=== PATIENT | male | born 1935 | race Caucasian/White ===

== ENCOUNTER 2016-07-04 01:35 | Observation (INO) | payer OTHER ==
--- NOTE | 2016-07-04 01:44 | PDOC ---
History of Present Illness - General History Source: Patient Exam Limitations: No Limitations - History of Present Illness Initial Comments: 07/04/16 02:05 The patient is a 80-year-old male with a significant past medical history of CAD , MS, hypertension, hypercholesterolemia and two stents (compliant with medications), and presents to the emergency department with shortness of breath and chest pain for the past 3 hours. The patient states he was at rest when the shortness of breath started. He reports having had many previous episodes of shortness of breath. He reports right-sided chest pain. He describes the chest pain as stabbing in nature, without radiation. The patient denies headache, dizziness, back pain, neck pain, or palpitations. The patient denies fever, chills, nausea, vomit, diarrhea. Allergies: No known drug allergies Past surgical history: Cardiac surgery (stents) Social History: Former smoker (stopped several years ago) PCP: Dr. Jhonny Burris <Amy Mcclendon - Last Filed: 07/04/16 02:06> - General History Source: Patient <Nikolai Humphrey - Last Filed: 07/04/16 02:53> - General Stated Complaint: SOB Time Seen by Provider: 07/04/16 01:44 Past History <Amy Mcclendon - Last Filed: 07/04/16 02:06> - Past Medical History Cardiac Disorders: Yes (CAD) HTN: Yes Hypercholesterolemia: Yes - Surgical History Cardiac Surgery: Yes (stents) - Psycho/Social/Smoking Cessation Hx Anxiety: No Suicidal Ideation: No Smoking Status: No Smoking History: Never smoked Have you smoked in the past 12 months: No Number of Cigarettes Smoked Daily: 0 Hx Alcohol Use: No Drug/Substance Use Hx: No Substance Use Type: None Hx Substance Use Treatment: No <Nikolai Humphrey - Last Filed: 07/04/16 02:53> - Past Medical History Allergies/Adverse Reactions: Allergies Allergy/AdvReac Type Severity Reaction Status Date / Time No Known Allergies Allergy Verified 07/04/16 02:00 Home Medications: Ambulatory Orders Amlodipine Besylate 5 mg PO BID 02/26/16 Atorvastatin Ca [Lipitor] 40 mg PO HS 02/26/16 Irbesartan 300 mg PO DAILY 02/26/16 Metoprolol Tartrate 50 mg PO DAILY 02/26/16 Review of Systems - Review of Systems Able to Perform ROS?: Yes Comments:: 07/04/16 02:06 CONSTITUTIONAL: Absent: fever, chills, diaphoresis, generalized weakness, malaise, loss of appetite HEENT: Absent: rhinorrhea, nasal congestion, throat pain, throat swelling, difficulty swallowing, mouth swelling, ear pain, eye pain, visual Changes CARDIOVASCULAR: Present: (+) chest pain Absent: syncope, palpitations, irregular heart rate, lightheadedness, peripheral edema RESPIRATORY: Present: (+) shortness of breath Absent: cough, dyspnea with exertion, orthopnea, wheezing, stridor, hemoptysis GASTROINTESTINAL: Absent: abdominal pain, abdominal distension, nausea, vomiting, diarrhea, constipation, melena, hematochezia GENITOURINARY: Absent: dysuria, frequency, urgency, hesitancy, hematuria, flank pain, genital pain MUSCULOSKELETAL: Absent: myalgia, arthralgia, joint swelling SKIN: Absent: rash, itching, pallor HEMATOLOGIC/IMMUNOLOGIC: Absent: easy bleeding, easy bruising, lymphadenopathy, frequent infections ENDOCRINE: Absent: unexplained weight gain, unexplained weight loss, heat intolerance, cold intolerance NEUROLOGIC: Absent: headache, focal weakness or paresthesias, dizziness, unsteady gait, seizure, mental status changes, bladder or bowel incontinence PSYCHIATRIC: Absent: anxiety, depression, suicidal or homicidal ideation, hallucinations. <Amy Mcclendon - Last Filed: 07/04/16 02:06> *Physical Exam - Vital Signs Last Vital Signs Temp Pulse Resp BP Pulse Ox 97.9 F 59 L 18 158/73 99 07/04/16 01:47 07/04/16 01:47 07/04/16 01:47 07/04/16 01:47 07/04/16 01:47 - Physical Exam Comments: 07/04/16 02:06 GENERAL: Well developed, well nourished. Awake and alert. Patient appears to be in moderate distress. HEENT: Normocephalic, atraumatic. PERRLA, EOMI. No conjunctival pallor. Sclera are non- icteric. Moist mucous membranes. Oropharynx is clear. NECK: Supple. Full ROM. No JVD. Carotid pulses 2+ and symmetric, without bruits. No thyromegaly. No lymphadenopathy. CARDIOVASCULAR: Regular rate and rhythm. No murmurs, rubs, or gallops. Distal pulses are 2+ and symmetric. PULMONARY: No evidence of respiratory distress. Lungs clear to auscultation bilaterally. No wheezing, rales or rhonchi. ABDOMINAL: Soft. Non-tender. Non-distended. No rebound or guarding. No organomegaly. Normoactive bowel sounds. MUSCULOSKELETAL Normal range of motion at all joints. No bony deformities or tenderness. No CVA tenderness. EXTREMITIES: No cyanosis. No clubbing. No edema. No calf tenderness. SKIN: (+) Pale in appearance. Warm and dry. Normal capillary refill. No rashes. No jaundice. NEUROLOGICAL: Alert, awake, appropriate. Cranial nerves 2-12 intact. No deficits to light touch and temperature in face, upper extremities and lower extremities. No motor deficits in the in face, upper extremities and lower extremities. Normoreflexic in the upper and lower extremities. Normal speech. Toes are down-going bilaterally. Gait is normal without ataxia. PSYCHIATRIC: Cooperative. Good eye contact. Appropriate mood and affect. <Amy Mcclendon - Last Filed: 07/04/16 02:06> Heart Score/ECG Review - History History: Highly suspicious - Electrocardiogram EKG: Non specific repolarization disturbance - Age Age: >/= 65 - Risk Factors Risk Factors Heart Score: Yes Hx Hypercholesterolemia, Yes Smoking History Based on the list above the patient has:: >/=3 risk factors or Hx atherosclerotic disease - Troponin Troponin: </= normal limit - Score Heart Score - Total: 7 <Nikolai Humphrey - Last Filed: 07/04/16 02:53> ED Treatment Course - LABORATORY CBC & Chemistry Diagram: 07/04/16 02:01 07/04/16 02:01 <Amy Mcclendon - Last Filed: 07/04/16 02:06> - LABORATORY CBC & Chemistry Diagram: 07/04/16 02:01 07/04/16 02:01 <Nikolai Humphrey - Last Filed: 07/04/16 02:53> Medical Decision Making - Medical Decision Making 07/04/16 02:37 Dr. Humphrey: The scribe's documentation has been prepared under my direction and personally reviewed by me in its entirery. I confirm that the note above accurately reflects all work, treatment, procedures, and medical decision making performed by me. <Nikolai Humphrey - Last Filed: 07/04/16 02:53> *DC/Admit/Observation/Transfer - Attestations Scribe Attestion: 07/04/16 02:07 Documentation prepared by Amy Mcclendon, acting as medical center representative for Nikolai Humphrey DO. <Amy Mcclendon - Last Filed: 07/04/16 02:06> - Discharge Dispostion Admit: Yes <Nikolai Humphrey - Last Filed: 07/04/16 02:53> Diagnosis at time of Disposition: Chest pain Qualifiers: Chest pain type: precordial chest pain Qualified Code(s): R07.2 - Precordial pain - Discharge Dispostion Condition at time of disposition: Stable - Referrals Referrals: Jhonny Burris MD [Primary Care Provider] -
[2016-07-04] MEDS ORDERED: ASPIRIN 81 MG CHEWABLE TABLETS PO ONE (01:50)
[2016-07-04] MEDS ORDERED: NITROGLYCERIN 2% OINTMENT - 1GM PACKET TD ONE (01:51)
[2016-07-04] MEDS ORDERED: ASPIRIN 325 MG ENTERIC COATED TABLET (FP) ONE (02:05)
[2016-07-04 02:08] LABS: BASOPHIL 0.8 % (0-2.0); EOSINOPHIL 3.2 % (0-4.5); MCH 28.9 pg (25.7-33.7); MCHC 33.2 g/dl (32.0-35.9); MEAN CELL VOLUME 87.2 fl (80-96); MEAN PLT VOLUME 9.8 fl (7.5-11.1); NEUTROPHILS 51.3 % (42.8-82.8); PLATELET COUNT 126 K/MM3 (134-434); RDW 14.5 % (11.9-15.9); WHITE BLOOD COUNT 8.4 K/mm3 (4.0-10.0)
[2016-07-04 02:11] VITALS: TEMP 97.9; BMI 24.3
[2016-07-04 02:21] LABS: INR 1.17 (0.82-1.09); PROTHROMBIN TIME (PATIENT) 12.9 SEC (9.98-11.88)
[2016-07-04] MEDS ORDERED: morphine CARPU-JECT 2 MG/1 ML DISP.SYRIN IVPUSH ONE (02:26)
[2016-07-04] MEDS ORDERED: ONDANSETRON 4 MG/2 ML VIAL IVPUSH STA (02:26)
[2016-07-04] MEDS ORDERED: ONDANSETRON 4 MG/2 ML VIAL ONE (02:27)
[2016-07-04] MEDS ORDERED: morphine CARPU-JECT 2 MG/1 ML DISP.SYRIN ONE (02:27)
[2016-07-04 02:30] LABS: ALBUMIN 3.7 g/dl (3.4-5.0); ANION GAP 10 (8-16); BILIRUBIN,TOTAL 0.6 mg/dL (0.2-1.0); CALCIUM 8.1 mg/dL (8.5-10.1); CO2 27 mmol/L (21-32); CREATININE 0.8 mg/dL (0.7-1.3); GLUCOSE,RANDOM 91 mg/dL (74-106); SGOT/AST 16 U/L (15-37); SGPT/ALT 24 U/L (12-78); TOT PROT 7.1 g/dl (6.4-8.2)
[2016-07-04 02:32] LABS: ALK PHOS 69 U/L (45-117); TROPONIN I < 0.02 ng/ml (0.00-0.05)
--- NOTE | 2016-07-04 02:58 | HP ---
[id number] HISTORY OF PRESENT ILLNESS: Patient is a 80 year old male with significant past medical history of CAD s/p two stents, AL, HTN, BPH, HLD who presents to the ED with SOB and chest pain for 3 hours tonight. Patient notes that the SOB was what made him present to the ED. He notes that his SOB is worse with exertion and O2 in ED made it better. He reports atypical chest pain was secondary to his SOB it was pinching in nature localized to the right side nonradiating. The patient denies headache, dizziness, back pain, neck pain, or palpitations. The patient denies fever, chills, nausea, vomit, diarrhea. Design Leader - Dr. Frausto ER course was notable for: (1) Troponin negative (2) ECG 1st degree AV block sinus emily Recent Travel: None PAST MEDICAL HISTORY: CAD s/p two stents, AL, HTN, BPH, HLD PAST SURGICAL HISTORY: None Social History: Smoking: former smoker quit 40 years ago Alcohol: no Drugs: no Family History: not contributory Allergies No Known Allergies Allergy (Verified 07/04/16 02:00) HOME MEDICATIONS: Medication Instructions Recorded Amlodipine Besylate 5 mg PO BID 02/26/16 Atorvastatin Ca [Lipitor] 40 mg PO HS 02/26/16 Irbesartan 300 mg PO DAILY 02/26/16 Metoprolol Tartrate 50 mg PO DAILY 02/26/16 REVIEW OF SYSTEMS CONSTITUTIONAL: Absent: fever, chills, diaphoresis, generalized weakness, malaise, loss of appetite, weight change HEENT: Absent: rhinorrhea, nasal congestion, throat pain, throat swelling, difficulty swallowing, mouth swelling, ear pain, eye pain, visual changes CARDIOVASCULAR: Present: chest pain Absent: syncope, palpitations, irregular heart rate, lightheadedness, peripheral edema RESPIRATORY: Present: SOB Absent: cough, dyspnea with exertion, orthopnea, wheezing, stridor, hemoptysis GASTROINTESTINAL: Absent: abdominal pain, abdominal distension, nausea, vomiting, diarrhea, constipation, melena, hematochezia GENITOURINARY: Absent: dysuria, frequency, urgency, hesitancy, hematuria, flank pain, genital pain MUSCULOSKELETAL: Absent: myalgia, arthralgia, joint swelling, back pain, neck pain SKIN: Absent: rash, itching, pallor HEMATOLOGIC/IMMUNOLOGIC: Absent: easy bleeding, easy bruising, lymphadenopathy, frequent infections ENDOCRINE: Absent: unexplained weight gain, unexplained weight loss, heat intolerance, cold intolerance NEUROLOGIC: Absent: headache, focal weakness or paresthesias, dizziness, unsteady gait, seizure, mental status changes, bladder or bowel incontinence PSYCHIATRIC: Absent: anxiety, depression, suicidal or homicidal ideation, hallucinations. PHYSICAL EXAMINATION Vital Signs - 24 hr 07/04/16 07/04/16 01:47 02:54 Temperature 97.9 F Pulse Rate 59 L Pulse Rate [ 54 L Apical] Respiratory 18 9 L Rate Blood Pressure 158/73 Blood Pressure 143/80 [Right Arm] O2 Sat by Pulse 99 98 Oximetry (%) GENERAL: Awake, alert, and fully oriented, in no acute distress. HEAD: Normal with no signs of trauma. EYES: Pupils equal, round and reactive to light, extraocular movements intact, sclera anicteric, conjunctiva clear. No lid lag. EARS, NOSE, THROAT: Ears normal, nares patent, oropharynx clear without exudates. Moist mucous membranes. NECK: Normal range of motion, supple without lymphadenopathy, JVD, or masses. LUNGS: Breath sounds equal, clear to auscultation bilaterally. No wheezes, and no crackles. No accessory muscle use. HEART: Regular rate and rhythm, normal S1 and S2 without murmur, rub or gallop. ABDOMEN: Soft, nontender, not distended, normoactive bowel sounds, no guarding, no rebound, no masses. No hepatomegaly or splenomegaly. MUSCULOSKELETAL: Normal range of motion at all joints. No bony deformities or tenderness. No CVA tenderness. UPPER EXTREMITIES: 2+ pulses, warm, well-perfused. No cyanosis. No clubbing. Cap refill <2 seconds. No peripheral edema. LOWER EXTREMITIES: 2+ pulses, warm, well-perfused. No calf tenderness. No peripheral edema. NEUROLOGICAL: Cranial nerves II-XII intact. Normal speech. Normal gait. PSYCHIATRIC: Cooperative. Good eye contact. Appropriate mood and affect. SKIN: Warm, dry, normal turgor, no rashes or lesions noted. Laboratory Results - last 24 hr 07/04/16 07/04/16 07/04/16 02:01 02:01 02:01 WBC 8.4 RBC 5.01 Hgb 14.5 Hct 43.6 MCV 87.2 MCHC 33.2 RDW 14.5 Plt Count 126 L D MPV 9.8 Neutrophils % 51.3 Lymphocytes % 37.0 Monocytes % 7.7 Eosinophils % 3.2 Basophils % 0.8 INR 1.17 H Sodium 139 Potassium 3.3 L Chloride 102 Carbon Dioxide 27 Anion Gap 10 BUN 17 Creatinine 0.8 Creat Clearance w eGFR > 60 Random Glucose 91 Calcium 8.1 L Magnesium 2.0 Total Bilirubin 0.6 D AST 16 ALT 24 Alkaline Phosphatase 69 Creatine Kinase 84 Troponin I < 0.02 B-Natriuretic Peptide 255.45 Total Protein 7.1 Albumin 3.7 IMAGING: CXR - no acute pathology ASSESSMENT/PLAN: Patient is a 80 year old male with significant medical history CAD s/p stents x2 (20 years ago), BPH, HTN, prior AL, HLD who presents with chest pain and SOB. 1.) Atypical chest pain - O2 2L NC - Continue Aspirin - Beta luis alfredo stopped due to prior episodes of bradycardia - Statin - Nitro/morphine PRN for chest pain - Heart score 5 - Design Leader consult - Echo in the AM - Trend troponin/ECG 2.) SOB - Wells score 0 3.) Hypertension - Amlodipine - Continue ARB 4.) HLD - Continue with Lipitor 5.) Hypokalemia - Replete 6.) CAD - Continue dieter inhibitor 7.) Thrombocytopenia - Mild trend 8.) DVT ppx - Low risk ambulate Place on Obs-Tele. Documentation prepared by Alexa Oates, acting as certified ophthalmic medical technician for Chris Shin D.O. <Chris Shin - Last Filed: 07/04/16 06:54> Visit type - Emergency Visit Emergency Visit: Yes ED Registration Date: 07/04/16 Care time: The patient presented to the Emergency Department on the above date and was hospitalized for further evaluation of their emergent condition. - New Patient This patient is new to me today: Yes Date on this admission: 07/04/16 - Critical Care Critical Care patient: No
--- NOTE | 2016-07-04 09:55 | EKG ---
Test Reason : Blood Pressure : / mmHG Vent. Rate : 056 BPM Atrial Rate : 056 BPM P-R Int : 216 ms QRS Dur : 086 ms QT Int : 472 ms P-R-T Axes : 002 -22 000 degrees QTc Int : 455 ms SINUS BRADYCARDIA WITH 1ST DEGREE A-V BLOCK OTHERWISE NORMAL ECG WHEN COMPARED WITH ECG OF 26-FEB-2016 02:43, NO SIGNIFICANT CHANGE WAS FOUND Confirmed by LAURYN BLANCHARD, CECI ([id number]) on 07/04/2016 9:55:21 AM Referred By: Overread By: CECI COMBS MD
[2016-07-04] MEDS ORDERED: METOPROLOL TARTRATE 50 MG TABLET (FP) PO SCH (10:00)
[2016-07-04] MEDS ORDERED: HEPARIN NA (PORCINE) 5,000 UNITS/ML 1ML VIAL SQ SCH (10:00)
[2016-07-04] MEDS ORDERED: LOSARTAN POTASSIUM 50 MG TABLET (FP) PO SCH (10:00)
[2016-07-04] MEDS ORDERED: amLODIPine BESYLATE 5 MG TABLET (FP) PO SCH ×2 (10:00)
[2016-07-04] MEDS ORDERED: HEPARIN NA (PORCINE) 5,000 UNITS/ML 1ML VIAL ONE (10:12)
[2016-07-04] MEDS ORDERED: amLODIPine BESYLATE 5 MG TABLET (FP) ONE (10:12)
[2016-07-04] MEDS ORDERED: LOSARTAN POTASSIUM 25 MG TABLET ONE (10:12)
[2016-07-04 10:37] LABS: INR 1.18 (0.82-1.09)
[2016-07-04 10:39] LABS: ACTIVATED PTT 29.1 SECONDS (26.9-34.4)
[2016-07-04 10:58] LABS: TROPONIN I < 0.02 ng/ml (0.00-0.05)
--- NOTE | 2016-07-04 12:54 | PN ---
Progress Note (short form) - Note Progress Note: Chief Complaint: Events noted notes reviewed, progressive weakness, increasing dyspnea History of Present Illness: Seen and examined in the ER as a telemetry hold. Full consult dictated Medications: Current Medications Amlodipine Besylate (Norvasc -) 5 mg PO DAILY [facility] Last Admin: 07/04/16 10:14 Dose: 5 mg Atorvastatin Calcium (Lipitor -) 40 mg PO [facility] Heparin Sodium (Porcine) (Heparin -) 5,000 unit SQ Q8H-IV [facility] Last Admin: 07/04/16 10:13 Dose: 5,000 unit Losartan Potassium (Cozaar -) 100 mg PO DAILY [facility] Last Admin: 07/04/16 10:13 Dose: 100 mg Review of Systems - Review of Systems Constitutional: No symptoms reported Respiratory: denies: Cough or Sputum Production Cardiovascular: As noted above Gastrointestinal: denies Nausea, Vomiting, Diarrhea, Constipation or Abdominal Pain Genitourinary: No symptoms reported Musculoskeletal: Degenerative Joint Disease Endocrine: No symptoms reported Vital Signs: Last Vital Signs Temp Pulse Resp BP Pulse Ox 97.9 F 58 L 18 163/80 98 07/04/16 01:47 07/04/16 10:03 07/04/16 10:03 07/04/16 10:03 07/04/16 10:03 Constitutional: No Distress Neck: Supple Negative JVD No Bruit Respiratory: Clear to A&P Bilaterally Cardiovascular: S1 S2 Regular Garde 1/6 SLIM Gastrointestinal: Soft Benign Normal Bowel Sounds Ext: Negative Edema Labs: CBC, BMP 07/04/16 02:01 07/04/16 02:01 Troponin, BNP 07/04/16 07/04/16 02:01 10:10 Troponin I < 0.02 < 0.02 B-Natriuretic Peptide 255.45 INR, PTT INR 1.18 (0.82-1.09) H 07/04/16 10:10 Assessment/Plan ASSESSMENT: 1. Dyspnea clinical presentation is consistent with CAD post PCI/stent, angina pectoris equivalent 2. Chronic diastolic LV dysfunction with class I NYHA classification LV failure , compensated 3. HTN 4. Hypercholesterolemia 5. Thrombocytopenia 6. Hypokalemia PLAN: 1. Resume Toprol XL with caution, considering the above noted bradycardia 2. Add Ranexa +/- Imdur 3. Continue ARBS, Cozaar 4. Continue Norvasc 5. Continue Lipitor 6. Add ASA +/- Plavix with caution considering the above noted Thrombocytopenia 7. K supplementation 8. Echocardiography to evaluate LV function and size 9. Ideally MPI study is recommended for further evaluation, but currently patient is declining the test Phoebe Price M.D.
[2016-07-04] MEDS ORDERED: METOPROLOL SUCCINATE 50 MG TAB.SR.24H (FP) PO SCH (13:00)
[2016-07-04] MEDS ORDERED: RANOLAZINE E.R. 500 MG TABLET (FP) PO SCH (13:00)
[2016-07-04] MEDS ORDERED: ASPIRIN COATED 81 MG TABLET.EC PO SCH (13:00)
--- NOTE | 2016-07-04 14:23 | PN ---
Teaching Attending Note Name of Resident: Nolvia Rodriguez ATTENDING PHYSICIAN STATEMENT I saw and evaluated the patient. I reviewed the resident's note and discussed the case with the resident. I agree with the resident's findings and plan as documented. SUBJECTIVE: seen and evaluated at the bedside OBJECTIVE: currently resting comfortably, laughing and joking ASSESSMENT AND PLAN: 80 year old male with significant past medical history of CAD s/p two stents, IA , HTN, BPH, HLD admitted for SOB/chest pain -trop negative x2 -no ischemia on EKG -agree with cardio consult that given pt's history of stent 20+ years ago would benefit from viability study with nuclear stress test -pt respectfully declining stress test at this time -will contact private medication technician and get his opinion on whether pt should stay for stress or should be discharged for outpatient stress at his office
[2016-07-04] MEDS ORDERED: METOPROLOL SUCCINATE 50 MG TAB.SR.24H (FP) ONE (14:27)
[2016-07-04] MEDS ORDERED: ASPIRIN 81 MG CHEWABLE TABLETS ONE (14:27)
[2016-07-04 14:31] VITALS: BP 142/81; PULSE 60
--- NOTE | 2016-07-04 14:47 | CONS ---
DATE OF CONSULTATION: 07/04/2016 REQUESTING PHYSICIAN: Hospitalist. CHIEF COMPLAINT: Dyspnea, cardiovascular evaluation. HISTORY OF PRESENT ILLNESS: An 80-year-old male of descent with known history of coronary artery disease status post percutaneous coronary intervention stenting, angina pectoris, probable diastolic left ventricular dysfunction, hypertensive cardiovascular disease, hypercholesterolemia, who denied diabetes mellitus, tobacco abuse, or family history of premature coronary artery disease, who presented to [facility] with progressive dyspnea which has been noted over the last several days. Dyspnea is predominantly noted at rest and not exacerbated by physical exertion. Patient denied any orthopnea or paroxysmal nocturnal dyspnea. Patient denied any peripheral edema. Patient, in addition, has been reporting vague retrosternal chest discomfort described as heaviness which is transitory, noted at rest and not exacerbated by physical exertion. Patient denied any palpitations, dizziness, lightheadedness, or syncope. PAST MEDICAL HISTORY: Coronary artery disease status post percutaneous coronary intervention/stenting, angina pectoris, hypertensive cardiovascular disease, hypercholesterolemia. PAST SURGICAL HISTORY: None. SOCIAL HISTORY: Nonsmoker. Social drinker. FAMILY HISTORY: No history of premature coronary artery disease. ALLERGIES: None reported. MEDICAL THERAPY AT HOME: Included amlodipine 5 mg twice a day, Avapro 300 mg once a day, Lipitor 40 mg once a day, Toprol-XL 50 mg once a day. REVIEW OF SYSTEMS: Head and Neck: Denies headache, photophobia, blurring of vision. Respiratory: No cough or sputum production. Cardiovascular: As noted above. Gastrointestinal: Denies nausea, vomiting, diarrhea, abdominal discomfort. Genitourinary: No symptoms reported. Musculoskeletal: No symptoms reported. PHYSICAL EXAMINATION: Vital Signs: Blood pressure is 163/80 mmHg, pulse rate is 58 beats per minute. Head and Neck: Pupils equal and reactive to light and accommodation. Extraocular muscles are intact. Anicteric sclerae. Negative JVD. No bruit appreciated. Chest: Clear to auscultation and percussion. Cardiovascular: S1 and S2 regular. No murmur, clicks, or gallops. Abdomen: Soft, benign. Normoactive bowel sounds. Extremities: Negative edema. Intact distal pulses. No calf tenderness. Electrocardiogram revealed sinus bradycardia with nonspecific T-wave abnormality. CBC revealed white cell count of 8.4, hemoglobin 14.5, platelet count 126. Basic metabolic profile revealed sodium 139, potassium 3.3, BUN 17, creatinine 0.8, glucose 91. CPK/troponin less than 0.02. BNP 255. INR 1.18. ASSESSMENT: 1. Dyspnea. Clinical presentation consistent with coronary artery disease post percutaneous coronary intervention and stenting, angina pectoris equivalent. 2. Probable chronic diastolic left ventricular dysfunction with class I [employer] classification, left ventricular failure, compensated. 3. Hypertensive cardiovascular disease. 4. Hypercholesterolemia. 5. Thrombocytopenia. 6. Hypokalemia. PLAN: 1. Resumption of Toprol-XL therapy with caution considering the above-noted bradycardia. 2. Addition of Ranexa therapy plus/minus nitrates. 3. Continuation of angiotensin receptor block therapy. 4. Continuation of Norvasc therapy. 5. Continuation of Lipitor therapy. 6. Addition of aspirin plus/minus Plavix with caution considering the above-noted thrombocytopenia. 7. Potassium supplementation. 8. Echocardiography for evaluation of left ventricular size and function. 9. Ideally, myocardial perfusion imaging study is recommended for further evaluation, but patient currently is declining the test. Discussed in detail with the patient and his . Thanks for the kind referral. POLLY PABLO M.D. [id number]
[2016-07-04] MEDS ORDERED: POTASSIUM CHLORIDE 40 MEQ/30 ML UNIT DOSE CUP PO STA (15:43)
[2016-07-04] MEDS ORDERED: POTASSIUM CHLORIDE TABS 20 MEQ TABLET.ER (FP) PO ONE ×2 (15:55→16:04)
--- NOTE | 2016-07-04 16:01 | DS ---
Physical Exam: SUBJECTIVE: Patient seen and examined at bed side. patient sitting confrotably reports breathing improved with oxygen. patient reports he is a very anxious person and had the right sided chest pain that felt like a pinch for two seconds and resolved. he reports Sob associated with the pain. currently patietn is symptoms free. denies sob, cp, chest pressure, palpitations, fevers, chills, n/v/d. no other complaints OBJECTIVE: Vital Signs Period Temp Pulse Resp BP Sys/[place] Pulse Ox Last 24 Hr 52-60 12-18 135-163/80-88 97-98 PHYSICAL EXAM GENERAL: The patient is awake, alert, and fully oriented, in no acute distress. HEAD: Normal with no signs of trauma. EYES: PERRL, extraocular movements intact, sclera anicteric, conjunctiva clear. ENT: Ears normal, nares patent, oropharynx clear without exudates, moist mucous membranes. NECK: Trachea midline, full range of motion, supple. LUNGS: Breath sounds equal, clear to auscultation bilaterally, no wheezes, no crackles, no accessory muscle use. HEART: Regular rate and rhythm, S1, S2 without murmur, rub or gallop. no reproducible pain. ABDOMEN: Soft, nontender, nondistended, normoactive bowel sounds, no guarding, no rebound, no hepatosplenomegaly, no masses. EXTREMITIES: 2+ pulses, warm, well-perfused, no edema. NEUROLOGICAL: Cranial nerves II through XII grossly intact. Normal speech, gait not observed. PSYCH: Normal mood, normal affect. SKIN: Warm, dry, normal turgor, no rashes or lesions noted. LABS Laboratory Results - last 24 hr 07/04/16 07/04/16 07/04/16 10:10 10:10 10:10 INR 1.18 H PTT (Actin FS) 29.1 Magnesium 2.1 Creatine Kinase 71 Troponin I < 0.02 Echocardiography to evaluate LV function and size HOSPITAL COURSE: Date of Admission:07/04/16 Date of Discharge: 07/04/16 Patient is a 80 year old male with significant past medical history of CAD s/p two stents, [place], HTN, BPH, HLD who presents to the ED with SOB and chest pain for 3 hours tonight. Patient notes that the SOB was what made him present to the ED. He notes that his SOB is worse with exertion and O2 in ED made it better. He reports atypical chest pain was secondary to his SOB it was pinching in nature localized to the right side nonradiating. The patient denies headache, dizziness, back pain, neck pain, or palpitations. The patient denies fever, chills, nausea, vomit, diarrhea. personal Leather Tooler - Dr. Knox. Found to have Dyspnea clinical presentation is consistent with CAD post PCI/stent, angina pectoris equivalent, Chronic diastolic LV dysfunction with class I NYHA classification LV failure, compensated, HTN, Hypercholesterolemia, Thrombocytopenia, Hypokalemia (1) Troponin negative x2, (2) ECG 1st degree AV block sinus emily. Resumed Toprol XL with caution, considering the above noted bradycardia,Ranexa , ARBS, Cozaar , ASA,K supplementation,Norvasc , Lipitor cardio consult that given pt's history of stent 20+ years ago would benefit from viability study with nuclear stress test. Ideally MPI study is recommended for further evaluation, but currently patient is declining the test.discussed his case with his pet adoption counselor Dr. Knox, he agreed with patient to do stress test in [facility] near future as out patient if patient refused stress test now. I wrote a script for patient for a stress test and contacted the scheduling office to perform a stress test at [facility]. the [facility] office will contact loidaetn tomorrow with an oppointment. I also instructed patient to call the office to make an obtainment as well. i instructed the patient to fax [facility] results to Dr. Knox's office to follow up with him. I also wrote on the script to forward report to Dr. knox's office. patient D/c home clinically stable no current chest pain, pressure, n/v/d/c, fevers, chills, he felt like his base line stat of health. Minutes to complete discharge: 45 Discharge Summary Reason For Visit: CHEST PAIN Condition: Stable - Instructions Diet, Activity, Other Instructions: You are being discharged home. Please call and follow up with your primary care provider in 48 hrs to assess your health. Please call and follow up with your Leather Tooler DR. Knox in 48 hrs. Please take over the counter Aspirin 81mg by daily. Resume Toprol XL with caution, considering the low heart rate, Stop taking it if your Heart rate is lower than 50 beats per minute. Take your new medication Ranexa as prescribed. I gave you a prescription for a stress test please call and make an appointment. Please take your stress results to Dr. Knox at his office. Please reports to the ER or the nearest ER if you have any persistent and worsening symptoms, chest pain, palpitation, fevers, chills, night sweats, Nausea, Vomiting, severe headache dizziness or loss of consciousness. Referrals: Jhonny Burris MD [Primary Care Provider] - 1 Week Jd Knox MD [Non Staff, Medical] - 07/06/16 Disposition: HOME - Home Medications Comprehensive Discharge Medication List: Ambulatory Orders Atorvastatin Ca [Lipitor] 40 mg PO HS 02/26/16 Irbesartan 300 mg PO DAILY 02/26/16 Metoprolol Tartrate 50 mg PO DAILY 02/26/16 Aspirin Coated [Ecotrin -] 81 mg PO DAILY #0 tablet.ec 07/04/16 Persantine Nuclear 1 each NR ASDIR #1 07/04/16 Ranolazine [Ranexa -] 500 mg PO BID #60 tab 07/04/16 This patient is new to me today: Yes Date on this admission: 07/04/16 Emergency Visit: Yes ED Registration Date: 07/04/16 Care time: The patient presented to the Emergency Department on the above date and was hospitalized for further evaluation of their emergent condition. Critical Care patient: No - Discharge Referral Referred to [facility] Med P.C.: No
[2016-07-04] MEDS ORDERED: POTASSIUM CHLORIDE TABS 10 MEQ TABLET.ER (FP) ONE (16:06)
[2016-07-04] MEDS ORDERED: ATORVASTATIN CA 40 MG TABLET (FP) PO SCH (22:00)
== END 2016-07-04 16:00 | disposition home or self-care (01) ==
LOC: JER 01:35 → JERBED 03:27
PROVIDERS: ADMIT Internal Medicine; ATTEND Internal Medicine
DX: R07.89 Other chest pain (principal); I25.119 Atherosclerotic heart disease of native coronary artery with unspecified angina pectoris; Z98.61 Coronary angioplasty status; I10 Essential (primary) hypertension; D69.6 Thrombocytopenia, unspecified; E87.6 Hypokalemia; E78.5 Hyperlipidemia, unspecified; N40.0 Benign prostatic hyperplasia without lower urinary tract symptoms; I25.2 Old myocardial infarction; R06.02 Shortness of breath
CPT/HCPCS: 36415; 71010-TC; 80053; 82550; 83735; 83880; 84484; 85025; 85610; 85730; 93005; 93010; 93306-TC; 99285-25; G0378; J1644

== ENCOUNTER 2016-07-12 23:45 | Emergency (ER) | payer OTHER ==
[2016-07-13 00:20] VITALS: BP 166/73; PULSE 52; BMI 28.0
--- NOTE | 2016-07-13 00:22 | PDOC ---
History of Present Illness - General History Source: Patient Exam Limitations: No Limitations <Rehana Mukherjee - Last Filed: 07/13/16 01:08> - General History Source: Patient <Nikolai Humphrey - Last Filed: 07/13/16 01:29> - General Chief Complaint: Chest Pain Stated Complaint: CHEST PAIN Time Seen by Provider: 07/13/16 00:18 - History of Present Illness Initial Comments: 07/13/16 00:44 The patient is a 80 year old male with significant past medical history of CAD, s/p stents x2, [place], hypertension, hyperlipidemia, and BPH who presents to the ED with midsternal chest that began earlier today. Patient was seen in the ER about 1 week ago for similar complaint, where he was treated and discharge. Patient states about noon yesterday he had a nuclear stress test to r/o any cardiac events. During the stress test, he was fine and was able to complete the test with no difficulties. However, after going home, he developed developed midsternal chest pain radiating to left side of jaw with associated SOB and dizziness. At time of evaluation, he denies chest pain, SOB, and dizziness. Patient also denies diaphoresis, shoulder pain, arm pain, nausea, and vomiting. The patient denies fever, chills, cough, abdominal pain, and diarrhea. Allergies: NKDA Social History: former smoker quit 40 years ago Past Surgical History: s/p cardiac stents x2 PCP: Dr. Jhonny Burris ([facility]) Past History <Rehana Mukherjee - Last Filed: 07/13/16 01:08> - Past Medical History Cardiac Disorders: Yes (CAD) HTN: Yes Hypercholesterolemia: Yes - Surgical History Cardiac Surgery: Yes (stents) - Psycho/Social/Smoking Cessation Hx Anxiety: No Suicidal Ideation: No Smoking Status: No Smoking History: Never smoked Have you smoked in the past 12 months: No Number of Cigarettes Smoked Daily: 0 Information on smoking cessation initiated: No Hx Alcohol Use: No Drug/Substance Use Hx: No Substance Use Type: None Hx Substance Use Treatment: No <Nikolai Humphrey - Last Filed: 07/13/16 01:29> - Past Medical History Allergies/Adverse Reactions: Allergies Allergy/AdvReac Type Severity Reaction Status Date / Time No Known Allergies Allergy Verified 07/04/16 02:00 Home Medications: Ambulatory Orders Atorvastatin Ca [Lipitor] 40 mg PO HS 02/26/16 Irbesartan 300 mg PO DAILY 02/26/16 Metoprolol Tartrate 50 mg PO DAILY 02/26/16 Aspirin Coated [Ecotrin -] 81 mg PO DAILY #0 tablet.ec 07/04/16 Persantine Nuclear 1 each NR ASDIR #1 07/04/16 Ranolazine [Ranexa -] 500 mg PO BID #60 tab 07/04/16 Review of Systems - Review of Systems Able to Perform ROS?: Yes <Rehana Mukherjee - Last Filed: 07/13/16 01:08> <Nikolai Humphrey - Last Filed: 07/13/16 01:29> - Review of Systems Comments:: 07/13/16 00:44 CONSTITUTIONAL: Absent: fever, chills, diaphoresis, generalized weakness, malaise, loss of appetite HEENT: Absent: rhinorrhea, nasal congestion, throat pain, throat swelling, difficulty swallowing, mouth swelling, ear pain, eye pain, visual Changes CARDIOVASCULAR: +midsternal chest pain radiating to left side of jaw Absent: syncope, palpitations, irregular heart rate, lightheadedness, peripheral edema RESPIRATORY: +SOB Absent: cough, dyspnea with exertion, orthopnea, wheezing, stridor, hemoptysis GASTROINTESTINAL: Absent: abdominal pain, abdominal distension, nausea, vomiting, diarrhea, constipation, melena, hematochezia GENITOURINARY: Absent: dysuria, frequency, urgency, hesitancy, hematuria, flank pain, genital pain MUSCULOSKELETAL: Absent: myalgia, arthralgia, joint swelling SKIN: Absent: rash, itching, pallor NEUROLOGIC: +dizziness Absent: headache, focal weakness or paresthesias, unsteady gait, seizure, mental status changes, bladder or bowel incontinence PSYCHIATRIC: Absent: anxiety, depression, suicidal or homicidal ideation, hallucinations. (Rehana Mukherjee) *Physical Exam <Rehana Mukherjee - Last Filed: 07/13/16 01:08> <Nikolai Humphrey - Last Filed: 07/13/16 01:29> - Vital Signs Last Vital Signs Temp Pulse Resp BP Pulse Ox 52 L 21 166/73 98 07/12/16 23:57 07/12/16 23:57 07/12/16 23:57 07/12/16 23:57 - Physical Exam Comments: 07/13/16 00:44 GENERAL: Well developed, well nourished. Awake and alert. No acute distress. HEENT: Normocephalic, atraumatic. PERRLA, EOMI. No conjunctival pallor. Sclera are non- icteric. Moist mucous membranes. Oropharynx is clear. NECK: Supple. Full ROM. No JVD. Carotid pulses 2+ and symmetric, without bruits. No thyromegaly. No lymphadenopathy. CARDIOVASCULAR: Regular rate and rhythm. No murmurs, rubs, or gallops. Distal pulses are 2+ and symmetric. PULMONARY: No evidence of respiratory distress. Lungs clear to auscultation bilaterally. No wheezing, rales or rhonchi. ABDOMINAL: Soft. Non-tender. Non-distended. No rebound or guarding. No organomegaly. Normoactive bowel sounds. MUSCULOSKELETAL Normal range of motion at all joints. No bony deformities or tenderness. No CVA tenderness. EXTREMITIES: No cyanosis. No clubbing. No edema. No calf tenderness. SKIN: Warm and dry. Normal capillary refill. No rashes. No jaundice. NEUROLOGICAL: Alert, awake, appropriate. Cranial nerves 2-12 intact. Moving all extremities. No focal neurological deficits. PSYCHIATRIC: Cooperative. Good eye contact. Appropriate mood and affect. (Rehana Mukherjee) Heart Score/ECG Review <Rehana Mukherjee - Last Filed: 07/13/16 01:08> <Nikolai Humphrey - Last Filed: 07/13/16 01:29> - ECG Impressions Comment:: 07/13/16 01:08 Sinus bradycardia with 1st degree AV block @52bpm Septal infarct, age undetermined Abnormal ECG (Rehana Mukherjee) ED Treatment Course - LABORATORY CBC & Chemistry Diagram: 07/13/16 00:30 07/13/16 00:30 <Rehana Mukherjee - Last Filed: 07/13/16 01:08> - LABORATORY CBC & Chemistry Diagram: 07/13/16 00:30 07/13/16 00:30 <Nikolai Humphrey - Last Filed: 07/13/16 01:29> - ADDITIONAL ORDERS Additional order review: Laboratory Results 07/13/16 00:30 Sodium 140 Potassium 3.4 L Chloride 101 Carbon Dioxide 30 Anion Gap 9 BUN 12 D Creatinine 0.8 Creat Clearance w eGFR > 60 Random Glucose 85 Calcium 8.1 L Magnesium 2.0 Total Bilirubin 0.6 AST 20 D ALT 24 Alkaline Phosphatase 70 Creatine Kinase 100 Troponin I < 0.02 Total Protein 6.6 Albumin 3.6 07/13/16 00:30 RBC 4.78 MCV 87.6 MCHC 32.5 RDW 14.4 MPV 10.3 Neutrophils % 44.1 Lymphocytes % 44.6 H D Monocytes % 8.2 Eosinophils % 2.5 Basophils % 0.6 - RADIOLOGY Radiology Studies Ordered: Category Date Time Status CHEST X-RAY PORTABLE* [RAD] Stat Radiology 07/13/16 00:25 Ordered - Medications Given in the ED: ED Medications Discontinued Medications Generic Name Dose Route Start Last Admin Trade Name Freq PRN Reason Stop Dose Admin Aspirin 162 mg 07/13/16 00:23 07/13/16 00:33 Asa - PO 07/13/16 00:24 162 mg ONCE ONE Administration Medical Decision Making <Rehana Mukherjee - Last Filed: 07/13/16 01:08> <Nikolai Humphrey - Last Filed: 07/13/16 01:29> - Medical Decision Making 07/13/16 01:28 Dr. Humphrey: The scribe's documentation has been prepared under my direction and personally reviewed by me in its entirery. I confirm that the note above accurately reflects all work, treatment, procedures, and medical decision making performed by me. (Nikolai Humphrey) *DC/Admit/Observation/Transfer <Rehana Mukherjee - Last Filed: 07/13/16 01:08> - Discharge Dispostion Admit: No <Nikolai Humphrey - Last Filed: 07/13/16 01:29> Diagnosis at time of Disposition: Chest pain Qualifiers: Chest pain type: other chest pain Qualified Code(s): R07.89 - Other chest pain ; R07.8 - Other chest pain - Discharge Dispostion Disposition: HOME Condition at time of disposition: Stable - Referrals Referrals: Jhonny Burris MD [Primary Care Provider] - - Patient Instructions Printed Discharge Instructions: DI for Chest Pain - Attestations Scribe Attestion: 07/13/16 00:44 Documentation prepared by Rehana Mukherjee, acting as ophthalmic medical technician for Nikolai Humphrey MD (Rehana Mukherjee)
[2016-07-13] MEDS ORDERED: ASPIRIN 81 MG CHEWABLE TABLETS PO ONE (00:23)
[2016-07-13] MEDS ORDERED: ASPIRIN 81 MG CHEWABLE TABLETS ONE (00:32)
[2016-07-13 00:51] LABS: BASOPHIL 0.6 % (0-2.0); EOSINOPHIL 2.5 % (0-4.5); MCH 28.5 pg (25.7-33.7); MCHC 32.5 g/dl (32.0-35.9); MEAN CELL VOLUME 87.6 fl (80-96); MEAN PLT VOLUME 10.3 fl (7.5-11.1); NEUTROPHILS 44.1 % (42.8-82.8); PLATELET COUNT 116 K/MM3 (134-434); RDW 14.4 % (11.9-15.9); WHITE BLOOD COUNT 7.6 K/mm3 (4.0-10.0)
[2016-07-13 00:58] LABS: INR 1.24 (0.82-1.09); PROTHROMBIN TIME (PATIENT) 13.7 SEC (9.98-11.88)
[2016-07-13 01:10] LABS: ALBUMIN 3.6 g/dl (3.4-5.0); ANION GAP 9 (8-16); BILIRUBIN,TOTAL 0.6 mg/dL (0.2-1.0); CALCIUM 8.1 mg/dL (8.5-10.1); CO2 30 mmol/L (21-32); CREATININE 0.8 mg/dL (0.7-1.3); GLUCOSE,RANDOM 85 mg/dL (74-106); SGOT/AST 20 U/L (15-37); SGPT/ALT 24 U/L (12-78); TOT PROT 6.6 g/dl (6.4-8.2)
[2016-07-13 01:12] LABS: ALK PHOS 70 U/L (45-117); TROPONIN I < 0.02 ng/ml (0.00-0.05)
--- NOTE | 2016-07-13 11:09 | EKG ---
Test Reason : Blood Pressure : / mmHG Vent. Rate : 052 BPM Atrial Rate : 052 BPM P-R Int : 224 ms QRS Dur : 086 ms QT Int : 496 ms P-R-T Axes : 067 -01 015 degrees QTc Int : 461 ms SINUS BRADYCARDIA WITH 1ST DEGREE A-V BLOCK ABNORMAL ECG Confirmed by BRIANDA CAAL MD ([id number]) on 07/13/2016 11:09:21 AM Referred By: Confirmed By:BRIANDA CAAL MD
== END 2016-07-13 02:13 | disposition home or self-care (01) ==
LOC: JER 23:45
DX: R07.89 Other chest pain (principal); I25.10 Atherosclerotic heart disease of native coronary artery without angina pectoris; I10 Essential (primary) hypertension; Z95.5 Presence of coronary angioplasty implant and graft; I25.2 Old myocardial infarction; E78.00 Pure hypercholesterolemia, unspecified; N40.0 Benign prostatic hyperplasia without lower urinary tract symptoms
CPT/HCPCS: 36415; 80053; 82550; 83735; 84484; 85025; 85610; 93005; 93010; 99285-25

== ENCOUNTER 2017-08-04 20:57 | Emergency (ER) | payer OTHER ==
[2017-08-04 21:29] VITALS: BMI 29.0
[2017-08-04] MEDS ORDERED: ACETAMINOPHEN 500 MG TABLET (FP) PO ONE (21:51)
[2017-08-04] MEDS ORDERED: LIDOCAINE HCL 2% JELLY (5 ML/TUBE) ONE (21:56)
[2017-08-04] MEDS ORDERED: ACETAMINOPHEN 325 MG TABLET (FP) ONE (21:56)
--- NOTE | 2017-08-04 22:17 | PDOC ---
History of Present Illness - General Chief Complaint: Respiratory Stated Complaint: COUGH Time Seen by Provider: 08/04/17 21:47 - History of Present Illness Initial Comments: 08/04/17 22:14 81 y.o. male with a PMH of NH (s/p stent x2), HTN, HLD, BPH and Bladder CA (s/p resection 05/2017 with 6 weeks of chemotherapy) who presents with a 2 week h/o productive cough with subjective fever and no dyspnea. Patient states his cough has been progressively worsening and is not related to exertion or eating and he has tried OTC medications with no relief. Patient is tolerating PO intake, however notes limited appetite. Patient was feeling weak, intermittently short of breath with a temperature of 101.4 today prompting his visit to the ED. Patient denies any chest pain, nausea/vomiting, constipation/diarrhea. NKDA PMD: Dr. Burris Past History - Past Medical History Allergies/Adverse Reactions: Allergies Allergy/AdvReac Type Severity Reaction Status Date / Time No Known Allergies Allergy Verified 08/04/17 21:29 Home Medications: Ambulatory Orders Amlodipine Besylate 5 mg PO BID 08/04/17 Atorvastatin Ca [Lipitor] 80 mg PO HS 08/04/17 Irbesartan 300 mg PO DAILY 08/04/17 Metoprolol Tartrate 50 mg PO DAILY 08/04/17 Tamsulosin HCl [Flomax] 0.4 mg PO HS 08/04/17 Cardiac Disorders: Yes (CAD) COPD: No HTN: Yes Hypercholesterolemia: Yes - Surgical History Cardiac Surgery: Yes (stents) - Immunization History Immunization Up to Date: Yes - Suicide/Smoking/Psychosocial Hx Smoking Status: No Smoking History: Former smoker Have you smoked in the past 12 months: No Number of Cigarettes Smoked Daily: 0 Information on smoking cessation initiated: No Hx Alcohol Use: No Drug/Substance Use Hx: No Substance Use Type: None Hx Substance Use Treatment: No Review of Systems - Review of Systems Constitutional: Yes: Fever. No: Chills Respiratory: No: Shortness of Breath, Stridor, Wheezing, Hemoptysis Cardiac (ROS): No: Chest Pain, Lightheadedness ABD/GI: No: Constipated, Diarrhea, Nausea, Vomiting *Physical Exam - Vital Signs Last Vital Signs Temp Pulse Resp BP Pulse Ox 101.3 F H 69 153/82 99 08/04/17 21:27 08/04/17 21:27 08/04/17 21:27 08/04/17 21:27 - Physical Exam General Appearance: Yes: Nourished, Appropriately Dressed HEENT: positive: EOMI, ELLIOT Neck: positive: Trachea midline, Supple Respiratory/Chest: positive: Lungs Clear, Normal Breath Sounds Cardiovascular: positive: S1, S2. negative: Edema, JVD Gastrointestinal/Abdominal: positive: Flat, Soft. negative: Distended, Guarding , Tenderness, Hernia, Mass Extremity: positive: Normal Capillary Refill, Normal Inspection Integumentary: positive: Normal Color, Dry, Warm Neurologic: positive: Fully Oriented, Alert ED Treatment Course - LABORATORY CBC & Chemistry Diagram: 08/04/17 23:05 08/04/17 23:46 - RADIOLOGY Radiology Studies Ordered: Category Date Time Status CHEST PA & LAT [RAD] Stat Radiology 08/04/17 22:13 Ordered - Medications Given in the ED: ED Medications Discontinued Medications Generic Name Dose Route Start Last Admin Trade Name Freq PRN Reason Stop Dose Admin Acetaminophen 975 mg 08/04/17 21:51 08/04/17 22:05 Tylenol - PO 08/04/17 21:52 975 mg ONCE ONE Administration Medical Decision Making - Medical Decision Making 08/04/17 22:28 81 y.o. male presents with productive cough. Febrile @ 101, breathing comfortably on RA. Clinical suspicion for pneumonia vs. bronchitis. Less likely ACS however patient has h/o NH, will obtain Troponin, EKG as well as CXR , BNP. Low clinical suspicion for PE as patient is not c/o chest pain, non- tachycardic, non-tachypneic. Reasess 08/04/17 22:30 Chest XR negative for infiltrate/consolidation. Troponin (-) x1. Patient continues to cough, however afebrile with SpO2 98% on RA. Symptoms likely 2/2 to bronchitis. Will discharge patient home with return precautions, supportive care and instruction to f/u with PCP within 48 hours. At time of discharge patient ambulatory, improved and affirmed understanding of his follow-up care. *DC/Admit/Observation/Transfer Diagnosis at time of Disposition: Cough - Discharge Dispostion Disposition: HOME Condition at time of disposition: Good Admit: No - Referrals Referrals: Jhonny Burris MD [Primary Care Provider] - - Patient Instructions Printed Discharge Instructions: DI for Cough -- Adult Additional Instructions: You were evaluated today for persistent cough. Your labs and your chest x-ray showed no concerning findings. Drink fluids and practice good hand washing. Follow-up with your primary doctor in 2 days. Use a humidifier to help with the cough. Return to emergency department if you have any new, worsening or concerning symptoms. - Post Discharge Activity
--- NOTE | 2017-08-04 22:43 | PDOC ---
Attending Attestation - HPI HPI: 08/04/17 22:45 The patient is a 81 year old male with a significant past medical history of bladder CA s/p resection 05/2017 and 6 weeks of intravesicular chemo, CAD s/p stents x 2, HTN, HLD, and BPH who presents to the ED with complaints of cough for over 2 weeks. The patient reports he developed a cough on 07/18/17. He states his cough is progressively worsening the past several days and is now productive of phlegm. He also reports an increase of shortness of breath in the past several days. Patient states he developed a fever of 101.4 F earlier today with associated generalized weakness which prompted hm to come to the ED . Denies chest pain. Denies nausea, vomiting, or diarrhea. Denies any other symptoms. - Physicial Exam PE: 08/04/17 22:45 GENERAL: Awake, alert, and fully oriented, in no acute distress HEAD: No signs of trauma EYES: PERRLA, EOMI, sclera anicteric, conjunctiva clear ENT: Auricles normal inspection, hearing grossly normal, nares patent, oropharynx clear without exudates. Moist mucosa NECK: Normal ROM, supple, no lymphadenopathy, JVD, or masses LUNGS: + mild crackles at the left base. No wheezes, HEART: Regular rate and rhythm, normal S1 and S2, no murmurs, rubs or gallops ABDOMEN: Soft, nontender, normoactive bowel sounds. No guarding, no rebound. No masses EXTREMITIES: Normal range of motion, no edema. No clubbing or cyanosis. No cords, erythema, or tenderness BACK: No midline spinal tenderness in cervical/thoracic/lumbar region NEUROLOGICAL: Normal speech, cranial nerves intact, negative pronator drift, 5/ 5 strength in all 4 extremities, normal sensation to light touch in all 4 extremities, normal cerebellar exam, normal gait, normal reflexes and tone SKIN: Warm, Dry, normal turgor, no rashes or lesions noted. <Breezy Oleary - Last Filed: 08/04/17 22:45> - Resident Resident Name: Stacy Cummins - ED Attending Attestation I have performed the following: I have examined & evaluated the patient, The case was reviewed & discussed with the resident, I agree w/resident's findings & plan, Exceptions are as noted - Medical Decision Making 08/04/17 22:56 81-year-old male with a history of bladder cancer status post resection, CAD status post stents presents to the emergency department with 2 weeks of cough and 3 days of shortness of breath, and developed a fever today. Vitals are unremarkable for fever to 101.3. On exam the patient has mildly decreased breath sounds on the left with mild crackles. Differential includes but is not limited to pneumonia versus bronchitis. Given the history of coronary artery disease we'll obtain a troponin although unlikely to be cardiac in nature given fever and cough. PE is also a thought as the patient has a history of malignancy although in the presence of a fever/cough it's more likely to be due to pneumonia or bronchitis. 08/05/17 00:59 Labs unremarkable. Chest x-ray is clear. Patient's vitals remained stable, O2 sat 98% on room air. Likely bronchitis versus viral syndrome. All results discussed with patient and his . They request discharge. They will see their primary care doctor on Sunday. I discussed the physical exam findings, ancillary test results and final diagnoses with the patient. I answered all of the patient's questions. The patient was satisfied with the care received and felt comfortable with the discharge plan and treatment plan. The patient will call their primary care physician within 24 hours to arrange follow-up and will return to the Emergency Department with any new, persistent or worsening symptoms. <Freeman Diego - Last Filed: 08/05/17 01:03>
[2017-08-04 23:15] LABS: BASO % 0.7 % (0-2.0); EOS % 0.3 % (0-4.5); HEMATOCRIT 41.4 % (35.4-49); LYMPH % 19.4 % (8-40); MCH 29.2 pg (25.7-33.7); MCHC 33.7 g/dl (32.0-35.9); MEAN CELL VOLUME 86.7 fl (80-96); MEAN PLT VOLUME 10.3 fl (7.5-11.1); MONO % 12.6 % (3.8-10.2); PLATELET COUNT 107 K/MM3 (134-434); RBC 4.78 M/mm3 (4.00-5.60); RDW 14.7 % (11.9-15.9); WHITE BLOOD COUNT 6.7 K/mm3 (4.0-10.0)
[2017-08-05 00:37] LABS: ALBUMIN 3.4 g/dl (3.4-5.0); ANION GAP 10 (8-16); BILIRUBIN,TOTAL 0.7 mg/dL (0.2-1.0); BLOOD UREA NITROGEN 23 mg/dL (7-18); CALCIUM 7.6 mg/dL (8.5-10.1); CHLORIDE 100 mmol/L (98-107); CO2 28 mmol/L (21-32); CREATININE 1.1 mg/dL (0.7-1.3); GLUCOSE,RANDOM 107 mg/dL (74-106); POTASSIUM 3.5 mmol/L (3.5-5.1); SGOT/AST 22 U/L (15-37); SGPT/ALT 30 U/L (12-78); SODIUM 138 mmol/L (136-145); TOT PROT 7.6 g/dl (6.4-8.2)
[2017-08-05 00:40] LABS: ALK PHOS 85 U/L (45-117)
[2017-08-05 01:13] VITALS: BP 135/70; PULSE 80; TEMP 99.2
--- NOTE | 2017-08-05 12:25 | EKG ---
Test Reason : Blood Pressure : / mmHG Vent. Rate : 062 BPM Atrial Rate : 062 BPM P-R Int : 186 ms QRS Dur : 084 ms QT Int : 472 ms P-R-T Axes : -20 -13 006 degrees QTc Int : 479 ms NORMAL SINUS RHYTHM NORMAL ECG WHEN COMPARED WITH ECG OF 12-JUL-2016 23:57, NM INTERVAL HAS DECREASED CLINICAL CORRELATION IS RECOMMENDED Confirmed by SAMY BLANCHARD, POLLY ([id number]) on 08/05/2017 12:25:24 PM Referred By: Confirmed By:POLLY PABLO MD
== END 2017-08-05 01:13 | disposition home or self-care (01) ==
LOC: JER 20:57
DX: J40 Bronchitis, not specified as acute or chronic (principal); I25.10 Atherosclerotic heart disease of native coronary artery without angina pectoris; I10 Essential (primary) hypertension; Z95.5 Presence of coronary angioplasty implant and graft; I25.2 Old myocardial infarction; E78.00 Pure hypercholesterolemia, unspecified; Z85.51 Personal history of malignant neoplasm of bladder; N40.0 Benign prostatic hyperplasia without lower urinary tract symptoms
CPT/HCPCS: 36415; 71046-TC-FY; 80053; 84484; 85025; 87070; 87430; 87804; 93005; 93010; 99282-25

== ENCOUNTER 2018-02-26 08:34 | Observation (INO) | payer OTHER ==
--- NOTE | 2018-02-26 08:58 | PDOC ---
Attending Attestation - Resident Resident Name: Alyx Ahmadi - ED Attending Attestation I have performed the following: I have examined & evaluated the patient, The case was reviewed & discussed with the resident, I agree w/resident's findings & plan, Exceptions are as noted - HPI HPI: 82 yo M history CAD presents with few episodes of chest pain for the last 3-4 days. He states that he had another episode shortly before arrival in ED, noted that he became diaphoretic to the point that he had to change his shirt. No N/V , SOB, leg swelling. - Physicial Exam PE: GENERAL: Awake, alert, and fully oriented, in no acute distress HEAD: No signs of trauma EYES: PERRLA, EOMI, sclera anicteric, conjunctiva clear ENT: Auricles normal inspection, hearing grossly normal, nares patent, oropharynx clear without exudates. Moist mucosa NECK: Normal ROM, supple, no lymphadenopathy, JVD, or masses LUNGS: Breath sounds equal, clear to auscultation bilaterally. No wheezes, and no crackles HEART: Regular rate and rhythm, normal S1 and S2, no murmurs, rubs or gallops ABDOMEN: Soft, nontender, normoactive bowel sounds. No guarding, no rebound. No masses EXTREMITIES: Normal range of motion, no edema. No clubbing or cyanosis. No cords, erythema, or tenderness NEUROLOGICAL: Cranial nerves II through XII grossly intact. Normal speech, normal gait. Motor and sensation intact. SKIN: Warm, Dry, normal turgor, no rashes or lesions noted. - Medical Decision Making Pt with multiple cardiac risk factors and a concerning presentation. Labs obtained, first trop negative. Will admit for further evaluation. Heart Score/ECG Review - History History: Highly suspicious - Electrocardiogram EKG: Non specific repolarization disturbance - Age Age: >/= 65 - Risk Factors Risk Factors Heart Score: Yes Hx Hypercholesterolemia, Yes Hx Hypertension, Yes Positive family hx of cardiac disease Based on the list above the patient has:: >/=3 risk factors or Hx atherosclerotic disease - Troponin Troponin: </= normal limit - Score Heart Score - Total: 7
[2018-02-26 09:12] LABS: BASO % 0.6 % (0-2.0); EOS % 3.7 % (0-4.5); HEMATOCRIT 41.3 % (35.4-49); HEMOGLOBIN 14.1 GM/dL (11.7-16.9); LYMPH % 39.1 % (8-40); MCH 30.1 pg (25.7-33.7); MCHC 34.1 g/dl (32.0-35.9); MEAN CELL VOLUME 88.5 fl (80-96); MEAN PLT VOLUME 10.1 fl (7.5-11.1); MONO % 7.6 % (3.8-10.2); PLATELET COUNT 113 K/MM3 (134-434); RBC 4.67 M/mm3 (4.00-5.60); WHITE BLOOD COUNT 7.7 K/mm3 (4.0-10.0)
[2018-02-26] MEDS ORDERED: METOPROLOL TARTRATE 50 MG TABLET (FP) PO ONE (09:24)
[2018-02-26] MEDS ORDERED: ATORVASTATIN CA 80 MG TABLET (FP) PO ONE (09:24)
[2018-02-26] MEDS ORDERED: amLODIPine BESYLATE 10 MG TABLET (FP) PO ONE (09:24)
[2018-02-26] MEDS ORDERED: LOSARTAN POTASSIUM 50 MG TABLET (FP) PO ONE (09:24)
[2018-02-26 09:25] LABS: INR 1.06 (0.83-1.09)
[2018-02-26] MEDS ORDERED: ASPIRIN 81 MG CHEWABLE TABLETS PO ONE (09:26)
[2018-02-26 09:28] LABS: ACTIVATED PTT 26.2 SECONDS (25.2-36.5)
[2018-02-26] MEDS ORDERED: ASPIRIN 81 MG CHEWABLE TABLETS ONE (09:33)
[2018-02-26] MEDS ORDERED: METOPROLOL TARTRATE 50 MG TABLET (FP) ONE (09:34)
[2018-02-26] MEDS ORDERED: ATORVASTATIN CA 80 MG TABLET (FP) ONE (09:35)
[2018-02-26] MEDS ORDERED: LOSARTAN POTASSIUM 25 MG TABLET ONE (09:35)
--- NOTE | 2018-02-26 09:38 | PDOC ---
History of Present Illness - General Chief Complaint: Chest Pain Stated Complaint: CHEST PAIN Time Seen by Provider: 02/26/18 08:44 - History of Present Illness Initial Comments: Felipe Starks is an 82yo man with a PMH of ACS (previous NE 20 years ago, stent placement), CA (unknown?), and HTN who presents today with acute onset of left-sided chest pain and sweating this morning. He reports that he felt well when he woke up and was drinking some coffee. He started to have severe, sharp/tight, left-sided chest pain and reports copious sweating; the sweating was enough that he needed to change his shirt. He says that he lives near the hospital and came immediately to the ED when the pain started as he was afraied that he was having a heart attack. However, he states that the current pain does not feel similar to his previous NE as far as he rememebers. He denies any pain radiation, arm or jaw pain, SOB, nausea/vomiting, recent fevers, cough, unusual activity, travel, recent surgery, or immobilization. Per his , who presented to the ED several hours after initial presentation, he ran out of the house immediately after the chest pain started. 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 Past History - Past Medical History Allergies/Adverse Reactions: Allergies Allergy/AdvReac Type Severity Reaction Status Date / Time No Known Allergies Allergy Verified 02/26/18 08:36 Home Medications: Ambulatory Orders Amlodipine Besylate 10 mg PO DAILY 08/04/17 Atorvastatin Ca [Lipitor] 80 mg PO HS 08/04/17 Irbesartan 300 mg PO DAILY 08/04/17 Metoprolol Tartrate 50 mg PO DAILY 08/04/17 Tamsulosin HCl [Flomax] 0.4 mg PO HS 08/04/17 Cancer: Yes (bladder) Cardiac Disorders: Yes (CAD) COPD: No HTN: Yes Hypercholesterolemia: Yes Other medical history: bph - Surgical History Cardiac Surgery: Yes (stents) - Immunization History Immunization Up to Date: Yes - Suicide/Smoking/Psychosocial Hx Smoking Status: No Smoking History: Former smoker Have you smoked in the past 12 months: No Number of Cigarettes Smoked Daily: 0 Information on smoking cessation initiated: No Hx Alcohol Use: No Drug/Substance Use Hx: No Substance Use Type: None Hx Substance Use Treatment: No Review of Systems - Review of Systems Comments:: General: No fevers, no chills, no weight or appetite change, no malaise HEENT: No changes in vision, no changes in hearing, no congestion, no sore throat CV: See HPI Pulm: No SOB, no cough, no wheezing GI: No nausea or vomiting, no change in bowel habits, no melena : No frequency, no urgency, no dysuria Musc: No back pain, no joint swelling, no recent injury Skin: No rash, no lesions, no erythema Endo: No excessive thirst, no heat/cold intolerance Heme: No unusual bruising or bleeding, no swollen glands Neuro: No syncope, no numbness/tingling, no focal weakness Vasc: No claudication Psych: No recent change in mood, no SI or HI *Physical Exam - Vital Signs Last Vital Signs Temp Pulse Resp BP Pulse Ox 98.0 F 69 16 177/93 99 02/26/18 08:36 02/26/18 08:50 02/26/18 08:50 02/26/18 08:50 02/26/18 08:50 - Physical Exam Comments: Vitals: BP 173/96 on recheck. HR 58 General: Comfortable. No diaphoresis noted HEENT: PERRL, EOMI, MMM, voice normal, normal neck ROM Cards: Borderline bradycardic, regular rhythm, no rub/murmur appreciated Pulm: Comfortable on room air, clear to auscultation bilaterally Abd: Soft, nontender, nondistended : No CVA tenderness Ext: Atraumatic. No LE edema. ROM intact. Strength 5/5 and equal bilaterally Vasc: Extremities WWP. Palpable radial and pedal pulses bilaterally Neuro: A&Ox3, CN grossly intact, normal speech, motor/sensory grossly intact and symmetric Psych: Mood appropriate to situation Heart Score/ECG Review - History History: Highly suspicious - Electrocardiogram EKG: Non specific repolarization disturbance - Age Age: >/= 65 - Risk Factors Risk Factors Heart Score: Yes Hx Hypercholesterolemia, Yes Hx Hypertension, Yes Positive family hx of cardiac disease Based on the list above the patient has:: >/=3 risk factors or Hx atherosclerotic disease - Troponin Troponin: </= normal limit - Score Heart Score - Total: 7 - ECG Intrepretation Rhythm: PVC(s) - [place]: Normal - P and OH Prolonged OH Interval: 1st Degree Block(>20mils) ED Treatment Course - LABORATORY CBC & Chemistry Diagram: 02/26/18 08:42 02/26/18 08:42 - ADDITIONAL ORDERS Additional order review: Laboratory Results 02/26/18 08:42 PT with INR 12.00 INR 1.06 02/26/18 08:42 RBC 4.67 MCV 88.5 MCHC 34.1 RDW 15.0 MPV 10.1 Neutrophils % 49.0 D Lymphocytes % 39.1 D Monocytes % 7.6 Eosinophils % 3.7 D Basophils % 0.6 Medical Decision Making - Medical Decision Making 02/26/18 11:58 Felipe Tobar is an 82yo man with a PMH of ACS s/p NE s/p stent placement, HTN , h/o CA who presents with acute onset of severe left-sided chest pain and diaphoresis this morning. - Initial EKG NSR with one PVC noted - Heart score 7 - CBC, CMP, CXR, troponin pending - Home meds and 324mg ASA given on arrival. Update: - Initial labs unremarkable; troponin negative - BP decreased to 150's systolic after meds given - Page to hospitalist for admission for ACS rule out. Will need to see cardiology given HEART score 02/26/18 12:21 - Discussed with Dr Mosley. Will admit to tele obs - Cardiology consult placed - Repeat EKG per Dr Mosley; will have repeat trop later - Discussed with Mr Starks and his . They agree with this plan. Discussed with Dr Coronado. *DC/Admit/Observation/Transfer Diagnosis at time of Disposition: Chest pain Qualifiers: Chest pain type: unspecified Qualified Code(s): R07.9 - Chest pain, unspecified - Discharge Dispostion Condition at time of disposition: Fair Decision to Admit order: Yes - Referrals Referrals: Jhonny Burris MD [Primary Care Provider] - - Patient Instructions - Post Discharge Activity
[2018-02-26 09:40] LABS: CHLORIDE 104 mmol/L (98-107); POTASSIUM 3.5 mmol/L (3.5-5.1); SODIUM 142 mmol/L (136-145)
[2018-02-26 09:55] LABS: ALBUMIN 3.3 g/dl (3.4-5.0); ALK PHOS 68 U/L (45-117); ANION GAP 10 MMOL/L (8-16); BILIRUBIN,TOTAL 0.7 mg/dL (0.2-1.0); BLOOD UREA NITROGEN 25 mg/dL (7-18); CALCIUM 8.5 mg/dL (8.5-10.1); CO2 28 mmol/L (21-32); CREATININE 0.8 mg/dL (0.7-1.3); GLUCOSE,RANDOM 98 mg/dL (74-106); SGOT/AST 16 U/L (15-37); SGPT/ALT 22 U/L (12-78)
[2018-02-26] MEDS ORDERED: METOPROLOL TARTRATE 50 MG TABLET (FP) PO SCH (13:30)
--- NOTE | 2018-02-26 13:34 | EKG ---
Test Reason : Blood Pressure : / mmHG Vent. Rate : 072 BPM Atrial Rate : 072 BPM P-R Int : 240 ms QRS Dur : 086 ms QT Int : 426 ms P-R-T Axes : 056 -23 033 degrees QTc Int : 466 ms SINUS RHYTHM WITH 1ST DEGREE A-V BLOCK WITH OCCASIONAL PREMATURE VENTRICULAR COMPLEXES OTHERWISE NORMAL ECG WHEN COMPARED WITH ECG OF 04-AUG-2017 22:40, PREMATURE VENTRICULAR COMPLEXES ARE NOW PRESENT ME INTERVAL HAS INCREASED NONSPECIFIC T WAVE ABNORMALITY NO LONGER EVIDENT IN INFERIOR LEADS Confirmed by Judah Crouch ([id number]) on 02/26/2018 1:34:24 PM Referred By: Confirmed By:Judah Crouch
--- NOTE | 2018-02-26 13:35 | PN ---
Teaching Attending Note Name of Resident: Izabela Myrick ATTENDING PHYSICIAN STATEMENT I saw and evaluated the patient. I reviewed the resident's note and discussed the case with the resident. I agree with the resident's findings and plan as documented with exceptions below. SUBJECTIVE: 82 yom with PMHx of CAD s/p PCI (>20 years ago), HTN, HLD, diastolic dysfunction , BLadder Ca s/p cystoscopic ?resection/intra-vesical treatment in 07/2017, last admitted to [facility] with chest pain in 07/2016, stress test in 07/2016 with fixed inferior defect but no ischemia, comes with chest pain. Was having coffee this AM, when started having left sided chest pain, describes as 'muscle ache', associated with diaphoresis and mild dyspnea, non radiating intermittent last more than an hour, drove himself to the ED, where symptoms finally resolved after receiving oxygen in the ED. Reports similar symptoms, non exertional, transient, every 3-4 days for the last 1 month, but was worse today, so came to the ED. Last seen by Dr. Frausto in 07/2017 for pre-operative clearance for bladder surgery , no follow up since. Denies any recent cardiac w/u since last stress test in 2016. NO further recurrence of symptoms in the ED. denies any nausea, vomiting, epigastric pain, fevers, chills, cough. Walks 2-3 hours almost daily without any c/o exertional chest pain or dyspnea. ETOH intake few times a week, last yesterday but denies heavy use. 12 point ROS done, neg except above. OBJECTIVE: Vital Signs Period Temp Pulse Resp BP Sys/[place] Pulse Ox Last 24 Hr 98.0 F 57-71 16-18 152-203/63-93 99-100 Intake & Output 02/23/18 02/24/18 02/25/18 02/26/18 23:59 23:59 23:59 23:59 Weight 180 lb GENERAL: Awake, alert, and fully oriented, in no acute distress. HEAD: Normal with no signs of trauma. EYES: Pupils equal, round and reactive to light, extraocular movements intact, sclera anicteric, conjunctiva clear. No lid lag. EARS, NOSE, THROAT: Ears normal, nares patent, oropharynx clear without exudates. Moist mucous membranes. NECK: soft, supple, no JVD LUNGS: Breath sounds equal, clear to auscultation bilaterally. No wheezes, and no crackles. No accessory muscle use. HEART: S1S2 regular rate rhythm ABDOMEN: Soft, nontender, not distended, normoactive bowel sounds, no guarding, no rebound, no masses. MUSCULOSKELETAL: Normal range of motion at all joints. No bony deformities or tenderness. No CVA tenderness. UPPER EXTREMITIES: 2+ pulses, warm, well-perfused. No cyanosis. No clubbing. No peripheral edema. LOWER EXTREMITIES: 2+ pulses, warm, well-perfused. No calf tenderness. No peripheral edema. NEUROLOGICAL: Cranial nerves II-XII intact. Normal speech. Gait deferred PSYCHIATRIC: Cooperative. Good eye contact. Appropriate mood and affect. SKIN: Warm, dry, normal turgor, no rashes or lesions noted, normal capillary refill. Home Medications Medication Instructions Recorded Amlodipine Besylate 10 mg PO DAILY 08/04/17 Atorvastatin Ca [Lipitor] 80 mg PO HS 08/04/17 Irbesartan 300 mg PO DAILY 08/04/17 Metoprolol Tartrate 50 mg PO DAILY 08/04/17 Tamsulosin HCl [Flomax] 0.4 mg PO HS 08/04/17 Active Medications Amlodipine Besylate (Norvasc -) 10 mg PO DAILY [facility] Atorvastatin Calcium (Lipitor -) 80 mg PO HS [facility] Non-Formulary Medication (Irbesartan [Irbesartan]) 300 mg PO DAILY [facility] Tamsulosin HCl (Flomax -) 0.4 mg PO HS [facility] Laboratory Results - last 24 hr 02/26/18 02/26/18 02/26/18 08:42 08:42 08:42 WBC 7.7 RBC 4.67 Hgb 14.1 Hct 41.3 MCV 88.5 MCH 30.1 MCHC 34.1 RDW 15.0 Plt Count 113 L MPV 10.1 Absolute Neuts (auto) 3.8 Neutrophils % 49.0 D Lymphocytes % 39.1 D Monocytes % 7.6 Eosinophils % 3.7 D Basophils % 0.6 Nucleated RBC % 0 PT with INR 12.00 INR 1.06 PTT (Actin FS) 26.2 Sodium 142 Potassium 3.5 Chloride 104 Carbon Dioxide 28 Anion Gap 10 BUN 25 H Creatinine 0.8 Creat Clearance w eGFR > 60 Random Glucose 98 Calcium 8.5 Total Bilirubin 0.7 AST 16 D ALT 22 D Alkaline Phosphatase 68 Creatine Kinase 74 Troponin I < 0.02 D Total Protein 7.0 Albumin 3.3 L EKG 1 sinus emily 50s, PVC, first degree AV block EKG 2 unchanged except for no new PVCs CXR - no acute Chest pathology ASSESSMENT AND PLAN: 82 yom with PMHx of CAD s/p PCI, Bladder ca s/p ?resection/intravesical treatment, HTN, HLD, LV diastolic dysfunction, admitted with chest pain, and hypertensive urgency. -Chest pain with typical features, r/o ACS, vs from hypertensive urgency vs musculoskeletal -Hypertensive urgency -HLD -LV diastolic dysfunction -CAD s/p PCI > 20 years ago -Bladder ca s/p ?resection/intravesical therapy 07/2017 Plan: Telemetry, cycle troponins. 2D echo and stress test once ACS ruled out. Cardiology consult with Dr. Mehta. Retrieve more information from Dr. Frausto. BP improved. COntinue home amlodipine/irbesartan. Hold metoprolol pending stress test. Continue statin. ASA 81 mg daily. Check lipid panel. dVTPPx lovenox Dispo admit to obs, d/c pending cardiac work up as above. Plan discussed with patient and at bedside in detail, all questions answered. They relay understanding and in agreement with the plan. Total admit time 55 min.
[2018-02-26] MEDS ORDERED: METOPROLOL TARTRATE 25 MG TABLET (FP) ONE (14:03)
--- NOTE | 2018-02-26 14:25 | HP ---
CHIEF COMPLAINT:chest pain PCP: HISTORY OF PRESENT ILLNESS: Patient is an 82 year old male with past medical history CAD s/p stents x2 (1995 ), HTN, HLD, BPH and bladder cancer s/p ?resection (07/2017) presented with sudden, severe, nonradiating, "muscular" left sided chest pain this morning while sitting down and having coffee, that lasted less than 5 mins. accompanied by copious sweating and mild dyspnea. This intermittent chest pain lasted about an hour, patient got worried and decided to go to the ED, where upon arrival, his symptoms resolved. Patient reported he has been having intermittent left sided chest pain that started 1 month ago and would last about 3-4 days per episode. Denies any alleviating or aggravating factors. Patient denies palpitations, nausea, vomiting, abdominal pain, fever, chills, cough. ER course was notable for: (1)EKG- sinus bradycardia with 1st degree AV block (2)Trop <0.02 (3) Recent Travel:denies any recent travel PAST MEDICAL HISTORY: CAD Hypertension Hyperlipidemia BPH Bladder cancer PAST SURGICAL HISTORY: PCI (1995) ?Resection of bladder tumor (07/2017) Social History: Smoking:previous smoker, quit 40 years ago Alcohol:Drinks EtOH a few times a week, last drink of beer and scotch yesterday , denies heavy use Drugs: denies illicit drug use Family History: Allergies No Known Allergies Allergy (Verified 02/26/18 08:36) HOME MEDICATIONS: Home Medications Medication Instructions Recorded Amlodipine Besylate 10 mg PO DAILY 08/04/17 Atorvastatin Ca [Lipitor] 80 mg PO HS 08/04/17 Irbesartan 300 mg PO DAILY 08/04/17 Metoprolol Tartrate 50 mg PO DAILY 08/04/17 Tamsulosin HCl [Flomax] 0.4 mg PO HS 08/04/17 REVIEW OF SYSTEMS CONSTITUTIONAL: diaphoresis Absent: fever, chills, generalized weakness, malaise, loss of appetite, weight change HEENT: Absent: rhinorrhea, nasal congestion, throat pain, throat swelling, difficulty swallowing, mouth swelling, ear pain, eye pain, visual changes CARDIOVASCULAR: chest pain Absent: syncope, palpitations, irregular heart rate, lightheadedness, peripheral edema RESPIRATORY: Absent: cough, shortness of breath, dyspnea with exertion, orthopnea, wheezing, stridor, hemoptysis GASTROINTESTINAL: Absent: abdominal pain, abdominal distension, nausea, vomiting, diarrhea, constipation, melena, hematochezia GENITOURINARY: Absent: dysuria, frequency, urgency, hesitancy, hematuria, flank pain, genital pain MUSCULOSKELETAL: Absent: myalgia, arthralgia, joint swelling, back pain, neck pain SKIN: Absent: rash, itching, pallor HEMATOLOGIC/IMMUNOLOGIC: Absent: easy bleeding, easy bruising, lymphadenopathy, frequent infections ENDOCRINE: Absent: unexplained weight gain, unexplained weight loss, heat intolerance, cold intolerance NEUROLOGIC: Absent: headache, focal weakness or paresthesias, dizziness, unsteady gait, seizure, mental status changes, bladder or bowel incontinence PSYCHIATRIC: Absent: anxiety, depression, suicidal or homicidal ideation, hallucinations. PHYSICAL EXAMINATION Vital Signs - 24 hr 02/26/18 02/26/18 02/26/18 08:36 08:50 09:43 Temperature 98.0 F Pulse Rate 71 Pulse Rate [ 69 57 L Apical] Respiratory 18 16 16 Rate Blood Pressure 203/82 Blood Pressure 177/93 165/71 [Left Arm] O2 Sat by Pulse 100 99 99 Oximetry (%) 02/26/18 02/26/18 10:36 12:51 Temperature Pulse Rate Pulse Rate [ 57 L 64 Apical] Respiratory 16 16 Rate Blood Pressure Blood Pressure 162/66 152/63 [Left Arm] O2 Sat by Pulse 99 99 Oximetry (%) GENERAL: Awake, alert, and fully oriented, in no acute distress. HEAD: Normal with no signs of trauma. EYES: PERRLA, EOMI, sclera anicteric, conjunctiva clear. EARS, NOSE, THROAT: Ears normal, nares patent, oropharynx clear without exudates. Moist mucous membranes. NECK: Normal range of motion, supple without lymphadenopathy, JVD, or masses. LUNGS: Breath sounds equal, clear to auscultation bilaterally. HEART: Regular rate and rhythm, normal S1 and S2 without murmur, rub or gallop. ABDOMEN: Soft, nontender, not distended, normoactive bowel sounds. MUSCULOSKELETAL: Normal range of motion at all joints. No bony deformities or tenderness. No CVA tenderness. UPPER EXTREMITIES: 2+ pulses, warm, well-perfused. No cyanosis. No clubbing. No peripheral edema. LOWER EXTREMITIES: 2+ pulses, warm, well-perfused. No calf tenderness. No peripheral edema. PSYCHIATRIC: Cooperative. Good eye contact. Appropriate mood and affect. SKIN: Warm, dry, normal turgor, no rashes or lesions. Laboratory Results - last 24 hr 02/26/18 02/26/18 02/26/18 08:42 08:42 08:42 WBC 7.7 RBC 4.67 Hgb 14.1 Hct 41.3 MCV 88.5 MCH 30.1 MCHC 34.1 RDW 15.0 Plt Count 113 L MPV 10.1 Absolute Neuts (auto) 3.8 Neutrophils % 49.0 D Lymphocytes % 39.1 D Monocytes % 7.6 Eosinophils % 3.7 D Basophils % 0.6 Nucleated RBC % 0 PT with INR 12.00 INR 1.06 PTT (Actin FS) 26.2 Sodium 142 Potassium 3.5 Chloride 104 Carbon Dioxide 28 Anion Gap 10 BUN 25 H Creatinine 0.8 Creat Clearance w eGFR > 60 Random Glucose 98 Calcium 8.5 Total Bilirubin 0.7 AST 16 D ALT 22 D Alkaline Phosphatase 68 Creatine Kinase 74 Troponin I < 0.02 D Total Protein 7.0 Albumin 3.3 L ASSESSMENT/PLAN: Patient is an 82 year old male with past medical history CAD s/p stents x2 (1995 ), HTN, HLD, BPH and bladder cancer s/p ?resection (07/2017) presented with sudden, severe, nonradiating, "muscular" left sided chest pain this morning while sitting down and having coffee, that lasted less than 5 mins. accompanied by copious sweating and mild dyspnea. #Chest pain: -Upon arrival at the ED, patient's blood pressure was 203/82 -rule out ACS, may be musculoskeletal vs hypertensive urgency -EKG showed sinus bradycardia, 1st degree AV block -Initial trop <0.02, will trend troponin -Aspirin 81mg daily. -Echocardiogram ordered. -Nuclear stress test ordered. Hold metoprolol pending stress test. -Cardiology consult - Dr. Mehta #Hypertension: uncontrolled -continue Amlodipine 10 mg daily and Irbesartan 300 mg daily -hold metoprolol for now -monitor BP #Hyperlipidemia: chronic -continue Atorvastatin 80 mg #BPH: chronic -continue Tamsulosin 0.4 mg #FEN -not on any standing fluids -lytes wnl, routine bmp monitoring -sodium-restricted diet #Prophylaxis -Enoxaparin 40 mg sq daily #Disposition -admit to tele-obs -full code Visit type - Emergency Visit Emergency Visit: Yes ED Registration Date: 02/26/18 Care time: The patient presented to the Emergency Department on the above date and was hospitalized for further evaluation of their emergent condition. - New Patient This patient is new to me today: Yes Date on this admission: 02/26/18 - Critical Care Critical Care patient: No Hospitalist Screening - Colonoscopy Questionnaire Colonoscopy Questionnaire: Colonoscopy Questionnaire - Patient: 50 - 75 years old and never had a screening colonoscopy: Unknown History of colon or rectal polyps, or CA: Unknown History of IBD, Crohn's disease or UC: Unknown History of abdominal radiation therapy as a child: Unknown - Relative: 1 with colon or rectal CA, or polyps at age 60 or younger: Unknown Colon or rectal CA diagnosed at age 45 or younger: Unknown Multiple relatives with colon or rectal CA: Unknown - Outcome: Screening Result: Negative Screen
--- NOTE | 2018-02-26 14:59 | ECHO ---
Name: LEONARDODENYSCHRIS JOCELYN Exam:Adult Echocardiogram Study Date: 02/26/2018 01:59 PM Age: 82 yrs Reason For Study: CHEST PAIN Height: 67 in Weight: 180 lb BSA: 1.9 m2 MMode/2D Measurements & Calculations IVSd: 1.3 cm EDV(Teich): 142.9 ml LVIDd: 5.4 cm ESV(Teich): 75.5 ml LVIDs: 4.1 cm LVPWd: 1.5 cm LVLd ap4: 9.8 cm SV(MOD-sp4): 103.0 ml EDV(MOD-sp4): 169.0 ml LVLs ap4: 8.2 cm ESV(MOD-sp4): 66.0 ml TAPSE: 2.7 cm RV S Cl[place]: 15.7 cm/sec Doppler Measurements & Calculations MV E max clifton: 52.3 cm/sec AI P1/2t: 774.4 msec MV A max clifton: 79.0 cm/sec MV E/A: 0.66 AI max clifton: 256.3 cm/sec Med Peak E' [place]: 5.2 cm/sec AI max P.3 mmHg Med E/e': 10.1 AI dec slope: 96.9 cm/sec2 Lat Peak E' [place]: 7.8 cm/sec Lat E/e': 6.7 Procedure A complete two-dimensional transthoracic echocardiogram was performed (2D, M-mode, Doppler and color flow Doppler). Study Quality: Fair. Left Ventricle There is mild concentric left ventricular hypertrophy. Ejection Fraction = 60%. The left ventricular ejection fraction is normal. Grade I diastolic dysfunction, (abnormal relaxation pattern). The left ventricula r wall motion is normal. Right Ventricle The right ventricle is normal in size and function. There is normal right ventricular wall thickness. Atria Normal left and right atrial size and function. Mitral Valve The mitral valve is normal in structure and function. There is trace mitral regurgitation. Tricuspid Valve The tricuspid valve is normal in structure and function. There is trace tricuspid regurgitation. Aortic Valve The aortic valve is normal in structure and function. Mild aortic regurgitation. Pulmonic Valve The pulmonic valve is not well visualized. Great Vessels The aortic root is normal size. Pericardium/Pleura There is no pericardial effusion. Interpretation Summary Grade I diastolic dysfunction, (abnormal relaxation pattern). The right ventricle is normal in size and function. There is mild concentric left ventricular hypertrophy. The left ventricular ejection fraction is normal. Aric Ramirez MD 02/26/2018 02:45 PM
--- NOTE | 2018-02-26 20:16 | CON.CARD ---
Consult Consult Specialty:: cardiology - History of Present Illness Chief Complaint: A&Ox3; no chest pain or dyspnea presently. His is at bedside. History of Present Illness: 82 yo white man with PMHx CAD (coronary stent in ?1995), presents with several episodes of chest pain for the last 3-4 days. The pain always occurs at rest, is moderately severe in intensity, aches on the left side of the chest, lasts from seconds to a few minutes. He states that he had another episode shortly before arrival in ED, noted that he became diaphoretic to the point that he had to change his shirt. No N/V, SOB, leg swelling. Former cigarette smoker (quit many years ago); rarely has an alcoholic drink. Family hx DM Pt says he walks 1-2 hours at a moderate to brisk pace several days a week without chest pain or shortness of breath. However, he says he cannot walk on a treadmill; he gets tired on it very easily, and has never been able to complete a treadmill stress test on several tries. - History Source History Provided By: Patient, Family Member, Medical Record Limitations to Obtaining History: Poor Historian - Past Medical History Cardio/Vascular: Yes: CAD, HTN - Past Surgical History Past Surgical History: Yes: Stent (coronary: more than 20 yrs ago) - Alcohol/Substance Use Hx Alcohol Use: No - Smoking History Smoking history: Former smoker Have you smoked in the past 12 months: No Aproximately how many cigarettes per day: 0 Home Medications - Allergies Allergies/Adverse Reactions: Allergies Allergy/AdvReac Type Severity Reaction Status Date / Time No Known Allergies Allergy Verified 02/26/18 08:36 - Home Medications Home Medications: Ambulatory Orders Amlodipine Besylate 5 mg PO DAILY 08/04/17 Atorvastatin Ca [Lipitor] 80 mg PO HS 08/04/17 Irbesartan 300 mg PO DAILY 08/04/17 Metoprolol Tartrate 50 mg PO BID 08/04/17 Tamsulosin HCl [Flomax] 0.4 mg PO HS 08/04/17 Aspirin [ASA -] 81 mg PO DAILY #30 tab.chew 02/27/18 Family Disease History - Family Disease History Family History: Denies Review of Systems - Review of Systems Constitutional: reports: No Symptoms Eyes: reports: No Symptoms HENT: reports: No Symptoms Neck: reports: No Symptoms Cardiovascular: reports: Chest Pain Respiratory: reports: SOB Gastrointestinal: reports: No Symptoms Genitourinary: reports: No Symptoms Breasts: reports: No Symptoms Reported Musculoskeletal: reports: No Symptoms Integumentary: reports: No Symptoms Neurological: reports: No Symptoms Endocrine: reports: No Symptoms Hematology/Lymphatic: reports: No Symptoms Psychiatric: reports: No Symptoms - Risk Factors Known Risk Factors: Yes: Age, Gender, Hypercholesterolemia, Hypertension, Other (CAD; s/p PCI) Vital Signs: Vital Signs Temperature 98.1 F 02/26/18 15:09 Pulse Rate 58 L 02/26/18 15:09 Respiratory Rate 18 02/26/18 15:09 Blood Pressure 123/61 02/26/18 15:09 O2 Sat by Pulse Oximetry (%) 98 02/26/18 15:09 Constitutional: Yes: Anxious Eyes: Yes: WNL HENT: Yes: WNL Neck: Yes: WNL Respiratory: Yes: WNL Gastrointestinal: Yes: WNL Renal/: Yes: WNL Cardiovascular: Yes: Regular Rate and Rhythm JVD: No Carotid Bruit: No PMI: Non-Displaced Heart Sounds: Yes: S1, S2, S4 Murmur: Yes: Systolic Murmur, Grade 1 Musculoskeletal: Yes: WNL Extremities: Yes: Deformity Edema: No Peripheral Pulses WNL: Yes Integumentary: Yes: WNL Neurological: Yes: WNL ...Motor Strength: WNL Psychiatric: Yes: WNL - Other Data Labs, Other Data: CBC, BMP 02/26/18 08:42 02/26/18 08:42 INR, PTT INR 1.06 (0.83-1.09) 02/26/18 08:42 Troponin, BNP 02/26/18 02/26/18 08:42 14:57 Troponin I < 0.02 D < 0.02 Troponin, BNP 02/26/18 02/26/18 08:42 14:57 Troponin I < 0.02 D < 0.02 Imaging - Results EKG: Image Reviewed Problem List - Problems (1) HTN (hypertension) Code(s): I10 - ESSENTIAL (PRIMARY) HYPERTENSION (2) Hyperlipidemia Code(s): E78.5 - HYPERLIPIDEMIA, UNSPECIFIED (3) Chest pain Assessment/Plan: TNI 0.02 x 2. EKG: normal sinus rhythm; 1st degree AV block. ECHO: normal LVEF; abnormal diastolic compliance. Rec: ASA 81 mg/day. F/u lipid profile. For stress Lexiscan MIBI in am. Code(s): R07.9 - CHEST PAIN, UNSPECIFIED Qualifiers: Chest pain type: unspecified Qualified Code(s): R07.9 - Chest pain, unspecified (4) Diastolic CHF Code(s): I50.30 - UNSPECIFIED DIASTOLIC (CONGESTIVE) HEART FAILURE
[2018-02-26] MEDS: TAMSULOSIN HCL 0.4 MG CAP.ER.24H (FP) PO SCH (21:03)
[2018-02-26] MEDS: ATORVASTATIN CA 80 MG TABLET (FP) PO SCH (21:03)
[2018-02-27 02:02] VITALS: BMI 28.6
[2018-02-27 07:22] LABS: HEMOGLOBIN 13.6 GM/dL (11.7-16.9); MCH 29.4 pg (25.7-33.7); MCHC 33.1 g/dl (32.0-35.9); MEAN CELL VOLUME 88.8 fl (80-96); MEAN PLT VOLUME 10.2 fl (7.5-11.1); PLATELET COUNT 103 K/MM3 (134-434); RBC 4.61 M/mm3 (4.00-5.60); RDW 15.1 % (11.9-15.9); WHITE BLOOD COUNT 7.1 K/mm3 (4.0-10.0)
--- NOTE | 2018-02-27 07:49 | PN ---
Teaching Attending Note Name of Resident: Izabela Myrick ATTENDING PHYSICIAN STATEMENT I saw and evaluated the patient. I reviewed the resident's note and discussed the case with the resident. I agree with the resident's findings and plan as documented with exceptions below. SUBJECTIVE: Patient seen and examined. Uneventful night, no further chest pain, dsypnea or diaphoresis, wondering when is scheduled for stress test. OBJECTIVE: Vital Signs Period Temp Pulse Resp BP Sys/Barksdale Pulse Ox Last 24 Hr 97.5 F-98.1 F 55-90 16-20 123-203/61-93 98-100 Intake & Output 02/24/18 02/25/18 02/26/18 02/27/18 23:59 23:59 23:59 23:59 Intake Total 400 Balance 400 Weight 183 lb General: lying in bed in no acute distress Chest: CTAB, no rales or wheezing Abdomen:soft, nT, ND Extremities: no edema Home Medications Medication Instructions Recorded Amlodipine Besylate 5 mg PO DAILY 08/04/17 Atorvastatin Ca [Lipitor] 80 mg PO HS 08/04/17 Irbesartan 300 mg PO DAILY 08/04/17 Metoprolol Tartrate 50 mg PO BID 08/04/17 Tamsulosin HCl [Flomax] 0.4 mg PO HS 08/04/17 Active Medications Amlodipine Besylate (Norvasc -) 5 mg PO DAILY [facility] Aspirin (Asa -) 81 mg PO DAILY [facility] Atorvastatin Calcium (Lipitor -) 80 mg PO HS [facility] Last Admin: 02/26/18 21:03 Dose: 80 mg Enoxaparin Sodium (Lovenox -) 40 mg SQ DAILY [facility] Losartan Potassium (Cozaar -) 100 mg PO DAILY [facility] Tamsulosin HCl (Flomax -) 0.4 mg PO HS [facility] Last Admin: 02/26/18 21:03 Dose: 0.4 mg Laboratory Results - last 24 hr 02/26/18 02/26/18 02/26/18 08:42 08:42 08:42 WBC 7.7 RBC 4.67 Hgb 14.1 Hct 41.3 MCV 88.5 MCH 30.1 MCHC 34.1 RDW 15.0 Plt Count 113 L MPV 10.1 Absolute Neuts (auto) 3.8 Neutrophils % 49.0 D Lymphocytes % 39.1 D Monocytes % 7.6 Eosinophils % 3.7 D Basophils % 0.6 Nucleated RBC % 0 PT with INR 12.00 INR 1.06 PTT (Actin FS) 26.2 Sodium 142 Potassium 3.5 Chloride 104 Carbon Dioxide 28 Anion Gap 10 BUN 25 H Creatinine 0.8 Creat Clearance w eGFR > 60 Random Glucose 98 Calcium 8.5 Total Bilirubin 0.7 AST 16 D ALT 22 D Alkaline Phosphatase 68 Creatine Kinase 74 Troponin I < 0.02 D Total Protein 7.0 Albumin 3.3 L 02/26/18 02/26/18 14:57 20:30 WBC RBC Hgb Hct MCV MCH MCHC RDW Plt Count MPV Absolute Neuts (auto) Neutrophils % Lymphocytes % Monocytes % Eosinophils % Basophils % Nucleated RBC % PT with INR INR PTT (Actin FS) Sodium Potassium Chloride Carbon Dioxide Anion Gap BUN Creatinine Creat Clearance w eGFR Random Glucose Calcium Total Bilirubin AST ALT Alkaline Phosphatase Creatine Kinase Troponin I < 0.02 < 0.02 Total Protein Albumin ASSESSMENT AND PLAN: 82 yom with PMHx of CAD s/p PCI, Bladder ca s/p ?resection/intravesical treatment, HTN, HLD, LV diastolic dysfunction, admitted with chest pain, and hypertensive urgency. -Chest pain with typical features, r/o ACS, vs from hypertensive urgency vs musculoskeletal -Hypertensive urgency -HLD -LV diastolic dysfunction -CAD s/p PCI > 20 years ago -Bladder ca s/p ?resection/intravesical therapy 07/2017 Plan: ACS ruled out. 2D echo noted. Cardiology input appreciated. Discussed with Dr. Pruett. Plan for stress test today, hold metoprolol for now. BP improved. ARB/Amlodipine. Resume metoprolol post stress test. ASA/statin. Follow up lipid panel. dVTPPx lovenox Dispo pending stress test Plan discussed with patient in detail, all questions answered.
[2018-02-27 07:54] LABS: ANION GAP 10 MMOL/L (8-16); BLOOD UREA NITROGEN 17 mg/dL (7-18); CALCIUM 8.1 mg/dL (8.5-10.1); CHLORIDE 105 mmol/L (98-107); CO2 28 mmol/L (21-32); CREATININE 0.7 mg/dL (0.7-1.3); GLUCOSE,RANDOM 85 mg/dL (74-106); POTASSIUM 3.2 mmol/L (3.5-5.1); SODIUM 143 mmol/L (136-145)
[2018-02-27] MEDS: ASPIRIN 81 MG CHEWABLE TABLETS PO SCH ×2 (08:30→09:39)
[2018-02-27] MEDS: LOSARTAN POTASSIUM 50 MG TABLET (FP) PO SCH ×2 (08:30→09:39)
[2018-02-27] MEDS: amLODIPine BESYLATE 5 MG TABLET (FP) PO SCH ×2 (08:30→09:40)
[2018-02-27] MEDS ORDERED: POTASSIUM CHLORIDE TABS 20 MEQ TABLET.ER (FP) PO ONE ×2 (09:17→09:30)
[2018-02-27] MEDS ORDERED: amLODIPine BESYLATE 10 MG TABLET (FP) PO SCH (10:00)
[2018-02-27] MEDS ORDERED: REGADENOSON 0.4 MG/5 ML PRE-FILLED SYRINGE IVPUSH ONE ×2 (10:30→11:18)
--- NOTE | 2018-02-27 10:46 | EKG ---
Test Reason : Blood Pressure : / mmHG Vent. Rate : 058 BPM Atrial Rate : 058 BPM P-R Int : 254 ms QRS Dur : 086 ms QT Int : 456 ms P-R-T Axes : 038 -11 030 degrees QTc Int : 447 ms SINUS BRADYCARDIA WITH 1ST DEGREE A-V BLOCK OTHERWISE NORMAL ECG WHEN COMPARED WITH ECG OF 26-FEB-2018 08:30, PREMATURE VENTRICULAR COMPLEXES ARE NO LONGER PRESENT Confirmed by WHITNEY BLANCHARD, LALI ([id number]) on 02/27/2018 10:46:24 AM Referred By: Confirmed By:LALI OLSON MD
[2018-02-27 10:58] LABS: CHOLESTEROL 123 mg/dL (50-200)
[2018-02-27 11:07] LABS: HDL CHOLESTEROL 35 mg/dL (40-60); TRIGLYCERIDES 82 mg/dL (35-160)
--- NOTE | 2018-02-27 12:19 | PN ---
Progress Note, Physician History of Present Illness: 82 yo white man with PMHx CAD (coronary stent in ?1995), presents with several episodes of chest pain for the last 3-4 days. The pain always occurs at rest, is moderately severe in intensity, aches on the left side of the chest, lasts from seconds to a few minutes. He states that he had another episode shortly before arrival in ED, noted that he became diaphoretic to the point that he had to change his shirt. No N/V, SOB, leg swelling. Former cigarette smoker (quit many years ago); rarely has an alcoholic drink. Family hx DM Pt says he walks 1-2 hours at a moderate to brisk pace several days a week without chest pain or shortness of breath. However, he says he cannot walk on a treadmill; he gets tired on it very easily, and has never been able to complete a treadmill stress test on several tries. - Current Medication List Current Medications: Active Medications Amlodipine Besylate (Norvasc -) 5 mg PO DAILY [facility] Last Admin: 02/27/18 09:40 Dose: Not Given Aspirin (Asa -) 81 mg PO DAILY [facility] Last Admin: 02/27/18 09:39 Dose: Not Given Atorvastatin Calcium (Lipitor -) 80 mg PO [facility] Last Admin: 02/26/18 21:03 Dose: 80 mg Enoxaparin Sodium (Lovenox -) 40 mg SQ DAILY [facility] Losartan Potassium (Cozaar -) 100 mg PO DAILY [facility] Last Admin: 02/27/18 09:39 Dose: Not Given Tamsulosin HCl (Flomax -) 0.4 mg PO [facility] Last Admin: 02/26/18 21:03 Dose: 0.4 mg - Objective Vital Signs: Vital Signs Temperature 98.2 F 02/27/18 09:42 Pulse Rate 60 02/27/18 09:42 Respiratory Rate 20 02/27/18 09:42 Blood Pressure 150/74 02/27/18 09:42 O2 Sat by Pulse Oximetry (%) 98 02/27/18 09:42 Eyes: Yes: WNL, Conjunctiva Clear, EOM Intact HENT: Yes: WNL, Atraumatic, Normocephalic Neck: Yes: WNL, Supple, Trachea Midline Cardiovascular: Yes: WNL, Regular Rate and Rhythm Respiratory: Yes: WNL, Regular, CTA Bilaterally Gastrointestinal: Yes: WNL, Normal Bowel Sounds Genitourinary: Yes: WNL Musculoskeletal: Yes: WNL Extremities: Yes: WNL Edema: No Integumentary: Yes: WNL Neurological: Yes: WNL, Alert, Oriented ...Motor Strength: WNL Psychiatric: Yes: WNL Labs: CBC, BMP 02/27/18 06:30 02/27/18 06:30 INR, PTT INR 1.06 (0.83-1.09) 02/26/18 08:42 Assessment/Plan - Problems (1) HTN (hypertension) Code(s): I10 - ESSENTIAL (PRIMARY) HYPERTENSION (2) Hyperlipidemia Code(s): E78.5 - HYPERLIPIDEMIA, UNSPECIFIED (3) Chest pain Assessment/Plan: TNI 0.02 x 2. EKG: normal sinus rhythm; 1st degree AV block. ECHO: normal LVEF; abnormal diastolic compliance. Rec: ASA 81 mg/day. F/u lipid profile. mibi st mild IW ischemia - will need c. cath Code(s): R07.9 - CHEST PAIN, UNSPECIFIED Qualifiers: Chest pain type: unspecified Qualified Code(s): R07.9 - Chest pain, unspecified (4) Diastolic CHF Code(s): I50.30 - UNSPECIFIED DIASTOLIC (CONGESTIVE) HEART FAILURE
[2018-02-27] MEDS: ENOXAPARIN NA (PORCINE) 40 MG/0.4 ML DISP.SYRIN SQ SCH (12:55)
--- NOTE | 2018-02-27 15:01 | EKG ---
Test Reason : Blood Pressure : / mmHG Vent. Rate : 066 BPM Atrial Rate : 066 BPM P-R Int : 216 ms QRS Dur : 084 ms QT Int : 454 ms P-R-T Axes : 051 -15 027 degrees QTc Int : 475 ms SINUS RHYTHM WITH 1ST DEGREE A-V BLOCK OTHERWISE NORMAL ECG WHEN COMPARED WITH ECG OF 26-FEB-2018 12:41, NO SIGNIFICANT CHANGE WAS FOUND Confirmed by WHITNEY BLANCHARD, LALI ([id number]) on 02/27/2018 3:01:12 PM Referred By: LENORA ROBISON Confirmed By:LALI OLSON MD
--- NOTE | 2018-02-27 16:57 | PN ---
Physical Exam: SUBJECTIVE: Patient seen and examined at bedside this morning. He has no active complaints. Patient reports his chest pain has never occurred since he was admitted. OBJECTIVE: Vital Signs Period Temp Pulse Resp BP Sys/Barksdale Pulse Ox Last 24 Hr 97.5 F-98.2 F 55-90 18-20 134-157/65-76 98-98 GENERAL: The patient is awake, alert, and fully oriented, in no acute distress. HEAD: Normal with no signs of trauma. EYES: PERRLA, EOMI, sclera anicteric, conjunctiva clear. ENT: Ears normal, nares patent, oropharynx clear without exudates, moist mucous membranes. NECK: Trachea midline, full range of motion, supple. LUNGS: Breath sounds equal, clear to auscultation bilaterally. HEART: Regular rate and rhythm, S1, S2 without murmur, rub or gallop. ABDOMEN: Soft, nontender, nondistended, normoactive bowel sounds.; EXTREMITIES: 2+ pulses, warm, well-perfused, no edema. NEUROLOGICAL: Cranial nerves II through XII grossly intact. Normal speech, gait not observed. PSYCH: Normal mood, normal affect. SKIN: Warm, dry, normal turgor, no rashes or lesions noted Laboratory Results - last 24 hr 02/26/18 02/27/18 02/27/18 20:30 06:30 06:30 WBC 7.1 RBC 4.61 Hgb 13.6 Hct 41.0 MCV 88.8 MCH 29.4 MCHC 33.1 RDW 15.1 Plt Count 103 L MPV 10.2 Sodium 143 Potassium 3.2 L Chloride 105 Carbon Dioxide 28 Anion Gap 10 BUN 17 Creatinine 0.7 Creat Clearance w eGFR > 60 Random Glucose 85 Calcium 8.1 L Phosphorus 3.0 Magnesium 2.0 Troponin I < 0.02 Triglycerides 82 Cholesterol 123 Total LDL Cholesterol 81 HDL Cholesterol 35 L TSH 2.46 Active Medications Generic Name Dose Route Start Last Admin Trade Name Freq PRN Reason Stop Dose Admin Amlodipine Besylate 5 mg 02/27/18 10:00 02/27/18 09:40 Norvasc - PO Not Given DAILY [facility] Aspirin 81 mg 02/27/18 10:00 02/27/18 09:39 Asa - PO Not Given DAILY [facility] Atorvastatin Calcium 80 mg 02/26/18 22:00 02/26/18 21:03 Lipitor - PO 80 mg HS [facility] Administration Enoxaparin Sodium 40 mg 02/27/18 10:00 02/27/18 12:55 Lovenox - SQ 40 mg DAILY [facility] Administration Losartan Potassium 100 mg 02/27/18 10:00 02/27/18 09:39 Cozaar - PO Not Given DAILY [facility] Tamsulosin HCl 0.4 mg 02/26/18 22:00 02/26/18 21:03 Flomax - PO 0.4 mg HS [facility] Administration ASSESSMENT/PLAN: Patient is an 82 year old male with past medical history CAD s/p stents x2 (1995 ), HTN, HLD, BPH and bladder cancer s/p ?resection (07/2017) presented with sudden, severe, nonradiating, "muscular" left sided chest pain this morning while sitting down and having coffee, that lasted less than 5 mins. accompanied by copious sweating and mild dyspnea. #Chest pain: -r/o ACS, may be musculoskeletal vs hypertensive urgency -EKG showed sinus bradycardia, 1st degree AV block -Trop x3 - negative -Aspirin 81mg daily. -Echocardiogram - Gr. I diastolic dysfunction (abnormal relaxation pattern); mild concentric LVH; LVEF 60% -Nuclear stress test - moderately sized mild intensity inferior wall reversible perfusion defect consistent with ischemia. Normal LV size and systolic function ; normal EF 85% -May resume metoprolol tartrate 50mg BID -Dr. Pruett consult appreciated. #Hypertension: -continue Amlodipine 10 mg daily and Irbesartan 300 mg daily -continue metoprolol 50mg BID -monitor BP #Hyperlipidemia: chronic -continue Atorvastatin 80 mg #BPH: chronic -continue Tamsulosin 0.4 mg #FEN -not on any standing fluids -lytes wnl, routine bmp monitoring -sodium-restricted diet #Prophylaxis -Enoxaparin 40 mg sq daily #Disposition -admit to tele-obs -full code Visit type - Emergency Visit Emergency Visit: Yes ED Registration Date: 02/26/18 Care time: The patient presented to the Emergency Department on the above date and was hospitalized for further evaluation of their emergent condition. - New Patient This patient is new to me today: Yes Date on this admission: 02/27/18 - Critical Care Critical Care patient: No
[2018-02-27] MEDS: ATORVASTATIN CA 80 MG TABLET (FP) PO SCH (21:37)
[2018-02-27] MEDS: TAMSULOSIN HCL 0.4 MG CAP.ER.24H (FP) PO SCH (21:37)
[2018-02-27] MEDS ORDERED: METOPROLOL TARTRATE 50 MG TABLET (FP) PO SCH (22:00)
--- NOTE | 2018-02-28 07:43 | PN ---
Teaching Attending Note Name of Resident: Izabela Myrick ATTENDING PHYSICIAN STATEMENT I saw and evaluated the patient. I reviewed the resident's note and discussed the case with the resident. I agree with the resident's findings and plan as documented with exceptions below. SUBJECTIVE: Patient seen and examined. No further chest pain or new concerns. OBJECTIVE: Vital Signs Period Temp Pulse Resp BP Sys/Barksdale Pulse Ox Last 24 Hr 97.8 F-98.2 F 54-70 18-20 118-157/55-78 98-99 Intake & Output 02/25/18 02/26/18 02/27/18 02/28/18 23:59 23:59 23:59 23:59 Intake Total 400 770 Balance 400 770 Weight 183 lb General: lying in bed in no acute distress Active Medications Amlodipine Besylate (Norvasc -) 5 mg PO DAILY [facility] Last Admin: 02/27/18 09:40 Dose: Not Given Aspirin (Asa -) 81 mg PO DAILY [facility] Last Admin: 02/27/18 09:39 Dose: Not Given Atorvastatin Calcium (Lipitor -) 80 mg PO [facility] Last Admin: 02/27/18 21:37 Dose: 80 mg Enoxaparin Sodium (Lovenox -) 40 mg SQ DAILY [facility] Last Admin: 02/27/18 12:55 Dose: 40 mg Losartan Potassium (Cozaar -) 100 mg PO DAILY [facility] Last Admin: 02/27/18 09:39 Dose: Not Given Metoprolol Tartrate (Lopressor -) 50 mg PO BID [facility] Tamsulosin HCl (Flomax -) 0.4 mg PO [facility] Last Admin: 02/27/18 21:37 Dose: 0.4 mg Laboratory Results - last 24 hr 02/27/18 02/28/18 02/28/18 06:30 07:54 07:54 WBC 7.0 RBC 4.63 Hgb 13.7 Hct 40.9 MCV 88.3 MCH 29.6 MCHC 33.5 RDW 15.0 Plt Count 105 L MPV 9.9 Absolute Neuts (auto) 4.4 Neutrophils % 63.2 D Lymphocytes % 26.5 D Monocytes % 7.6 Eosinophils % 2.2 Basophils % 0.5 Nucleated RBC % 0 Sodium 143 141 Potassium 3.2 L 3.5 Chloride 105 105 Carbon Dioxide 28 28 Anion Gap 10 8 BUN 17 19 H Creatinine 0.7 0.9 Creat Clearance w eGFR > 60 > 60 Random Glucose 85 94 Calcium 8.1 L 8.3 L Phosphorus 3.0 Magnesium 2.0 Triglycerides 82 Cholesterol 123 Total LDL Cholesterol 81 HDL Cholesterol 35 L TSH 2.46 Telemetry Sinus emily 40s-60s (asymptomatic) ASSESSMENT AND PLAN: 82 yom with PMHx of CAD s/p PCI, Bladder ca s/p ?resection/intravesical treatment, HTN, HLD, LV diastolic dysfunction, admitted with chest pain, and hypertensive urgency. -Chest pain with typical features, r/o ACS, vs from hypertensive urgency vs musculoskeletal -Hypertensive urgency -HLD -LV diastolic dysfunction -CAD s/p PCI > 20 years ago -Bladder ca s/p ?resection/intravesical therapy 07/2017 Plan: ACS ruled out. 2D echo noted. Cardiology input appreciated. Discussed with Dr. Pruett. Stress test positive, follow up with Cardiology for transfer for cardiac cath. BP improved. Continue home ARB/Amlodipine/Metoprolol. ASA/statin. Lipid panel noved dVTPPx lovenox Dispo pending transfer for cardiac cath. Plan discussed with patient and at bedside in detail, all questions answered.
[2018-02-28 08:20] LABS: BASO % 0.5 % (0-2.0); EOS % 2.2 % (0-4.5); HEMATOCRIT 40.9 % (35.4-49); HEMOGLOBIN 13.7 GM/dL (11.7-16.9); LYMPH % 26.5 % (8-40); MCH 29.6 pg (25.7-33.7); MCHC 33.5 g/dl (32.0-35.9); MEAN CELL VOLUME 88.3 fl (80-96); MEAN PLT VOLUME 9.9 fl (7.5-11.1); MONO % 7.6 % (3.8-10.2); NEUT % 63.2 % (42.8-82.8); PLATELET COUNT 105 K/MM3 (134-434); RBC 4.63 M/mm3 (4.00-5.60)
[2018-02-28 08:40] LABS: CHLORIDE 105 mmol/L (98-107); POTASSIUM 3.5 mmol/L (3.5-5.1); SODIUM 141 mmol/L (136-145)
[2018-02-28 08:52] LABS: ANION GAP 8 MMOL/L (8-16); BLOOD UREA NITROGEN 19 mg/dL (7-18); CALCIUM 8.3 mg/dL (8.5-10.1); CO2 28 mmol/L (21-32); CREATININE 0.9 mg/dL (0.7-1.3); GLUCOSE,RANDOM 94 mg/dL (74-106)
[2018-02-28] MEDS: LOSARTAN POTASSIUM 50 MG TABLET (FP) PO SCH (11:14)
[2018-02-28] MEDS: ASPIRIN 81 MG CHEWABLE TABLETS PO SCH (11:15)
[2018-02-28] MEDS: amLODIPine BESYLATE 5 MG TABLET (FP) PO SCH (11:16)
[2018-02-28] MEDS: ENOXAPARIN NA (PORCINE) 40 MG/0.4 ML DISP.SYRIN SQ SCH (11:20)
[2018-02-28] MEDS: METOPROLOL TARTRATE 50 MG TABLET (FP) PO SCH ×2 (11:20→21:10)
--- NOTE | 2018-02-28 11:27 | PN ---
Progress Note, Physician Chief Complaint: Pt alert; no chest pain. History of Present Illness: 82 yo white man with PMHx CAD (coronary stent in ?1995), presents with several episodes of chest pain for the last 3-4 days. The pain always occurs at rest, is moderately severe in intensity, aches on the left side of the chest, lasts from seconds to a few minutes. He states that he had another episode shortly before arrival in ED, noted that he became diaphoretic to the point that he had to change his shirt. No N/V, SOB, leg swelling. Former cigarette smoker (quit many years ago); rarely has an alcoholic drink. Family hx DM Pt says he walks 1-2 hours at a moderate to brisk pace several days a week without chest pain or shortness of breath. However, he says he cannot walk on a treadmill; he gets tired on it very easily, and has never been able to complete a treadmill stress test on several tries. - Current Medication List Current Medications: Active Medications Amlodipine Besylate (Norvasc -) 5 mg PO DAILY [facility] Last Admin: 02/28/18 11:16 Dose: 5 mg Aspirin (Asa -) 81 mg PO DAILY [facility] Last Admin: 02/28/18 11:15 Dose: 81 mg Atorvastatin Calcium (Lipitor -) 80 mg PO HS [facility] Last Admin: 02/27/18 21:37 Dose: 80 mg Enoxaparin Sodium (Lovenox -) 40 mg SQ DAILY [facility] Last Admin: 02/28/18 11:20 Dose: 40 mg Losartan Potassium (Cozaar -) 100 mg PO DAILY [facility] Last Admin: 02/28/18 11:14 Dose: 100 mg Metoprolol Tartrate (Lopressor -) 50 mg PO BID [facility] Last Admin: 02/28/18 11:20 Dose: 50 mg Tamsulosin HCl (Flomax -) 0.4 mg PO HS [facility] Last Admin: 02/27/18 21:37 Dose: 0.4 mg - Objective Vital Signs: Vital Signs Temperature 98.1 F 02/28/18 05:58 Pulse Rate 54 L 02/28/18 05:58 Respiratory Rate 18 02/28/18 08:42 Blood Pressure 118/55 02/28/18 05:58 O2 Sat by Pulse Oximetry (%) 98 02/28/18 08:42 Labs: CBC, BMP 02/28/18 07:54 02/28/18 07:54 INR, PTT INR 1.06 (0.83-1.09) 02/26/18 08:42 Problem List - Problems (1) HTN (hypertension) Code(s): I10 - ESSENTIAL (PRIMARY) HYPERTENSION (2) Hyperlipidemia Assessment/Plan: on atorvastatin; lipid levels well-controlled. Code(s): E78.5 - HYPERLIPIDEMIA, UNSPECIFIED (3) Chest pain Assessment/Plan: Stress Lexiscan MIBI yesterday was positive for myocardial ischemia. Recommend coronary angiogram; pt (with present) agress. For transfer to [facility]. Code(s): R07.9 - CHEST PAIN, UNSPECIFIED Qualifiers: Chest pain type: unspecified Qualified Code(s): R07.9 - Chest pain, unspecified (4) Diastolic CHF Code(s): I50.30 - UNSPECIFIED DIASTOLIC (CONGESTIVE) HEART FAILURE
[2018-02-28] MEDS ORDERED: CLOPIDOGREL BISULFATE 300 MG TABLET PO ONE (12:26)
--- NOTE | 2018-02-28 15:59 | PN ---
Physical Exam: SUBJECTIVE: Patient seen and examined today. No acute events overnight. Patient has no active complaints. OBJECTIVE: Vital Signs Period Temp Pulse Resp BP Sys/Barksdale Pulse Ox Last 24 Hr 97.8 F-98.4 F 54-68 18-20 118-149/55-78 98-99 GENERAL: The patient is awake, alert, and fully oriented, in no acute distress. HEAD: Normal with no signs of trauma. EYES: PERRLA, EOMI, sclera anicteric, conjunctiva clear. NECK: Trachea midline, full range of motion, supple. LUNGS: Breath sounds equal, clear to auscultation bilaterally. HEART: Regular rate and rhythm, S1, S2 without murmur, rub or gallop. ABDOMEN: Soft, nontender, nondistended, normoactive bowel sounds. EXTREMITIES: 2+ pulses, warm, well-perfused, no edema. NEUROLOGICAL: Cranial nerves II through XII grossly intact. Normal speech, normal gait PSYCH: Normal mood, normal affect. SKIN: Warm, dry, normal turgor, no rashes or lesions noted Laboratory Results - last 24 hr 02/28/18 02/28/18 07:54 07:54 WBC 7.0 RBC 4.63 Hgb 13.7 Hct 40.9 MCV 88.3 MCH 29.6 MCHC 33.5 RDW 15.0 Plt Count 105 L MPV 9.9 Absolute Neuts (auto) 4.4 Neutrophils % 63.2 D Lymphocytes % 26.5 D Monocytes % 7.6 Eosinophils % 2.2 Basophils % 0.5 Nucleated RBC % 0 Sodium 141 Potassium 3.5 Chloride 105 Carbon Dioxide 28 Anion Gap 8 BUN 19 H Creatinine 0.9 Creat Clearance w eGFR > 60 Random Glucose 94 Calcium 8.3 L CBC, BMP 02/28/18 07:54 02/28/18 07:54 Active Medications Generic Name Dose Route Start Last Admin Trade Name Freq PRN Reason Stop Dose Admin Amlodipine Besylate 5 mg 02/27/18 10:00 02/28/18 11:16 Norvasc - PO 5 mg DAILY INDIGO Administration Aspirin 81 mg 02/27/18 10:00 02/28/18 11:15 Asa - PO 81 mg DAILY INDIGO Administration Atorvastatin Calcium 80 mg 02/26/18 22:00 02/27/18 21:37 Lipitor - PO 80 mg HS INDIGO Administration Enoxaparin Sodium 40 mg 02/27/18 10:00 02/28/18 11:20 Lovenox - SQ 40 mg DAILY INDIGO Administration Losartan Potassium 100 mg 02/27/18 10:00 02/28/18 11:14 Cozaar - PO 100 mg DAILY INDIGO Administration Metoprolol Tartrate 50 mg 02/28/18 10:00 02/28/18 11:20 Lopressor - PO 50 mg BID INDIGO Administration Tamsulosin HCl 0.4 mg 02/26/18 22:00 02/27/18 21:37 Flomax - PO 0.4 mg HS INDIGO Administration Imaging: Echocardiogram - Gr. I diastolic dysfunction (abnormal relaxation pattern); mild concentric LVH; LVEF 60% Nuclear stress test - moderately sized mild intensity inferior wall reversible perfusion defect consistent with ischemia. Normal LV size and systolic function ; normal EF 85% ASSESSMENT/PLAN: Patient is an 82 year old male with past medical history CAD s/p stents x2 (1995 ), HTN, HLD, BPH and bladder cancer s/p ?resection (07/2017) presented with sudden, severe, nonradiating, "muscular" left sided chest pain this morning while sitting down and having coffee, that lasted less than 5 mins. accompanied by copious sweating and mild dyspnea. #Chest pain: -r/o ACS, may be musculoskeletal vs hypertensive urgency -EKG showed sinus bradycardia, 1st degree AV block -Trop x3 - negative -Aspirin 81mg daily. -May resume metoprolol tartrate 50mg BID -Dr. Pruett recommendations appreciated. -Patient agreed to be transferred to [facility] for coronary angiogram tomorrow. #Hypertension: -continue Amlodipine 10 mg daily and Irbesartan 300 mg daily -continue metoprolol 50mg BID -monitor BP #Hyperlipidemia: chronic -continue Atorvastatin 80 mg #BPH: chronic -continue Tamsulosin 0.4 mg #FEN -not on any standing fluids -lytes wnl, routine bmp monitoring -sodium-restricted diet #Prophylaxis -Enoxaparin 40 mg sq daily #Disposition -full code Visit type - Emergency Visit Emergency Visit: Yes ED Registration Date: 02/26/18 Care time: The patient presented to the Emergency Department on the above date and was hospitalized for further evaluation of their emergent condition. - New Patient This patient is new to me today: Yes Date on this admission: 02/28/18 - Critical Care Critical Care patient: No
[2018-02-28] MEDS: TAMSULOSIN HCL 0.4 MG CAP.ER.24H (FP) PO SCH (21:09)
[2018-02-28] MEDS: ATORVASTATIN CA 80 MG TABLET (FP) PO SCH (21:09)
[2018-03-01 06:19] VITALS: TEMP 97.4
[2018-03-01 06:45] LABS: HEMATOCRIT 39.6 % (35.4-49); HEMOGLOBIN 13.3 GM/dL (11.7-16.9); MCH 29.6 pg (25.7-33.7); MCHC 33.7 g/dl (32.0-35.9); MEAN CELL VOLUME 87.8 fl (80-96); MEAN PLT VOLUME 9.6 fl (7.5-11.1); PLATELET COUNT 102 K/MM3 (134-434); RBC 4.51 M/mm3 (4.00-5.60); RDW 15.1 % (11.9-15.9); WHITE BLOOD COUNT 6.6 K/mm3 (4.0-10.0)
[2018-03-01 07:30] LABS: CALCIUM 7.9 mg/dL (8.5-10.1); CHLORIDE 105 mmol/L (98-107); POTASSIUM 3.5 mmol/L (3.5-5.1); SODIUM 141 mmol/L (136-145)
[2018-03-01 07:34] LABS: ANION GAP 8 MMOL/L (8-16); BLOOD UREA NITROGEN 22 mg/dL (7-18); CO2 28 mmol/L (21-32); CREATININE 0.9 mg/dL (0.7-1.3); GLUCOSE,RANDOM 84 mg/dL (74-106)
--- NOTE | 2018-03-01 08:09 | PN ---
Progress Note, Physician History of Present Illness: 82 yo white man with PMHx CAD (coronary stent in ?1995), presents with several episodes of chest pain for the last 3-4 days. The pain always occurs at rest, is moderately severe in intensity, aches on the left side of the chest, lasts from seconds to a few minutes. He states that he had another episode shortly before arrival in ED, noted that he became diaphoretic to the point that he had to change his shirt. No N/V, SOB, leg swelling. Former cigarette smoker (quit many years ago); rarely has an alcoholic drink. Family hx DM Pt says he walks 1-2 hours at a moderate to brisk pace several days a week without chest pain or shortness of breath. However, he says he cannot walk on a treadmill; he gets tired on it very easily, and has never been able to complete a treadmill stress test on several tries. - Current Medication List Current Medications: Active Medications Amlodipine Besylate (Norvasc -) 5 mg PO DAILY [facility] Last Admin: 02/28/18 11:16 Dose: 5 mg Aspirin (Asa -) 81 mg PO DAILY [facility] Last Admin: 02/28/18 11:15 Dose: 81 mg Atorvastatin Calcium (Lipitor -) 80 mg PO HS [facility] Last Admin: 02/28/18 21:09 Dose: 80 mg Enoxaparin Sodium (Lovenox -) 40 mg SQ DAILY [facility] Last Admin: 02/28/18 11:20 Dose: 40 mg Losartan Potassium (Cozaar -) 100 mg PO DAILY [facility] Last Admin: 02/28/18 11:14 Dose: 100 mg Metoprolol Tartrate (Lopressor -) 50 mg PO BID [facility] Last Admin: 02/28/18 21:10 Dose: 50 mg Tamsulosin HCl (Flomax -) 0.4 mg PO HS [facility] Last Admin: 02/28/18 21:09 Dose: 0.4 mg - Objective Vital Signs: Vital Signs Temperature 97.4 F L 03/01/18 06:00 Pulse Rate 54 L 03/01/18 06:00 Respiratory Rate 18 03/01/18 06:00 Blood Pressure 138/62 03/01/18 06:00 O2 Sat by Pulse Oximetry (%) 97 03/01/18 00:00 Eyes: Yes: WNL, Conjunctiva Clear, EOM Intact HENT: Yes: WNL, Atraumatic, Normocephalic Neck: Yes: WNL, Supple, Trachea Midline Cardiovascular: Yes: WNL, Regular Rate and Rhythm Respiratory: Yes: WNL, Regular, CTA Bilaterally Gastrointestinal: Yes: WNL, Normal Bowel Sounds Genitourinary: Yes: WNL Musculoskeletal: Yes: WNL Extremities: Yes: WNL Edema: No Integumentary: Yes: WNL Neurological: Yes: WNL, Alert, Oriented ...Motor Strength: WNL Psychiatric: Yes: WNL Labs: CBC, BMP 03/01/18 05:35 03/01/18 05:35 INR, PTT INR 1.06 (0.83-1.09) 02/26/18 08:42 Assessment/Plan - Problems (1) HTN (hypertension) Code(s): I10 - ESSENTIAL (PRIMARY) HYPERTENSION (2) Hyperlipidemia Assessment/Plan: on atorvastatin; lipid levels well-controlled. Code(s): E78.5 - HYPERLIPIDEMIA, UNSPECIFIED (3) Chest pain Assessment/Plan: Stress Lexiscan MIBI yesterday was positive for myocardial ischemia. Recommend coronary angiogram; pt (with present) agress. For transfer to [facility]. Code(s): R07.9 - CHEST PAIN, UNSPECIFIED Qualifiers: Chest pain type: unspecified Qualified Code(s): R07.9 - Chest pain, unspecified (4) Diastolic CHF Code(s): I50.30 - UNSPECIFIED DIASTOLIC (CONGESTIVE) HEART FAILURE
[2018-03-01 09:44] VITALS: BP 144/56; PULSE 58
[2018-03-01] MEDS: amLODIPine BESYLATE 5 MG TABLET (FP) PO SCH (10:16)
[2018-03-01] MEDS: METOPROLOL TARTRATE 50 MG TABLET (FP) PO SCH (10:16)
[2018-03-01] MEDS: ENOXAPARIN NA (PORCINE) 40 MG/0.4 ML DISP.SYRIN SQ SCH (10:16)
[2018-03-01] MEDS: ASPIRIN 81 MG CHEWABLE TABLETS PO SCH (10:16)
[2018-03-01] MEDS: LOSARTAN POTASSIUM 50 MG TABLET (FP) PO SCH (10:16)
--- NOTE | 2018-03-01 13:53 | PN ---
Teaching Attending Note Name of Resident: Izabela Myrick ATTENDING PHYSICIAN STATEMENT I saw and evaluated the patient. I reviewed the resident's note and discussed the case with the resident. I agree with the resident's findings and plan as documented with exceptions below. SUBJECTIVE: Patient seen and examined. no chest pain or new concerns overnight OBJECTIVE: Vital Signs Period Temp Pulse Resp BP Sys/Barksdale Pulse Ox Last 24 Hr 97.1 F-98.4 F 51-58 18-20 129-149/56-71 97-98 Intake & Output 02/26/18 02/27/18 02/28/18 03/01/18 23:59 23:59 23:59 23:59 Intake Total 400 770 820 Balance 400 770 820 Weight 183 lb General:lying in bed in no acute distress, at bedside ASSESSMENT AND PLAN: 82 yom with PMHx of CAD s/p PCI, Bladder ca s/p ?resection/intravesical treatment, HTN, HLD, LV diastolic dysfunction, admitted with chest pain, and hypertensive urgency. -Chest pain with typical features, r/o ACS, vs from hypertensive urgency vs musculoskeletal -Hypertensive urgency -HLD -LV diastolic dysfunction -CAD s/p PCI > 20 years ago -Bladder ca s/p ?resection/intravesical therapy 07/2017 Plan: ACS ruled out. 2D echo noted. Cardiology input appreciated. Discussed with Dr. Pruett. Stress test positive, follow up with Cardiology for transfer for cardiac cath. BP improved. Continue home ARB/Amlodipine/Metoprolol. ASA/statin. Lipid panel noved dVTPPx lovenox Dispo pending transfer for cardiac cath today. Plan discussed with patient and at bedside in detail, all questions answered.
--- NOTE | 2018-03-01 21:41 | DS ---
Physical Exam: SUBJECTIVE: Patient seen and examined at bedside this morning. Patient has no active complaints. Chest pain has never recurred since admission. OBJECTIVE: Vital Signs Period Temp Pulse Resp BP Sys/Barksdale Pulse Ox Last 24 Hr 97.3 F-97.4 F 51-58 18-20 138-144/56-65 97-98 PHYSICAL EXAM GENERAL: The patient is awake, alert, and fully oriented, in no acute distress. HEAD: Normal with no signs of trauma. EYES: PERRLA, EOMI, sclera anicteric, conjunctiva clear. ENT: Ears normal, nares patent, oropharynx clear without exudates, moist mucous membranes. NECK: Trachea midline, full range of motion, supple. LUNGS: Breath sounds equal, clear to auscultation bilaterally. HEART: Regular rate and rhythm, S1, S2 without murmur, rub or gallop. ABDOMEN: Soft, nontender, nondistended, normoactive bowel sounds. EXTREMITIES: 2+ pulses, warm, well-perfused, no edema. NEUROLOGICAL: Cranial nerves II through XII grossly intact. Normal speech, gait not observed. PSYCH: Normal mood, normal affect. SKIN: Warm, dry, normal turgor, no rashes or lesions noted. LABS Laboratory Results - last 24 hr 03/01/18 03/01/18 05:35 05:35 WBC 6.6 RBC 4.51 Hgb 13.3 Hct 39.6 MCV 87.8 MCH 29.6 MCHC 33.7 RDW 15.1 Plt Count 102 L MPV 9.6 Sodium 141 Potassium 3.5 Chloride 105 Carbon Dioxide 28 Anion Gap 8 BUN 22 H Creatinine 0.9 Creat Clearance w eGFR > 60 Random Glucose 84 Calcium 7.9 L IMAGING CXR: Apical lordotic projection. No acute chest pathology. Echocardiogram: Garade I diastolic dysfunction, (abnormal relaxation pattern). The right ventricle is normal in size and function. There is mild concentric left ventricular hypertrophy. The left ventricular ejection fraction is normal. Myocardial perfusion scan: Exercise results - baseline EKG showed normal sinus rhythm nonspecific reporlarization abnormalities. At peak stress no diagnostic ST-T wave changes no arrhythmias no ischemic symptoms. Nuclear results - moderately sized mild intensity inferior wall reversible perfusion defect consistent with ischemia. Normal left ventricular size and systolic function normal ejection fraction 58%. HOSPITAL COURSE: Date of Admission:02/26/18 Date of Discharge: 03/01/18 Patient is an 82 year old male with past medical history CAD s/p stents x2 (1995 ), HTN, HLD, BPH and bladder cancer s/p resection (07/2017) presented with sudden, severe, nonradiating, "muscular" left sided chest pain this morning while sitting down and having coffee, that lasted less than 5 mins. accompanied by copious sweating and mild dyspnea. This intermittent chest pain lasted about an hour, patient got worried and decided to go to the ED, where upon arrival, his symptoms resolved. Patient reported he has been having intermittent left sided chest pain that started 1 month ago and would last about 3-4 days per episode. Denies any alleviating or aggravating factors. Patient denies palpitations, nausea, vomiting, abdominal pain, fever, chills, cough. Patient was admitted to rule out ACS. Troponin x3 were negative and EKG showed sinus bradycardia. Cardiology was consulted. Nuclear stress test was done and revealed myocardial ischemia at the inferior wall. Cardiology recommended that patient undergo coronary angiogram. Patient agreed to be transferred to [facility] for the procedure. Minutes to complete discharge: 45 Discharge Summary Reason For Visit: CHEST PAIN Condition: Stable - Instructions Diet, Activity, Other Instructions: You were admitted because of chest pain. You were given Aspirin 81 mg daily. Home medications prior to admission. 1. Amlodipine 5mg daily 2. Atorvastatin 80mg daily 3. Irbesartan 300mg daily 4. Metoprolol Tartrate 50 mg twice daily 5. Tamsulosin 0.4mg If at any time your symptoms recur or gets worse, please come back at the ED. Referrals: Jhonny Burris MD [Primary Care Provider] - Dalton Pruett MD [Staff Physician] - Disposition: TRANSFER ACUTE CARE/OTHER HOSP - Home Medications Comprehensive Discharge Medication List: Ambulatory Orders Amlodipine Besylate 5 mg PO DAILY 08/04/17 Atorvastatin Ca [Lipitor] 80 mg PO HS 08/04/17 Irbesartan 300 mg PO DAILY 08/04/17 Metoprolol Tartrate 50 mg PO BID 08/04/17 Tamsulosin HCl [Flomax] 0.4 mg PO HS 08/04/17 Aspirin [ASA -] 81 mg PO DAILY #30 tab.chew 02/27/18 This patient is new to me today: Yes Date on this admission: 03/01/18 Emergency Visit: Yes ED Registration Date: 02/26/18 Care time: The patient presented to the Emergency Department on the above date and was hospitalized for further evaluation of their emergent condition. Critical Care patient: No - Discharge Referral Referred to [facility] No
== END 2018-03-01 11:21 | disposition short-term general hospital (02) ==
LOC: JER 08:34 → JERBED 12:24 → J4W 17:40
PROVIDERS: ADMIT Hospitalist; ATTEND Hospitalist
PROC: 3E033GC Introduction of Other Therapeutic Substance into Peripheral Vein, Percutaneous Approach (ICD-10-PCS; principal; 2018-02-26)
DX: R07.9 Chest pain, unspecified (principal); I16.0 Hypertensive urgency; I11.0 Hypertensive heart disease with heart failure; I50.30 Unspecified diastolic (congestive) heart failure; I44.0 Atrioventricular block, first degree; I25.10 Atherosclerotic heart disease of native coronary artery without angina pectoris; I25.2 Old myocardial infarction; E78.5 Hyperlipidemia, unspecified; N40.0 Benign prostatic hyperplasia without lower urinary tract symptoms; R00.1 Bradycardia, unspecified; Z85.51 Personal history of malignant neoplasm of bladder; Z87.891 Personal history of nicotine dependence; Z95.5 Presence of coronary angioplasty implant and graft
CPT/HCPCS: 36415; 71045-TC-FY; 78452-TC; 80048; 80053; 80061; 82550; 83721; 83735; 84100; 84443; 84484; 85025; 85027; 85610; 85730; 93005; 93010; 93017; 93306-TC; 96374; 99284-25; A9502; G0378; J2785

== ENCOUNTER 2018-03-03 23:49 | Observation (INO) | payer OTHER ==
[2018-03-04 00:45] VITALS: BMI 26.6
[2018-03-04] MEDS ORDERED: NITROGLYCERIN SUBLINGUAL 1/150 0.4 MG TAB SL PRN (01:22)
[2018-03-04 01:50] LABS: EOS % 2.7 % (0-4.5); HEMATOCRIT 37.6 % (35.4-49); HEMOGLOBIN 13.1 GM/dL (11.7-16.9); LYMPH % 24.4 % (8-40); MCH 30.6 pg (25.7-33.7); MCHC 34.7 g/dl (32.0-35.9); MEAN PLT VOLUME 9.7 fl (7.5-11.1); MONO % 8.2 % (3.8-10.2); NEUT % 63.7 % (42.8-82.8); PLATELET COUNT 101 K/MM3 (134-434); RBC 4.28 M/mm3 (4.00-5.60); RDW 14.8 % (11.9-15.9); WHITE BLOOD COUNT 7.2 K/mm3 (4.0-10.0)
[2018-03-04 02:13] LABS: ALBUMIN 3.2 g/dl (3.4-5.0); ANION GAP 7 MMOL/L (8-16); BILIRUBIN,TOTAL 0.7 mg/dL (0.2-1.0); BLOOD UREA NITROGEN 20 mg/dL (7-18); CALCIUM 7.8 mg/dL (8.5-10.1); CHLORIDE 106 mmol/L (98-107); CO2 27 mmol/L (21-32); CREATININE 0.9 mg/dL (0.7-1.3); GLUCOSE,RANDOM 91 mg/dL (74-106); POTASSIUM 3.5 mmol/L (3.5-5.1); SGOT/AST 28 U/L (15-37); SGPT/ALT 25 U/L (12-78); SODIUM 140 mmol/L (136-145); TOT PROT 6.9 g/dl (6.4-8.2)
[2018-03-04 02:16] LABS: ALK PHOS 73 U/L (45-117)
--- NOTE | 2018-03-04 03:05 | PDOC ---
History of Present Illness <Tracey Riggs - Last Filed: 03/04/18 04:50> - General History Source: Patient, Family Exam Limitations: No Limitations - History of Present Illness Initial Comments: 03/04/18 02:58 Patient is a 82-year-old male with history of HTN, H LD, CAD, bladder cancer, here with complaints in the left upper back and shoulder. States this pain started about 1:30 PM while just sitting. Pain is 7/10, pressure-like, intermittent nonpleuritic, nonreproducible. He called his rug receiving clerk's and was told to come to the emergency room for evaluation. Patient was seen last week for chest pain and admitted to the hospital then was transferred to [facility] where he underwent stenting procedure. Patient states that 2 vessels were stented, and still has 1 vessel left to be stented. He was placed on Plavix at the time and reports that he is compliant with all his meds tonight. He denies nausea, vomiting, diaphoresis. PMD: Dr. Burris Cardio. Dr. Rowe PMHX: as above PSocHx: ALL: NKDA GENERAL/CONSTITUTIONAL: [No fever or chills. No weakness. No weight change.] HEAD, EYES, EARS, NOSE AND THROAT: [No change in vision. No ear pain or discharge. No sore throat.] CARDIOVASCULAR: [No chest pain or shortness of breath.] RESPIRATORY: [No cough, wheezing, or hemoptysis.] GASTROINTESTINAL: [No nausea, vomiting, diarrhea or constipation. No rectal bleeding.] GENITOURINARY: [No dysuria, frequency, or change in urination.] MUSCULOSKELETAL: [No joint or muscle swelling or pain. No neck or back pain.] SKIN AND BREASTS: [No rash or easy bruising.] NEUROLOGIC: [No headache, vertigo, loss of consciousness, or loss of sensation.] PSYCHIATRIC: [No depression or anxiety.] ENDOCRINE: [No increased thirst. No abnormal weight change.] HEMATOLOGIC/LYMPHATIC: [No anemia, easy bleeding, or history of blood clots.] ALLERGIC/IMMUNOLOGIC: [No hives or skin allergy. No latex allergy.] GENERAL: [The patient is awake, alert, and fully oriented, in mild distress.] HEAD: [Normal with no signs of trauma.] EYES: [Pupils equal, round and reactive to light, extraocular movements intact, sclera anicteric, conjunctiva clear.] ENT: [Ears normal, nares patent, oropharynx clear without exudates. Moist mucous membranes.] NECK: [Normal range of motion, supple without lymphadenopathy, JVD, or masses.] LUNGS: [Breath sounds equal, clear to auscultation bilaterally. No wheezes, and no crackles.] HEART: [Regular rate and rhythm, normal S1 and S2 without murmur, rub.] ABDOMEN: [Soft, nontender, normoactive bowel sounds. No guarding, no rebound. No masses.] EXTREMITIES: [Normal range of motion, no edema. No clubbing or cyanosis. No cords, erythema, or tenderness.] NEUROLOGICAL: [Cranial nerves II through XII grossly intact. Normal speech, normal gait.] PSYCH: [Normal mood, normal affect.] SKIN: [Warm, Dry, normal turgor, no rashes or lesions noted.] <Horacio Coppola - Last Filed: 03/04/18 05:23> - General Chief Complaint: Pain Stated Complaint: CHEST PAIN Time Seen by Provider: 03/04/18 00:45 Past History <Tracey Riggs - Last Filed: 03/04/18 04:50> - Past Medical History Cancer: Yes (bladder) Cardiac Disorders: Yes (CAD) COPD: No HTN: Yes Hypercholesterolemia: Yes - Surgical History Cardiac Surgery: Yes (stents) - Immunization History Immunization Up to Date: Yes - Suicide/Smoking/Psychosocial Hx Smoking Status: No Smoking History: Former smoker Have you smoked in the past 12 months: No Number of Cigarettes Smoked Daily: 0 If you are a former smoker, when did you quit?: 40 yrs ago Information on smoking cessation initiated: No Hx Alcohol Use: No Drug/Substance Use Hx: No Substance Use Type: None Hx Substance Use Treatment: No <Horacio Coppola - Last Filed: 03/04/18 05:23> - Past Medical History Allergies/Adverse Reactions: Allergies Allergy/AdvReac Type Severity Reaction Status Date / Time No Known Allergies Allergy Verified 03/04/18 00:41 Home Medications: Ambulatory Orders Amlodipine Besylate 5 mg PO DAILY 08/04/17 Atorvastatin Ca [Lipitor] 80 mg PO HS 08/04/17 Metoprolol Tartrate 50 mg PO BID 08/04/17 Tamsulosin HCl [Flomax] 0.4 mg PO HS 08/04/17 Aspirin [ASA -] 81 mg PO DAILY #30 tab.chew 02/27/18 Clopidogrel Bisulfate [Plavix] 75 mg PO DAILY 03/04/18 Docusate Sodium [Colace] 100 mg PO TID 03/04/18 Pantoprazole Sodium [Protonix] 40 mg PO DAILY 03/04/18 Sennosides [Senna] 8.6 mg PO BID 03/04/18 *Physical Exam - Vital Signs Last Vital Signs Temp Pulse Resp BP Pulse Ox 97.9 F 68 18 137/60 100 03/04/18 00:42 03/04/18 03:04 03/04/18 03:04 03/04/18 03:04 03/04/18 03:04 <Tracey Riggs - Last Filed: 03/04/18 04:50> - Vital Signs Last Vital Signs Temp Pulse Resp BP Pulse Ox 97.9 F 56 L 20 157/67 96 03/04/18 00:42 03/04/18 00:42 03/04/18 00:42 03/04/18 00:42 03/04/18 00:42 <Horacio Coppola - Last Filed: 03/04/18 05:23> ED Treatment Course - LABORATORY CBC & Chemistry Diagram: 03/04/18 01:43 03/04/18 01:43 - ADDITIONAL ORDERS Additional order review: Laboratory Results 03/04/18 01:43 Sodium 140 Potassium 3.5 Chloride 106 Carbon Dioxide 27 Anion Gap 7 L BUN 20 H Creatinine 0.9 Creat Clearance w eGFR > 60 Random Glucose 91 Calcium 7.8 L Total Bilirubin 0.7 AST 28 D ALT 25 Alkaline Phosphatase 73 Creatine Kinase 75 Troponin I 0.17 H D Total Protein 6.9 Albumin 3.2 L 03/04/18 01:43 RBC 4.28 MCV 88.0 MCHC 34.7 RDW 14.8 MPV 9.7 Neutrophils % 63.7 Lymphocytes % 24.4 Monocytes % 8.2 Eosinophils % 2.7 Basophils % 1.0 <Tracey Riggs - Last Filed: 03/04/18 04:50> - LABORATORY CBC & Chemistry Diagram: 03/04/18 01:43 03/04/18 01:43 - ADDITIONAL ORDERS Additional order review: Laboratory Results 03/04/18 01:43 Sodium 140 Potassium 3.5 Chloride 106 Carbon Dioxide 27 Anion Gap 7 L BUN 20 H Creatinine 0.9 Creat Clearance w eGFR > 60 Random Glucose 91 Calcium 7.8 L Total Bilirubin 0.7 AST 28 D ALT 25 Alkaline Phosphatase 73 Creatine Kinase 75 Troponin I 0.17 H D Total Protein 6.9 Albumin 3.2 L 03/04/18 01:43 RBC 4.28 MCV 88.0 MCHC 34.7 RDW 14.8 MPV 9.7 Neutrophils % 63.7 Lymphocytes % 24.4 Monocytes % 8.2 Eosinophils % 2.7 Basophils % 1.0 - RADIOLOGY Radiology Studies Ordered: Category Date Time Status CHEST X-RAY PORTABLE* [RAD] Stat Radiology 03/04/18 01:24 Taken <Horacio Coppola - Last Filed: 03/04/18 05:23> Medical Decision Making - Medical Decision Making 03/04/18 04:17 I spoke to rug receiving clerk Flynn, who is aware of the patient and tells me that elevated trop can be seen after stent placement. I will admit the patient to tele obs. <Tracey Riggs - Last Filed: 03/04/18 04:50> - Medical Decision Making 03/04/18 02:58 Patient is a 82-year-old male with history of HTN, H LD, CAD, bladder cancer, here with complaints in the left upper back and shoulder. States this pain started about 1:30 PM while just sitting. High risk for ACS. Labs include troponin Will admit patient 03/04/18 03:05 EKG sinus bradycardia 58 with first-degree AV block, LAD 03/04/18 03:49 Patient written for morphine but did not want to take it. Offered Morphine but refused labs noted has elevated trop to 0.17 will admit. ASA 325 mg given. Patient refused ASA will accept tylenol Paged Dr. Pruett and case discussed. States trops can be elevated post Stent placement. 03/04/18 05:19 Hospitalist contacted will admit to obs-tele <Horacio Coppola - Last Filed: 03/04/18 05:23> *DC/Admit/Observation/Transfer - Discharge Dispostion Decision to Admit order: Yes <Tracey Riggs - Last Filed: 03/04/18 04:50> <Horacio Coppola - Last Filed: 03/04/18 05:23> Diagnosis at time of Disposition: Elevated troponin, Stented coronary artery Chest pain Qualifiers: Chest pain type: unspecified Qualified Code(s): R07.9 - Chest pain, unspecified - Discharge Dispostion Condition at time of disposition: Guarded - Referrals Referrals: Jhonny Burris MD [Primary Care Provider] - - Patient Instructions - Post Discharge Activity
[2018-03-04] MEDS ORDERED: ASPIRIN 325 MG ENTERIC COATED TABLET (FP) PO ONE (03:51)
[2018-03-04] MEDS ORDERED: ASPIRIN 325 MG ENTERIC COATED TABLET (FP) ONE (04:15)
[2018-03-04] MEDS ORDERED: NITROGLYCERIN SUBLINGUAL 1/150 0.4 MG TAB ONE (04:16)
--- NOTE | 2018-03-04 04:51 | PN ---
<Tracey Riggs - Last Filed: 03/04/18 05:26> Teaching Attending Note ATTENDING PHYSICIAN STATEMENT I saw and evaluated the patient. I reviewed the resident's note and discussed the case with the resident. I agree with the resident's findings and plan as documented. SUBJECTIVE: OBJECTIVE: ASSESSMENT AND PLAN: <Barbara Pizarro - Last Filed: 03/04/18 05:46> Teaching Attending Note Name of Resident: Antonella Morrison ATTENDING PHYSICIAN STATEMENT I saw and evaluated the patient. I reviewed the resident's note and discussed the case with the resident. I agree with the resident's findings and plan as documented. SUBJECTIVE: Patient is an 82 year old man with history of HTN, H LD, CAD, bladder cancer, here with complaints of pain in the left mid-back next to the spine. States this pain started about 1:30 PM while just sitting. Pain is 7/10, pressure-like , intermittent nonpleuritic, nonreproducible and did not radiate. Pain is intermittent and he has never had similar pain before. He called his um rn and was told to come to the ER. Patient was seen last week for chest pain and admitted to the hospital then was transferred to [facility] where he had 2 cardiac stents placed and still has 1 vessel left to be stented. He was placed on Plavix at the time and reports that he is compliant with all his medications. He denies nausea, vomiting, diaphoresis or SOB. Last week when he coam to the ER, he had precordial chestpain. ABout 22 years ago, he had a ?coronary angioplasty, but is unclear if he had a heart attack then. patient is an ex-smoker and is with 3 children. 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 OBJECTIVE: Alert Vital Signs Period Temp Pulse Resp BP Sys/Barksdale Pulse Ox Last 24 Hr 97.9 F 56-68 18-20 137-157/60-67 96-100 HEENT: No Jaundice, eye redness or discharge, PERRLA, EOMI. Normocephalic, atraumatic. External ears are normal and hearing is grossly intact. No nasal discharge. Neck: Supple, nontender. No palpable adenopathy or thyromegaly. No JVD Chest: Good effort. Clear to auscultation and percussion. No point tenderness in the area where he has pain. Heart: Regular. No S3, rub or murmur Abdomen: Not distended, soft, nontender and no HSM. No rebound or guarding. Normoactive bowel sounds. Ext: Peripheral pulses intact. No leg edema. Skin: Warm and dry. No petechiae, rash or ecchymosis. Neuro: Alert. Oriented x3. CN 2-12 grossly intact. Sensation grossly intact in all four extremities and DTR are symmetric. Current Medications Generic Name Dose Route Start Last Admin Trade Name Freq PRN Reason Stop Dose Admin Nitroglycerin 0.4 mg 03/04/18 01:22 Nitrostat - SL Q5M PRN FOR CHEST PAIN Home Medications Medication Instructions Recorded Amlodipine Besylate 5 mg PO DAILY 08/04/17 Atorvastatin Ca [Lipitor] 80 mg PO HS 08/04/17 Metoprolol Tartrate 50 mg PO BID 08/04/17 Tamsulosin HCl [Flomax] 0.4 mg PO HS 08/04/17 Aspirin [ASA -] 81 mg PO DAILY #30 tab.chew 02/27/18 Clopidogrel Bisulfate [Plavix] 75 mg PO DAILY 03/04/18 Docusate Sodium [Colace] 100 mg PO TID 03/04/18 Pantoprazole Sodium [Protonix] 40 mg PO DAILY 03/04/18 Sennosides [Senna] 8.6 mg PO BID 03/04/18 Abnormal Lab Results 03/04/18 03/04/18 01:43 01:43 Plt Count 101 L Anion Gap 7 L BUN 20 H Calcium 7.8 L Troponin I 0.17 H D Albumin 3.2 L ASSESSMENT AND PLAN: 1. Chest pain - Though he has major risk factors, his pain is atypical and there are new changes on is CXR and EKG shows bradycardia with no ST-T wave changes. ER staff spoke to the um rn and the troponin elevation he says may be due to recent stenting. Patient will be observed on telemetry to rule out ACS. Low platelet count is unexplained - ?recent heparin use. Will monitor. 2. DVT prophylaxis - Lovenox 40 mg SQ q 24 hours. 3. Advance directives - Full code
[2018-03-04] MEDS ORDERED: ACETAMINOPHEN 500 MG TABLET (FP) PO ONE (05:24)
--- NOTE | 2018-03-04 05:53 | HP ---
CHIEF COMPLAINT: back pain PCP: HISTORY OF PRESENT ILLNESS: 82 y/o male with PMH of HTN. HLD, CAD (s/p stenting this past sunday), bladder ca, presents to the ED with vertebral back pain. Patient states the pain started yesterday at around 1 pm, and was on and off throughout the day. The pain at its worst was a 5/10 and did not radiate anywhere. Patient took tylenol one time for the pain and had called his manager mac who told him to come to the hospital to be on the safe side since he just underwent cardiac cath and was released on . Patient was told he needs to go back to the hospital in 2-3 weeks for another cardiac cath as there is still a blockage present. He is currently asymptomatic; denies any chest pain/SOB/N/V/fevers or chills. ER course was notable for: (1)trop #1 0.17 (2) patient was given nitroglycerin 0.4 once (3) Recent Travel: none PAST MEDICAL HISTORY: see HPI PAST SURGICAL HISTORY: cardiac stenting; bladder surgery for ca Social History: Smoking: former smoker quit 40 years ago Alcohol: denies Drugs: denies Family History: Allergies No Known Allergies Allergy (Verified 03/04/18 00:41) HOME MEDICATIONS: Home Medications Medication Instructions Recorded Amlodipine Besylate 10 mg PO DAILY 08/04/17 Atorvastatin Ca [Lipitor] 80 mg PO HS 08/04/17 Metoprolol Tartrate 50 mg PO BID 08/04/17 Tamsulosin HCl [Flomax] 0.4 mg PO HS 08/04/17 Aspirin [ASA -] 81 mg PO DAILY #30 tab.chew 02/27/18 Clopidogrel Bisulfate [Plavix] 75 mg PO DAILY 03/04/18 Docusate Sodium [Colace] 100 mg PO TID 03/04/18 Pantoprazole Sodium [Protonix] 40 mg PO DAILY 03/04/18 Sennosides [Senna] 17.2 mg PO BID 03/04/18 REVIEW OF SYSTEMS CONSTITUTIONAL: Absent: fever, chills, diaphoresis, generalized weakness, malaise, loss of appetite, weight change HEENT: Absent: rhinorrhea, nasal congestion, throat pain, throat swelling, difficulty swallowing, mouth swelling, ear pain, eye pain, visual changes CARDIOVASCULAR: Absent: chest pain, syncope, palpitations, irregular heart rate, lightheadedness , peripheral edema RESPIRATORY: Absent: cough, shortness of breath, dyspnea with exertion, orthopnea, wheezing, stridor, hemoptysis GASTROINTESTINAL: Absent: abdominal pain, abdominal distension, nausea, vomiting, diarrhea, constipation, melena, hematochezia GENITOURINARY: Absent: dysuria, frequency, urgency, hesitancy, hematuria, flank pain, genital pain MUSCULOSKELETAL: Present: back pain (specifically L upper shoulder to mid spine) , Absent: myalgia, arthralgia, joint swelling, neck pain SKIN: Absent: rash, itching, pallor HEMATOLOGIC/IMMUNOLOGIC: Absent: easy bleeding, easy bruising, lymphadenopathy, frequent infections ENDOCRINE: Absent: unexplained weight gain, unexplained weight loss, heat intolerance, cold intolerance NEUROLOGIC: Absent: headache, focal weakness or paresthesias, dizziness, unsteady gait, seizure, mental status changes, bladder or bowel incontinence PSYCHIATRIC: Absent: anxiety, depression, suicidal or homicidal ideation, hallucinations. PHYSICAL EXAMINATION Vital Signs - 24 hr 03/04/18 03/04/18 03/04/18 00:42 03:04 05:12 Temperature 97.9 F Pulse Rate 56 L Pulse Rate [ 68 61 Apical] Respiratory 20 18 Rate Blood Pressure 157/67 Blood Pressure 137/60 167/74 [Right Arm] O2 Sat by Pulse 96 100 96 Oximetry (%) GENERAL: Awake, alert, and fully oriented, in no acute distress. NECK: no JVD appreciated. LUNGS: Lungs CTA B/L; no rales, rhonchi, wheezing. HEART: Regular rate and rhythm, normal S1 and S2 without murmur, rub or gallop. ABDOMEN: Soft, nontender, not distended, normoactive bowel sounds, no guarding, no rebound, no masses. No hepatomegaly or splenomegaly. MUSCULOSKELETAL: Normal range of motion at all joints. No bony deformities or tenderness. No CVA tenderness. EXTREMITIES: warm, well perfused; no clubbing, cyanosis or LE edema NEUROLOGICAL: Cranial nerves II-XII intact. Normal speech. Normal gait. PSYCHIATRIC: Cooperative. Good eye contact. Appropriate mood and affect. SKIN: Warm, dry, normal turgor, no rashes or lesions noted, normal capillary refill. Laboratory Results - last 24 hr 03/04/18 03/04/18 01:43 01:43 WBC 7.2 RBC 4.28 Hgb 13.1 Hct 37.6 MCV 88.0 MCH 30.6 MCHC 34.7 RDW 14.8 Plt Count 101 L MPV 9.7 Absolute Neuts (auto) 4.6 Neutrophils % 63.7 Lymphocytes % 24.4 Monocytes % 8.2 Eosinophils % 2.7 Basophils % 1.0 Nucleated RBC % 0 Sodium 140 Potassium 3.5 Chloride 106 Carbon Dioxide 27 Anion Gap 7 L BUN 20 H Creatinine 0.9 Creat Clearance w eGFR > 60 Random Glucose 91 Calcium 7.8 L Total Bilirubin 0.7 AST 28 D ALT 25 Alkaline Phosphatase 73 Creatine Kinase 75 Troponin I 0.17 H D Total Protein 6.9 Albumin 3.2 L ASSESSMENT/PLAN: 82 y/o male with PMH of HTN. HLD, CAD (s/p stenting), bladder ca presents to the ED two days after stenting with non-radiating left upper shoulder pain. #1:Atypical Chest pain patients EKG shows sinus bradycardia with no new ST or T wave changes -1st troponin elevated to 0.17; Dr. Garrett was called who said this is common post-stenting and will come see patient -repeat troponin this am -c/w plavix, ASA -tele obvs monitoring #2: HTN -c/w toprol 50 BID #3: HLD -c/w atorvastatin 80 DVT Prophylaxis: SCD's (if length of stay is under 24 hours) diet: sodium-controlled dispo: tele obvs (all home meds have been restarted) Problem List - Problem (1) Chest pain Code(s): R07.9 - CHEST PAIN, UNSPECIFIED Qualifiers: Chest pain type: unspecified Qualified Code(s): R07.9 - Chest pain, unspecified (2) Elevated troponin Code(s): R74.8 - ABNORMAL LEVELS OF OTHER SERUM ENZYMES (3) HTN (hypertension) Code(s): I10 - ESSENTIAL (PRIMARY) HYPERTENSION (4) Hyperlipidemia Code(s): E78.5 - HYPERLIPIDEMIA, UNSPECIFIED (5) Muscle spasm Code(s): M62.838 - OTHER MUSCLE SPASM Visit type - Emergency Visit Emergency Visit: Yes Care time: The patient presented to the Emergency Department on the above date and was hospitalized for further evaluation of their emergent condition. - New Patient This patient is new to me today: Yes Date on this admission: 03/04/18 - Critical Care Critical Care patient: No Hospitalist Screening - Colonoscopy Questionnaire Colonoscopy Questionnaire: Colonoscopy Questionnaire - Patient: 50 - 75 years old and never had a screening colonoscopy: Unknown History of colon or rectal polyps, or CA: Unknown History of IBD, Crohn's disease or UC: Unknown History of abdominal radiation therapy as a child: Unknown - Relative: 1 with colon or rectal CA, or polyps at age 60 or younger: Unknown Colon or rectal CA diagnosed at age 45 or younger: Unknown Multiple relatives with colon or rectal CA: Unknown - Outcome: Screening Result: Negative Screen
[2018-03-04] MEDS ORDERED: ACETAMINOPHEN 325 MG TABLET (FP) ONE (06:00)
[2018-03-04] MEDS ORDERED: DOCUSATE SODIUM 100 MG CAPSULE (FP) PO ONE (06:01)
[2018-03-04] MEDS: DOCUSATE SODIUM 100 MG CAPSULE (FP) PO SCH ×3 (06:07→21:45)
[2018-03-04 09:41] LABS: HEMATOCRIT 38.2 % (35.4-49); MCH 30.1 pg (25.7-33.7); MCHC 34.1 g/dl (32.0-35.9); MEAN CELL VOLUME 88.4 fl (80-96); PLATELET COUNT 99 K/MM3 (134-434); RBC 4.32 M/mm3 (4.00-5.60); WHITE BLOOD COUNT 6.2 K/mm3 (4.0-10.0)
[2018-03-04] MEDS: ASPIRIN 81 MG CHEWABLE TABLETS PO SCH (09:53)
[2018-03-04] MEDS: amLODIPine BESYLATE 10 MG TABLET (FP) PO SCH (09:54)
[2018-03-04] MEDS: METOPROLOL TARTRATE 50 MG TABLET (FP) PO SCH ×2 (09:54→21:46)
[2018-03-04] MEDS: CLOPIDOGREL BISULFATE 75 MG TABLET (FP) PO SCH (09:54)
[2018-03-04] MEDS: PANTOPRAZOLE 40 MG TABLET (FP) PO SCH (09:54)
[2018-03-04] MEDS: SENNOSIDES 8.6MG TABLET (FP) PO SCH ×2 (09:55→21:47)
--- NOTE | 2018-03-04 10:03 | PN ---
Teaching Attending Note Name of Resident: Izabela Myrick ATTENDING PHYSICIAN STATEMENT I saw and evaluated the patient. I reviewed the resident's note and discussed the case with the resident. I agree with the resident's findings and plan as documented with exceptions below. SUBJECTIVE: patient seen and examined, no pain currently. Reports was in his USOH till yesterday around 11 Am when had sudden pain left mid thoracic paraspinal region , punching like, "likely arthritis" that resolved at 2 pm. Later her recurrence of pain around 11 pm at night and persisted, so came to ED. Finally resolved around 6 AM with '2 pills' given in the ED. No recurrence since. Confirms pain localized in that region, with no radiation to front, arm head/neck/jaw, dyspnea , diaphoresis, nausea or dizziness. No similar prior symptoms. NO recent heavy lifting. OBJECTIVE: Vital Signs Period Temp Pulse Resp BP Sys/Barksdale Pulse Ox Last 24 Hr 97.9 F 56-68 18-20 137-167/60-74 96-100 Intake & Output 03/01/18 03/02/18 03/03/18 03/04/18 23:59 23:59 23:59 23:59 Weight 180 lb General: lying in bed in no acute distress Chest; CTAB, no rales or wheezing CVS: S1s2 regular bradycardic Abdomen:soft, nT, ND, positive bowel sounds Musculoskeletal: no spinal or paraspinal tenderness in the entire spine region. no swelling or erythema noted. power 5/5 generalized, sensation intact to gross touch and symmetric in all extremities Extremities: no edema Home Medications Medication Instructions Recorded Amlodipine Besylate 10 mg PO DAILY 08/04/17 Atorvastatin Ca [Lipitor] 80 mg PO HS 08/04/17 Metoprolol Tartrate 50 mg PO BID 08/04/17 Tamsulosin HCl [Flomax] 0.4 mg PO HS 08/04/17 Aspirin [ASA -] 81 mg PO DAILY #30 tab.chew 02/27/18 Clopidogrel Bisulfate [Plavix] 75 mg PO DAILY 03/04/18 Docusate Sodium [Colace] 100 mg PO TID 03/04/18 Pantoprazole Sodium [Protonix] 40 mg PO DAILY 03/04/18 Sennosides [Senna] 17.2 mg PO BID 03/04/18 Active Medications Amlodipine Besylate (Norvasc -) 10 mg PO DAILY [facility] Aspirin (Asa -) 81 mg PO DAILY [facility] Atorvastatin Calcium (Lipitor -) 80 mg PO HS [facility] Clopidogrel Bisulfate (Plavix -) 75 mg PO DAILY [facility] Docusate Sodium (Colace -) 100 mg PO TID [facility] Last Admin: 03/04/18 06:07 Dose: 100 mg Metoprolol Tartrate (Lopressor -) 50 mg PO BID [facility] Nitroglycerin (Nitrostat -) 0.4 mg SL Q5M PRN PRN Reason: FOR CHEST PAIN Pantoprazole Sodium (Protonix -) 40 mg PO DAILY [facility] Senna (Senna -) 2 tab PO BID [facility] Tamsulosin HCl (Flomax -) 0.4 mg PO HS [facility] Laboratory Results - last 24 hr 03/04/18 03/04/18 03/04/18 01:43 01:43 09:34 WBC 7.2 6.2 RBC 4.28 4.32 Hgb 13.1 13.0 Hct 37.6 38.2 MCV 88.0 88.4 MCH 30.6 30.1 MCHC 34.7 34.1 RDW 14.8 15.0 Plt Count 101 L 99 L MPV 9.7 10.0 Absolute Neuts (auto) 4.6 Neutrophils % 63.7 Lymphocytes % 24.4 Monocytes % 8.2 Eosinophils % 2.7 Basophils % 1.0 Nucleated RBC % 0 Sodium 140 Potassium 3.5 Chloride 106 Carbon Dioxide 27 Anion Gap 7 L BUN 20 H Creatinine 0.9 Creat Clearance w eGFR > 60 Random Glucose 91 Calcium 7.8 L Total Bilirubin 0.7 AST 28 D ALT 25 Alkaline Phosphatase 73 Creatine Kinase 75 Troponin I 0.17 H D Total Protein 6.9 Albumin 3.2 L EKG - sinus bradycardia, ?lead reversal in III, no acute ST-T changes ASSESSMENT AND PLAN: 82 yom with PMHx of CAD s/p PCI, Bladder ca s/p ?resection/intravesical treatment, HTN, HLD, LV diastolic dysfunction, recently admitted with chest pain /HTN urgency, abnormal stress test, transferred to [facility] s/p PCI (?) planned for repeat PCI with stenting in 3 weeks comes with intermittent left mid thoracic paraspinal pain. -Left midthoracic paraspinal pain, -Elevated troponin, from ?recent cath with stenting, r/o ACS -HTN -HLD -CAD s/p Prior PCI -Bladder ca s/p ?resection/intravesical treatment -LV diastolic dysfunction Plan: Symptoms atypical, focal, non radiating, intermittent, suspect musculoskeletal, description not consistent with dissection, low suspicion for anginal equivalent , resolved with stable hemodynamics currently. telemetry, follow up repeat Tn. repeat EKG. Follow up with cardiology. Per patient, planned for repeat stenting in 3 weeks. Continue ASA/Plavix/statin/metoprolol/amlodipine/flomax/PPI DVTPPX with lovenox if stay > 48 hours and non ambulatory or ACS concerns. Dispo pending clinical course and cardiology input. Plan discussed with patient in detail, all questions answered.
[2018-03-04 10:07] LABS: ALBUMIN 3.2 g/dl (3.4-5.0); ANION GAP 8 MMOL/L (8-16); BILIRUBIN,TOTAL 0.9 mg/dL (0.2-1.0); BLOOD UREA NITROGEN 15 mg/dL (7-18); CALCIUM 7.9 mg/dL (8.5-10.1); CHLORIDE 107 mmol/L (98-107); CO2 28 mmol/L (21-32); CREATININE 0.7 mg/dL (0.7-1.3); GLUCOSE,RANDOM 88 mg/dL (74-106); MAGNESIUM 1.9 mg/dL (1.8-2.4); PHOSPHOROUS 2.8 mg/dL (2.5-4.9); POTASSIUM 3.3 mmol/L (3.5-5.1); SGOT/AST 23 U/L (15-37); SGPT/ALT 26 U/L (12-78); SODIUM 143 mmol/L (136-145); TOT PROT 6.6 g/dl (6.4-8.2)
[2018-03-04 10:10] LABS: ALK PHOS 71 U/L (45-117)
--- NOTE | 2018-03-04 13:15 | EKG ---
Test Reason : Blood Pressure : / mmHG Vent. Rate : 053 BPM Atrial Rate : 053 BPM P-R Int : 250 ms QRS Dur : 088 ms QT Int : 488 ms P-R-T Axes : 051 -16 -03 degrees QTc Int : 457 ms SINUS BRADYCARDIA WITH 1ST DEGREE A-V BLOCK OTHERWISE NORMAL ECG WHEN COMPARED WITH ECG OF 04-MAR-2018 00:03, NO SIGNIFICANT CHANGE WAS FOUND Confirmed by BARTOLO JOY MD ([id number]) on 03/04/2018 1:15:08 PM Referred By: Confirmed By:BARTOLO JOY MD
--- NOTE | 2018-03-04 13:21 | EKG ---
Test Reason : Blood Pressure : / mmHG Vent. Rate : 058 BPM Atrial Rate : 058 BPM P-R Int : 210 ms QRS Dur : 092 ms QT Int : 460 ms P-R-T Axes : -16 -03 029 degrees QTc Int : 451 ms SINUS BRADYCARDIA WITH 1ST DEGREE A-V BLOCK OTHERWISE NORMAL ECG WHEN COMPARED WITH ECG OF 27-FEB-2018 11:58, NO SIGNIFICANT CHANGE WAS FOUND Confirmed by BARTOLO JYO MD ([id number]) on 03/04/2018 1:21:00 PM Referred By: Confirmed By:BARTOLO JOY MD
--- NOTE | 2018-03-04 16:52 | CON.CARD ---
Consult Consult Specialty:: cardiology Reason for Consultation:: chest pain; recent PCI - History of Present Illness History of Present Illness: Patient is a 82-year-old male with history of HTN, H LD, CAD, bladder cancer, here with complaints in the left upper back and shoulder. States this pain started about 1:30 PM while just sitting. Pain is 7/10, pressure-like, intermittent nonpleuritic, nonreproducible. He called his field administrator's and was told to come to the emergency room for evaluation. Patient was seen last week for chest pain and admitted to the hospital then was transferred to [facility] where he underwent stenting procedure. Patient states that 2 vessels were stented, and still has 1 vessel left to be stented. He was placed on Plavix at the time and reports that he is compliant with all his meds tonight. He denies nausea, vomiting, diaphoresis. PMD: Dr. Burris Cardio. Dr. Vallejo; interventionalist: Dr. Rowe - History Source History Provided By: Patient, Family Member, Medical Record Limitations to Obtaining History: No Limitations - Past Medical History Cardio/Vascular: Yes: CAD, HTN - Past Surgical History Past Surgical History: Yes: Stent (coronary: more than 20 yrs ago) - Alcohol/Substance Use Hx Alcohol Use: No - Smoking History Smoking history: Former smoker Have you smoked in the past 12 months: No Aproximately how many cigarettes per day: 0 If you are a former smoker, when did you quit?: 40 yrs ago Home Medications - Allergies Allergies/Adverse Reactions: Allergies Allergy/AdvReac Type Severity Reaction Status Date / Time No Known Allergies Allergy Verified 03/04/18 00:41 - Home Medications Home Medications: Ambulatory Orders Amlodipine Besylate 10 mg PO DAILY 08/04/17 Atorvastatin Ca [Lipitor] 80 mg PO HS 08/04/17 Metoprolol Tartrate 50 mg PO BID 08/04/17 Tamsulosin HCl [Flomax] 0.4 mg PO HS 08/04/17 Aspirin [ASA -] 81 mg PO DAILY #30 tab.chew 02/27/18 Clopidogrel Bisulfate [Plavix] 75 mg PO DAILY 03/04/18 Docusate Sodium [Colace] 100 mg PO TID 03/04/18 Pantoprazole Sodium [Protonix] 40 mg PO DAILY 03/04/18 Sennosides [Senna] 17.2 mg PO BID 03/04/18 Family Disease History - Family Disease History Family History: Denies Review of Systems - Review of Systems Constitutional: reports: No Symptoms Eyes: reports: No Symptoms HENT: reports: No Symptoms Neck: reports: No Symptoms Cardiovascular: reports: Chest Pain Respiratory: reports: No Symptoms Gastrointestinal: reports: No Symptoms Genitourinary: reports: No Symptoms Breasts: reports: No Symptoms Reported Musculoskeletal: reports: Muscle Pain Integumentary: reports: No Symptoms Neurological: reports: No Symptoms Endocrine: reports: No Symptoms Hematology/Lymphatic: reports: No Symptoms Psychiatric: reports: Altered Sleep Pattern, Anxiety - Risk Factors Known Risk Factors: Yes: Age, Gender, Hypercholesterolemia, Hypertension, Other (CAD-->PCI; needs 2nd stent) Vital Signs: Vital Signs Temperature 98.1 F 03/04/18 16:33 Pulse Rate 60 03/04/18 16:33 Respiratory Rate 16 03/04/18 16:33 Blood Pressure 117/57 03/04/18 16:33 O2 Sat by Pulse Oximetry (%) 100 03/04/18 16:31 Constitutional: Yes: Anxious Eyes: Yes: WNL HENT: Yes: WNL Neck: Yes: WNL Respiratory: Yes: WNL Gastrointestinal: Yes: WNL Renal/: Yes: WNL Cardiovascular: Yes: WNL JVD: No Carotid Bruit: No PMI: Non-Displaced Heart Sounds: Yes: S1 (split), S2 Murmur: Yes: Systolic Murmur, Grade 1 Musculoskeletal: Yes: Other (no pain on palpation of lower left scapula, where pt has had pain lately) Extremities: Yes: WNL Edema: No Peripheral Pulses WNL: Yes Integumentary: Yes: WNL Neurological: Yes: WNL Psychiatric: Yes: WNL - Other Data Labs, Other Data: CBC, BMP 03/04/18 09:34 03/04/18 09:34 Troponin, BNP 03/04/18 03/04/18 03/04/18 01:43 09:34 15:19 Troponin I 0.17 H D 0.12 H D 0.10 H Troponin, BNP 03/04/18 03/04/18 03/04/18 01:43 09:34 15:19 Troponin I 0.17 H D 0.12 H D 0.10 H Ejection Fraction %: LVEF > or = 40 % Imaging - Results EKG: Image Reviewed (NSR; 1st degree AV block) Problem List - Problems (1) Atypical chest pain Code(s): R07.89 - OTHER CHEST PAIN (2) Elevated troponin Assessment/Plan: Mild elevation on admission, which is decreasing; normal CD. EKG: no acute STT changes; no Q waves. Recent coronary stent (<48 hours ago) the likely explanation of the mild rise in TNI. Will observe. Code(s): R74.8 - ABNORMAL LEVELS OF OTHER SERUM ENZYMES (3) Stented coronary artery Assessment/Plan: planned for 2nd, staged coronary stent in several weeks. Pt to f/u with interventionalist, Dr. Lopez. Continue ASA and clopidogrel. Code(s): Z95.5 - PRESENCE OF CORONARY ANGIOPLASTY IMPLANT AND GRAFT (4) Diastolic CHF Code(s): I50.30 - UNSPECIFIED DIASTOLIC (CONGESTIVE) HEART FAILURE (5) HTN (hypertension) Assessment/Plan: On metoprolol and amlodiopine. Code(s): I10 - ESSENTIAL (PRIMARY) HYPERTENSION (6) Hyperlipidemia Assessment/Plan: LDL cholesterol 81 mg/dL. On atorvastatin 80 mg daily. Code(s): E78.5 - HYPERLIPIDEMIA, UNSPECIFIED
[2018-03-04] MEDS ORDERED: PT OWN MED DRAWER 7, Y5N ONE (18:00)
--- NOTE | 2018-03-04 19:17 | PN ---
Physical Exam: SUBJECTIVE: Patient seen and examined this morning. Pt reported having intermittent sharp left upper back/shoulder pains 5/10, lasting few seconds at a time. Last episode at around 6am this morning, and since then pt denied any chest or back pain, SOB, palpitations. OBJECTIVE: Vital Signs Period Temp Pulse Resp BP Sys/Barksdale Pulse Ox Last 24 Hr 97.2 F-98.3 F 56-68 16-20 112-167/55-76 96-100 GENERAL: The patient is awake, alert, and fully oriented, in no acute distress. HEAD: Normal with no signs of trauma. NECK: Trachea midline, full range of motion, supple. LUNGS: Breath sounds equal, clear to auscultation bilaterally. HEART: Regular rate and rhythm, S1, S2 without murmur, rub or gallop. ABDOMEN: Soft, nontender, nondistended, normoactive bowel sounds. EXTREMITIES: 2+ pulses, warm, well-perfused, no edema. NEUROLOGICAL: Cranial nerves II through XII grossly intact. Normal speech, gait normal. PSYCH: Normal mood, normal affect. SKIN: Warm, dry, normal turgor, no rashes or lesions noted Laboratory Results - last 24 hr 03/04/18 03/04/18 03/04/18 01:43 01:43 09:34 WBC 7.2 6.2 RBC 4.28 4.32 Hgb 13.1 13.0 Hct 37.6 38.2 MCV 88.0 88.4 MCH 30.6 30.1 MCHC 34.7 34.1 RDW 14.8 15.0 Plt Count 101 L 99 L MPV 9.7 10.0 Absolute Neuts (auto) 4.6 Neutrophils % 63.7 Lymphocytes % 24.4 Monocytes % 8.2 Eosinophils % 2.7 Basophils % 1.0 Nucleated RBC % 0 Sodium 140 Potassium 3.5 Chloride 106 Carbon Dioxide 27 Anion Gap 7 L BUN 20 H Creatinine 0.9 Creat Clearance w eGFR > 60 Random Glucose 91 Calcium 7.8 L Phosphorus Magnesium Total Bilirubin 0.7 AST 28 D ALT 25 Alkaline Phosphatase 73 Creatine Kinase 75 Troponin I 0.17 H D Total Protein 6.9 Albumin 3.2 L 03/04/18 03/04/18 09:34 15:19 WBC RBC Hgb Hct MCV MCH MCHC RDW Plt Count MPV Absolute Neuts (auto) Neutrophils % Lymphocytes % Monocytes % Eosinophils % Basophils % Nucleated RBC % Sodium 143 Potassium 3.3 L Chloride 107 Carbon Dioxide 28 Anion Gap 8 BUN 15 Creatinine 0.7 Creat Clearance w eGFR > 60 Random Glucose 88 Calcium 7.9 L Phosphorus 2.8 Magnesium 1.9 Total Bilirubin 0.9 AST 23 ALT 26 Alkaline Phosphatase 71 Creatine Kinase Troponin I 0.12 H D 0.10 H Total Protein 6.6 Albumin 3.2 L Active Medications Generic Name Dose Route Start Last Admin Trade Name Armandq PRN Reason Stop Dose Admin Amlodipine Besylate 10 mg 03/04/18 10:00 03/04/18 09:54 Norvasc - PO 10 mg DAILY INDIGO Administration Aspirin 81 mg 03/04/18 10:00 03/04/18 09:53 Asa - PO 81 mg DAILY INDIGO Administration Atorvastatin Calcium 80 mg 03/04/18 22:00 Lipitor - PO HS [facility] Clopidogrel Bisulfate 75 mg 03/04/18 10:00 03/04/18 09:54 Plavix - PO 75 mg DAILY INDIGO Administration Docusate Sodium 100 mg 03/04/18 06:00 03/04/18 14:45 Colace - PO 100 mg TID INDIGO Administration Metoprolol Tartrate 50 mg 03/04/18 10:00 03/04/18 09:54 Lopressor - PO 50 mg BID INDIGO Administration Nitroglycerin 0.4 mg 03/04/18 01:22 Nitrostat - SL Q5M PRN FOR CHEST PAIN Pantoprazole Sodium 40 mg 03/04/18 10:00 03/04/18 09:54 Protonix - PO 40 mg DAILY INDIGO Administration Senna 2 tab 03/04/18 10:00 03/04/18 09:55 Senna - PO 2 tab BID INDIGO Administration Tamsulosin HCl 0.4 mg 03/04/18 22:00 Flomax - PO HS [facility] ASSESSMENT/PLAN: Patient is an 82 y/o male with PMH of HTN, HLD, CAD (s/p stenting), bladder ca presents to the ED two days after stenting with non-radiating left upper shoulder pain. #Atypical Chest pain -EKG shows sinus bradycardia with no new ST or T wave changes -1st troponin elevated to 0.17; Dr. Garrett was called who said this is common post-stenting -repeat troponin 0.12 and 0.10 -Dr. Pruett consulted - recommendations appreciated. -will be discharged tomorrow if with no concerns -c/w plavix, ASA -tele obs monitoring #HTN -c/w toprol 50 BID #HLD -c/w atorvastatin 80 #Prophylaxis -SCD's (if length of stay is under 24 hours) #FEN -not on any standing fluids -encourage increase oral fluid intake -electrolytes wnl, routine bmp monitoring -sodium restricted diet #dispo -tele obs -all home meds have been restarted -for discharge tomorrow if with no concerns Visit type - Emergency Visit Emergency Visit: Yes ED Registration Date: 03/04/18 Care time: The patient presented to the Emergency Department on the above date and was hospitalized for further evaluation of their emergent condition. - New Patient This patient is new to me today: Yes Date on this admission: 03/04/18 - Critical Care Critical Care patient: No
[2018-03-04] MEDS ORDERED: TAMSULOSIN HCL 0.4 MG CAP.ER.24H (FP) PO SCH (22:00)
[2018-03-04] MEDS ORDERED: ATORVASTATIN CA 80 MG TABLET (FP) PO SCH (22:00)
[2018-03-05] MEDS ORDERED: MELATONIN 5 MG TABLETS PO ONE (03:45)
[2018-03-05] MEDS: DOCUSATE SODIUM 100 MG CAPSULE (FP) PO SCH ×2 (06:54→14:44)
[2018-03-05] MEDS: CLOPIDOGREL BISULFATE 75 MG TABLET (FP) PO SCH (10:18)
[2018-03-05] MEDS: PANTOPRAZOLE 40 MG TABLET (FP) PO SCH (10:18)
[2018-03-05] MEDS: SENNOSIDES 8.6MG TABLET (FP) PO SCH (10:18)
[2018-03-05] MEDS: amLODIPine BESYLATE 10 MG TABLET (FP) PO SCH (10:18)
[2018-03-05] MEDS: ASPIRIN 81 MG CHEWABLE TABLETS PO SCH (10:18)
[2018-03-05] MEDS: METOPROLOL TARTRATE 50 MG TABLET (FP) PO SCH (10:18)
--- NOTE | 2018-03-05 14:24 | PN ---
Progress Note, Physician Chief Complaint: Pt has no compliants. His is at bedside.No further back pain. He is no longer anxious about the pain returning. History of Present Illness: Patient is a 82-year-old male (marianela Fuentes), with history of CAD-->positive stress MIBI--> LAD stent 03/01/2018, HTN, H LD, bladder cancer, here with complaints in the left upper back and shoulder. States this pain started about 1 :30 PM while just sitting. Pain is 7/10, pressure-like, intermittent nonpleuritic, nonreproducible. He called his dental secretary's and was told to come to the emergency room for evaluation. Patient was seen last week for chest pain and admitted to the hospital then was transferred to [facility] where he underwent stenting procedure. Patient states that 2 vessels were stented, and still has 1 vessel left to be stented. He was placed on Plavix and ASA at the time and reports that he is compliant with all his meds tonight. He denies nausea, vomiting, diaphoresis. PMD: Dr. Burris Cardio. Dr. Vallejo; interventionalist: Dr. Lopez. - Current Medication List Current Medications: Active Medications Amlodipine Besylate (Norvasc -) 10 mg PO DAILY [facility] Last Admin: 03/05/18 10:18 Dose: 10 mg Aspirin (Asa -) 81 mg PO DAILY [facility] Last Admin: 03/05/18 10:18 Dose: 81 mg Atorvastatin Calcium (Lipitor -) 80 mg PO HS [facility] Last Admin: 03/04/18 21:46 Dose: Not Given Clopidogrel Bisulfate (Plavix -) 75 mg PO DAILY [facility] Last Admin: 03/05/18 10:18 Dose: 75 mg Docusate Sodium (Colace -) 100 mg PO TID [facility] Last Admin: 03/05/18 06:54 Dose: Not Given Metoprolol Tartrate (Lopressor -) 50 mg PO BID [facility] Last Admin: 03/05/18 10:18 Dose: 50 mg Nitroglycerin (Nitrostat -) 0.4 mg SL Q5M PRN PRN Reason: FOR CHEST PAIN Pantoprazole Sodium (Protonix -) 40 mg PO DAILY [facility] Last Admin: 03/05/18 10:18 Dose: 40 mg Senna (Senna -) 2 tab PO BID [facility] Last Admin: 03/05/18 10:18 Dose: 2 tab Tamsulosin HCl (Flomax -) 0.4 mg PO HS [facility] Last Admin: 03/04/18 21:55 Dose: 0.4 mg - Objective Vital Signs: Vital Signs Temperature 97.6 F 03/05/18 08:50 Pulse Rate 59 L 03/05/18 08:50 Respiratory Rate 18 03/05/18 09:00 Blood Pressure 137/66 03/05/18 08:50 O2 Sat by Pulse Oximetry (%) 96 03/05/18 09:00 Constitutional: Yes: Well Nourished Eyes: Yes: WNL HENT: Yes: WNL Neck: Yes: WNL Cardiovascular: Yes: WNL Respiratory: Yes: WNL Gastrointestinal: Yes: WNL ...Rectal Exam: Yes: Deferred Genitourinary: No: Anuria Breast(s): Yes: WNL Musculoskeletal: Yes: WNL Extremities: Yes: WNL Edema: No Peripheral Pulses WNL: Yes Integumentary: Yes: WNL Neurological: Yes: WNL Psychiatric: Yes: WNL Labs: CBC, BMP 03/04/18 09:34 03/04/18 09:34 Abnormal Lab Results 03/04/18 15:19 Troponin I 0.10 H Problem List - Problems (1) Atypical chest pain Assessment/Plan: No evidence of complications from coronary stent (TNI mildly elevated, and trending down; no acute STT changes or arrhythmias; no furher back pain; VSS). Pt may be followed as outpatient from cardiac view; he will f/;u with interventionalist next week. Code(s): R07.89 - OTHER CHEST PAIN (2) Elevated troponin Assessment/Plan: Mild elevation on admission, which is decreasing; normal CD. EKG: no acute STT changes; no Q waves. Recent coronary stent (<48 hours ago) the likely explanation of the mild rise in TNI. Pt's case discussed with Dr. Lopez, who will see him next week and plan for staged 2nd coronaty stent. Code(s): R74.8 - ABNORMAL LEVELS OF OTHER SERUM ENZYMES (3) Stented coronary artery Assessment/Plan: planned for 2nd, staged coronary stent in several weeks. Pt to f/u with interventionalist, Dr. Lopez next Sunday. Continue ASA and clopidogrel. Code(s): Z95.5 - PRESENCE OF CORONARY ANGIOPLASTY IMPLANT AND GRAFT (4) Diastolic CHF Code(s): I50.30 - UNSPECIFIED DIASTOLIC (CONGESTIVE) HEART FAILURE (5) HTN (hypertension) Assessment/Plan: On metoprolol and amlodiopine. Code(s): I10 - ESSENTIAL (PRIMARY) HYPERTENSION (6) Hyperlipidemia Assessment/Plan: LDL cholesterol 81 mg/dL. On atorvastatin 80 mg daily. Code(s): E78.5 - HYPERLIPIDEMIA, UNSPECIFIED (7) BPH (benign prostatic hyperplasia) Code(s): N40.0 - BENIGN PROSTATIC HYPERPLASIA WITHOUT LOWER URINRY TRACT SYMP (8) Hypokalemia Assessment/Plan: replete; and f/u level. Code(s): E87.6 - HYPOKALEMIA
[2018-03-05 15:22] VITALS: BP 115/56; PULSE 57; TEMP 99
--- NOTE | 2018-03-05 15:44 | PN ---
Teaching Attending Note Name of Resident: Izabela Myrick ATTENDING PHYSICIAN STATEMENT I saw and evaluated the patient. I reviewed the resident's note and discussed the case with the resident. I agree with the resident's findings and plan as documented. SUBJECTIVE:asymptomatic. early this AM had slight "pinch of pain" on R side. not radiating and only lasting a few seconds. not at all like back pain he initially had or symptoms of last week. states he is complaint with medications at home OBJECTIVE: Last Vital Signs Temp Pulse Resp BP Pulse Ox 99 F 57 L 18 115/56 96 03/05/18 14:15 03/05/18 14:15 03/05/18 14:15 03/05/18 14:15 03/05/18 09:00 General NAD CV S1 s2 RRR no murmrur/rub/gallop no chest wall tenderness Lungs CTA B/l no wheezing/rales/rhonchi ASSESSMENT AND PLAN: 82yo M with PMH CAD s/p cath last week with 1 stent placed and scheduled for 2nd stent in 1 week presenting with back pain 1. Back pain- likely muscular. no repeat episodes. now resolved. 2. Tropinemia- Trop peaked at 0.17 and trended down. likely from recent stent placement. no events on monitor overnight. scheduled for 2nd stent next week. seen by cardio. encouraged to continue to take medications and f/u next week 3. d/c home. spoke present at bedside. all questions answered. verbalized understnading and agreement with plan
--- NOTE | 2018-03-05 17:37 | DS ---
Physical Exam: SUBJECTIVE: Patient seen and examined at bedside this morning. No acute events overnight. He denies any chest pain, SOB, palpitations, abdominal pain. OBJECTIVE: Vital Signs Period Temp Pulse Resp BP Sys/Barksdale Pulse Ox Last 24 Hr 97.2 F-99 F 55-66 18-18 115-160/56-74 96-98 PHYSICAL EXAM GENERAL: The patient is awake, alert, and fully oriented, in no acute distress. HEAD: Normal with no signs of trauma. EYES: PERRLA, EOMI, sclera anicteric, conjunctiva clear. ENT: Ears normal, nares patent, oropharynx clear without exudates, moist mucous membranes. NECK: Trachea midline, full range of motion, supple. LUNGS: Breath sounds equal, clear to auscultation bilaterally. HEART: Regular rate and rhythm, S1, S2 without murmur, rub or gallop. ABDOMEN: Soft, nontender, nondistended, normoactive bowel sounds. EXTREMITIES: 2+ pulses, warm, well-perfused, no edema. NEUROLOGICAL: Cranial nerves II through XII grossly intact. Normal speech, normal gait. PSYCH: Normal mood, normal affect. SKIN: Warm, dry, normal turgor, no rashes or lesions noted. LABS CBC, BMP 03/04/18 09:34 03/04/18 09:34 HOSPITAL COURSE: Date of Admission:03/04/18 Date of Discharge: 03/05/18 Patient is an 82 year old male with PMH of HTN, HLD, CAD (s/p stenting 03/01/18) , bladder ca, presents to the ED with left upper shoulder and left chest pain. Patient states the pain started yesterday at around 1 pm, and was on and off throughout the day. The pain at its worst was a 5/10 and did not radiate anywhere and lasted less than 5 seconds. Patient took tylenol one time for the pain and had called his ribbon tier who told him to come to the hospital to be on the safe side since he just underwent cardiac cath and was released on Plavix. Patient was admitted for observation of the chest pain. Cardiology was consulted. EKG was done, initial troponin elevated. Dr. Pruett was called who said this is common post-stenting. Follow-up troponins were trending down. Patient denied any recurrence of chest pain and there were no acute events overnight. He was cleared for discharge by cardiology with instructions to follow-up next week and to continue prescribed medications Minutes to complete discharge: 45 Discharge Summary Reason For Visit: ELEVATED TROPONINLEVEL;STATUS POST CARDIAC CATHERI Condition: Stable - Instructions Diet, Activity, Other Instructions: You came in because you had episodes of left back and chest pain. You recently had a cardiac stent placement done in [facility] and instructed to come back again in 2-3 weeks for another cardiac cath. The chest pain would have been probably musculoskeletal. Please continue your home medications as prescribed: -Amlodipine Besylate 10 mg once a day -Atorvastatin Ca [Lipitor] 80 mg at bedtime -Metoprolol Tartrate 50 mg twice a day -Tamsulosin HCl [Flomax] 0.4 mg once daily -Aspirin [ASA -] 81 mg once daily -Clopidogrel Bisulfate [Plavix] 75 mg once daily -Docusate Sodium [Colace] 100 mg three times a day -Pantoprazole Sodium [Protonix] 40 mg once daily -Sennosides [Senna] 17.2 mg twice a day Please follow up with the ribbon tier (Dr. Pruett) on Sunday (03/11/18). You should also call Dr. Lopez, the doctor who did your cardiac catheterization procedure. Follow up with your primary care physician (Dr. Burris) in 1-2 weeks. Call 911 or come to ED if any new or worsening chest pain occurs, or new concerns noted. Referrals: Jhonny Burris MD [Primary Care Provider] - 1 Week Dalton Pruett MD [Staff Physician] - 1 Week Disposition: HOME - Home Medications Comprehensive Discharge Medication List: Ambulatory Orders Amlodipine Besylate 10 mg PO DAILY 08/04/17 Atorvastatin Ca [Lipitor] 80 mg PO HS 08/04/17 Metoprolol Tartrate 50 mg PO BID 08/04/17 Tamsulosin HCl [Flomax] 0.4 mg PO HS 08/04/17 Aspirin [ASA -] 81 mg PO DAILY #30 tab.chew 02/27/18 Clopidogrel Bisulfate [Plavix] 75 mg PO DAILY 03/04/18 Docusate Sodium [Colace] 100 mg PO TID 03/04/18 Pantoprazole Sodium [Protonix] 40 mg PO DAILY 03/04/18 Sennosides [Senna] 17.2 mg PO BID 03/04/18 This patient is new to me today: Yes Date on this admission: 03/05/18 Emergency Visit: Yes ED Registration Date: 03/04/18 Care time: The patient presented to the Emergency Department on the above date and was hospitalized for further evaluation of their emergent condition. Critical Care patient: No - Discharge Referral Referred to [facility] Med P.C.: No
== END 2018-03-05 15:47 | disposition home or self-care (01) ==
LOC: JER 23:49 → JERBED 03-04 04:51 → J4W 03-04 16:00
PROVIDERS: ADMIT Internal Medicine; ATTEND Internal Medicine
DX: R07.89 Other chest pain (principal); R77.8 Other specified abnormalities of plasma proteins; I11.0 Hypertensive heart disease with heart failure; E78.5 Hyperlipidemia, unspecified; I25.10 Atherosclerotic heart disease of native coronary artery without angina pectoris; I50.30 Unspecified diastolic (congestive) heart failure; M62.838 Other muscle spasm; R00.1 Bradycardia, unspecified; Z85.51 Personal history of malignant neoplasm of bladder; Z87.891 Personal history of nicotine dependence; Z95.5 Presence of coronary angioplasty implant and graft; Z79.01 Long term (current) use of anticoagulants; Z79.82 Long term (current) use of aspirin
CPT/HCPCS: 36415; 71045-TC-FY; 80053; 82550; 83735; 84100; 84484; 85025; 85027; 93005; 93010; 99284-25; G0378

== ENCOUNTER 2018-06-12 05:52 | Observation (INO) | payer OTHER ==
--- NOTE | 2018-06-12 06:22 | PDOC ---
History of Present Illness - General Stated Complaint: SOB Time Seen by Provider: 06/12/18 06:22 History Source: Patient Exam Limitations: No Limitations - History of Present Illness Initial Comments: 06/12/18 06:47 82 year old male with PMH HTN, CAD (stent 01/2018, 1995), [place] (1995), bladder cancer s/p resection presented to ED for SOB since last night at rest. Pt admitted to chest pain lasting between 2-4AM, intermittent, described as squeezing/pressure, nonradiating, no alleviating or aggravating factors. Pt is on plavix. Pt denied cough, lower extremity swelling, fever, nausea, vomiting, abdominal pain, lightheadedness, syncope. Pt denied travel>5 hours, surgery<4 weeks, hx DVT/PE, active malignancy <6 months, calf swelling. Pt stated "I am due for a new stent soon and my electric golf cart repairer told me to come to the Emergency Department if I feel short of breath". PCP: Dr. Burris Past History - Past Medical History Allergies/Adverse Reactions: Allergies Allergy/AdvReac Type Severity Reaction Status Date / Time No Known Allergies Allergy Verified 06/12/18 06:23 Home Medications: Ambulatory Orders Amlodipine Besylate 10 mg PO DAILY 08/04/17 Atorvastatin Ca [Lipitor] 80 mg PO HS 08/04/17 Metoprolol Tartrate 50 mg PO BID 08/04/17 Tamsulosin HCl [Flomax] 0.4 mg PO HS 08/04/17 Aspirin [ASA -] 81 mg PO DAILY #30 tab.chew 02/27/18 Clopidogrel Bisulfate [Plavix] 75 mg PO DAILY 03/04/18 Docusate Sodium [Colace] 100 mg PO TID 03/04/18 Pantoprazole Sodium [Protonix] 40 mg PO DAILY 03/04/18 Sennosides [Senna] 17.2 mg PO BID 03/04/18 Cancer: Yes (bladder) Cardiac Disorders: Yes (CAD with stent placemnt) COPD: No HTN: Yes Hypercholesterolemia: Yes - Surgical History Cardiac Surgery: Yes (stents) - Immunization History Immunization Up to Date: Yes - Suicide/Smoking/Psychosocial Hx Smoking Status: No Smoking History: Never smoked Have you smoked in the past 12 months: No Number of Cigarettes Smoked Daily: 0 If you are a former smoker, when did you quit?: 40 yrs ago Information on smoking cessation initiated: No Hx Alcohol Use: No Drug/Substance Use Hx: No Substance Use Type: None Hx Substance Use Treatment: No Review of Systems - Review of Systems Able to Perform ROS?: Yes Comments:: 06/12/18 06:53 General: denied fever, chills, night sweats, generalized weakness. HEENT: denied sore throat, rhinorrhea, ear pain. Heart: admitted to chest pain. denied palpitations, syncope, lower extremity swelling, diaphoresis. Respiratory: admitted to shortness of breath. denied cough, sputum production, hemoptysis. Abdomen: denied abdominal pain, nausea, vomiting, diarrhea, constipation, blood in stool. : denied dysuria, increased urinary frequency, hematuria, urinary incontinence , flank pain. Back: denied back pain. Musculoskeletal: denied joint pain, muscle pain, joint swelling. Neurological: denied headache, dizziness, numbness, tingling, weakness. Skin: denied rash, laceration, abrasion. *Physical Exam - Vital Signs Last Vital Signs Temp Pulse Resp BP Pulse Ox 98.1 F 71 18 123/89 100 06/12/18 06:09 06/12/18 06:09 06/12/18 06:09 06/12/18 06:09 06/12/18 06:09 - Physical Exam Comments: 06/12/18 06:54 Constitutional: Well-nourished, Well-developed, appearing stated age. HEENT: head is normocephalic, atraumatic. EOMI. PERRLA. Neck: supple. Full ROM. Heart: distant heart sounds. regular rhythm. no murmurs, rubs or gallops. Lungs: clear to auscultation bilaterally. no crackles, rhonchi or wheezing. no stridor. Abdomen: soft, nontender. normal bowel sounds. no rebound, guarding, masses. Extremities: Peripheral pulses intact. No lower extremity edema. Neurological: CN 2-12 grossly intact. Moves all four extremities. Psych: awake, alert, oriented x3. Follows commands. Answers questions appropriately. Moderate Sedation - Procedure Monitoring Vital Signs: Procedure Monitoring Vital Signs Temperature 98.1 F 06/12/18 06:09 Pulse Rate 71 06/12/18 06:09 Respiratory Rate 18 06/12/18 06:09 Blood Pressure 123/89 06/12/18 06:09 O2 Sat by Pulse Oximetry (%) 100 06/12/18 06:09 ED Treatment Course - LABORATORY CBC & Chemistry Diagram: 06/12/18 06:23 06/12/18 06:23 Medical Decision Making - Medical Decision Making 06/12/18 06:55 82 year old male with above PMH presented to ED for chest pain/shortness of breath. Initial Vital Signs Temp Pulse Resp BP Pulse Ox 98.1 F 71 18 123/89 100 06/12/18 06:09 06/12/18 06:09 06/12/18 06:09 06/12/18 06:09 06/12/18 06:09 Afebrile. No tachycardia. No tachypnea. No hypotension. No hypoxia on 3L. Labs ordered: CBC, BMP, BNP, troponin Imaging ordered: CXR EKG performed at 0607: rate 66, regular rhythm, normal axis, 1st degree AV block , multiple PVCs, no ST changes. Medications ordered: ASA 325 mg 06/12/18 06:58 Pt signed out to Dr. Leonard. *DC/Admit/Observation/Transfer - Referrals Referrals: Jhonny Burris MD [Primary Care Provider] - - Patient Instructions - Post Discharge Activity
[2018-06-12 06:41] LABS: BASO % 0.7 % (0-2.0); EOS % 3.2 % (0-4.5); HEMATOCRIT 41.2 % (35.4-49); HEMOGLOBIN 13.5 GM/dL (11.7-16.9); MCH 28.6 pg (25.7-33.7); MCHC 32.9 g/dl (32.0-35.9); MEAN CELL VOLUME 87.1 fl (80-96); MEAN PLT VOLUME 10.2 fl (7.5-11.1); MONO % 8.1 % (3.8-10.2); PLATELET COUNT 111 K/MM3 (134-434); RBC 4.73 M/mm3 (4.00-5.60); RDW 15.3 % (11.9-15.9)
[2018-06-12] MEDS ORDERED: ASPIRIN 81 MG CHEWABLE TABLETS PO ONE ×2 (06:57→07:23)
--- NOTE | 2018-06-12 07:01 | PDOC ---
Attending Attestation - Resident Resident Name: Marissa Cramer - ED Attending Attestation I have performed the following: I have examined & evaluated the patient, The case was reviewed & discussed with the resident, I agree w/resident's findings & plan - HPI HPI: 06/12/18 07:13 82 year old male with PMH HTN, HLD, diastolic heart failure, CAD (LAD stent 2017, 1995), [place] (1995), bladder cancer s/p resection presented to ED for SOB since last night at rest. Pt admitted to chest pain, intermittent, described as squeezing/pressure, nonradiating, no alleviating or aggravating factors. could not sleep last night because he was anxious about his symptoms and has upcoming stent to be placed again next week with his continuity coordinator. compliant with ASA and plavix mate fishing vessel: Dr Pruett/Nell PMD: Dr Burris. - Physicial Exam PE: 06/12/18 07:15 NAD, well appearing, PERRL, EOMI, MMM, nl conjunctiva, anicteric; neck supple. lungs clear, RRR, abdomen soft nontender. PENALOZA x4, no focal neuro deficits. No peripheral edema. normal color for ethnicity, WWP. - Medical Decision Making 06/12/18 07:15 Vital signs reviewed, wnl. Prior notes reviewed, including admissions, discharges and consultations. laboratory results and imaging reviewed, pending basic labs, coags, trop, CXR EKG normal sinus rhythm, no interval abnormalities, narrow QRS, ST and T wave segments and morphology normal. Nonspecific T wave abnormalities, intermittent PVCs ED course: pending labs comfortable on oxygen. chest pain free now. cards cs, plan for admission given cardiac risk factors, prior stents Dispo: Admit for telemetry monitoring, cardiology cs, anginal management and expedited stent placement. Discussed results and management plan with pt at bedside, agree with impression and plan 06/12/18 07:17 06/12/18 07:18 Heart Score/ECG Review - History History: Moderately suspicious - Electrocardiogram EKG: Non specific repolarization disturbance - Age Age: >/= 65 - Risk Factors Risk Factors Heart Score: Yes Hx Hypercholesterolemia, Yes Hx Hypertension, Yes Positive family hx of cardiac disease Based on the list above the patient has:: >/=3 risk factors or Hx atherosclerotic disease - ECG Impressions Normal ECG: No Comment:: 06/12/18 07:17 EKG normal sinus rhythm, no interval abnormalities, narrow QRS, ST and T wave segments and morphology normal. Nonspecific T wave abnormalities, intermittent PVCs
[2018-06-12 07:07] LABS: INR 1.13 (0.83-1.09); PROTHROMBIN TIME (PATIENT) 13.3 SEC (9.7-13.0)
[2018-06-12 07:08] LABS: ANION GAP 8 MMOL/L (8-16); BLOOD UREA NITROGEN 18 mg/dL (7-18); CHLORIDE 104 mmol/L (98-107); CO2 28 mmol/L (21-32); CREATININE 0.8 mg/dL (0.55-1.3); GLUCOSE,RANDOM 87 mg/dL (74-106); MAGNESIUM 1.9 mg/dL (1.8-2.4); N-TERMINAL BNP 550.7 pg/ml (5-450); POTASSIUM 3.5 mmol/L (3.5-5.1); SODIUM 140 mmol/L (136-145)
[2018-06-12] MEDS ORDERED: ASPIRIN 81 MG CHEWABLE TABLETS ONE ×2 (07:09→10:11)
[2018-06-12 07:10] LABS: ACTIVATED PTT 26.9 SECONDS (25.2-36.5)
--- NOTE | 2018-06-12 07:42 | PDOC ---
*Physical Exam - Vital Signs Last Vital Signs Temp Pulse Resp BP Pulse Ox 98.1 F 71 18 123/89 100 06/12/18 06:09 06/12/18 06:09 06/12/18 06:09 06/12/18 06:09 06/12/18 06:09 ED Treatment Course - LABORATORY CBC & Chemistry Diagram: 06/12/18 06:23 06/12/18 06:23 - ADDITIONAL ORDERS Additional order review: Laboratory Results 06/12/18 06/12/18 06:23 06:23 PT with INR 13.30 H INR 1.13 H PTT (Actin FS) 26.9 Sodium 140 Potassium 3.5 Chloride 104 Carbon Dioxide 28 Anion Gap 8 BUN 18 Creatinine 0.8 Creat Clearance w eGFR > 60 Random Glucose 87 Calcium 8.0 L Magnesium 1.9 Troponin I < 0.02 B-Natriuretic Peptide 550.7 H 06/12/18 06:23 RBC 4.73 MCV 87.1 MCHC 32.9 RDW 15.3 MPV 10.2 Neutrophils % 53.0 Lymphocytes % 35.0 D Monocytes % 8.1 Eosinophils % 3.2 Basophils % 0.7 - Medications Given in the ED: ED Medications Discontinued Medications Generic Name Dose Route Start Last Admin Trade Name Freq PRN Reason Stop Dose Admin Aspirin 324 mg 06/12/18 06:57 06/12/18 07:25 Asa - PO 06/12/18 06:58 Not Given ONCE ONE Aspirin 81 mg 06/12/18 07:23 06/12/18 07:25 Asa - PO 06/12/18 07:24 81 mg ONCE ONE Administration Medical Decision Making - Medical Decision Making 06/12/18 07:37 I received this patient on sign out Briefly, he is an 82 yo M p/w chest pain and shortness of breath Pt scheduled for PCI and stenting trop neg Plan upon sign out: Admit to hospitalist service 06/12/18 07:42 Case reviewed with hospitalist *DC/Admit/Observation/Transfer Diagnosis at time of Disposition: Chest pain Qualifiers: Chest pain type: unspecified Qualified Code(s): R07.9 - Chest pain, unspecified - Discharge Dispostion Condition at time of disposition: Stable Decision to Admit order: Yes - Referrals Referrals: Jhonny Burris MD [Primary Care Provider] - - Patient Instructions - Post Discharge Activity
--- NOTE | 2018-06-12 08:26 | HP ---
CHIEF COMPLAINT: shortness of breath PCP: Dr. Burris HISTORY OF PRESENT ILLNESS: This is an 82 year old male who with a significant history of coronary artery disease s/p stent placment of LAD in 01/2018, hypertension, hyperlipidemia and bladder cancer, who walked over to hospital from home early this morning due to shortness of breath and an pressure like chest pain. He states that he ate a large meal the prior evening and has had similar symptoms after a big meal before. He took a stool softener at 11pm and moved his bowels around 4:30 am. He was still feeling short of breath so he then walked to the hospital. Patient also endorses some anxiety over his upcoming second stent placement scheduled for next week. Denies GUADARRAMA, blurry vision, lightheadedness, fever, chills, cough, jaw pain, numbness, tingling, leg swelling, orthopnea. ER course: troponin x1 negative; no acute ECG changes from previous; NSR no acute st-twave changes Recent Travel: no PAST MEDICAL HISTORY: CAD, HTN, HLD, bladder CA, diastolic CHF PAST SURGICAL HISTORY: stent LAD; 01/2018 Social History: Smoking:no Alcohol:no Drugs: no Family History: Allergies No Known Allergies Allergy (Verified 06/12/18 07:44) HOME MEDICATIONS: Home Medications Medication Instructions Recorded Amlodipine Besylate 5 mg PO DAILY 08/04/17 Atorvastatin Ca [Lipitor] 80 mg PO HS 08/04/17 Metoprolol Tartrate 25 mg PO BID 08/04/17 Tamsulosin HCl [Flomax] 0.4 mg PO HS 08/04/17 Aspirin [ASA -] 81 mg PO DAILY #30 tab.chew 02/27/18 Clopidogrel Bisulfate [Plavix] 75 mg PO DAILY 03/04/18 Pantoprazole Sodium [Protonix] 40 mg PO DAILY 03/04/18 Irbesartan 300 mg PO DAILY 06/12/18 REVIEW OF SYSTEMS CONSTITUTIONAL: Absent: fever, chills, diaphoresis, generalized weakness, malaise, loss of appetite, weight change HEENT: Absent: rhinorrhea, nasal congestion, throat pain, throat swelling, difficulty swallowing, mouth swelling, ear pain, eye pain, visual changes CARDIOVASCULAR: Positive: chest pain/pressure Absent: syncope, palpitations, irregular heart rate, lightheadedness, peripheral edema RESPIRATORY: Positive: shortness of breath, dyspnea with exertion Absent: cough, , orthopnea, wheezing, stridor, hemoptysis GASTROINTESTINAL: Absent: abdominal pain, abdominal distension, nausea, vomiting, diarrhea, constipation, melena, hematochezia GENITOURINARY: Absent: dysuria, frequency, urgency, hesitancy, hematuria, flank pain, genital pain MUSCULOSKELETAL: Absent: myalgia, arthralgia, joint swelling, back pain, neck pain SKIN: Absent: rash, itching, pallor HEMATOLOGIC/IMMUNOLOGIC: Absent: easy bleeding, easy bruising, lymphadenopathy, frequent infections ENDOCRINE: Absent: unexplained weight gain, unexplained weight loss, heat intolerance, cold intolerance NEUROLOGIC: Absent: headache, focal weakness or paresthesias, dizziness, unsteady gait, seizure, mental status changes, bladder or bowel incontinence PSYCHIATRIC: Absent: anxiety, depression, suicidal or homicidal ideation, hallucinations. PHYSICAL EXAMINATION Vital Signs - 24 hr 06/12/18 06/12/18 06/12/18 06:09 07:15 08:20 Temperature 98.1 F 98.3 F Pulse Rate 71 54 L Pulse Rate [ 62 54 L Right Radial] Respiratory 18 16 16 Rate Blood Pressure 123/89 Blood Pressure 124/67 135/73 [Right Arm] O2 Sat by Pulse 100 100 100 Oximetry (%) GENERAL: Awake, alert, and fully oriented, in no acute distress. HEAD: Normal with no signs of trauma. LUNGS: Breath sounds equal, clear to auscultation bilaterally. No wheezes, and no crackles. No accessory muscle use. HEART: Regular rate and rhythm, normal S1 and S2 without murmur, rub or gallop. ABDOMEN: Soft, nontender, not distended, normoactive bowel sounds, no guarding, no rebound, no masses. No hepatomegaly or splenomegaly. MUSCULOSKELETAL: Normal range of motion at all joints. No bony deformities or tenderness. No CVA tenderness. UPPER EXTREMITIES: 2+ pulses, warm, well-perfused. No cyanosis. No clubbing. No peripheral edema. LOWER EXTREMITIES: 2+ pulses, warm, well-perfused. No calf tenderness. No peripheral edema. NEUROLOGICAL: aaox3 PSYCHIATRIC: Cooperative. Good eye contact. Appropriate mood and affect. SKIN: Warm, dry, normal turgor, no rashes or lesions noted, normal capillary refill. Laboratory Results - last 24 hr 06/12/18 06/12/18 06/12/18 06:23 06:23 06:23 WBC 7.0 RBC 4.73 Hgb 13.5 Hct 41.2 MCV 87.1 MCH 28.6 MCHC 32.9 RDW 15.3 Plt Count 111 L MPV 10.2 Absolute Neuts (auto) 3.7 Neutrophils % 53.0 Lymphocytes % 35.0 D Monocytes % 8.1 Eosinophils % 3.2 Basophils % 0.7 Nucleated RBC % 0 PT with INR 13.30 H INR 1.13 H PTT (Actin FS) 26.9 Sodium 140 Potassium 3.5 Chloride 104 Carbon Dioxide 28 Anion Gap 8 BUN 18 Creatinine 0.8 Creat Clearance w eGFR > 60 Random Glucose 87 Calcium 8.0 L Magnesium 1.9 Troponin I < 0.02 B-Natriuretic Peptide 550.7 H Current Medications Generic Name Dose Route Start Last Admin Trade Name Freq PRN Reason Stop Dose Admin Amlodipine Besylate 5 mg 06/12/18 10:00 Norvasc - PO DAILY [facility] Aspirin 81 mg 06/12/18 10:00 Asa - PO DAILY [facility] Atorvastatin Calcium 80 mg 06/12/18 22:00 Lipitor - PO HS [facility] Clopidogrel Bisulfate 75 mg 06/12/18 10:00 Plavix - PO DAILY [facility] Heparin Sodium (Porcine) 5,000 unit 06/12/18 14:00 Heparin - SQ TID [facility] Losartan Potassium 100 mg 06/12/18 10:00 Losartan Potassium PO DAILY [facility] Metoprolol Tartrate 25 mg 06/12/18 10:00 Lopressor - PO BID [facility] Pantoprazole Sodium 40 mg 06/12/18 10:00 Protonix - PO DAILY [facility] Tamsulosin HCl 0.4 mg 06/12/18 22:00 Flomax - PO HS [facility] ASSESSMENT/PLAN: This is a 82 year old male with CAD, s/p LAD stent, HTN, HLD, diastolic CHF, presenting with chest pain and shortness of breath. Rule out ACS. Has scheduled stent placement next week at [facility]. #chest pain/sob with history of CAD -rule out acs vs angina vs anxiety over upcoming procedure -ecg -cardiac profile -s/p full dose asa -continue asa 81 mg po qd -continue plavix -cardio consulted; Dr. Pruett #HTN: controlled -continue home amlodipine 5mg po daily -metoprolol 25mg po bid #HLD: -cont statin #GERD: -protonix 40mg po daily DIET: low NA Fluids: n/a; po intake GI ppl: on protonix VTE: heparin sq Disposition:telemetry Visit type - Emergency Visit Emergency Visit: Yes Care time: The patient presented to the Emergency Department on the above date and was hospitalized for further evaluation of their emergent condition. - New Patient This patient is new to me today: Yes Date on this admission: 06/12/18 - Critical Care Critical Care patient: No
--- NOTE | 2018-06-12 09:32 | CON.CARD ---
Consult - History of Present Illness History of Present Illness: This is an 82 year old male who with a significant history of coronary artery disease s/p stent placment of LAD in 01/2018, hypertension, hyperlipidemia and bladder cancer, who walked over to hospital from home early this morning due to shortness of breath and an pressure like chest pain. He states that he ate a large meal the prior evening and has had similar symptoms after a big meal before. He took a stool softener at 11pm and moved his bowels around 4:30 am. He was still feeling short of breath so he then walked to the hospital. Patient also endorses some anxiety over his upcoming second stent placement scheduled for next week. Denies GUADARRAMA, blurry vision, lightheadedness, fever, chills, cough, jaw pain, numbness, tingling, leg swelling, orthopnea. ER course: troponin x1 negative; no acute ECG changes from previous; NSR no acute st-twave changes PMH s/p PCI LAD 03/01/18 Chest pain - ER [facility] and discharged HTN Hyperlipidemia Angina - Past Medical History Cardio/Vascular: Yes: CAD, HTN - Past Surgical History Past Surgical History: Yes: Stent (coronary: more than 20 yrs ago) - Alcohol/Substance Use Hx Alcohol Use: No - Smoking History Smoking history: Never smoked Have you smoked in the past 12 months: No Aproximately how many cigarettes per day: 0 If you are a former smoker, when did you quit?: 40 yrs ago Home Medications - Allergies Allergies/Adverse Reactions: Allergies Allergy/AdvReac Type Severity Reaction Status Date / Time No Known Allergies Allergy Verified 06/12/18 07:44 - Home Medications Home Medications: Ambulatory Orders Amlodipine Besylate 5 mg PO DAILY 08/04/17 Atorvastatin Ca [Lipitor] 80 mg PO HS 08/04/17 Metoprolol Tartrate 25 mg PO BID 08/04/17 Tamsulosin HCl [Flomax] 0.4 mg PO HS 08/04/17 Aspirin [ASA -] 81 mg PO DAILY #30 tab.chew 02/27/18 Clopidogrel Bisulfate [Plavix] 75 mg PO DAILY 03/04/18 Pantoprazole Sodium [Protonix] 40 mg PO DAILY 03/04/18 Irbesartan 300 mg PO DAILY 06/12/18 Vital Signs: Vital Signs Temperature 98.3 F 06/12/18 08:20 Pulse Rate 54 L 06/12/18 08:20 Respiratory Rate 16 06/12/18 08:20 Blood Pressure 135/73 06/12/18 08:20 O2 Sat by Pulse Oximetry (%) 100 06/12/18 08:20 - Other Data Labs, Other Data: CBC, BMP 06/12/18 06:23 06/12/18 06:23 INR, PTT INR 1.13 (0.83-1.09) H 06/12/18 06:23 Troponin, BNP 06/12/18 06:23 Troponin I < 0.02 B-Natriuretic Peptide 550.7 H Troponin, BNP 06/12/18 06:23 Troponin I < 0.02 B-Natriuretic Peptide 550.7 H Imaging - Results Chest X-ray: Image Reviewed (no i/e) EKG: Image Reviewed (sr apcs rep abn) Problem List - Problems (1) Chest pain Code(s): R07.9 - CHEST PAIN, UNSPECIFIED Qualifiers: Chest pain type: unspecified Qualified Code(s): R07.9 - Chest pain, unspecified (2) Atypical chest pain Code(s): R07.89 - OTHER CHEST PAIN (3) BPH (benign prostatic hyperplasia) Code(s): N40.0 - BENIGN PROSTATIC HYPERPLASIA WITHOUT LOWER URINRY TRACT SYMP (4) Cough Code(s): R05 - COUGH (5) Diastolic CHF Code(s): I50.30 - UNSPECIFIED DIASTOLIC (CONGESTIVE) HEART FAILURE (6) Elevated troponin Code(s): R74.8 - ABNORMAL LEVELS OF OTHER SERUM ENZYMES (7) HTN (hypertension) Code(s): I10 - ESSENTIAL (PRIMARY) HYPERTENSION (8) Hyperlipidemia Code(s): E78.5 - HYPERLIPIDEMIA, UNSPECIFIED (9) Hypokalemia Code(s): E87.6 - HYPOKALEMIA (10) Muscle spasm Code(s): M62.838 - OTHER MUSCLE SPASM (11) Stented coronary artery Code(s): Z95.5 - PRESENCE OF CORONARY ANGIOPLASTY IMPLANT AND GRAFT Assessment/Plan s/p PCI LAD 03/01/18 Chest pain - HTN Hyperlipidemia Angina Plan r/o mi dapt PCI RCA
--- NOTE | 2018-06-12 09:50 | EKG ---
Test Reason : Blood Pressure : / mmHG Vent. Rate : 066 BPM Atrial Rate : 066 BPM P-R Int : 220 ms QRS Dur : 084 ms QT Int : 440 ms P-R-T Axes : 070 023 076 degrees QTc Int : 461 ms SINUS RHYTHM WITH 1ST DEGREE A-V BLOCK WITH FREQUENT PREMATURE VENTRICULAR COMPLEXES OTHERWISE NORMAL ECG Confirmed by LALI OLSON MD ([id number]) on 06/12/2018 9:50:04 AM Referred By: Confirmed By:LALI OLSON MD
[2018-06-12] MEDS ORDERED: LOSARTAN POTASSIUM 100 MG TABLET PO SCH (10:00)
[2018-06-12] MEDS ORDERED: METOPROLOL TARTRATE 25 MG TABLET (FP) PO SCH (10:00)
[2018-06-12] MEDS ORDERED: PANTOPRAZOLE 40 MG TABLET (FP) ONE (10:11)
[2018-06-12] MEDS ORDERED: METOPROLOL TARTRATE 25 MG TABLET (FP) ONE (10:11)
[2018-06-12] MEDS ORDERED: amLODIPine BESYLATE 5 MG TABLET (FP) ONE (10:11)
[2018-06-12] MEDS ORDERED: CLOPIDOGREL BISULFATE 75 MG TABLET (FP) ONE (10:12)
[2018-06-12] MEDS: ASPIRIN 81 MG CHEWABLE TABLETS PO SCH (10:13)
[2018-06-12] MEDS: METOPROLOL TARTRATE 25 MG TABLET (FP) PO SCH ×2 (10:13→21:07)
[2018-06-12] MEDS: CLOPIDOGREL BISULFATE 75 MG TABLET (FP) PO SCH (10:14)
[2018-06-12] MEDS: PANTOPRAZOLE 40 MG TABLET (FP) PO SCH (10:14)
[2018-06-12] MEDS: amLODIPine BESYLATE 5 MG TABLET (FP) PO SCH (10:14)
[2018-06-12] MEDS: LOSARTAN POTASSIUM 50 MG TABLET (FP) PO SCH (11:37)
--- NOTE | 2018-06-12 12:50 | PN ---
Teaching Attending Note Name of Resident: Nandini Pond ATTENDING PHYSICIAN STATEMENT I saw and evaluated the patient. I reviewed the resident's note and discussed the case with the resident. I agree with the resident's findings and plan as documented. SUBJECTIVE: 82 year old male with history of CAD s/p PCI x Stent x 2 (1995, 2017), BPH, HTN, HLD, history of Bladder Cancer, Chronic Diastolic CHF, GERD, admitted with atypical central chest pain, onset after eating, lasting minutes with associated shortness of breath, which persisted overnight, prompting presentation to ED. Currently pain free with improvement in dyspnea. No cough/ sputum/hemoptysis. No palpitations, orthopnea, PND. Vital Signs - 24 hr 06/12/18 06/12/18 06/12/18 06:09 07:15 08:20 Temperature 98.1 F 98.3 F Pulse Rate 71 54 L Pulse Rate [ 62 54 L Right Radial] Respiratory 18 16 16 Rate Blood Pressure 123/89 Blood Pressure 124/67 135/73 [Right Arm] O2 Sat by Pulse 100 100 100 Oximetry (%) 06/12/18 11:45 Temperature Pulse Rate Pulse Rate [ 51 L Right Radial] Respiratory 16 Rate Blood Pressure Blood Pressure 133/70 [Right Arm] O2 Sat by Pulse 97 Oximetry (%) OBJECTIVE: Afebrile, Hemodynamically Stable. HEENT - Atraumatic, Normocephalic Heart - S1, S2, RRR Lungs - clear to auscultation. Abdomen - Soft, non-tender. Bowel Sounds normal. Extremities - no edema. No calf tenderness. ECG - NSR, 1st degree HB, PVCs CXR - no acute cardiopulmonary findings. Laboratory Tests 06/12/18 06/12/18 06/12/18 06:23 06:23 06:23 WBC 7.0 RBC 4.73 Hgb 13.5 Hct 41.2 MCV 87.1 MCH 28.6 MCHC 32.9 RDW 15.3 Plt Count 111 L MPV 10.2 Absolute Neuts (auto) 3.7 Neutrophils % 53.0 Lymphocytes % 35.0 D Monocytes % 8.1 Eosinophils % 3.2 Basophils % 0.7 Nucleated RBC % 0 PT with INR 13.30 H INR 1.13 H PTT (Actin FS) 26.9 Sodium 140 Potassium 3.5 Chloride 104 Carbon Dioxide 28 Anion Gap 8 BUN 18 Creatinine 0.8 Creat Clearance w eGFR > 60 Random Glucose 87 Calcium 8.0 L Magnesium 1.9 Troponin I < 0.02 B-Natriuretic Peptide 550.7 H Blood Type Antibody Screen 06/12/18 06:23 WBC RBC Hgb Hct MCV MCH MCHC RDW Plt Count MPV Absolute Neuts (auto) Neutrophils % Lymphocytes % Monocytes % Eosinophils % Basophils % Nucleated RBC % PT with INR INR PTT (Actin FS) Sodium Potassium Chloride Carbon Dioxide Anion Gap BUN Creatinine Creat Clearance w eGFR Random Glucose Calcium Magnesium Troponin I B-Natriuretic Peptide Blood Type AB POSITIVE Antibody Screen Negative Current Medications Generic Name Dose Route Start Last Admin Trade Name Freq PRN Reason Stop Dose Admin Amlodipine Besylate 5 mg 06/12/18 10:00 06/12/18 10:14 Norvasc - PO 5 mg DAILY [facility] Administration Aspirin 81 mg 06/12/18 10:00 06/12/18 10:13 Asa - PO 81 mg DAILY [facility] Administration Atorvastatin Calcium 80 mg 06/12/18 22:00 Lipitor - PO HS [facility] Clopidogrel Bisulfate 75 mg 06/12/18 10:00 06/12/18 10:14 Plavix - PO 75 mg DAILY [facility] Administration Heparin Sodium (Porcine) 5,000 unit 06/12/18 14:00 Heparin - SQ TID [facility] Losartan Potassium 100 mg 06/12/18 11:00 06/12/18 11:37 Cozaar - PO 100 mg DAILY [facility] Administration Metoprolol Tartrate 25 mg 06/12/18 10:00 06/12/18 10:13 Lopressor - PO 25 mg BID [facility] Administration Pantoprazole Sodium 40 mg 06/12/18 10:00 06/12/18 10:14 Protonix - PO 40 mg DAILY [facility] Administration Tamsulosin HCl 0.4 mg 06/12/18 22:00 Flomax - PO HS [facility] ASSESSMENT AND PLAN: 1. Atypical Chest Pain with associate Dyspnea - possible Angina versus Dyspepsia /GERD Given patient's extensive CAD with 2 prior coronary stents and plan for a third , will admit to telemetry with serial troponin measurements and Cardiology evaluation for possible in-patient cath. BNP 500 Last Echo 02/16 - normal EF. Diastolic dysfunction. Cardiology eval for further recommendations. Continue Aspirin/Plavix, BB, ARB, Statin 2. HTN - controlled on Metoprolol, Irbesartan, Norvasc. Continue. 3. HLD - Continue Atorvastatin. 4. GERD - normally on PPI, will continue. 5. BPH - Continue Tamsulosin 6. DVT Px- Heparin SQ
[2018-06-12] MEDS: HEPARIN NA (PORCINE) 5,000 UNITS/ML 1ML VIAL SQ SCH ×2 (14:06→21:15)
--- NOTE | 2018-06-12 14:25 | ECHO ---
Name: JOCELYN SCHAEFER Exam:Adult Echocardiogram Study Date: 06/12/2018 10:19 AM Age: 82 yrs Reason For Study: EF Height: 70 in Weight: 180 lb BSA: 2.0 m2 MMode/2D Measurements & Calculations IVSd: 1.4 cm Ao root diam: 3.1 cm LVIDd: 4.3 cm LA dimension: 3.2 cm LVIDs: 3.3 cm ACS: 1.2 cm LVPWd: 1.0 cm EDV(Teich): 83.9 ml ESV(Teich): 44.2 ml Doppler Measurements & Calculations MV E max clifton: 40.7 cm/sec AI P1/2t: 852.3 msec MV A max clifton: 68.4 cm/sec MV E/A: 0.60 MV dec time: 0.17 sec AI max clifton: 293.9 cm/sec TR max clifton: 255.2 cm/sec AI max P.6 mmHg TR max P.2 mmHg AI dec slope: 101.0 cm/sec2 Med Peak E' Clifton: 3.5 cm/sec PI Vmax: 137.1 cm/sec Med E/e': 11.7 Lat Peak E' Clifton: 4.7 cm/sec Lat E/e': 8.7 Procedure A two-dimensional transthoracic echocardiogram with color flow and Doppler was performed. Left Ventricle There is moderate concentric left ventricular hypertrophy. The left ventricular ejection fraction is normal. E/A reversal consistent with but not diagnostic of poor LV compliance. The left ventricular wall andres on is normal. Right Ventricle The right ventricle is normal in size and function. Atria Normal left and right atrial size and function. Mitral Valve There is mild mitral valve thickening. There is no mitral valve stenosis. There is mild mitral regurg itation. Tricuspid Valve There is mild tricuspid valve thickening. There is no tricuspid stenosis. There is mild tricuspid regurgitation. Right ventricular systolic pressure is elevated at 30-40mmHg. Aortic Valve The aortic valve is normal in structure and function. No hemodynamically significant valvular aortic stenosis. Trace to mild aortic regurgitation. Pulmonic Valve The pulmonic valve is not well visualized. There is no pulmonic valvular stenosis. Mild pulmonic valv ular regurgitation. Great Vessels The aortic root is normal size. Pericardium/Pleura There is no pericardial effusion. Interpretation Summary There is moderate concentric left ventricular hypertrophy. The left ventricular ejection fraction is normal. There is mild mitral regurgitation. There is mild tricuspid regurgitation. Right ventricular systolic pressure is elevated at 30-40mmHg. E/A reversal consistent with but not diagnostic of poor LV compliance The left ventricular wall motion is normal. MD Jeovanny Vallejo 06/12/2018 02:25 PM
[2018-06-12 15:41] VITALS: BMI 26.6
[2018-06-12] MEDS ORDERED: ALBUTEROL SO4 0.083% IH SOL 2.5 MG/3 ML VIAL.NEB. NEB ONE (18:15)
[2018-06-12] MEDS ORDERED: ATORVASTATIN CA 80 MG TABLET (FP) PO SCH (22:00)
[2018-06-12] MEDS ORDERED: TAMSULOSIN HCL 0.4 MG CAP PO SCH (22:00)
[2018-06-13] MEDS: HEPARIN NA (PORCINE) 5,000 UNITS/ML 1ML VIAL SQ SCH (05:31)
[2018-06-13 06:11] LABS: BASO % 0.4 % (0-2.0); EOS % 2.1 % (0-4.5); HEMATOCRIT 39.6 % (35.4-49); HEMOGLOBIN 12.9 GM/dL (11.7-16.9); LYMPH % 29.8 % (8-40); MCH 28.5 pg (25.7-33.7); MCHC 32.5 g/dl (32.0-35.9); MEAN CELL VOLUME 87.8 fl (80-96); MEAN PLT VOLUME 10.1 fl (7.5-11.1); MONO % 7.9 % (3.8-10.2); NEUT % 59.8 % (42.8-82.8); PLATELET COUNT 96 K/MM3 (134-434); RBC 4.51 M/mm3 (4.00-5.60); RDW 14.8 % (11.9-15.9); WHITE BLOOD COUNT 6.6 K/mm3 (4.0-10.0)
[2018-06-13 06:38] LABS: INR 1.18 (0.83-1.09)
[2018-06-13 06:43] LABS: ANION GAP 7 MMOL/L (8-16); BLOOD UREA NITROGEN 20 mg/dL (7-18); CALCIUM 7.7 mg/dL (8.5-10.1); CHLORIDE 105 mmol/L (98-107); CO2 30 mmol/L (21-32); CREATININE 0.9 mg/dL (0.55-1.3); GLUCOSE,RANDOM 89 mg/dL (74-106); PHOSPHOROUS 2.9 mg/dL (2.5-4.9); POTASSIUM 3.5 mmol/L (3.5-5.1); SODIUM 142 mmol/L (136-145)
--- NOTE | 2018-06-13 09:19 | PN ---
Progress Note, Physician Chief Complaint: pT a&oX3; AT BEDSIDE. aXIOUS;, BUT FEELS BETTRR THATN WHEN HE CAME IN. hE IS UNCERTAIN WHETHER HE IS "GETTING ENOUGH OXYGEN, SO HE IS AFRAID TO REMOVE THE NASAL CNNULA (o2) History of Present Illness: 82 year old male with PMH HTN, CAD (stent 01/2018, 1995), [place] (1995), bladder cancer s/p resection presented to ED for SOB since last night at rest. Pt admitted to chest pain lasting between 2-4AM, intermittent, described as squeezing/pressure, nonradiating, no alleviating or aggravating factors. Pt is on plavix. Pt denied cough, lower extremity swelling, fever, nausea, vomiting, abdominal pain, lightheadedness, syncope. Pt denied travel>5 hours, surgery<4 weeks, hx DVT/PE, active malignancy <6 months, calf swelling. 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 PCP: Dr. Burris - Current Medication List Current Medications: Active Medications Amlodipine Besylate (Norvasc -) 5 mg PO DAILY [facility] Last Admin: 06/12/18 10:14 Dose: 5 mg Aspirin (Asa -) 81 mg PO DAILY [facility] Last Admin: 06/12/18 10:13 Dose: 81 mg Atorvastatin Calcium (Lipitor -) 80 mg PO HS [facility] Last Admin: 06/12/18 21:15 Dose: 80 mg Clopidogrel Bisulfate (Plavix -) 75 mg PO DAILY [facility] Last Admin: 06/12/18 10:14 Dose: 75 mg Heparin Sodium (Porcine) (Heparin -) 5,000 unit SQ TID [facility] Last Admin: 06/13/18 05:31 Dose: 5,000 unit Losartan Potassium (Cozaar -) 100 mg PO DAILY [facility] Last Admin: 06/12/18 11:37 Dose: 100 mg Metoprolol Tartrate (Lopressor -) 25 mg PO BID [facility] Last Admin: 06/12/18 21:07 Dose: Not Given Pantoprazole Sodium (Protonix -) 40 mg PO DAILY [facility] Last Admin: 06/12/18 10:14 Dose: 40 mg Tamsulosin HCl (Flomax -) 0.4 mg PO HS [facility] Last Admin: 06/12/18 21:15 Dose: 0.4 mg - Objective Vital Signs: Vital Signs Temperature 97.6 F 06/13/18 06:00 Pulse Rate 65 06/13/18 06:00 Respiratory Rate 20 06/13/18 06:00 Blood Pressure 130/63 06/13/18 06:00 O2 Sat by Pulse Oximetry (%) 98 06/13/18 06:00 Constitutional: Yes: Anxious Eyes: Yes: WNL Labs: CBC, BMP 06/13/18 06:00 06/13/18 06:00 INR, PTT INR 1.18 (0.83-1.09) H 06/13/18 06:00 Problem List - Problems (1) Atypical chest pain Code(s): R07.89 - OTHER CHEST PAIN (2) BPH (benign prostatic hyperplasia) Code(s): N40.0 - BENIGN PROSTATIC HYPERPLASIA WITHOUT LOWER URINRY TRACT SYMP (3) Diastolic CHF Code(s): I50.30 - UNSPECIFIED DIASTOLIC (CONGESTIVE) HEART FAILURE (4) Hyperlipidemia Assessment/Plan: Continue atorvawtatin 80 mg daily; f/u lipid panel. Code(s): E78.5 - HYPERLIPIDEMIA, UNSPECIFIED (5) Stented coronary artery Assessment/Plan: TNI < 0.02 x 2. Pt still c/o occasional chest tightness and shortness of breath. Discussed pt with Dr. Lopez, interventionalist at [facility]. Pt will be transferred there today for staged PCI. Code(s): Z95.5 - PRESENCE OF CORONARY ANGIOPLASTY IMPLANT AND GRAFT (6) Bradycardia Assessment/Plan: Periods of sinus bradycardia to 40s bpm (even while awake). Will change to metoprolol ER, and lower total daily dose to 25 mg. Code(s): R00.1 - BRADYCARDIA, UNSPECIFIED (7) BPH (benign prostatic hyperplasia) Code(s): N40.0 - BENIGN PROSTATIC HYPERPLASIA WITHOUT LOWER URINRY TRACT SYMP
[2018-06-13 10:09] VITALS: BP 127/65; PULSE 59
[2018-06-13] MEDS: METOPROLOL TARTRATE 25 MG TABLET (FP) PO SCH (10:10)
[2018-06-13] MEDS: LOSARTAN POTASSIUM 50 MG TABLET (FP) PO SCH (10:12)
[2018-06-13] MEDS: CLOPIDOGREL BISULFATE 75 MG TABLET (FP) PO SCH (10:13)
[2018-06-13] MEDS: ASPIRIN 81 MG CHEWABLE TABLETS PO SCH (10:13)
[2018-06-13] MEDS: amLODIPine BESYLATE 5 MG TABLET (FP) PO SCH (10:13)
[2018-06-13] MEDS: PANTOPRAZOLE 40 MG TABLET (FP) PO SCH (10:13)
[2018-06-13 10:35] LABS: CHOLESTEROL 109 mg/dL (50-200); HDL CHOLESTEROL 30 mg/dL (40-60); TRIGLYCERIDES 144 mg/dL (0-150)
[2018-06-13 10:58] VITALS: TEMP 98.4
[2018-06-13] MEDS ORDERED: metoPROLOL SUCCINATE 25 MG TAB.SR.24H (FP) PO SCH (11:30)
--- NOTE | 2018-06-13 14:05 | DS ---
Physical Exam: SUBJECTIVE: Patient seen and examined at bedside. No complaints. No acute events overnight. OBJECTIVE: Vital Signs Period Temp Pulse Resp BP Sys/Barksdale Pulse Ox Last 24 Hr 97.3 F-98.4 F 55-71 16-20 113-130/55-65 96-98 PHYSICAL EXAM GENERAL: AAOx3, NAD HEAD: NC/AT EYES: EOMI ENT: MMM NECK: Trachea midline, full range of motion, supple. LUNGS: CTA B/L HEART: RRR No MRG appreciated ABDOMEN: Soft NDNT No HSM EXTREMITIES: No CCE NEUROLOGICAL: CN 2-12 intact PSYCH: Normal mood, normal affect. SKIN: no rashes or lesions appreciated LABS Laboratory Results - last 24 hr 06/13/18 06/13/18 06/13/18 06:00 06:00 06:00 WBC 6.6 RBC 4.51 Hgb 12.9 Hct 39.6 MCV 87.8 MCH 28.5 MCHC 32.5 RDW 14.8 Plt Count 96 L MPV 10.1 Absolute Neuts (auto) 4.0 Neutrophils % 59.8 Lymphocytes % 29.8 Monocytes % 7.9 Eosinophils % 2.1 Basophils % 0.4 Nucleated RBC % 0 PT with INR 14.00 H INR 1.18 H Sodium 142 Potassium 3.5 Chloride 105 Carbon Dioxide 30 Anion Gap 7 L BUN 20 H Creatinine 0.9 Creat Clearance w eGFR > 60 Random Glucose 89 Calcium 7.7 L Phosphorus 2.9 Magnesium 2.0 Triglycerides 144 Cholesterol 109 Total LDL Cholesterol 64 HDL Cholesterol 30 L HOSPITAL COURSE: Date of Admission:06/12/18 Pt is an 82 year old gentleman with a significant past medical history of coronary artery disease s/p stent placment of LAD in 01/2018, hypertension, hyperlipidemia and bladder cancer who presented to [facility] c/o chest pain and shortness of breath. Pt was worked up for ACS. Troponin was negative x 2. EKG was performed which revealed a rate 66, regular rhythm, normal axis, 1st degree AV block, multiple PVCs, no ST changes. BNP was 550.7. During stay, pt had periods of sinus bradycardia to 40s bpm (even while awake). Cardiology changed Lopressor to metoprolol ER, and lowered total daily dose to 25 mg from 25 BID. Pt transferred to [facility] for Cardiac Cath with Dr Lopez for PCI of Right Coronary Artery. Date of Discharge: 06/13/18 Minutes to complete discharge: 35 Discharge Summary Reason For Visit: CHEST PAIN Condition: Stable - Instructions Referrals: Jhonny Burris MD [Primary Care Provider] - Disposition: TRANSFER ACUTE CARE/OTHER HOSP - Home Medications Comprehensive Discharge Medication List: Ambulatory Orders Amlodipine Besylate 5 mg PO DAILY 08/04/17 Atorvastatin Ca [Lipitor] 80 mg PO HS 08/04/17 Metoprolol Tartrate 25 mg PO BID 08/04/17 Tamsulosin HCl [Flomax] 0.4 mg PO HS 08/04/17 Aspirin [ASA -] 81 mg PO DAILY #30 tab.chew 02/27/18 Clopidogrel Bisulfate [Plavix] 75 mg PO DAILY 03/04/18 Pantoprazole Sodium [Protonix] 40 mg PO DAILY 03/04/18 Irbesartan 300 mg PO DAILY 06/12/18 This patient is new to me today: Yes Date on this admission: 06/13/18 Emergency Visit: Yes ED Registration Date: 06/12/18 Care time: The patient presented to the Emergency Department on the above date and was hospitalized for further evaluation of their emergent condition. Critical Care patient: No - Discharge Referral Referred to [facility] Med P.C.: No
--- NOTE | 2018-06-13 14:45 | PN ---
Teaching Attending Note Name of Resident: Erwin Weiss ATTENDING PHYSICIAN STATEMENT I saw and evaluated the patient. I reviewed the resident's note and discussed the case with the resident. I agree with the resident's findings and plan as documented. SUBJECTIVE: Patient says he feels better. He denies CP, SOB. OBJECTIVE: Vital Signs Period Temp Pulse Resp BP Sys/Barksdale Pulse Ox Last 24 Hr 97.3 F-98.4 F 55-71 16-20 113-130/55-65 96-98 HEART: S1S2, RRR LUNGS: Clear ABDOMEN: Soft, non-tender, non-distended, normal BS EXTREMITIES: No edema Laboratory Results - last 24 hr 06/13/18 06/13/18 06/13/18 06:00 06:00 06:00 WBC 6.6 RBC 4.51 Hgb 12.9 Hct 39.6 MCV 87.8 MCH 28.5 MCHC 32.5 RDW 14.8 Plt Count 96 L MPV 10.1 Absolute Neuts (auto) 4.0 Neutrophils % 59.8 Lymphocytes % 29.8 Monocytes % 7.9 Eosinophils % 2.1 Basophils % 0.4 Nucleated RBC % 0 PT with INR 14.00 H INR 1.18 H Sodium 142 Potassium 3.5 Chloride 105 Carbon Dioxide 30 Anion Gap 7 L BUN 20 H Creatinine 0.9 Creat Clearance w eGFR > 60 Random Glucose 89 Calcium 7.7 L Phosphorus 2.9 Magnesium 2.0 Triglycerides 144 Cholesterol 109 Total LDL Cholesterol 64 HDL Cholesterol 30 L ASSESSMENT AND PLAN: This is an 82 year old man with a history of CAD, stents, HTN, hyperlipidemia, chronic diastolic heart failure, GERD, BPH, bladder cancer who presented to the ED with chest pain and shortness of breath. 1. Chest pain and SOB - Symptoms same as previous episodes of angina - Troponin negative x2 - Echo shows moderate concentric LVH, normal LVEF, mild MR, mild TR, RVSP 30- 40 mmHg, E/A reversal - Transfer to [facility] for cardiac cath 2. CAD - Continue aspirin, Plavix, Lopressor, Lipitor 3. HTN - Continue Norvasc, Cozaar - Lopressor 25 mg bid changed to Toprol XL 25 mg daily 4. Hyperlipidemia - Continue Lipitor 5. Chronic diastolic heart failure 6. GERD - Continue Protonix 7. BPH - Continue Flomax 8. History of bladder cancer
== END 2018-06-13 13:19 | disposition short-term general hospital (02) ==
LOC: JER 05:52 → JERBED 07:43 → UNDOADMOB 07:43 → OBSVTOIN 08:02 → INTOOBSV 08:02 → JERBED 15:32 → J4S 15:45
PROVIDERS: ADMIT Internal Medicine; ATTEND Internal Medicine
PROC: 3E013GC Introduction of Other Therapeutic Substance into Subcutaneous Tissue, Percutaneous Approach (ICD-10-PCS; principal; 2018-06-12)
DX: R07.9 Chest pain, unspecified (principal); I25.119 Atherosclerotic heart disease of native coronary artery with unspecified angina pectoris; I11.0 Hypertensive heart disease with heart failure; I50.30 Unspecified diastolic (congestive) heart failure; Z95.5 Presence of coronary angioplasty implant and graft; I25.2 Old myocardial infarction; Z79.01 Long term (current) use of anticoagulants; E78.5 Hyperlipidemia, unspecified; E87.6 Hypokalemia; R00.1 Bradycardia, unspecified; M62.838 Other muscle spasm; N40.0 Benign prostatic hyperplasia without lower urinary tract symptoms
CPT/HCPCS: 36415; 71046-TC-FY; 80048; 80061; 82550; 83721; 83735; 83880; 84100; 84484; 85025; 85610; 85730; 86850; 86900; 86901; 93005; 93010; 93306-TC; 94640; 96372; 99285-25; G0378; J1644

== ENCOUNTER 2018-06-18 01:09 | Observation (INO) | payer OTHER ==
[2018-06-18 02:02] VITALS: BMI 31.1
--- NOTE | 2018-06-18 02:08 | PDOC ---
History of Present Illness - General Chief Complaint: Shortness of Breath Stated Complaint: S.O.B. Time Seen by Provider: 06/18/18 02:07 - History of Present Illness Initial Comments: 06/18/18 02:51 The patient is an 82 year old male with a history of HTN, HLD, CHF, Cardiac Stents, [place] who presents for evaluation of shortness of breath. The patient notes that he recently presented to the ED 1 week ago and had been transferred to [place] for stenting 5 days ago. He notes over the past 1 day, he has been experiencing progressively worsening shortness of breath with exertion and at rest prompting his presentation to the ED for further evaluation. He denies any chest pain currently and otherwise denies fevers, chills, cough, nausea, vomiting, abdominal pain, lower extremity swelling, or changes with urination or bowel movements. He notes that oxygen applied here in the ED has somewhat improved his symptoms. Past History - Past Medical History Allergies/Adverse Reactions: Allergies Allergy/AdvReac Type Severity Reaction Status Date / Time No Known Allergies Allergy Verified 06/18/18 02:02 Home Medications: Ambulatory Orders Amlodipine Besylate 5 mg PO DAILY 08/04/17 Atorvastatin Ca [Lipitor] 80 mg PO HS 08/04/17 Metoprolol Tartrate 25 mg PO BID 08/04/17 Tamsulosin HCl [Flomax] 0.4 mg PO HS 08/04/17 Aspirin [ASA -] 81 mg PO DAILY #30 tab.chew 02/27/18 Clopidogrel Bisulfate [Plavix] 75 mg PO DAILY 03/04/18 Pantoprazole Sodium [Protonix] 40 mg PO DAILY 03/04/18 Irbesartan 300 mg PO DAILY 06/12/18 Cancer: Yes (bladder) Cardiac Disorders: Yes (2 stents) COPD: No CHF: Yes HTN: Yes Hypercholesterolemia: Yes - Surgical History Cardiac Surgery: Yes (stents) - Immunization History Immunization Up to Date: Yes - Suicide/Smoking/Psychosocial Hx Smoking Status: No Smoking History: Never smoked Have you smoked in the past 12 months: No Number of Cigarettes Smoked Daily: 0 If you are a former smoker, when did you quit?: 40 yrs ago Information on smoking cessation initiated: No Hx Alcohol Use: No Drug/Substance Use Hx: No Substance Use Type: None Hx Substance Use Treatment: No Review of Systems - Review of Systems Comments:: 06/18/18 02:54 Constitutional: No fevers, chills, fatigue, malaise HEENT: No Rhinorrhea, nasal congestion, visual changes Cardiovascular: No chest pain, syncope, palpitations, lightheadedness Respiratory: SOB. Dyspnea on Exertion. No Cough, Hemoptysis, Gastrointestinal: No Abdominal pain, Nausea, Vomiting, Constipation, Diarrhea, Melena Genitourinary: No Dysuria, Frequency, Urgency, Hesitancy, Hematuria, Flank pain Musculoskeletal: No Myalgia, arthralgia Skin: No rashes, itching, bruising, pallor Neurologic: No Headache, Dizziness, Numbness, Weakness, or Tingling Psychiatric: No Hallucinations. No SI or HI *Physical Exam - Vital Signs Last Vital Signs Temp Pulse Resp BP Pulse Ox 97.4 F L 59 L 17 143/70 97 06/18/18 01:09 06/18/18 01:09 06/18/18 01:09 06/18/18 01:09 06/18/18 01:09 - Physical Exam Comments: 06/18/18 02:54 General Appearance: Nourished. No Apparent Distress HEENT: No Pharyngeal Erythema, Tonsillar Exudate, Tonsillar Erythema Neck: No Cervical Lymphadenopathy Respiratory/Chest: Lungs Clear, Normal Breath Sounds. No Crackles, Rales, Rhonchi, Wheezing Cardiovascular: Regular Rhythm, Regular Rate. No Murmur, Gallops, Rubs Gastrointestinal/Abdominal: Normal Bowel Sounds, Soft. No Guarding, Rebound, Tenderness Musculoskeletal: No CVA Tenderness Extremity: Normal Capillary Refill Integumentary: Normal Color, Dry, Warm Neurologic: Fully Oriented, Alert, Normal Mood/Affect, Normal Response, Moderate Sedation - Procedure Monitoring Vital Signs: Procedure Monitoring Vital Signs Temperature 97.4 F L 06/18/18 01:09 Pulse Rate 59 L 06/18/18 01:09 Respiratory Rate 17 06/18/18 01:09 Blood Pressure 143/70 06/18/18 01:09 O2 Sat by Pulse Oximetry (%) 97 06/18/18 01:09 ED Treatment Course - LABORATORY CBC & Chemistry Diagram: 06/18/18 06:00 06/18/18 03:09 Medical Decision Making - Medical Decision Making 06/18/18 02:54 The patient is an 82 year old male with a history of HTN, HLD, CHF, Cardiac Stents, [place] who presents for evaluation of shortness of breath. Differential includes but is not limited to: ACS, CHF, Infections, Metabolic Derangement. Given the patient's history and physical exam, we will obtain a cbc, cmp, troponin, bnp, ekg, chest plain film to evaluate further. The patient will likely require admission for further monitor and and management. We will continue to monitor and reassess while here in the ED. 06/18/18 06:23 CBC, cmp, troponin, bnp are unremarkable. Chest plain film is unremarkable as preliminarily read by ED physician. We discussed the case with the admitting who accepted the patient for admission. *DC/Admit/Observation/Transfer Diagnosis at time of Disposition: Shortness of breath - Discharge Dispostion Disposition: HOME Condition at time of disposition: Good - Referrals - Patient Instructions - Post Discharge Activity
[2018-06-18 04:08] LABS: ALBUMIN 3.2 g/dl (3.4-5.0); ALK PHOS 75 U/L (45-117); ANION GAP 9 MMOL/L (8-16); BILIRUBIN,TOTAL 0.7 mg/dL (0.2-1); BLOOD UREA NITROGEN 20 mg/dL (7-18); CALCIUM 7.5 mg/dL (8.5-10.1); CHLORIDE 106 mmol/L (98-107); CO2 24 mmol/L (21-32); CREATININE 0.9 mg/dL (0.55-1.3); GLUCOSE,RANDOM 81 mg/dL (74-106); N-TERMINAL BNP 199.4 pg/ml (5-450); POTASSIUM 3.7 mmol/L (3.5-5.1); SGOT/AST 32 U/L (15-37); SGPT/ALT 33 U/L (13-61); SODIUM 139 mmol/L (136-145); TOT PROT 6.6 g/dl (6.4-8.2)
--- NOTE | 2018-06-18 04:43 | PDOC ---
Attending Attestation - Resident Resident Name: Keon Bravo - ED Attending Attestation I have performed the following: I have examined & evaluated the patient, The case was reviewed & discussed with the resident, I agree w/resident's findings & plan, Exceptions are as noted - HPI HPI: 06/18/18 04:38 82 M with h/o HTN, HLD, CHF, CAD s/p stents, presenting to ED with SOB. Pt recently had stent placed to LAD 1 week ago. Since then, pt has been doing well. However, today pt began to experience SOB and DYSON. Pt states that is gradually progressed. Pt saw his mini shifter this morning but states that the SOB was minimal at that time. This evening, it began to worsen. He states that it feels the same as the symptoms he had when he had his stents placed last week. Denies leg swelling. Denies cough/fever. - Physicial Exam PE: 06/18/18 04:40 GENERAL: Awake, alert, and fully oriented, in no acute distress. HEAD: No signs of trauma EYES: PERRLA, EOMI, sclera anicteric, conjunctiva clear ENT: Auricles normal inspection, hearing grossly normal, nares patent, oropharynx clear without exudates. Moist mucosa NECK: Nontender, no stepoffs, Normal ROM, supple, no lymphadenopathy, JVD, or masses LUNGS: Breath sounds equal, clear to auscultation bilaterally. No wheezes, and no crackles HEART: Regular rate and rhythm, normal S1 and S2, no murmurs, rubs or gallops ABDOMEN: Soft, nontender, normoactive bowel sounds. No guarding, no rebound. No masses EXTREMITIES: Normal range of motion, no edema. No clubbing or cyanosis. No cords, erythema, or tenderness NEUROLOGICAL: Cranial nerves II through XII intact. 5/5 strength and sensation in all extremities, Normal speech, normal gait, normal cerebellar function SKIN: Warm, Dry, normal turgor, no rashes or lesions noted. - Medical Decision Making 06/18/18 04:42 82 M with recent stenting presenting with SOB. Will need cardiac w/u as pt states symptoms are similar to when he was stented. Pt with no s/s volume overload. No evidence of DVT on exam. - Labs, trop, BNP - CXR - Consult mascitelli - Admit tele
[2018-06-18 06:13] LABS: BASO % 0.5 % (0-2.0); HEMATOCRIT 37.3 % (35.4-49); HEMOGLOBIN 12.3 GM/dL (11.7-16.9); LYMPH % 35.1 % (8-40); MCH 28.8 pg (25.7-33.7); MCHC 32.9 g/dl (32.0-35.9); MEAN CELL VOLUME 87.5 fl (80-96); MEAN PLT VOLUME 9.3 fl (7.5-11.1); MONO % 8.4 % (3.8-10.2); PLATELET COUNT 88 K/MM3 (134-434); RBC 4.26 M/mm3 (4.00-5.60); RDW 14.8 % (11.9-15.9); WHITE BLOOD COUNT 5.9 K/mm3 (4.0-10.0)
[2018-06-18 06:25] LABS: INR 1.21 (0.83-1.09); PROTHROMBIN TIME (PATIENT) 14.3 SEC (9.7-13.0)
[2018-06-18 06:27] LABS: ACTIVATED PTT 30.1 SECONDS (25.2-36.5)
--- NOTE | 2018-06-18 07:48 | PDOC ---
*Physical Exam - Vital Signs Last Vital Signs Temp Pulse Resp BP Pulse Ox 97.6 F 60 17 156/72 100 06/18/18 07:31 06/18/18 07:31 06/18/18 07:31 06/18/18 07:31 06/18/18 07:39 - Physical Exam General Appearance: Yes: Nourished Neck: positive: Trachea midline Respiratory/Chest: positive: Lungs Clear, Normal Breath Sounds Cardiovascular: positive: Regular Rhythm, Regular Rate, S1, S2 ED Treatment Course - LABORATORY CBC & Chemistry Diagram: 06/18/18 06:00 06/18/18 03:09 - ADDITIONAL ORDERS Additional order review: Laboratory Results 06/18/18 06/18/18 06/18/18 06:05 03:09 03:09 PT with INR 14.30 H Cancelled INR 1.21 H Cancelled PTT (Actin FS) 30.1 Cancelled Sodium 139 Potassium 3.7 Chloride 106 Carbon Dioxide 24 Anion Gap 9 BUN 20 H Creatinine 0.9 Creat Clearance w eGFR > 60 Random Glucose 81 Calcium 7.5 L Total Bilirubin 0.7 AST 32 ALT 33 Alkaline Phosphatase 75 Creatine Kinase 93 Troponin I 0.05 B-Natriuretic Peptide 199.4 Total Protein 6.6 Albumin 3.2 L 06/18/18 06:00 RBC 4.26 MCV 87.5 MCHC 32.9 RDW 14.8 MPV 9.3 Neutrophils % 53.0 Lymphocytes % 35.1 Monocytes % 8.4 Eosinophils % 3.0 Basophils % 0.5 Medical Decision Making - Medical Decision Making 06/18/18 07:46 82 yo male ho htn hld chf cad s/p stents ( mulitlple most recent 5 days ago) here with c/o sob for 3 days. pt states was similar to his prior mi so he came to ed. denies cp no leg swellig. no h/o pe or dvt. was signed out to me by Dr Leyva , assumed care at 7 am. awaiting callback from hospitalist for admission. consult placed for dr. london. on my exam pt comfortable, no c/o feeling sob at this time. no c/o chest pain. labs reviewed unremarkable. d/w dr. meraz, would like to d/w dr. london for possibility of transfer should he require repeat cath. surya paged awaiting callback. *DC/Admit/Observation/Transfer - Discharge Dispostion Condition at time of disposition: Fair - Referrals Referrals: Jhonny Burris MD [Primary Care Provider] - - Patient Instructions - Post Discharge Activity
--- NOTE | 2018-06-18 08:30 | PDOC ---
*Physical Exam - Vital Signs Last Vital Signs Temp Pulse Resp BP Pulse Ox 97.6 F 60 17 156/72 100 06/18/18 07:31 06/18/18 07:31 06/18/18 07:31 06/18/18 07:31 06/18/18 07:39 ED Treatment Course - LABORATORY CBC & Chemistry Diagram: 06/18/18 06:00 06/18/18 03:09 - ADDITIONAL ORDERS Additional order review: Laboratory Results 06/18/18 06/18/18 06/18/18 06:05 03:09 03:09 PT with INR 14.30 H Cancelled INR 1.21 H Cancelled PTT (Actin FS) 30.1 Cancelled Sodium 139 Potassium 3.7 Chloride 106 Carbon Dioxide 24 Anion Gap 9 BUN 20 H Creatinine 0.9 Creat Clearance w eGFR > 60 Random Glucose 81 Calcium 7.5 L Total Bilirubin 0.7 AST 32 ALT 33 Alkaline Phosphatase 75 Creatine Kinase 93 Troponin I 0.05 B-Natriuretic Peptide 199.4 Total Protein 6.6 Albumin 3.2 L 06/18/18 06:00 RBC 4.26 MCV 87.5 MCHC 32.9 RDW 14.8 MPV 9.3 Neutrophils % 53.0 Lymphocytes % 35.1 Monocytes % 8.4 Eosinophils % 3.0 Basophils % 0.5 Medical Decision Making - Medical Decision Making 82yo with HTN, HLD, CHF, MIs, Stents most recently on presenting with SOB Patient resting comfortably in bed. Denies SOB while on 2L NC Dr. Gallegos received call from Dr. Mosley regarding a consult call to cardiology Paged Dr. Pruett 06/18/18 07:52 Dr. Pruett contacted the inpatient team and will evaluate the patient before 9:30am. Awaiting his recommendations. It is possible the patient may be transferred. Discussed case with inpatient team who accepted patient for admission under Dr. Mosley. 06/18/18 08:30 *DC/Admit/Observation/Transfer Diagnosis at time of Disposition: Shortness of breath - Discharge Dispostion Condition at time of disposition: Guarded Decision to Admit order: Yes - Referrals Referrals: Jhonny Burris MD [Primary Care Provider] - - Patient Instructions - Post Discharge Activity
--- NOTE | 2018-06-18 10:20 | HP ---
CHIEF COMPLAINT: SOB PCP: Dr Dayton Burdick HISTORY OF PRESENT ILLNESS: The patient is a 82 year old male with a PMH of CAD, s/p stent (PDA 06/12/18, LAD 01/2018), HTN, hyperlipidemia, blader Ca, s/p removal 2016 that presented to the hospital complaining of shortness of breath that is present for 2-3 days but got worse last night around 11 PM when he went to lay down in bed. He visited his Battery Inspector yesterday in the morning and was assured that he is in good health but if he notices worsening of his symptoms, he needs to come to the hospital. He was also told that he will need to have two more vessels in his heart stented possibly in August. The patient denies chest pain, palpitations dizziness, headache, nausea, vomiting. He is compliant with taking his home medications. ER course was notable for: (1)troponin neg (2)EKG (3)CXR PAST MEDICAL HISTORY: As above PAST SURGICAL HISTORY: bladder Ca removal, stents Social History: Smoking:no, quit 40 years ago Alcohol:denies Drugs:denies Family History: no history of heart disease, DM, noncontributory Allergies No Known Allergies Allergy (Verified 06/18/18 02:02) HOME MEDICATIONS: Home Medications Medication Instructions Recorded Amlodipine Besylate 5 mg PO DAILY 08/04/17 Atorvastatin Ca [Lipitor] 80 mg PO HS 08/04/17 Metoprolol Tartrate 25 mg PO BID 08/04/17 Tamsulosin HCl [Flomax] 0.4 mg PO HS 08/04/17 Aspirin [ASA -] 81 mg PO DAILY #30 tab.chew 02/27/18 Clopidogrel Bisulfate [Plavix] 75 mg PO DAILY 03/04/18 Pantoprazole Sodium [Protonix] 40 mg PO DAILY 03/04/18 Irbesartan 300 mg PO DAILY 06/12/18 REVIEW OF SYSTEMS CONSTITUTIONAL: Absent: fever, chills, diaphoresis, generalized weakness, malaise HEENT: Absent: rhinorrhea, nasal congestion, throat pain CARDIOVASCULAR: Absent: chest pain, syncope, palpitations, irregular heart rate, lightheadedness , peripheral edema RESPIRATORY: shortness of breath, Absent: cough, dyspnea with exertion, orthopnea, wheezing, stridor, hemoptysis GASTROINTESTINAL: Absent: abdominal pain, nausea, vomiting, diarrhea, constipation GENITOURINARY: Absent: dysuria, frequency, urgency, hesitancy, hematuria MUSCULOSKELETAL: Absent: myalgia, arthralgia, joint swelling, back pain, neck pain ENDOCRINE: Absent: unexplained weight gain, unexplained weight loss NEUROLOGIC: Absent: headache, focal weakness or paresthesias, dizziness, unsteady gait PSYCHIATRIC: Absent: anxiety, depression PHYSICAL EXAMINATION Vital Signs - 24 hr 06/18/18 06/18/18 06/18/18 01:09 07:31 07:39 Temperature 97.4 F L 97.6 F Pulse Rate 59 L Pulse Rate [ 60 Apical] Respiratory 17 17 Rate Blood Pressure 143/70 Blood Pressure 156/72 [Arm] O2 Sat by Pulse 97 100 100 Oximetry (%) GENERAL: Awake, alert, and fully oriented, in no acute distress. HEAD: Normal with no signs of trauma. EYES: Extraocular movements intact, sclera anicteric, conjunctiva clear. EARS, NOSE, THROAT: Oropharynx clear without exudates. Moist mucous membranes. NECK: Normal range of motion, supple without lymphadenopathy, JVD, or masses. LUNGS: Breath sounds equal, clear to auscultation bilaterally. No wheezes, and no crackles. No accessory muscle use. HEART: Regular rate and rhythm, normal S1 and S2 without murmur, rub or gallop. ABDOMEN: Soft, nontender, not distended, normoactive bowel sounds, no guarding, no rebound, no masses. MUSCULOSKELETAL: Normal range of motion at all joints. No bony deformities or tenderness. UPPER EXTREMITIES: 2+ pulses, no peripheral edema. LOWER EXTREMITIES: 2+ pulses, no peripheral edema. NEUROLOGICAL: Cranial nerves II-XII intact. Normal speech. PSYCHIATRIC: Cooperative. Good eye contact. Appropriate mood and affect. SKIN: Warm, dry, normal turgor, no rashes. Laboratory Results - last 24 hr 06/18/18 06/18/18 06/18/18 03:09 03:09 06:00 WBC 5.9 RBC 4.26 Hgb 12.3 Hct 37.3 MCV 87.5 MCH 28.8 MCHC 32.9 RDW 14.8 Plt Count 88 L MPV 9.3 Absolute Neuts (auto) 3.1 Neutrophils % 53.0 Lymphocytes % 35.1 Monocytes % 8.4 Eosinophils % 3.0 Basophils % 0.5 Nucleated RBC % 0 PT with INR Cancelled INR Cancelled PTT (Actin FS) Cancelled Sodium 139 Potassium 3.7 Chloride 106 Carbon Dioxide 24 Anion Gap 9 BUN 20 H Creatinine 0.9 Creat Clearance w eGFR > 60 Random Glucose 81 Calcium 7.5 L Total Bilirubin 0.7 AST 32 ALT 33 Alkaline Phosphatase 75 Creatine Kinase 93 Troponin I 0.05 B-Natriuretic Peptide 199.4 Total Protein 6.6 Albumin 3.2 L 06/18/18 06:05 WBC RBC Hgb Hct MCV MCH MCHC RDW Plt Count MPV Absolute Neuts (auto) Neutrophils % Lymphocytes % Monocytes % Eosinophils % Basophils % Nucleated RBC % PT with INR 14.30 H INR 1.21 H PTT (Actin FS) 30.1 Sodium Potassium Chloride Carbon Dioxide Anion Gap BUN Creatinine Creat Clearance w eGFR Random Glucose Calcium Total Bilirubin AST ALT Alkaline Phosphatase Creatine Kinase Troponin I B-Natriuretic Peptide Total Protein Albumin ASSESSMENT/PLAN: The patient is a 82 year old male with a PMH of CAD, s/p stent (PDA 06/12/18, LAD 01/2018), HTN, hyperlipidemia, blader CA, s/p removal 2016 that presented to the hospital complaining of shortness of breath that is present for 2-3 days. SOB: the patient presented 5 days after cardiac cath, possible ACS, PE, anxiety attack, less likely CHF -first troponin negative, will follow next one -EKG: NSR, 52 bpm, no vicky/std, first degree AV block -BNP 199.4 -cardiac monitoring -will follow up Dr Pruett recommendations -continue home medications -Oxygen Supplementation, currently on 2L NC CAD: -recent stent placement -will continue Cardio recommendations, cont ASA, Plavix HTN: -cont home Metoprolol 25 mg BID, Amlodypine 5 mg qd, Irbesartan 300 mg qd Hyperlipidemia: -continue Atorvastatin 80 mg qd GERD: -cont Rantoprazole 40 mg qd BPH: -continue Tamsulosin 0.4 mg HS F/E/N: no/no changes/low sodium Dispo: tele obs, DC if repeated ekg and troponins normal, candidate for cardiac rehab Problem List - Problem (1) Shortness of breath Code(s): R06.02 - SHORTNESS OF BREATH (2) Atypical chest pain Code(s): R07.89 - OTHER CHEST PAIN (3) Hyperlipidemia Code(s): E78.5 - HYPERLIPIDEMIA, UNSPECIFIED Visit type - Emergency Visit Emergency Visit: Yes ED Registration Date: 06/18/18 Care time: The patient presented to the Emergency Department on the above date and was hospitalized for further evaluation of their emergent condition. - New Patient This patient is new to me today: Yes Date on this admission: 06/18/18 - Critical Care Critical Care patient: No
[2018-06-18 10:45] VITALS: TEMP 98
--- NOTE | 2018-06-18 10:53 | CON.CARD ---
Consult Consult Specialty:: cardiology Reason for Consultation:: shortness of breath one week after RPDA coronary stent - History of Present Illness Chief Complaint: Pt A&Ox3; anxious no chest pain; had SOB earlier History of Present Illness: The patient is an 82 year old male with a history of HTN, HLD, diastolic CHF, Cardiac Stents (1st >20 yrs ago; latest last week: RPDA), s/p WI, who presents for evaluation of shortness of breath. The patient notes that he recently presented to the ED 1 week ago and had been transferred to [place] for stenting 5 days ago. He notes over the past 1 day, he has been experiencing progressively worsening shortness of breath with exertion and at rest prompting his presentation to the ED for further evaluation. He denies any chest pain currently and otherwise denies fevers, chills, cough, nausea, vomiting, abdominal pain, lower extremity swelling, or changes with urination or bowel movements. He notes that oxygen applied here in the ED has somewhat improved his symptoms. - History Source History Provided By: Patient, Family Member, Medical Record Limitations to Obtaining History: No Limitations - Past Medical History Cardio/Vascular: Yes: CAD, CHF (diastolic; moderate LVH), HTN, Hyperlipdemia, WI Renal/: No: Renal Failure Heme/Onc: No: Anemia Psych: Yes: Anxiety, Panic - Past Surgical History Past Surgical History: Yes: Stent (coronary: 1st more than 20 yrs ago; latest last week (RPDA)) - Alcohol/Substance Use Hx Alcohol Use: No - Smoking History Smoking history: Never smoked Have you smoked in the past 12 months: No Aproximately how many cigarettes per day: 0 If you are a former smoker, when did you quit?: 40 yrs ago - Social History Usual Living Arrangement: With Spouse Place of : Other Home Medications - Allergies Allergies/Adverse Reactions: Allergies Allergy/AdvReac Type Severity Reaction Status Date / Time No Known Allergies Allergy Verified 06/18/18 02:02 - Home Medications Home Medications: Ambulatory Orders Amlodipine Besylate 5 mg PO DAILY 08/04/17 Atorvastatin Ca [Lipitor] 80 mg PO HS 08/04/17 Metoprolol Tartrate 25 mg PO BID 08/04/17 Tamsulosin HCl [Flomax] 0.4 mg PO HS 08/04/17 Aspirin [ASA -] 81 mg PO DAILY #30 tab.chew 02/27/18 Clopidogrel Bisulfate [Plavix] 75 mg PO DAILY 03/04/18 Pantoprazole Sodium [Protonix] 40 mg PO DAILY 03/04/18 Irbesartan 300 mg PO DAILY 06/12/18 Family Disease History - Family Disease History Family History: Denies Review of Systems - Review of Systems Constitutional: reports: Weakness Eyes: reports: No Symptoms HENT: reports: No Symptoms Neck: reports: No Symptoms Cardiovascular: reports: Shortness of Breath Respiratory: reports: SOB Gastrointestinal: reports: No Symptoms Genitourinary: reports: No Symptoms Breasts: reports: No Symptoms Reported Integumentary: reports: No Symptoms Neurological: reports: No Symptoms Endocrine: reports: No Symptoms Hematology/Lymphatic: reports: No Symptoms Psychiatric: reports: Other (anxiety) - Risk Factors Known Risk Factors: Yes: Age, Gender, Hypercholesterolemia, Hypertension, Physical Inactivity, Prior WI /Emb Stroke, Other (s/p coronary stents; multivessel CAD) Vital Signs: Vital Signs Temperature 98 F 06/18/18 10:44 Pulse Rate 54 L 06/18/18 10:44 Respiratory Rate 18 06/18/18 10:44 Blood Pressure 148/70 06/18/18 10:44 O2 Sat by Pulse Oximetry (%) 100 06/18/18 10:00 Constitutional: Yes: Anxious Eyes: Yes: WNL HENT: Yes: WNL Neck: Yes: WNL, Thyromegaly Gastrointestinal: Yes: Soft Renal/: No: Anuria Cardiovascular: Yes: Regular Rate and Rhythm JVD: No Carotid Bruit: No PMI: Non-Displaced Heart Sounds: Yes: S1, S2, S4 Murmur: Yes: Systolic Murmur, Grade 1 Musculoskeletal: Yes: WNL Extremities: Yes: WNL Edema: No Peripheral Pulses WNL: Yes Integumentary: Yes: WNL Neurological: Yes: WNL Psychiatric: Yes: Other (anxiety/panic) - Other Data Labs, Other Data: CBC, BMP 06/18/18 06:00 06/18/18 03:09 INR, PTT INR 1.21 (0.83-1.09) H 06/18/18 06:05 Troponin, BNP 06/18/18 03:09 Troponin I 0.05 B-Natriuretic Peptide 199.4 Troponin, BNP 06/18/18 03:09 Troponin I 0.05 B-Natriuretic Peptide 199.4 Abnormal Lab Results 06/18/18 06/18/18 06/18/18 03:09 06:00 06:05 Plt Count 88 L PT with INR 14.30 H INR 1.21 H BUN 20 H Calcium 7.5 L Magnesium Albumin 3.2 L 06/18/18 10:25 Plt Count PT with INR INR BUN Calcium Magnesium 1.2 L Albumin Echo: Report Reviewed (normal LVEF; moderate LVH; abnormal diastolic compliance) Prior Cardiac Procedures: Cardiac Catheterization, PTCA with Stent Ejection Fraction %: LVEF > or = 40 % Imaging - Results Chest X-ray: Image Reviewed (no acute pathology) EKG: Image Reviewed (no acute ST-T changes; sinus bradycardia with 1st degree AVB) Problem List - Problems (1) Shortness of breath Assessment/Plan: Pt is highly anxious. He saw Dr. Lopez, interventionalist, and thought he was to go to ER if he felt at all short of breath (he had a similar admission prior to stent last week). No chest pain. He asks if he can go home on oxygen (now 100% O2 on RA). he is scheduled to see a manager social responsibility as an outpatient. He is able to ambulate and hold a conversation now without feeling short of breath. TNI negative and EKG without significant abnormalities; f/u serially. CXR: No acute pathology. Code(s): R06.02 - SHORTNESS OF BREATH (2) Diastolic CHF Code(s): I50.30 - UNSPECIFIED DIASTOLIC (CONGESTIVE) HEART FAILURE (3) Hyperlipidemia Assessment/Plan: f/u lipid profile. On statin (atorvastatin 80 mg daily). Code(s): E78.5 - HYPERLIPIDEMIA, UNSPECIFIED (4) Stented coronary artery Assessment/Plan: Continue clopidogrel and ASA; on atorvastatin. IF TNI and EKG remain without significant abnormalities, will f/u as outpatient from cardiac perspective. Will enroll pt in cardiac rehabilitation. Pt has multivessel CAD. Pt's condition was discussed with Dr. Lopez, his interventionalist. Code(s): Z95.5 - PRESENCE OF CORONARY ANGIOPLASTY IMPLANT AND GRAFT (5) Hypomagnesemia Assessment/Plan: Pt is on diuretic. Replete magnesium (4 g IVPB). Keep Mg 2-2.4 Keep K 4-4.5. Code(s): E83.42 - HYPOMAGNESEMIA
[2018-06-18] MEDS ORDERED: ASPIRIN 81 MG CHEWABLE TABLETS PO SCH (11:15)
[2018-06-18] MEDS ORDERED: CLOPIDOGREL BISULFATE 75 MG TABLET (FP) PO SCH (11:15)
[2018-06-18] MEDS ORDERED: METOPROLOL TARTRATE 25 MG TABLET (FP) PO SCH (11:15)
[2018-06-18] MEDS ORDERED: PANTOPRAZOLE 40 MG TABLET (FP) PO SCH (11:15)
[2018-06-18] MEDS ORDERED: amLODIPine BESYLATE 5 MG TABLET (FP) PO SCH (11:15)
[2018-06-18] MEDS ORDERED: LOSARTAN POTASSIUM 50 MG TABLET (FP) PO SCH (11:15)
[2018-06-18 11:20] LABS: MAGNESIUM 1.2 mg/dL (1.8-2.4); PHOSPHOROUS 2.8 mg/dL (2.5-4.9)
[2018-06-18] MEDS ORDERED: MAGNESIUM SULFATE 4GM/100CC IN STERILE WATER IVPB ONE (11:41)
[2018-06-18] MEDS ORDERED: POTASSIUM CHLORIDE 20 MEQ PREMIX IVPB 100 ML IVPB ONE (11:41)
--- NOTE | 2018-06-18 12:14 | DS ---
Physical Exam: SUBJECTIVE: Patient seen and examined.He is feeling much better than yesterday. He denies chest pain, palpitations. OBJECTIVE: Vital Signs Period Temp Pulse Resp BP Sys/Bar[place]dale Pulse Ox Last 24 Hr 97.4 F-98 F 54-60 17-18 137-156/63-72 97-100 PHYSICAL EXAM GENERAL: The patient is awake, alert, and fully oriented, in no acute distress. HEAD: Normal with no signs of trauma. EYES: PERRL, extraocular movements intact, sclera anicteric, conjunctiva clear. ENT: Moist mucous membranes. NECK: Trachea midline, full range of motion, supple. LUNGS: Breath sounds equal, clear to auscultation bilaterally, no wheezes, no crackles, no accessory muscle use. HEART: Regular rate and rhythm, S1, S2 without murmur, rub or gallop. ABDOMEN: Soft, nontender, nondistended, normoactive bowel sounds, no guarding, no rebound. EXTREMITIES: 2+ pulses, warm, no edema. NEUROLOGICAL: Cranial nerves II through XII grossly intact. Normal speech, nl gait. PSYCH: Normal mood, normal affect. SKIN: Warm, dry, normal turgor, no rashes. LABS Laboratory Results - last 24 hr 06/18/18 06/18/18 06/18/18 03:09 03:09 06:00 WBC 5.9 RBC 4.26 Hgb 12.3 Hct 37.3 MCV 87.5 MCH 28.8 MCHC 32.9 RDW 14.8 Plt Count 88 L MPV 9.3 Absolute Neuts (auto) 3.1 Neutrophils % 53.0 Lymphocytes % 35.1 Monocytes % 8.4 Eosinophils % 3.0 Basophils % 0.5 Nucleated RBC % 0 PT with INR Cancelled INR Cancelled PTT (Actin FS) Cancelled Sodium 139 Potassium 3.7 Chloride 106 Carbon Dioxide 24 Anion Gap 9 BUN 20 H Creatinine 0.9 Creat Clearance w eGFR > 60 Random Glucose 81 Calcium 7.5 L Phosphorus Magnesium Total Bilirubin 0.7 AST 32 ALT 33 Alkaline Phosphatase 75 Creatine Kinase 93 Troponin I 0.05 B-Natriuretic Peptide 199.4 Total Protein 6.6 Albumin 3.2 L 06/18/18 06/18/18 06/18/18 06:05 10:25 10:25 WBC RBC Hgb Hct MCV MCH MCHC RDW Plt Count MPV Absolute Neuts (auto) Neutrophils % Lymphocytes % Monocytes % Eosinophils % Basophils % Nucleated RBC % PT with INR 14.30 H INR 1.21 H PTT (Actin FS) 30.1 Sodium Potassium Chloride Carbon Dioxide Anion Gap BUN Creatinine Creat Clearance w eGFR Random Glucose Calcium Phosphorus 2.8 Magnesium 1.2 L Total Bilirubin AST ALT Alkaline Phosphatase Creatine Kinase Troponin I 0.03 B-Natriuretic Peptide Total Protein Albumin HOSPITAL COURSE: The patient is a 82 year old male with a PMH of CAD, s/p stent (PDA 06/12/18, LAD 01/2018), HTN, hyperlipidemia, blader Ca, s/p removal 2016, BPH, that presented to the hospital complaining of shortness of breath that is present for 2-3 days but got worse overnight. In Emergency room he had EKG done that didn't show any acute changes, NST, 52 bpm, no vicky/std, first degree AV block, troponins x 2 were negative. The patient was admitted for observation to telemetry to r/o ACS. He had repeated ekg that was nl. He was found to have low Mg 1.2 and K 3.7, that was repleated. Cardiology was consulted, home medications were continued. His SOB was possibly caused by anxiety. The patient is discharged home with recommendation to start cardiac rehab as outpatient. Discussed with attending Dr Mosley and Dr Pruett. Date of Admission:06/18/18 Date of Discharge: 06/18/18 Minutes to complete discharge: 40 Discharge Summary Reason For Visit: SOB,ELEVATED TROPONIN LEVEL Current Active Problems Shortness of breath (Acute) Condition: Good - Instructions Diet, Activity, Other Instructions: You were evaluated in the hospital for shortness of breath. We did ekg and checked your cardiac enzymes that were normal. Magnesium and Potassium were low and you received supplementation We consulted dr Pruett that will arrange cardiac rehabilitation after your discharge from the hospital. During your stay in [facility], we didn't change any of your home medications. Please continue to the the same as before hospitalization. 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 Follow up with your primary care physician in next 2-3 weeks. If you have chest pain, severe shortness of breath, palpitations or worsening of any of your symptoms, come back to Emergency Room as soon as possible. Referrals: Jhonny Burris MD [Primary Care Provider] - 2 Weeks Dalton Pruett MD [Staff Physician] - 1 Week Disposition: HOME - Home Medications Comprehensive Discharge Medication List: Ambulatory Orders Amlodipine Besylate 5 mg PO DAILY 08/04/17 Atorvastatin Ca [Lipitor] 80 mg PO HS 08/04/17 Metoprolol Tartrate 25 mg PO BID 08/04/17 Tamsulosin HCl [Flomax] 0.4 mg PO HS 08/04/17 Aspirin [ASA -] 81 mg PO DAILY #30 tab.chew 02/27/18 Clopidogrel Bisulfate [Plavix] 75 mg PO DAILY 03/04/18 Pantoprazole Sodium [Protonix] 40 mg PO DAILY 03/04/18 Irbesartan 300 mg PO DAILY 06/12/18 Problem List - Problems (1) Shortness of breath Code(s): R06.02 - SHORTNESS OF BREATH (2) Atypical chest pain Code(s): R07.89 - OTHER CHEST PAIN (3) Hyperlipidemia Code(s): E78.5 - HYPERLIPIDEMIA, UNSPECIFIED This patient is new to me today: Yes Date on this admission: 06/18/18 Emergency Visit: Yes ED Registration Date: 06/18/18 Care time: The patient presented to the Emergency Department on the above date and was hospitalized for further evaluation of their emergent condition. Critical Care patient: No - Discharge Referral Referred to [facility] Med P.C.: No
[2018-06-18] MEDS ORDERED: POTASSIUM CHLORIDE 10 MEQ PREMIX IVPB (POTASSIUM RIDER) IVPB SCH ×2 (12:15→12:45)
[2018-06-18] MEDS ORDERED: PT OWN MED DRAWER 7, Y5N ONE (12:27)
--- NOTE | 2018-06-18 12:44 | PN ---
Teaching Attending Note Name of Resident: Lesia Pacheco ATTENDING PHYSICIAN STATEMENT I saw and evaluated the patient. I reviewed the resident's note and discussed the case with the resident. I agree with the resident's findings and plan as documented with exceptions below. SUBJECTIVE: 82 yom with PMHx of CAD, s/p stent (PDA 06/12/18, LAD 01/2018), HTN, hyperlipidemia, bladder Ca, s/p removal 2016, admitted with shortness of breath , non exertional, no clear exacerbating or relieving factors. Woke up with feeling of gasping for air. Currently ambulating in hallway with no complaints. Symptoms have resolved but anxious about recurrence of symptoms. 12 point ROS done, neg for chest pain or pressure, orthopnea/PND, leg swelling, arm or jaw pain, fevers, chills, cough, URI like illness or new concerns otherwise. OBJECTIVE: Vital Signs Period Temp Pulse Resp BP Sys/Barksdale Pulse Ox Last 24 Hr 97.4 F-98 F 54-60 -18 137-156/63-72 97-100 Intake & Output 06/15/18 06/16/18 06/17/18 06/18/18 23:59 23:59 23:59 23:59 Weight 199 lb GENERAL: Awake, alert, and fully oriented, in no acute distress, ambulating in hallway. HEAD: Normal with no signs of trauma. EYES: Pupils equal, round and reactive to light, extraocular movements intact, sclera anicteric, conjunctiva clear. No lid lag. EARS, NOSE, THROAT: Ears normal, nares patent, oropharynx clear without exudates. Moist mucous membranes. NECK: Normal range of motion, supple without lymphadenopathy, JVD, or masses. LUNGS: Breath sounds equal, clear to auscultation bilaterally. No wheezes, and no crackles. No accessory muscle use. HEART: S1S2 regular rate rhythm ABDOMEN: Soft, nontender, not distended, normoactive bowel sounds, no guarding, no rebound, no masses. No hepatomegaly or splenomegaly. MUSCULOSKELETAL: Normal range of motion at all joints. No bony deformities or tenderness. No CVA tenderness. UPPER EXTREMITIES: 2+ pulses, warm, well-perfused. No cyanosis. No clubbing. No peripheral edema. LOWER EXTREMITIES: 2+ pulses, warm, well-perfused. No calf tenderness. No peripheral edema. NEUROLOGICAL: Cranial nerves II-XII intact. Normal speech. Normal gait. PSYCHIATRIC: Cooperative. Good eye contact. Appropriate mood and affect. SKIN: Warm, dry, normal turgor, no rashes or lesions noted, normal capillary refill. Home Medications Medication Instructions Recorded Amlodipine Besylate 5 mg PO DAILY 08/04/17 Atorvastatin Ca [Lipitor] 80 mg PO HS 08/04/17 Metoprolol Tartrate 25 mg PO BID 08/04/17 Tamsulosin HCl [Flomax] 0.4 mg PO HS 08/04/17 Aspirin [ASA -] 81 mg PO DAILY #30 tab.chew 02/27/18 Clopidogrel Bisulfate [Plavix] 75 mg PO DAILY 03/04/18 Pantoprazole Sodium [Protonix] 40 mg PO DAILY 03/04/18 Irbesartan 300 mg PO DAILY 06/12/18 Active Medications Amlodipine Besylate (Norvasc -) 5 mg PO DAILY [facility] Last Admin: 06/18/18 11:35 Dose: 5 mg Aspirin (Asa -) 81 mg PO DAILY [facility] Last Admin: 06/18/18 11:35 Dose: 81 mg Atorvastatin Calcium (Lipitor -) 80 mg PO HS [facility] Clopidogrel Bisulfate (Plavix -) 75 mg PO DAILY [facility] Last Admin: 06/18/18 11:35 Dose: 75 mg Losartan Potassium (Cozaar -) 100 mg PO DAILY [facility] Last Admin: 06/18/18 11:35 Dose: 100 mg Metoprolol Tartrate (Lopressor -) 25 mg PO BID [facility] Last Admin: 06/18/18 11:36 Dose: 25 mg Pantoprazole Sodium (Protonix -) 40 mg PO DAILY [facility] Last Admin: 06/18/18 11:35 Dose: 40 mg Potassium Chloride (Potassium Chloride 10 Meq Premix Ivpb -) 10 meq IVPB Q1H [facility] Stop: 06/18/18 13:46 Tamsulosin HCl (Flomax -) 0.4 mg PO [facility] Laboratory Results - last 24 hr 06/18/18 06/18/18 06/18/18 03:09 03:09 06:00 WBC 5.9 RBC 4.26 Hgb 12.3 Hct 37.3 MCV 87.5 MCH 28.8 MCHC 32.9 RDW 14.8 Plt Count 88 L MPV 9.3 Absolute Neuts (auto) 3.1 Neutrophils % 53.0 Lymphocytes % 35.1 Monocytes % 8.4 Eosinophils % 3.0 Basophils % 0.5 Nucleated RBC % 0 PT with INR Cancelled INR Cancelled PTT (Actin FS) Cancelled Sodium 139 Potassium 3.7 Chloride 106 Carbon Dioxide 24 Anion Gap 9 BUN 20 H Creatinine 0.9 Creat Clearance w eGFR > 60 Random Glucose 81 Calcium 7.5 L Phosphorus Magnesium Total Bilirubin 0.7 AST 32 ALT 33 Alkaline Phosphatase 75 Creatine Kinase 93 Troponin I 0.05 B-Natriuretic Peptide 199.4 Total Protein 6.6 Albumin 3.2 L 06/18/18 06/18/18 06/18/18 06:05 10:25 10:25 WBC RBC Hgb Hct MCV MCH MCHC RDW Plt Count MPV Absolute Neuts (auto) Neutrophils % Lymphocytes % Monocytes % Eosinophils % Basophils % Nucleated RBC % PT with INR 14.30 H INR 1.21 H PTT (Actin FS) 30.1 Sodium Potassium Chloride Carbon Dioxide Anion Gap BUN Creatinine Creat Clearance w eGFR Random Glucose Calcium Phosphorus 2.8 Magnesium 1.2 L Total Bilirubin AST ALT Alkaline Phosphatase Creatine Kinase Troponin I 0.03 B-Natriuretic Peptide Total Protein Albumin EKG NSR 52, no acute ST-T changes, first degree AV block CXR - no acute process ASSESSMENT AND PLAN: 82 yom with PMHx of CAD, s/p stent (PDA 06/12/18, LAD 01/2018), HTN, hyperlipidemia, bladder Ca, s/p removal 2016 here with shortness of breath. -Shortness of breath, ?anxiety/panic attack, no concerns for ACS/CHF or pulmonary process, symptoms resolved -CAD s/p recent PCI -HTN -HLD -Chronic thrombocytopenia -Hypomangesemia -Bladder Ca s/p removal 2016 Plan: Symptoms resolved. Repeat tn neg. EKG non concerning. Discussed with Dr. Pruett, plan for d/c after Mg supplementation with outpatient cardiac rehab. Replete mg. PO KCL. continue home ASA/plavix/statin/Metoprolol/statin/Losartan/AMlodipine/Flomax Dispo d/c home later today after electrolyte repletion if no new concerns. Plan discussed with patient and in detail, all questions answered. total admit time 55 min.
[2018-06-18] MEDS ORDERED: POTASSIUM CHLORIDE ORAL LIQUID 20 MEQ/15 ML PO ONE (12:53)
--- NOTE | 2018-06-18 16:23 | EKG ---
Test Reason : Blood Pressure : / mmHG Vent. Rate : 052 BPM Atrial Rate : 052 BPM P-R Int : 258 ms QRS Dur : 088 ms QT Int : 480 ms P-R-T Axes : 051 -06 013 degrees QTc Int : 446 ms SINUS BRADYCARDIA WITH 1ST DEGREE A-V BLOCK OTHERWISE NORMAL ECG Confirmed by MD ELO, NATHANAEL ([id number]) on 06/18/2018 4:23:03 PM Referred By: KATHLEEN ROBISON Confirmed By:NATHANAEL GASCA MD
--- NOTE | 2018-06-18 16:25 | EKG ---
Test Reason : Blood Pressure : / mmHG Vent. Rate : 052 BPM Atrial Rate : 052 BPM P-R Int : 254 ms QRS Dur : 088 ms QT Int : 494 ms P-R-T Axes : 049 -07 028 degrees QTc Int : 459 ms SINUS BRADYCARDIA WITH 1ST DEGREE A-V BLOCK OTHERWISE NORMAL ECG Confirmed by MD ELO, NATHANAEL ([id number]) on 06/18/2018 4:25:22 PM Referred By: Confirmed By:NATHANAEL GASCA MD
[2018-06-18 18:10] VITALS: BP 140/70; PULSE 60
[2018-06-18] MEDS ORDERED: ATORVASTATIN CA 80 MG TABLET (FP) PO SCH (22:00)
[2018-06-18] MEDS ORDERED: TAMSULOSIN HCL 0.4 MG CAP PO SCH (22:00)
== END 2018-06-18 18:12 | disposition home or self-care (01) ==
LOC: JER 01:09 → JERBED 08:30 → J4W 10:50
PROVIDERS: ADMIT Hospitalist; ATTEND Hospitalist
PROC: 3E033GC Introduction of Other Therapeutic Substance into Peripheral Vein, Percutaneous Approach (ICD-10-PCS; principal; 2018-06-18)
DX: R06.02 Shortness of breath (principal); I11.0 Hypertensive heart disease with heart failure; I50.30 Unspecified diastolic (congestive) heart failure; I25.2 Old myocardial infarction; I25.10 Atherosclerotic heart disease of native coronary artery without angina pectoris; R77.8 Other specified abnormalities of plasma proteins; K21.9 Gastro-esophageal reflux disease without esophagitis; N40.0 Benign prostatic hyperplasia without lower urinary tract symptoms; E83.42 Hypomagnesemia; D69.6 Thrombocytopenia, unspecified; Z85.51 Personal history of malignant neoplasm of bladder; Z95.5 Presence of coronary angioplasty implant and graft; Z79.82 Long term (current) use of aspirin
CPT/HCPCS: 36415; 71045-TC-FY; 80053; 82550; 83735; 83880; 84100; 84484; 85025; 85610; 85730; 93005; 93010; 96374; 99285-25; G0378

== ENCOUNTER 2018-07-25 13:28 | Emergency (ER) | payer OTHER ==
[2018-07-25 13:41] VITALS: TEMP 98; BMI 29.3
--- NOTE | 2018-07-25 13:46 | PDOC ---
History of Present Illness - General Chief Complaint: Chest Pain Stated Complaint: CHEST PAIN Time Seen by Provider: 07/25/18 13:42 History Source: Patient Exam Limitations: No Limitations - History of Present Illness Initial Comments: 07/25/18 13:45 82 year old woman with a history of CAD s/p stent (PDA 06/12/18, LAD 01/2018), HTN, hyperlipidemia, bladder Ca, s/p removal 2016 who presents with 2 hours of constant 10/10 R sided chest pain that is improved with sitting up. He denies radiation of the pain, nausea, shortness of breath, diaphoresis, lightheadedness , syncope, palpitations. No abdominal pain, no recent fever or illness, no recent travel. He says that this pain feels dissimilar to his prior chest pain prior to requiring stents. Of note his reports that he was lifting a heavy tree while gardening yesterday. Past History - Past Medical History Allergies/Adverse Reactions: Allergies Allergy/AdvReac Type Severity Reaction Status Date / Time No Known Allergies Allergy Verified 07/25/18 13:32 Home Medications: Ambulatory Orders Amlodipine Besylate 5 mg PO DAILY 08/04/17 Atorvastatin Ca [Lipitor] 80 mg PO HS 08/04/17 Metoprolol Tartrate 25 mg PO BID 08/04/17 Tamsulosin HCl [Flomax] 0.4 mg PO HS 08/04/17 Aspirin [ASA -] 81 mg PO DAILY #30 tab.chew 02/27/18 Clopidogrel Bisulfate [Plavix] 75 mg PO DAILY 03/04/18 Pantoprazole Sodium [Protonix] 40 mg PO DAILY 03/04/18 Irbesartan 300 mg PO DAILY 06/12/18 Cancer: Yes (bladder) Cardiac Disorders: Yes (2 stents) COPD: No CHF: Yes HTN: Yes Hypercholesterolemia: Yes - Surgical History Cardiac Surgery: Yes (stents) - Immunization History Immunization Up to Date: Yes - Suicide/Smoking/Psychosocial Hx Smoking Status: No Smoking History: Unknown if ever smoked Have you smoked in the past 12 months: No Number of Cigarettes Smoked Daily: 0 If you are a former smoker, when did you quit?: 40 yrs ago Hx Alcohol Use: No Drug/Substance Use Hx: No Substance Use Type: None Hx Substance Use Treatment: No *Physical Exam - Vital Signs Last Vital Signs Temp Pulse Resp BP Pulse Ox 98 F 60 18 139/62 100 07/25/18 13:32 07/25/18 13:32 07/25/18 13:32 07/25/18 13:32 07/25/18 13:32 Moderate Sedation - Procedure Monitoring Vital Signs: Procedure Monitoring Vital Signs Temperature 98 F 07/25/18 13:32 Pulse Rate 60 07/25/18 13:32 Respiratory Rate 18 07/25/18 13:32 Blood Pressure 139/62 07/25/18 13:32 O2 Sat by Pulse Oximetry (%) 100 07/25/18 13:32 ED Treatment Course - LABORATORY CBC & Chemistry Diagram: 07/25/18 14:20 07/25/18 14:20 - RADIOLOGY Radiology Studies Ordered: Category Date Time Status CHEST X-RAY PORTABLE* [RAD] Stat Radiology 07/25/18 13:43 Ordered Medical Decision Making - Medical Decision Making 07/25/18 15:27 82 year old woman with a history of CAD s/p stent (PDA 06/12/18, LAD 01/2018), HTN, hyperlipidemia, bladder Ca, s/p removal 2016 who presents with 2 hours of constant 10/10 R sided chest pain that is improved with sitting up. He denies radiation of the pain, nausea, shortness of breath, diaphoresis, lightheadedness , syncope, palpitations. No abdominal pain, no recent fever or illness, no recent travel. He says that this pain feels dissimilar to his prior chest pain prior to requiring stents. Of note his reports that he was lifting a heavy tree while gardening yesterday. ED Course: acs vs arrythmia vs pna vs msk *DC/Admit/Observation/Transfer Diagnosis at time of Disposition: Atypical chest pain - Discharge Dispostion Disposition: HOME Condition at time of disposition: Stable - Referrals - Patient Instructions Printed Discharge Instructions: DI for Atypical Chest Pain Additional Instructions: You were seen in the ED for complaints of right sided chest pain. In the ED you were evaluated with labwork and imaging. Your results were unremarkable. There does not appear to be an acute need for immediate hospitalization. You are advised to follow up with your Primary Care Physician within 1 week. Return to the ED immediately if you experience worsening chest pain, nausea, sweating, lightheadedness, palpitations, loss of consciousness or shortness of breath. - Post Discharge Activity
[2018-07-25] MEDS ORDERED: IBUPROFEN 600 MG TABLET (FP) PO ONE (14:08)
[2018-07-25 14:39] LABS: BASO % 0.7 % (0-2.0); EOS % 1.8 % (0-4.5); HEMATOCRIT 39.3 % (35.4-49); HEMOGLOBIN 13.4 GM/dL (11.7-16.9); LYMPH % 21.5 % (8-40); MCH 29.9 pg (25.7-33.7); MEAN PLT VOLUME 10.3 fl (7.5-11.1); MONO % 6.6 % (3.8-10.2); NEUT % 69.4 % (42.8-82.8); PLATELET COUNT 128 K/MM3 (134-434); RBC 4.46 M/mm3 (4.00-5.60); RDW 14.5 % (11.9-15.9); WHITE BLOOD COUNT 7.4 K/mm3 (4.0-10.0)
[2018-07-25 14:52] LABS: INR 1.11 (0.83-1.09); PROTHROMBIN TIME (PATIENT) 13.1 SEC (9.7-13.0)
[2018-07-25 14:55] LABS: ACTIVATED PTT 28.8 SECONDS (25.2-36.5)
[2018-07-25 15:28] LABS: ALBUMIN 3.4 g/dl (3.4-5.0); ALK PHOS 76 U/L (45-117); ANION GAP 6 MMOL/L (8-16); BILIRUBIN,TOTAL 0.5 mg/dL (0.2-1); BLOOD UREA NITROGEN 19 mg/dL (7-18); CHLORIDE 103 mmol/L (98-107); CO2 29 mmol/L (21-32); CREATININE 0.8 mg/dL (0.55-1.3); GLUCOSE,RANDOM 101 mg/dL (74-106); POTASSIUM 4.3 mmol/L (3.5-5.1); SGOT/AST 25 U/L (15-37); SGPT/ALT 19 U/L (13-61); SODIUM 138 mmol/L (136-145); TOT PROT 7.1 g/dl (6.4-8.2)
--- NOTE | 2018-07-25 15:38 | PDOC ---
Attending Attestation - Medical Decision Making 07/25/18 17:02 Documentation prepared by Davian Hernandez, acting as medical economics consultant for Freeman Diego MD. <Davian Hernandez - Last Filed: 07/25/18 17:02> - Resident Resident Name: Precious Arvizu - ED Attending Attestation I have performed the following: I have examined & evaluated the patient, The case was reviewed & discussed with the resident, I agree w/resident's findings & plan, Exceptions are as noted - HPI HPI: 07/25/18 15:54 The patient is a 82 year old male, accompanied by , with a significant PMH of coronary artery disease s/p stent (PDA 06/12/18, LAD 01/2018), hypertension, hyperlipidemia, bladder Ca s/p resection 2016 who presents to the emergency department with 2 hours of constant right sided chest pain. The patient states the constant right sided chest pain is rated 10/10 in intensity, non radiating, alleviated with sitting up, with no exacerbating factors. The patient states his chest pain feels different than his prior chest pain requiring stents. The patient denies palpitations, shortness of breath, headache and dizziness. Denies focal weakness/numbness Denies fever, chills, nausea, vomit, diarrhea and constipation. Denies dysuria, frequency, urgency and hematuria. Allergies: NKA - Physicial Exam PE: 07/25/18 15:57 agree with resident exam - Medical Decision Making 07/25/18 16:00 82yo M with MMP, including CAD presents to the ED with R sided CP. Vitals unremarkable. Exam wnl. HS is 5. Labs including trop wnl. CXR clear. Concern for ACS given risk factors. No PE risk factors and pt is not SOB with normal vitals. Plan to admit for AMANDA. 07/25/18 17:[address] Hercules for admission, however, he does not agree with obs or admission as the pt just had a cath in January and cardiac w/u in June. Dr. Hercules requests that we speak with Dr. Watt Pt has not had chest pain since arriving to ED 07/25/18 17:29 Dr. Watt at the bedside, evaluating pt. Knows pt very well. Believes story is atypical for ACS. Recommends rather than observation, to recheck trop and EKG. If EKG stable, trop remains negative and pt remains CP free, pt can be DC. Pt is comfortable with this plan as he states his CP has resolved. Second trop and EKG pending, case signed out to oncoming attending for f/u on trop/EKG and dispo <Freeman Diego - Last Filed: 07/28/18 09:57> Heart Score/ECG Review - History History: Moderately suspicious - Electrocardiogram EKG: Normal - Age Age: >/= 65 - Risk Factors Based on the list above the patient has:: >/=3 risk factors or Hx atherosclerotic disease - Troponin Troponin: </= normal limit - Score Heart Score - Total: 5 #1 07/25/18 15:57 Twelve-lead EKG was performed and reviewed by me. Sinus rhythm with first degree AV block. Rate 60. No ST elevations or T-wave inversions. <Freeman Diego - Last Filed: 07/28/18 09:57>
[2018-07-25 19:49] VITALS: BP 135/64; PULSE 65
--- NOTE | 2018-07-25 19:49 | PDOC ---
*Physical Exam - Vital Signs Last Vital Signs Temp Pulse Resp BP Pulse Ox 98 F 60 18 139/62 100 07/25/18 13:32 07/25/18 13:32 07/25/18 13:32 07/25/18 13:32 07/25/18 14:22 - Physical Exam Comments: 07/25/18 19:47 Patient signed out to me by Dr. Arvizu ED Treatment Course - LABORATORY CBC & Chemistry Diagram: 07/25/18 14:20 07/25/18 14:20 - ADDITIONAL ORDERS Additional order review: Laboratory Results 07/25/18 07/25/18 07/25/18 18:09 14:20 14:20 PT with INR 13.10 H INR 1.11 H PTT (Actin FS) 28.8 Sodium 138 Potassium 4.3 Chloride 103 Carbon Dioxide 29 Anion Gap 6 L BUN 19 H Creatinine 0.8 Creat Clearance w eGFR > 60 Random Glucose 101 Calcium 8.0 L Total Bilirubin 0.5 AST 25 ALT 19 Alkaline Phosphatase 76 Troponin I < 0.02 0.02 Total Protein 7.1 Albumin 3.4 07/25/18 14:20 RBC 4.46 MCV 88.0 MCHC 34.0 RDW 14.5 MPV 10.3 D Neutrophils % 69.4 D Lymphocytes % 21.5 D Monocytes % 6.6 Eosinophils % 1.8 Basophils % 0.7 - Medications Given in the ED: ED Medications Discontinued Medications Generic Name Dose Route Start Last Admin Trade Name Freq PRN Reason Stop Dose Admin Ibuprofen 600 mg 07/25/18 14:08 07/25/18 14:27 Motrin - PO 07/25/18 14:09 Not Given ONCE ONE Medical Decision Making - Medical Decision Making 07/28/18 19:06 patient's second troponin negative. will be discharged with close PMD follow up. patient was given return precautions. Dispo: Discharge. Patient was asymptomatic and well at discharge *DC/Admit/Observation/Transfer Diagnosis at time of Disposition: Atypical chest pain - Discharge Dispostion Disposition: HOME Condition at time of disposition: Stable - Referrals Referrals: [facility] [place] [Provider Group] - Patient Instructions Printed Discharge Instructions: DI for Atypical Chest Pain Additional Instructions: You were seen in the ED for complaints of right sided chest pain. In the ED you were evaluated with labwork and imaging. Your results were negative for acute events such as a heart attack. There does not appear to be an acute need for immediate hospitalization. You are advised to follow up with your Primary Care Physician within 1 week or the one referred to you in the discharge packet. Return to the ED immediately if you experience worsening chest pain, nausea, sweating, lightheadedness, palpitations, loss of consciousness or shortness of breath. - Post Discharge Activity
--- NOTE | 2018-07-26 00:14 | CON.CARD ---
Consult Consult Specialty:: cardiology Reason for Consultation:: chest pain; hx coronary stents - History of Present Illness History of Present Illness: 82 year old man (jeffery. Alex) with a history of CAD s/p stent (PDA 06/12/18, LAD 01/2018), HTN, hyperlipidemia, bladder Ca--s/p removal 2016, who presents with 2 hours of constant 10/10 R sided chest pain that is improved with sitting up. He denies radiation of the pain, nausea, shortness of breath, diaphoresis, lightheadedness, syncope, palpitations. No abdominal pain, no recent fever or illness, no recent travel. He says that this pain feels dissimilar to his prior chest pain prior to requiring stents. Of note, his reports that he was lifting a heavy tree while gardening yesterday. - History Source History Provided By: Patient, Family Member, Medical Record Limitations to Obtaining History: No Limitations - Past Medical History Cardio/Vascular: Yes: CAD, CHF (diastolic; moderate LVH), HTN, Hyperlipdemia, [place] Psych: Yes: Anxiety, Panic - Past Surgical History Past Surgical History: Yes: Stent (coronary: 1st more than 20 yrs ago; latest last week (RPDA)) - Alcohol/Substance Use Hx Alcohol Use: No - Smoking History Smoking history: Unknown if ever smoked Have you smoked in the past 12 months: No Aproximately how many cigarettes per day: 0 If you are a former smoker, when did you quit?: 40 yrs ago - Social History Usual Living Arrangement: With Spouse Home Medications - Allergies Allergies/Adverse Reactions: Allergies Allergy/AdvReac Type Severity Reaction Status Date / Time No Known Allergies Allergy Verified 07/25/18 13:32 - Home Medications Home Medications: Ambulatory Orders Amlodipine Besylate 5 mg PO DAILY 08/04/17 Atorvastatin Ca [Lipitor] 80 mg PO HS 08/04/17 Metoprolol Tartrate 25 mg PO BID 08/04/17 Tamsulosin HCl [Flomax] 0.4 mg PO HS 08/04/17 Aspirin [ASA -] 81 mg PO DAILY #30 tab.chew 02/27/18 Clopidogrel Bisulfate [Plavix] 75 mg PO DAILY 03/04/18 Pantoprazole Sodium [Protonix] 40 mg PO DAILY 03/04/18 Irbesartan 300 mg PO DAILY 06/12/18 Family Disease History - Family Disease History Family History: Denies Review of Systems - Review of Systems Constitutional: reports: No Symptoms Eyes: reports: No Symptoms HENT: reports: No Symptoms Neck: reports: No Symptoms Cardiovascular: reports: Chest Pain Respiratory: reports: No Symptoms Gastrointestinal: reports: No Symptoms Genitourinary: reports: No Symptoms Breasts: reports: No Symptoms Reported Musculoskeletal: reports: No Symptoms Integumentary: reports: No Symptoms Neurological: reports: No Symptoms Endocrine: reports: No Symptoms Hematology/Lymphatic: reports: No Symptoms Psychiatric: reports: Anxiety, Panic - Risk Factors Known Risk Factors: Yes: Age, Gender, Hypercholesterolemia, Hypertension, Other (CAD-->multiple coronary stents) Vital Signs: Vital Signs Temperature 98 F 07/25/18 13:32 Pulse Rate 65 07/25/18 19:48 Respiratory Rate 18 07/25/18 19:48 Blood Pressure 135/64 07/25/18 19:48 O2 Sat by Pulse Oximetry (%) 98 07/25/18 19:48 Constitutional: Yes: Anxious Eyes: Yes: WNL HENT: Yes: WNL Neck: Yes: WNL Respiratory: Yes: WNL Gastrointestinal: Yes: WNL Renal/: No: Anuria Cardiovascular: Yes: WNL JVD: No Carotid Bruit: No Heart Sounds: Yes: S1, S2 Musculoskeletal: Yes: WNL Extremities: Yes: WNL Edema: No Peripheral Pulses WNL: Yes Integumentary: Yes: WNL Neurological: Yes: WNL ...Motor Strength: WNL Psychiatric: Yes: WNL - Other Data Labs, Other Data: CBC, BMP 07/25/18 14:20 07/25/18 14:20 INR, PTT INR 1.11 (0.83-1.09) H 07/25/18 14:20 Troponin, BNP 07/25/18 07/25/18 14:20 18:09 Troponin I 0.02 < 0.02 Troponin, BNP 07/25/18 07/25/18 14:20 18:09 Troponin I 0.02 < 0.02 Abnormal Lab Results 07/25/18 07/25/18 07/25/18 14:20 14:20 14:20 Plt Count 128 L D PT with INR 13.10 H INR 1.11 H Anion Gap 6 L BUN 19 H Calcium 8.0 L Imaging - Results EKG: Image Reviewed Problem List - Problems (1) Atypical chest pain Assessment/Plan: Pain on right side of chest; began while moving a heavy and bulky [place] tree ; the pain was sharp and pulsating, coming and going every few seconds. After some hours, it has now become a mild constant ache. The pain is heightened by moving the right shoulder/arm. EKG: no acute STT changes. 1st TNI : <0.02. Will repeat EKG and TNI; if no significant changes, pt may be discharged and followed as outpatient. He was to begin cardiac rehabilitation today; he plans to start no later than next week. Pt's case was discussed with ER team and pt's cardiac interventionalist, Dr. Lopez. Code(s): R07.89 - OTHER CHEST PAIN (2) BPH (benign prostatic hyperplasia) Code(s): N40.0 - BENIGN PROSTATIC HYPERPLASIA WITHOUT LOWER URINRY TRACT SYMP (3) Diastolic CHF Code(s): I50.30 - UNSPECIFIED DIASTOLIC (CONGESTIVE) HEART FAILURE (4) Hyperlipidemia Assessment/Plan: continue statin; exercise, diet, and maintaining ideal body weight will aid in lipid control. Code(s): E78.5 - HYPERLIPIDEMIA, UNSPECIFIED (5) Stented coronary artery Code(s): Z95.5 - PRESENCE OF CORONARY ANGIOPLASTY IMPLANT AND GRAFT
--- NOTE | 2018-07-26 11:57 | EKG ---
Test Reason : Blood Pressure : / mmHG Vent. Rate : 060 BPM Atrial Rate : 060 BPM P-R Int : 244 ms QRS Dur : 084 ms QT Int : 436 ms P-R-T Axes : 046 000 045 degrees QTc Int : 436 ms SINUS RHYTHM WITH 1ST DEGREE A-V BLOCK OTHERWISE NORMAL ECG WHEN COMPARED WITH ECG OF 18-JUN-2018 11:13, NO SIGNIFICANT CHANGE WAS FOUND Confirmed by WHITNEY BLANCHARD, LALI ([id number]) on 07/26/2018 11:56:49 AM Referred By: Confirmed By:LALI OLSON MD
== END 2018-07-25 19:50 | disposition home or self-care (01) ==
LOC: JER 13:28
DX: R07.89 Other chest pain (principal); I25.10 Atherosclerotic heart disease of native coronary artery without angina pectoris; I11.0 Hypertensive heart disease with heart failure; I50.30 Unspecified diastolic (congestive) heart failure; Z95.5 Presence of coronary angioplasty implant and graft; E78.5 Hyperlipidemia, unspecified; Z85.51 Personal history of malignant neoplasm of bladder
CPT/HCPCS: 36415; 71045-TC-FY; 80053; 84484; 85025; 85610; 85730; 93005; 93010; 99285-25

== ENCOUNTER 2018-08-15 15:16 | Emergency (ER) | payer OTHER ==
[2018-08-15 15:33] VITALS: TEMP 98.4; BMI 26.1
--- NOTE | 2018-08-15 15:33 | PDOC ---
Rapid Medical Evaluation Chief Complaint: Shortness of Breath Time Seen by Provider: 08/15/18 15:29 Medical Evaluation: Allergies Allergy/AdvReac Type Severity Reaction Status Date / Time No Known Allergies Allergy Verified 08/15/18 15:20 08/15/18 15:29 I have performed a brief in-person evaluation of this patient. The patient presents with a chief complaint of: h/o 2 cardiac stents done last year, HTN present with complains of SOB x 3 days. Pt report having cardiac stress test done yesterday and had SOB with the stress test and was advised to to to ER but he callled PCP instead and was told to come to ED today if symptoms does not improve Pertinent physical exam findings: A&O x 3, no acute distress. heart RRR. lungs CTAB. I have ordered the following: EKG, CMC, CMP, cardiac profile The patient will proceed to the ED for further evaluation. Discharge Disposition - Diagnosis SOB (shortness of breath) - Discharge Dispostion Condition at time of disposition: Stable - Referrals - Patient Instructions - Post Discharge Activity
--- NOTE | 2018-08-15 15:36 | PDOC ---
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 He reports that he has been experiencing significant SOB and difficulty breathing for the past 3 days which has been getting worse. He states that he had a cardiac stress test performed yesterday and he experienced significant SOB during the stress test and was advised to come to the ER. Instead of coming to the ER he called his PCP who said to relax for a bit, but if the symptoms persist for a day he should come to the ED to be evaluated. Today, his symptoms persisted so he presented to the ER to be evaluated. He also admitted to having an episode of dysuria yesterday but no associated frequency or urgency. Patient denies any chest pain, palpitations, lightheadedness, headache, blurry vision, fevers, chills, infections, numbness, tingling, weakness, abdominal pain , leg or arm swelling, or recent travel. PCP: Dr. Dayton Burdick PSH: Bladder Ca s/p removal, stents Allergies: NKA, NKDA Social Hx: Former smoker - quit 40 years ago, denies alcohol or other substance usage. Past History - Past Medical History Allergies/Adverse Reactions: Allergies Allergy/AdvReac Type Severity Reaction Status Date / Time No Known Allergies Allergy Verified 08/15/18 15:20 Home Medications: Ambulatory Orders Amlodipine Besylate 5 mg PO DAILY 08/04/17 Atorvastatin Ca [Lipitor] 80 mg PO HS 08/04/17 Metoprolol Tartrate 25 mg PO BID 08/04/17 Tamsulosin HCl [Flomax] 0.4 mg PO HS 08/04/17 Aspirin [ASA -] 81 mg PO DAILY #30 tab.chew 02/27/18 Clopidogrel Bisulfate [Plavix] 75 mg PO DAILY 03/04/18 Pantoprazole Sodium [Protonix] 40 mg PO DAILY 03/04/18 Irbesartan 300 mg PO DAILY 06/12/18 Sulfamethoxazole/Trimethoprim [Bactrim Ds -] 1 tab PO BID #14 tablet 08/15/18 Cancer: Yes (bladder) Cardiac Disorders: Yes (2 stents) COPD: No CHF: Yes HTN: Yes Hypercholesterolemia: Yes - Surgical History Cardiac Surgery: Yes (stents) - Immunization History Immunization Up to Date: Yes - Suicide/Smoking/Psychosocial Hx Smoking Status: No Smoking History: Never smoked Have you smoked in the past 12 months: No Number of Cigarettes Smoked Daily: 0 If you are a former smoker, when did you quit?: 40 yrs ago Information on smoking cessation initiated: No Hx Alcohol Use: No Drug/Substance Use Hx: No Substance Use Type: None Hx Substance Use Treatment: No Review of Systems - Review of Systems Able to Perform ROS?: Yes Comments:: CONSTITUTIONAL: Absent: fever, no chills, no fatigue EYES: Absent: visual changes ENT: Absent: ear pain, no sore throat CARDIOVASCULAR: Absent: chest pain, no palpitations RESPIRATORY: Present: SOB Absent: cough GI: Absent: abdominal pain, no nausea, no vomiting, no constipation, no diarrhea GENITOURINARY: Present: Dysuria Absent: no frequency, no hematuria MUSKULOSKELETAL: Absent: back pain, no arthralgia, no myalgia SKIN: Absent: rash NEURO: Absent: headache *Physical Exam - Vital Signs Last Vital Signs Temp Pulse Resp BP Pulse Ox 98.4 F 53 L 17 126/83 98 08/15/18 15:27 08/15/18 15:27 08/15/18 15:27 08/15/18 15:27 08/15/18 15:27 - Physical Exam Comments: GENERAL: Well-appearing, well-nourished. No apparent distress. HEENT: Normocephalic, atraumatic. PERRL, EOM intact. CARDIOVASCULAR: Normal S1, S2. bradycardic rate and regular rhythm. PULMONARY: Minimal evidence of respiratory distress. Lungs clear to auscultation bilaterally but there are decreased breath sounds throughout especially at the bases. No wheezing, rales or rhonchi. ABDOMEN: Soft, non-distended, non-tender. EXTREMITIES: Normal ROM in all four extremities. No gross deformities. SKIN: Warm, dry. No rash NEUROLOGICAL: No focal neurological deficits. 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 He reports that he has been experiencing significant SOB and difficulty breathing for the past 3 days which has been getting worse. He states that he had a cardiac stress test performed yesterday and he experienced significant SOB during the stress test and was advised to come to the ER. Instead of coming to the ER he called his PCP who said to relax for a bit, but if the symptoms persist for a day he should come to the ED to be evaluated. Today, his symptoms persisted so he presented to the ER to be evaluated. He also admitted to having an episode of dysuria yesterday but no associated frequency or urgency. VS: Bradycardic. DDx IBNLT: Pneumothorax, PNA, Arrhythmia, ACS/DC, Pulm edema vs pleural effusion , electrolyte abnormality, medication side effect, heart failure, infection - UTI vs PNA. Plan: Labs, Urine, EKG, CXR, Continuous cardiac monitoring, Cardiac consult, Duoneb, re-assess. 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 2nd trop negative. *DC/Admit/Observation/Transfer Diagnosis at time of Disposition: SOB (shortness of breath), UTI (urinary tract infection) - Discharge Dispostion Disposition: HOME Condition at time of disposition: Stable Decision to Admit order: No - Prescriptions Prescriptions: Sulfamethoxazole/Trimethoprim [Bactrim Ds -] 1 tab PO BID #14 tablet - Referrals Referrals: Jhonny Burris MD [Primary Care Provider] - - Patient Instructions Printed Discharge Instructions: Urinary Tract Infection Additional Instructions: You came into the ER with shortness of breath. We looked at your urine and found that you have an infection. We are sending an Antibiotic to your pharmacy. Please make sure to go and pick it up and take the medication twice a day for the next 7 days. Make sure to schedule a follow up appointment with your primary care doctor to make sure you are getting better and being taken care of. Come back to the ER if you experience further shortness of breath, difficulty breathing, chest pain, spike a fever, or have any other new or worsening concerns. Thank you for coming to the [facility] ER. We hope you feel better soon! Print Language: FRENCH - Post Discharge Activity
[2018-08-15 15:49] LABS: BASO % 0.7 % (0-2.0); EOS % 1.4 % (0-4.5); HEMOGLOBIN 13.6 GM/dL (11.7-16.9); LYMPH % 31.3 % (8-40); MCH 29.4 pg (25.7-33.7); MCHC 33.9 g/dl (32.0-35.9); MEAN CELL VOLUME 86.7 fl (80-96); MONO % 7.9 % (3.8-10.2); NEUT % 58.7 % (42.8-82.8); PLATELET COUNT 123 K/MM3 (134-434); RBC 4.62 M/mm3 (4.00-5.60); RDW 14.7 % (11.9-15.9); WHITE BLOOD COUNT 6.8 K/mm3 (4.0-10.0)
[2018-08-15] MEDS ORDERED: ALBUTEROL SO4 2.5/IPRATROPIUM 0.5 INH SOL 3 ML VIAL.NEB. NEB ONE ×2 (15:53→16:38)
[2018-08-15 16:08] LABS: ALBUMIN 3.4 g/dl (3.4-5.0); ALK PHOS 77 U/L (45-117); ANION GAP 6 MMOL/L (8-16); BILIRUBIN,TOTAL 0.8 mg/dL (0.2-1); BLOOD UREA NITROGEN 24 mg/dL (7-18); CHLORIDE 105 mmol/L (98-107); CO2 28 mmol/L (21-32); CREATININE 1.1 mg/dL (0.55-1.3); GLUCOSE,RANDOM 94 mg/dL (74-106); POTASSIUM 3.7 mmol/L (3.5-5.1); SGOT/AST 13 U/L (15-37); SGPT/ALT 18 U/L (13-61); SODIUM 138 mmol/L (136-145); TOT PROT 7.2 g/dl (6.4-8.2)
[2018-08-15 16:30] LABS: N-TERMINAL BNP 412.6 pg/ml (5-450)
--- NOTE | 2018-08-15 16:44 | PDOC ---
Attending Attestation - Medical Decision Making Documentation prepared by VIRY Hackett, acting as medical assistant float for Alexander Crowder MD. 08/15/18 18:18 <Priyanka Deluca - Last Filed: 08/15/18 18:18> - Resident Resident Name: Davian Hyde - ED Attending Attestation I have performed the following: I have examined & evaluated the patient, The case was reviewed & discussed with the resident, I agree w/resident's findings & plan, Exceptions are as noted - HPI HPI: 08/15/18 18:19 The patient is an 82 year old male, with a significant PMH of CAD s/p 2 stents ( PDA 06/12/18 and LAD 01/2018), CHF, HTN, HLD, hypercholesterolemia, and bladder cancer (s/p resection in 2016), who presents to the emergency department today for SOB and dyspnea, as per request of his PCP. 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 He noticed some worsening sob so came to the ED. Patient admits to having one episode of mild dysuria, but denies frequency, urgency, or hesitancy. Patient denies hemoptysis, LE edema, or cough. The patient denies chest pain or headache. Denies fever, chills, nausea, vomit, diarrhea and constipation. Allergies: NKA Past surgical history: 2 cardiac stents, bladder resection (2017) Social history: Former smoker (quit 40 years ago). Denies EtOH or recreational drug use. PCP: Dr. Jhonny Burris Agricultural Research Engineer: Dr. Dalton Pruett - Physicial Exam PE: 08/15/18 18:03 GENERAL: The patient is awake, alert, and fully oriented, Nontoxic - in no acute distress. HEAD: Normocephalic, atraumatic. EYES: extraocular movements intact, sclera anicteric, conjunctiva clear. ENT: Normal voice, Moist mucous membranes. NECK: Normal range of motion, supple LUNGS: Breath sounds equal, clear to auscultation bilaterally. No wheezes, no rhonchi, no rales. HEART: Regular rate and rhythm, normal S1 and S2 without murmur, rub or gallop. ABDOMEN: Soft, nontender, . No guarding, no rebound. . No CVA tenderness EXTREMITIES: Normal range of motion, no edema. NEUROLOGICAL: No facial assymetry, Normal speech, PSYCH: Normal mood, normal affect. SKIN: Warm, Dry, normal turgor, - Medical Decision Making 08/15/18 16:42 82y M hx of cad sp stents, hl, htn, bladder ca presets w 3 days of sob. pt had his cardiac rehab yesterday yesterday and was told that if his sob got worse he should come to the ED for evaluation. The patient denies any associate cough, hemoptysis, chest pain, diaphorsis, n/v, leg swelling. pt also endorses some dysuria w/ o frequency, urgency, hesitency will obtain trop to screen for acs cxr to r/o occult pulm disease will screen for UTI with ua case dw dr. Pruett - recommends trop x 2, if trop neg can dc the pt the pt was ambulating around the ED with normal sats and no tachypneia or sob. 08/15/18 18:16 trop x 1 neg will obtain another trop ua suggestive of uti, will treat with abx, cx sent <Alexander Crowder - Last Filed: 08/15/18 18:25> Heart Score/ECG Review - ECG Impressions Comment:: 08/15/18 18:17 Twelve-lead EKG was performed and reviewed by me. There is normal sinus rhythm with a normal rate. rate of 50 1st degree AV block Impression: Normal twelve-lead EKG <Alexander Crowder - Last Filed: 08/15/18 18:25>
--- NOTE | 2018-08-15 16:45 | CON.CARD ---
Consult Consult Specialty:: cardiology Reason for Consultation:: SOB - History of Present Illness Chief Complaint: Pt A&Ox3; c/o hematuria, and says that pain on urination "travels up" to the chest. History of Present Illness: 82y M hx of cad sp stents, hl, htn, bladder ca presets w 3 days of sob. pt had a stress test yesterdya that semeed to worsen his sob, was told to come to the ED if his SOB is worse. - History Source History Provided By: Patient, Medical Record - Past Medical History Cardio/Vascular: Yes: CAD, CHF (diastolic; moderate LVH), HTN, Hyperlipdemia, ID Psych: Yes: Anxiety, Panic - Past Surgical History Past Surgical History: Yes: Stent (coronary: 1st more than 20 yrs ago; latest last week (RPDA)) - Alcohol/Substance Use Hx Alcohol Use: No - Smoking History Smoking history: Never smoked Have you smoked in the past 12 months: No Aproximately how many cigarettes per day: 0 If you are a former smoker, when did you quit?: 40 yrs ago - Social History Usual Living Arrangement: With Spouse Home Medications - Allergies Allergies/Adverse Reactions: Allergies Allergy/AdvReac Type Severity Reaction Status Date / Time No Known Allergies Allergy Verified 08/15/18 15:20 - Home Medications Home Medications: Ambulatory Orders Amlodipine Besylate 5 mg PO DAILY 08/04/17 Atorvastatin Ca [Lipitor] 80 mg PO HS 08/04/17 Metoprolol Tartrate 25 mg PO BID 08/04/17 Tamsulosin HCl [Flomax] 0.4 mg PO HS 08/04/17 Aspirin [ASA -] 81 mg PO DAILY #30 tab.chew 02/27/18 Clopidogrel Bisulfate [Plavix] 75 mg PO DAILY 03/04/18 Pantoprazole Sodium [Protonix] 40 mg PO DAILY 03/04/18 Irbesartan 300 mg PO DAILY 06/12/18 Sulfamethoxazole/Trimethoprim [Bactrim Ds -] 1 tab PO BID #14 tablet 08/15/18 Vital Signs: Vital Signs Temperature 98.4 F 08/15/18 15:27 Pulse Rate 53 L 08/15/18 15:27 Respiratory Rate 17 08/15/18 15:27 Blood Pressure 126/83 08/15/18 15:27 O2 Sat by Pulse Oximetry (%) 98 08/15/18 15:27 - Other Data Labs, Other Data: CBC, BMP 08/15/18 15:37 08/15/18 15:37 Troponin, BNP 08/15/18 15:37 Troponin I < 0.02 B-Natriuretic Peptide 412.6 Troponin, BNP 08/15/18 15:37 Troponin I < 0.02 B-Natriuretic Peptide 412.6 Problem List - Problems (1) Atypical chest pain Assessment/Plan: TNI < 0.02 Pt has been attending cardiac rehabilitation without incident after recent coronary stent. If serial TNIs are unchanged, pt may be followed as an outpatient from a cardiac perspective. Code(s): R07.89 - OTHER CHEST PAIN (2) Hypokalemia Code(s): E87.6 - HYPOKALEMIA (3) UTI (urinary tract infection) Code(s): N39.0 - URINARY TRACT INFECTION, SITE NOT SPECIFIED (4) BPH (benign prostatic hyperplasia) Code(s): N40.0 - BENIGN PROSTATIC HYPERPLASIA WITHOUT LOWER URINRY TRACT SYMP (5) Diastolic CHF Code(s): I50.30 - UNSPECIFIED DIASTOLIC (CONGESTIVE) HEART FAILURE (6) Hyperlipidemia Code(s): E78.5 - HYPERLIPIDEMIA, UNSPECIFIED (7) Stented coronary artery Code(s): Z95.5 - PRESENCE OF CORONARY ANGIOPLASTY IMPLANT AND GRAFT
[2018-08-15 17:22] LABS: URINE APPEARANCE CLOUDY; URINE BILIRUBIN NEGATIVE (<2.0 mg/dL); URINE COLOR AMBER; URINE GLUCOSE (UA) NEGATIVE (NEGATIVE); URINE KETONE NEGATIVE (NEGATIVE); URINE LEUK ESTERASE 2+ (NEGATIVE); URINE NITRITE NEGATIVE (NEGATIVE); URINE PROTEIN 2+ (NEGATIVE)
[2018-08-15 18:05] LABS: EPI CELLS RARE /HPF (FEW); URINE HYALINE CAST 9 /lpf; URINE MUCUS MANY
[2018-08-15] MEDS ORDERED: SULFAMETHOXAZOLE/TRIMETHOPRIM 800MG/160MG D.S. TABLET PO ONE (18:07)
[2018-08-15] MEDS ORDERED: WARFARIN NA 5 MG TABLET (UD) ONE (18:18)
[2018-08-15] MEDS ORDERED: SULFAMETHOXAZOLE/TRIMETHOPRIM 800MG/160MG D.S. TABLET ONE (18:18)
[2018-08-15 19:27] VITALS: BP 106/67; PULSE 65
--- NOTE | 2018-08-16 12:59 | EKG ---
Test Reason : Blood Pressure : / mmHG Vent. Rate : 050 BPM Atrial Rate : 050 BPM P-R Int : 232 ms QRS Dur : 084 ms QT Int : 470 ms P-R-T Axes : -08 010 017 degrees QTc Int : 428 ms SINUS BRADYCARDIA WITH 1ST DEGREE A-V BLOCK OTHERWISE NORMAL ECG WHEN COMPARED WITH ECG OF 25-JUL-2018 13:32, NO SIGNIFICANT CHANGE WAS FOUND Confirmed by WHITNEY BLANCHARD, LALI ([id number]) on 08/16/2018 12:58:32 PM Referred By: Confirmed By:LALI OLSON MD
[2018-08-17 09:49] LABS: CHOLESTEROL 125 mg/dL (50-200); HDL CHOLESTEROL 30 mg/dL (40-60); TRIGLYCERIDES 128 mg/dL (0-150)
== END 2018-08-15 20:45 | disposition home or self-care (01) ==
LOC: JER 15:16
PROC: 3E0F7GC Introduction of Other Therapeutic Substance into Respiratory Tract, Via Natural or Artificial Opening (ICD-10-PCS; principal; 2018-08-15)
DX: R06.09 Other forms of dyspnea (principal); N39.0 Urinary tract infection, site not specified; R06.02 Shortness of breath; I25.10 Atherosclerotic heart disease of native coronary artery without angina pectoris; I10 Essential (primary) hypertension; I50.30 Unspecified diastolic (congestive) heart failure; Z95.5 Presence of coronary angioplasty implant and graft; E87.6 Hypokalemia; E78.5 Hyperlipidemia, unspecified; N40.0 Benign prostatic hyperplasia without lower urinary tract symptoms; Z85.51 Personal history of malignant neoplasm of bladder; Z90.6 Acquired absence of other parts of urinary tract
CPT/HCPCS: 36415; 71046-TC-FY; 80053; 80061; 81003; 81015; 82550; 83721; 83880; 84484; 85025; 87086; 93005; 93010; 99285-25

== ENCOUNTER 2018-10-13 23:10 | Emergency (ER) | payer OTHER ==
[2018-10-13 23:21] VITALS: BMI 25.7
--- NOTE | 2018-10-13 23:36 | PDOC ---
History of Present Illness - General Chief Complaint: Shortness of Breath Stated Complaint: SHORT OF BREATH Time Seen by Provider: 10/13/18 23:35 History Source: Patient Exam Limitations: No Limitations - History of Present Illness Initial Comments: Deven is a pleasant setswana speaking 83 yo M w a pmh of CAD, s/p 2 stents (PDA , LAD 01/2018), HTN, hyperlipidemia, blader Ca s/p removal 2017 who presents to the ED via private auto with 2 days of urinary frequency, dysuria, and urgency as well as one day of shortness of breath and difficulty breathing. The patient denies having any chest pain, nausea, vomiting, or diaphoresis. He follows with Dr. Pruett and is set to get a cardiac stress test in 3 weeks in the beginning of october. He is here in the ER tonight because of the shortness of breath which prevented him from sleeping well last night. PCP: Dr. Dayton Burdick Fan Runner: Dr. Pruett PSH: Bladder Ca s/p removal, 2 cardiac stents Allergies: NKA, NKDA Social Hx: Former smoker - quit 40 years ago, denies alcohol or other substance usage. Past History - Past Medical History Allergies/Adverse Reactions: Allergies Allergy/AdvReac Type Severity Reaction Status Date / Time No Known Allergies Allergy Verified 10/13/18 23:20 Home Medications: Ambulatory Orders Amlodipine Besylate 5 mg PO DAILY 08/04/17 Atorvastatin Ca [Lipitor] 80 mg PO HS 08/04/17 Metoprolol Tartrate 25 mg PO BID 08/04/17 Tamsulosin HCl [Flomax] 0.4 mg PO HS 08/04/17 Aspirin [ASA -] 81 mg PO DAILY #30 tab.chew 02/27/18 Clopidogrel Bisulfate [Plavix] 75 mg PO DAILY 03/04/18 Pantoprazole Sodium [Protonix] 40 mg PO DAILY 03/04/18 Irbesartan 300 mg PO DAILY 06/12/18 Sulfamethoxazole/Trimethoprim [Bactrim Ds -] 1 tab PO BID #14 tablet 08/15/18 Cancer: Yes (bladder) Cardiac Disorders: Yes (2 stents) COPD: No CHF: Yes HTN: Yes Hypercholesterolemia: Yes - Surgical History Cardiac Surgery: Yes (stents) - Immunization History Immunization Up to Date: Yes - Suicide/Smoking/Psychosocial Hx Smoking Status: No Smoking History: Never smoked Have you smoked in the past 12 months: No Number of Cigarettes Smoked Daily: 0 If you are a former smoker, when did you quit?: 40 yrs ago Information on smoking cessation initiated: No Hx Alcohol Use: No Drug/Substance Use Hx: No Substance Use Type: None Hx Substance Use Treatment: No Review of Systems - Review of Systems Able to Perform ROS?: Yes Comments:: CONSTITUTIONAL: Present: Fatigue Absent: fever, no chills EYES: Absent: visual changes ENT: Absent: ear pain, no sore throat CARDIOVASCULAR: Absent: chest pain, no palpitations RESPIRATORY: Present: SOB Absent: cough GI: Absent: abdominal pain, no nausea, no vomiting, no constipation, no diarrhea GENITOURINARY: Present: Dysuria, frequency, urgency Absent: no hematuria, no hesitancy MUSKULOSKELETAL: Absent: back pain, no arthralgia, no myalgia SKIN: Absent: rash NEURO: Absent: headache *Physical Exam - Vital Signs Last Vital Signs Temp Pulse Resp BP Pulse Ox 97.8 F 55 L 16 115/56 L 98 10/13/18 23:17 10/13/18 23:17 10/13/18 23:17 10/13/18 23:17 10/13/18 23:17 - Physical Exam Comments: GENERAL: Well-appearing, well-nourished. No apparent distress. HEENT: Normocephalic, atraumatic. PERRL, EOM intact. CARDIOVASCULAR: Normal S1, S2. Regular rate and rhythm. PULMONARY: No evidence of respiratory distress. Lungs clear to auscultation bilaterally. No wheezing, rales or rhonchi. ABDOMEN: Soft, non-distended, non-tender. EXTREMITIES: Normal ROM in all four extremities. No gross deformities. SKIN: Warm, dry. No rash NEUROLOGICAL: No focal neurological deficits. ED Treatment Course - LABORATORY CBC & Chemistry Diagram: 10/14/18 01:42 10/13/18 23:50 Medical Decision Making - Medical Decision Making Deven is a pleasant setswana speaking 83 yo M w a pmh of CAD, s/p 2 stents (PDA , LAD 01/2018), HTN, hyperlipidemia, blader Ca s/p removal 2017 who presents to the ED via private auto with 2 days of urinary frequency, dysuria, and urgency as well as one day of shortness of breath and difficulty breathing. The patient denies having any chest pain, nausea, vomiting, or diaphoresis. He follows with Dr. Pruett and is set to get a cardiac stress test in 3 weeks in the beginning of october. He is here in the ER tonight because of the shortness of breath which prevented him from sleeping well last night. VS: Bradycardic and diastolicly hypotensive. DDx IBNLT: URI, bronchitis, PNA, pneumothorax, ACS/KS, electrolyte/metabolic disturbance, anemia, UTI Plan: Labs, Urine, EKG, CXR, duonebs, re-assess. Labs unremarkable EKG normal sinus with 1st degree AV block - unchanged from prior EKG's CXR unremarkable Patient feels better after Duoneb. Will DC with supportive care and return precautions. *DC/Admit/Observation/Transfer Diagnosis at time of Disposition: Shortness of breath - Discharge Dispostion Disposition: HOME Condition at time of disposition: Improved Decision to Admit order: No - Referrals Referrals: Jhonny Burris MD [Primary Care Provider] - - Patient Instructions Printed Discharge Instructions: DI for Shortness of Breath Additional Instructions: You came into the ER with shortness of breath. We looked at your blood and urine and found no abnormalities. WE DID AN ELECTROCARDIOGRAM WHICH SHOWED THAT YOU HAVE NOT EXPERIENCED ANY CHANGES IN YOUR HEART. IT IS THE SAME IT HAS BEEN FOR THE PAST FEW YEARS. Please make sure to call up your doctor and schedule an appointment in the next 3 to 5 days. Come back to the ER if your pain worsens or you have any other new or worsening concerns. Thank you for coming to the [facility] ER. We hope you feel better soon! Print Language: [place] - Post Discharge Activity
[2018-10-13] MEDS ORDERED: ALBUTEROL SO4 2.5/IPRATROPIUM 0.5 INH SOL 3 ML VIAL.NEB. NEB ONE ×2 (23:47→23:59)
--- NOTE | 2018-10-14 00:17 | PDOC ---
Attending Attestation - HPI HPI: 10/14/18 00:51 The patient is a 83 year old male with a PMH of CAD, s/p 2 stents (PDA 06/12/18 , LAD 01/2018), HTN, hyperlipidemia, blader Ca s/p removal 2016 who presents to the ED for evaluation of 2 day history of frequency, dysuria, urgency and shortness of breath today. Patient is scheduled to have a cardiac stress test next month. Patient sees Dr. Pruett for cardiology. The patient denies chest pain, shortness of breath, headache and dizziness. Denies fever, chills, nausea, vomit, diarrhea, constipation, hematuria. Allergies: NKA, NKDA PSH: Bladder Ca s/p removal, 2 cardiac stents Social Hx: Former smoker, denies alcohol or drug use. PCP: Dr. Dayton Burdikc Quarter Seamer: Dr. Pruett <Sandi Pham - Last Filed: 10/14/18 00:51> - Resident Resident Name: Davian Hyde - ED Attending Attestation I have performed the following: I have examined & evaluated the patient, The case was reviewed & discussed with the resident, I agree w/resident's findings & plan - Physicial Exam PE: 10/14/18 02:59 Agree with resident exam - Medical Decision Making 10/14/18 02:26 Pt has normal labs and unchanged EKG, and a normal CXR with known uncoiled aorta. Pt is feeling fine. His BP is on the low side. He is on 3 antiHTN meds. He is also on flomax. 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 He has sob yesterday; he was anxious and couldn't sleep all night. Now with SOB again tonight and he came to the ER to get checked out. 10/14/18 02:59 Labs normal. EKG no change. Pt was reassured and he is stable for d/c. <Tracey Riggs - Last Filed: 10/14/18 03:01>
[2018-10-14 00:41] LABS: EPI CELLS 0.4 /HPF (0-5/HPF); PH,URINE 7.5 (5.0-8.0); URINE APPEARANCE CLEAR; URINE BACTERIA 0.5 /hpf (NEGATIVE); URINE BILIRUBIN NEGATIVE (NEGATIVE); URINE CASTS 1 /hpf (0-8); URINE COLOR YELLOW; URINE GLUCOSE (UA) NEGATIVE (NEGATIVE); URINE KETONE NEGATIVE (NEGATIVE); URINE LEUK ESTERASE TRACE (NEGATIVE); URINE NITRITE NEGATIVE (NEGATIVE); URINE PROTEIN NEGATIVE (NEGATIVE); URINE RBC 16 /hpf (0-4); URINE UROBILINOGEN 0.2 mg/dL (0.2-1.0); URINE WBC 5 /hpf (0-5)
[2018-10-14 00:45] LABS: ALBUMIN 3.4 g/dl (3.4-5.0); ALK PHOS 66 U/L (45-117); ANION GAP 5 MMOL/L (8-16); BILIRUBIN,TOTAL 0.6 mg/dL (0.2-1); BLOOD UREA NITROGEN 22 mg/dL (7-18); CALCIUM 7.8 mg/dL (8.5-10.1); CHLORIDE 105 mmol/L (98-107); CO2 28 mmol/L (21-32); CREATININE 0.8 mg/dL (0.55-1.3); GLUCOSE,RANDOM 89 mg/dL (74-106); POTASSIUM 3.6 mmol/L (3.5-5.1); SGOT/AST 19 U/L (15-37); SGPT/ALT 20 U/L (13-61); SODIUM 137 mmol/L (136-145); TOT PROT 7.3 g/dl (6.4-8.2)
[2018-10-14 02:19] LABS: BASO % 0.4 % (0-2.0); EOS % 1.9 % (0-4.5); HEMATOCRIT 37.2 % (35.4-49); HEMOGLOBIN 12.5 GM/dL (11.7-16.9); LYMPH % 30.1 % (8-40); MCH 29.1 pg (25.7-33.7); MCHC 33.7 g/dl (32.0-35.9); MEAN CELL VOLUME 86.4 fl (80-96); MEAN PLT VOLUME 9.8 fl (7.5-11.1); MONO % 7.5 % (3.8-10.2); NEUT % 60.1 % (42.8-82.8); PLATELET COUNT 96 K/MM3 (134-434); RBC 4.31 M/mm3 (4.00-5.60); WHITE BLOOD COUNT 7.3 K/mm3 (4.0-10.0)
[2018-10-14 02:46] VITALS: BP 130/60; PULSE 60; TEMP 98.2
--- NOTE | 2018-10-15 11:00 | EKG ---
Test Reason : Blood Pressure : / mmHG Vent. Rate : 053 BPM Atrial Rate : 053 BPM P-R Int : 222 ms QRS Dur : 086 ms QT Int : 464 ms P-R-T Axes : -28 -03 026 degrees QTc Int : 435 ms SINUS BRADYCARDIA WITH 1ST DEGREE A-V BLOCK OTHERWISE NORMAL ECG WHEN COMPARED WITH ECG OF 15-AUG-2018 15:23, NO SIGNIFICANT CHANGE WAS FOUND Confirmed by MD Loan, Pranay ([id number]) on 10/15/2018 10:59:46 AM Referred By: Confirmed By:Pranay Cates MD
== END 2018-10-14 02:49 | disposition home or self-care (01) ==
LOC: JER 23:10
PROC: 3E0F7GC Introduction of Other Therapeutic Substance into Respiratory Tract, Via Natural or Artificial Opening (ICD-10-PCS; principal; 2018-10-13)
DX: R06.02 Shortness of breath (principal); I25.10 Atherosclerotic heart disease of native coronary artery without angina pectoris; I11.0 Hypertensive heart disease with heart failure; Z95.5 Presence of coronary angioplasty implant and graft; E78.5 Hyperlipidemia, unspecified; Z85.51 Personal history of malignant neoplasm of bladder; Z90.6 Acquired absence of other parts of urinary tract
CPT/HCPCS: 36415; 71046-TC-FY; 80053; 81003; 84484; 85025; 87086; 93005; 93010; 94640; 99282-25

== ENCOUNTER → 2018-10-21 | Emergency (ER) | payer OTHER ==
--- NOTE | 2018-10-21 16:51 | PDOC ---
Rapid Medical Evaluation Time Seen by Provider: 10/21/18 16:50 Medical Evaluation: Allergies Allergy/AdvReac Type Severity Reaction Status Date / Time No Known Allergies Allergy Verified 10/13/18 23:20 10/21/18 16:51 I have performed a brief in-person evaluation of this patient. The patient presents with a chief complaint of: intermittent sob x 2 weeks, not new per pt. States he is also concerned because his BP has been high recently. No CP. H/o HTN, HLD, CAD s/p 2 stents, CHF. Pertinent physical exam findings:stable w/ clear chest/lungs I have ordered the following:ekg/cxr/labs The patient will proceed to the ED for further evaluation. 0 Discharge Disposition - Diagnosis SOB (shortness of breath) - Referrals - Patient Instructions - Post Discharge Activity
[2018-10-21 16:56] VITALS: BP 160/73; PULSE 62; TEMP 98.2; BMI 25.7
--- NOTE | 2018-10-22 12:35 | EKG ---
Test Reason : Blood Pressure : / mmHG Vent. Rate : 064 BPM Atrial Rate : 064 BPM P-R Int : 198 ms QRS Dur : 086 ms QT Int : 434 ms P-R-T Axes : -11 -05 047 degrees QTc Int : 447 ms POOR DATA QUALITY, INTERPRETATION MAY BE ADVERSELY AFFECTED NORMAL SINUS RHYTHM NORMAL ECG Confirmed by MD ELO, NATHANAEL ([id number]) on 10/22/2018 12:35:28 PM Referred By: Confirmed By:NATHANAEL GASCA MD
== END | disposition left against medical advice (07) ==
LOC: JER 16:34
DX: R06.02 Shortness of breath (principal); I25.10 Atherosclerotic heart disease of native coronary artery without angina pectoris; I10 Essential (primary) hypertension; Z95.5 Presence of coronary angioplasty implant and graft
CPT/HCPCS: 93005; 93010; 99281-25

== ENCOUNTER 2018-10-22 10:31 | Observation (INO) | payer OTHER ==
[2018-10-22 10:39] VITALS: BMI 27.4
--- NOTE | 2018-10-22 12:39 | PDOC ---
History of Present Illness - General Chief Complaint: Shortness of Breath Stated Complaint: SOB Time Seen by Provider: 10/22/18 11:37 History Source: Patient Exam Limitations: No Limitations - History of Present Illness Initial Comments: 10/22/18 12:38 83M with a PMH of CAD s/p 2 stents (PDA 06/12/18, LAD 01/2018), HTN, hyperlipidemia, blader Ca s/p removal 2017 who presents to the ER for SOB. The patient states that he's had multiple episodes of SOB, most recently an episode that began yesterday evening. Pt denies any association with exertion, orthostasis, CP, diaphoresis, nausea, and vomiting. He denies any acute complaints. Past History - Past Medical History Allergies/Adverse Reactions: Allergies Allergy/AdvReac Type Severity Reaction Status Date / Time No Known Allergies Allergy Verified 10/21/18 16:52 Home Medications: Ambulatory Orders Amlodipine Besylate 5 mg PO DAILY 08/04/17 Atorvastatin Ca [Lipitor] 80 mg PO HS 08/04/17 Metoprolol Tartrate 25 mg PO BID 08/04/17 Tamsulosin HCl [Flomax] 0.4 mg PO HS 08/04/17 Aspirin [ASA -] 81 mg PO DAILY #30 tab.chew 02/27/18 Clopidogrel Bisulfate [Plavix] 75 mg PO DAILY 03/04/18 Pantoprazole Sodium [Protonix] 40 mg PO DAILY 03/04/18 Irbesartan 300 mg PO DAILY 06/12/18 Cancer: Yes (bladder) Cardiac Disorders: Yes (2 stents) COPD: No CHF: Yes HTN: Yes Hypercholesterolemia: Yes - Surgical History Cardiac Surgery: Yes (stents) - Immunization History Immunization Up to Date: Yes - Suicide/Smoking/Psychosocial Hx Smoking Status: No Smoking History: Never smoked Have you smoked in the past 12 months: No Number of Cigarettes Smoked Daily: 0 If you are a former smoker, when did you quit?: 40 yrs ago Information on smoking cessation initiated: No Hx Alcohol Use: No Drug/Substance Use Hx: No Substance Use Type: None Hx Substance Use Treatment: No Review of Systems - Review of Systems Able to Perform ROS?: Yes Comments:: 10/22/18 13:41 GENERAL/CONSTITUTIONAL: No fever or chills. No weakness. HEAD, EYES, EARS, NOSE AND THROAT: No change in vision. No ear pain or discharge. No sore throat. CARDIOVASCULAR: No chest pain, palpitations, or lightheadedness. RESPIRATORY: + for SOB. No cough, wheezing, or hemoptysis. GASTROINTESTINAL: No nausea, vomiting, diarrhea, constipation, or abdominal pain. GENITOURINARY: No dysuria, frequency, hematuria, or change in urination. MUSCULOSKELETAL: No joint or muscle swelling or pain. No neck or back pain. SKIN: No rash or lesions. NEUROLOGIC: No headache, numbness, tingling, focal weakness, loss of consciousness, or change in strength/sensation. Is the patient limited Lao proficient: No *Physical Exam - Vital Signs Last Vital Signs Temp Pulse Resp BP Pulse Ox 98.2 F 62 16 130/68 97 10/22/18 10:35 10/22/18 10:35 10/22/18 10:35 10/22/18 10:35 10/22/18 10:35 - Physical Exam Comments: 10/22/18 13:42 GENERAL: Well developed, well nourished. Awake and alert. No acute distress. HEENT: Normocephalic, atraumatic. Hearing grossly normal. Moist mucous membranes. PERRLA, EOMI. No conjunctival pallor. Sclera are non-icteric. NECK: Supple. Full ROM. No JVD. CARDIOVASCULAR: Regular rate and rhythm. No murmurs, rubs, or gallops. PULMONARY: No evidence of respiratory distress. Decreased lung sounds on L side. No wheezing, rales or rhonchi. ABDOMINAL: Soft. Non-tender. Non-distended. No rebound or guarding. GENITOURINARY: No CVA tenderness bilaterally. MUSCULOSKELETAL: Normal range of motion at all joints. No bony deformities or tenderness. EXTREMITIES: No cyanosis. No clubbing. No edema. No calf tenderness or swelling. SKIN: Warm and dry. Normal capillary refill. No rashes. No jaundice. NEUROLOGICAL: Alert, awake, appropriate. Cranial nerves 2-12 grossly intact. Normal speech. Gait is normal without ataxia. PSYCHIATRIC: Cooperative. Good eye contact. Appropriate mood and affect. ED Treatment Course - LABORATORY CBC & Chemistry Diagram: 10/22/18 12:31 10/22/18 12:31 - RADIOLOGY Radiology Studies Ordered: Category Date Time Status CHEST PA & LAT [RAD] Stat Radiology 10/22/18 12:23 Ordered Medical Decision Making - Medical Decision Making 10/22/18 13:42 83M with a PMH of CAD s/p stents, HTN, HLD, who presents to the ER with complaints of SOB. Pt denies any exertional or orthostatic component to SOB. CBC , CMP, CXR, and troponin WNL. 10/22/18 14:14 Case d/w Dr. Vallejo who recommends admission for slightly elevated BNP and SOB. Will page PCP. 10/22/18 19:46 PCP recommends our discretion. Hospitalist informed. CT+ chest negative. Pt noted to be ambulating without SOB. Hospitalist informed to d/w cards. Pt signed out to Dr. Gregg. *DC/Admit/Observation/Transfer - Discharge Dispostion Condition at time of disposition: Stable - Referrals Referrals: Jhonny Burris MD [Primary Care Provider] - - Patient Instructions - Post Discharge Activity
[2018-10-22 12:40] LABS: BASO % 0.6 % (0-2.0); EOS % 1.8 % (0-4.5); HEMATOCRIT 38.3 % (35.4-49); HEMOGLOBIN 13.2 GM/dL (11.7-16.9); LYMPH % 27.8 % (8-40); MCH 29.6 pg (25.7-33.7); MCHC 34.4 g/dl (32.0-35.9); MEAN CELL VOLUME 86.2 fl (80-96); MEAN PLT VOLUME 9.7 fl (7.5-11.1); MONO % 7.1 % (3.8-10.2); NEUT % 62.7 % (42.8-82.8); PLATELET COUNT 106 K/MM3 (134-434); RBC 4.44 M/mm3 (4.00-5.60); RDW 15.9 % (11.9-15.9); WHITE BLOOD COUNT 7.1 K/mm3 (4.0-10.0)
[2018-10-22 13:09] LABS: ALBUMIN 3.4 g/dl (3.4-5.0); ALK PHOS 73 U/L (45-117); ANION GAP 6 MMOL/L (8-16); BLOOD UREA NITROGEN 15 mg/dL (7-18); CALCIUM 8.2 mg/dL (8.5-10.1); CHLORIDE 104 mmol/L (98-107); CO2 30 mmol/L (21-32); CREATININE 0.8 mg/dL (0.55-1.3); GLUCOSE,RANDOM 95 mg/dL (74-106); MAGNESIUM 2.1 mg/dL (1.8-2.4); N-TERMINAL BNP 629.2 pg/ml (5-450); POTASSIUM 3.6 mmol/L (3.5-5.1); SGOT/AST 16 U/L (15-37); SGPT/ALT 19 U/L (13-61); SODIUM 140 mmol/L (136-145)
--- NOTE | 2018-10-22 13:51 | EKG ---
Test Reason : Blood Pressure : / mmHG Vent. Rate : 055 BPM Atrial Rate : 055 BPM P-R Int : 224 ms QRS Dur : 086 ms QT Int : 468 ms P-R-T Axes : 047 -12 037 degrees QTc Int : 447 ms SINUS BRADYCARDIA WITH 1ST DEGREE A-V BLOCK OTHERWISE NORMAL ECG WHEN COMPARED WITH ECG OF 21-OCT-2018 16:30, NO SIGNIFICANT CHANGE WAS FOUND Confirmed by Steven Christensen MD ([id number]) on 10/22/2018 1:51:44 PM Referred By: Confirmed By:Steven Christensen MD
--- NOTE | 2018-10-22 14:10 | CON.CARD ---
Consult Consult Specialty:: Cardiology - History of Present Illness Chief Complaint: sob History of Present Illness: 83M with a PMH of CAD s/p 2 stents (PDA 06/12/18, LAD 01/2018), HTN, hyperlipidemia, blader Ca s/p removal 2016 who presents to the ER for SOB. The patient states that he's had multiple episodes of SOB, most recently an episode that began yesterday evening. Pt denies any association with exertion, orthostasis, CP, diaphoresis, nausea, and vomiting. He denies any acute complaints. PMH s/p PCI LAD 03/01/18 Chest pain - ER [facility] and discharged HTN Hyperlipidemia Angina - History Source History Provided By: Patient, Medical Record - Past Medical History Cardio/Vascular: Yes: CAD, CHF (diastolic; moderate LVH), HTN, Hyperlipdemia, [place] Psych: Yes: Anxiety, Panic - Past Surgical History Past Surgical History: Yes: Stent (coronary: 1st more than 20 yrs ago; latest last week (RPDA)) - Alcohol/Substance Use Hx Alcohol Use: No - Smoking History Smoking history: Never smoked Have you smoked in the past 12 months: No Aproximately how many cigarettes per day: 0 If you are a former smoker, when did you quit?: 40 yrs ago - Social History Usual Living Arrangement: With Spouse Home Medications - Allergies Allergies/Adverse Reactions: Allergies Allergy/AdvReac Type Severity Reaction Status Date / Time No Known Allergies Allergy Verified 10/21/18 16:52 - Home Medications Home Medications: Ambulatory Orders Amlodipine Besylate 5 mg PO DAILY 08/04/17 Atorvastatin Ca [Lipitor] 80 mg PO HS 08/04/17 Metoprolol Tartrate 25 mg PO BID 08/04/17 Tamsulosin HCl [Flomax] 0.4 mg PO HS 08/04/17 Aspirin [ASA -] 81 mg PO DAILY #30 tab.chew 02/27/18 Clopidogrel Bisulfate [Plavix] 75 mg PO DAILY 03/04/18 Pantoprazole Sodium [Protonix] 40 mg PO DAILY 03/04/18 Irbesartan 300 mg PO DAILY 06/12/18 Review of Systems - Review of Systems Constitutional: reports: No Symptoms Eyes: reports: No Symptoms HENT: reports: No Symptoms Neck: reports: No Symptoms Cardiovascular: reports: No Symptoms Respiratory: reports: SOB Gastrointestinal: reports: No Symptoms Genitourinary: reports: No Symptoms Breasts: reports: No Symptoms Reported Musculoskeletal: reports: No Symptoms Integumentary: reports: No Symptoms Neurological: reports: No Symptoms Endocrine: reports: No Symptoms Hematology/Lymphatic: reports: No Symptoms Psychiatric: reports: No Symptoms Vital Signs: Vital Signs Temperature 98.2 F 10/22/18 10:35 Pulse Rate 62 10/22/18 10:35 Respiratory Rate 16 10/22/18 10:35 Blood Pressure 130/68 10/22/18 10:35 O2 Sat by Pulse Oximetry (%) 97 10/22/18 10:35 Constitutional: Yes: Well Nourished, No Distress, Calm Eyes: Yes: WNL, Conjunctiva Clear, EOM Intact HENT: Yes: WNL, Atraumatic, Normocephalic Neck: Yes: WNL, Supple, Trachea Midline Respiratory: Yes: WNL, Regular, CTA Bilaterally Gastrointestinal: Yes: WNL, Normal Bowel Sounds Renal/: Yes: WNL Cardiovascular: Yes: WNL, Regular Rate and Rhythm Musculoskeletal: Yes: WNL Extremities: Yes: WNL Integumentary: Yes: WNL Neurological: Yes: WNL, Alert, Oriented ...Motor Strength: WNL Psychiatric: Yes: WNL, Alert, Oriented - Other Data Labs, Other Data: CBC, BMP 10/22/18 12:31 10/22/18 12:31 Troponin, BNP 10/22/18 10/22/18 12:31 12:31 Troponin I 0.02 B-Natriuretic Peptide 629.2 H Troponin, BNP 10/22/18 10/22/18 12:31 12:31 Troponin I 0.02 B-Natriuretic Peptide 629.2 H Imaging - Results Chest X-ray: Image Reviewed (no i/e) EKG: Image Reviewed (s bradycardia 1st degree avb) Assessment/Plan 83M with a PMH of CAD s/p 2 stents (PDA 06/12/18, LAD 01/2018), HTN, hyperlipidemia, blader Ca s/p removal 2016 who presents to the ER for SOB. The patient states that he's had multiple episodes of SOB, most recently an episode that began yesterday evening. Pt denies any association with exertion, orthostasis, CP, diaphoresis, nausea, and vomiting. He denies any acute complaints. Imp ; decompensated chf s/p PCI LAD 03/01/18 Chest pain - ER [facility] and discharged HTN Hyperlipidemia Angina PLan; PO lasix telemetry CTApending cont asa and bb
--- NOTE | 2018-10-22 14:14 | PDOC ---
Attending Attestation - Resident Resident Name: TySudeep - ED Attending Attestation I have performed the following: I have examined & evaluated the patient, The case was reviewed & discussed with the resident, I agree w/resident's findings & plan - HPI HPI: 10/22/18 14:08 83-year-old male h/o CAD with stents -06/2018, pulmonary nodules, with acute on chronic SOB since June 2018, workup to date notable for normal cardiac evaluations as recently as yesterday in Dr. Pruett's office, now p/w another episode of SOB. Pt has had intermittent bouts of SOB, occurs randomly (not associated with orthopnea or exertion) and relieved randomly, seen here several times in the past for same. Scheduled for outpt CT chest in two days to further evaluate lung tissue, presents but now asx. no f/c/cough. no edema/calf pain - Physicial Exam PE: 10/22/18 14:12 vitals wnl, nl RR, nl O2 sat alert, conversant in full sentences, joking with staff no jvd heart regular, lungs with subtle bibasilar wheeze, no crackles. good air movement abd benign no edema/calf ttp - Medical Decision Making 10/22/18 14:14 83y/o M with acute on chronic SOB, known CAD. Seen by cardiology yesterday and presents here for another exacerbation. ? primary lung pathology more likely than cardiac, scheduled for CT chest in two days. labs/cxr/ekg wnl discuss with primary team and arrange disposition Heart Score/ECG Review #1 ECG reviewed & interpreted by me at: 10:25 General ECG Interpretation: Sinus Rhythm, Normal Rate (55), Normal Intervals ( qtc 447, WI 224), No acute ischemic changes
[2018-10-22] MEDS ORDERED: FUROSEMIDE 20 MG TABLET (FP) PO ONE (17:19)
[2018-10-22] MEDS ORDERED: FUROSEMIDE 40 MG TABLET (FP) ONE (18:21)
--- NOTE | 2018-10-22 21:31 | HP ---
CHIEF COMPLAINT: shortness of breath PCP: HISTORY OF PRESENT ILLNESS: 83M with a PMH of CAD s/p 2 stents (PDA 06/12/18, LAD 01/2018) c/o shortness of breath for several months which has worsened over the past 2 days. He denies any chest pain. CTA negative for PE, pleural effusions, pulmonary edema, or infiltrates. EKG which no acute ischemic changes. ER course was notable for: (1) CTA (2) CXR (3) EKG Recent Travel: no PAST MEDICAL HISTORY: CAD s/p 2 stents (PDA 06/12/18, LAD 01/2018), HTN, hyperlipidemia, blader Ca s/p removal 2016 PAST SURGICAL HISTORY: as above Social History: Smoking:no Alcohol: no Drugs: no Family History: NC Allergies No Known Allergies Allergy (Verified 10/21/18 16:52) HOME MEDICATIONS: Home Medications Medication Instructions Recorded Amlodipine Besylate 5 mg PO DAILY 08/04/17 Atorvastatin Ca [Lipitor] 80 mg PO HS 08/04/17 Metoprolol Tartrate 25 mg PO BID 08/04/17 Tamsulosin HCl [Flomax] 0.4 mg PO HS 08/04/17 Aspirin [ASA -] 81 mg PO DAILY #30 tab.chew 02/27/18 Clopidogrel Bisulfate [Plavix] 75 mg PO DAILY 03/04/18 Pantoprazole Sodium [Protonix] 40 mg PO DAILY 03/04/18 Irbesartan 300 mg PO DAILY 06/12/18 REVIEW OF SYSTEMS CONSTITUTIONAL: Absent: fever, chills, diaphoresis, generalized weakness, malaise, loss of appetite, weight change HEENT: Absent: rhinorrhea, nasal congestion, throat pain, throat swelling, difficulty swallowing, mouth swelling, ear pain, eye pain, visual changes CARDIOVASCULAR: Absent: chest pain, syncope, palpitations, irregular heart rate, lightheadedness , peripheral edema RESPIRATORY: Absent: cough,, dyspnea with exertion, orthopnea, wheezing, stridor, hemoptysis present- shortness of breath GASTROINTESTINAL: Absent: abdominal pain, abdominal distension, nausea, vomiting, diarrhea, constipation, melena, hematochezia GENITOURINARY: Absent: dysuria, frequency, urgency, hesitancy, hematuria, flank pain, genital pain MUSCULOSKELETAL: Absent: myalgia, arthralgia, joint swelling, back pain, neck pain SKIN: Absent: rash, itching, pallor HEMATOLOGIC/IMMUNOLOGIC: Absent: easy bleeding, easy bruising, lymphadenopathy, frequent infections ENDOCRINE: Absent: unexplained weight gain, unexplained weight loss, heat intolerance, cold intolerance NEUROLOGIC: Absent: headache, focal weakness or paresthesias, dizziness, unsteady gait, seizure, mental status changes, bladder or bowel incontinence PSYCHIATRIC: Absent: anxiety, depression, suicidal or homicidal ideation, hallucinations. PHYSICAL EXAMINATION Vital Signs - 24 hr 10/22/18 10/22/18 10:35 18:40 Temperature 98.2 F 97.5 F L Pulse Rate 62 Pulse Rate [ 61 Right Brachial] Respiratory 16 18 Rate Blood Pressure 130/68 Blood Pressure 124/71 [Right Arm] O2 Sat by Pulse 97 97 Oximetry (%) GENERAL: Awake, alert, and fully oriented, in no acute distress. HEAD: Normal with no signs of trauma. EYES: Pupils equal, round and reactive to light, extraocular movements intact, sclera anicteric, conjunctiva clear. No lid lag. EARS, NOSE, THROAT: Ears normal, nares patent, oropharynx clear without exudates. Moist mucous membranes. NECK: Normal range of motion, supple without lymphadenopathy, JVD, or masses. LUNGS: Breath sounds equal, clear to auscultation bilaterally. No wheezes, and no crackles. No accessory muscle use. HEART: Regular rate and rhythm, normal S1 and S2 without murmur, rub or gallop. ABDOMEN: Soft, nontender, not distended, normoactive bowel sounds, no guarding, no rebound, no masses. MUSCULOSKELETAL: Normal range of motion at all joints. No bony deformities or tenderness. No CVA tenderness. UPPER EXTREMITIES: 2+ pulses, warm, well-perfused. No cyanosis. No clubbing. No peripheral edema. LOWER EXTREMITIES: 2+ pulses, warm, well-perfused. No calf tenderness. No peripheral edema. NEUROLOGICAL: Cranial nerves II-XII intact. Normal speech. Normal gait. PSYCHIATRIC: Cooperative. Good eye contact. Appropriate mood and affect. SKIN: Warm, dry, normal turgor, no rashes or lesions noted, normal capillary refill. Laboratory Results - last 24 hr 10/22/18 10/22/18 10/22/18 12:31 12:31 12:31 WBC 7.1 RBC 4.44 Hgb 13.2 Hct 38.3 MCV 86.2 MCH 29.6 MCHC 34.4 RDW 15.9 Plt Count 106 L MPV 9.7 Absolute Neuts (auto) 4.5 Neutrophils % 62.7 Lymphocytes % 27.8 Monocytes % 7.1 Eosinophils % 1.8 Basophils % 0.6 Nucleated RBC % 0 Sodium 140 Potassium 3.6 Chloride 104 Carbon Dioxide 30 Anion Gap 6 L BUN 15 Creatinine 0.8 Creat Clearance w eGFR 91.87 Random Glucose 95 Calcium 8.2 L Magnesium 2.1 Total Bilirubin 1.0 AST 16 ALT 19 Alkaline Phosphatase 73 Creatine Kinase 61 Troponin I 0.02 B-Natriuretic Peptide 629.2 H Total Protein 7.0 Albumin 3.4 Imaging studies reviewed echo 06/18 showed elevated RV pressure 30-40 mmhg, normal left ventricular systolic pressure EKG reviewed ASSESSMENT/PLAN: #Shortness of breath - uncertain cause- possible related to pulmonary artery hypertension vs deconditioning. EKG wnl, trop neg, PE was r/o, no pleural effusions or infiltrates in chest imaging. Saturating 97% on Room air. Able to ambulate around ER without difficulties. Patient evaluated by cardiology and was recommended to stay on cardiac monitoring. -tele-observation -trend troponins -cardiology evaluation in am -echo ordered #CAD -ASA -clopidogrel -statin #HTN -amlodipine -Irbesartan -metoprolol #DVT -heparin sc Visit type - Emergency Visit Emergency Visit: Yes ED Registration Date: 10/22/18 Care time: The patient presented to the Emergency Department on the above date and was hospitalized for further evaluation of their emergent condition. - New Patient This patient is new to me today: Yes Date on this admission: 10/22/18 - Critical Care Critical Care patient: No
[2018-10-22] MEDS ORDERED: TAMSULOSIN HCL 0.4 MG CAP PO SCH (22:00)
[2018-10-22] MEDS ORDERED: ATORVASTATIN CA 80 MG TABLET (FP) PO SCH (22:00)
[2018-10-22] MEDS ORDERED: HEPARIN NA (PORCINE) 5,000 UNITS/ML 1ML VIAL SQ SCH (22:00)
[2018-10-22] MEDS ORDERED: METOPROLOL TARTRATE 25 MG TABLET (FP) ONE (22:23)
[2018-10-22] MEDS ORDERED: TAMSULOSIN HCL 0.4 MG CAP ONE (22:23)
[2018-10-22] MEDS ORDERED: HEPARIN NA (PORCINE) 5,000 UNITS/ML 1ML VIAL ONE (22:24)
[2018-10-22] MEDS: METOPROLOL TARTRATE 25 MG TABLET (FP) PO SCH (23:50)
[2018-10-23 08:08] LABS: HEMOGLOBIN 12.5 GM/dL (11.7-16.9); MCH 28.8 pg (25.7-33.7); MCHC 33.8 g/dl (32.0-35.9); MEAN CELL VOLUME 85.2 fl (80-96); MEAN PLT VOLUME 9.8 fl (7.5-11.1); PLATELET COUNT 101 K/MM3 (134-434); RBC 4.34 M/mm3 (4.00-5.60); RDW 15.9 % (11.9-15.9); WHITE BLOOD COUNT 7.2 K/mm3 (4.0-10.0)
[2018-10-23 08:43] LABS: ANION GAP 6 MMOL/L (8-16); BLOOD UREA NITROGEN 20 mg/dL (7-18); CALCIUM 8.1 mg/dL (8.5-10.1); CHLORIDE 102 mmol/L (98-107); CO2 31 mmol/L (21-32); CREATININE 0.9 mg/dL (0.55-1.3); GLUCOSE,RANDOM 91 mg/dL (74-106); POTASSIUM 3.2 mmol/L (3.5-5.1); SODIUM 139 mmol/L (136-145)
[2018-10-23] MEDS ORDERED: POTASSIUM CHLORIDE TABS 20 MEQ TABLET.ER (FP) PO ONE ×2 (08:54→11:50)
[2018-10-23] MEDS ORDERED: LOSARTAN POTASSIUM 50 MG TABLET (FP) PO SCH (10:00)
[2018-10-23] MEDS ORDERED: PANTOPRAZOLE 40 MG TABLET (FP) PO SCH (10:00)
[2018-10-23] MEDS ORDERED: amLODIPine BESYLATE 5 MG TABLET (FP) PO SCH (10:00)
[2018-10-23] MEDS ORDERED: ASPIRIN 81 MG CHEWABLE TABLETS PO SCH (10:00)
[2018-10-23] MEDS ORDERED: PATIENT'S OWN MEDICATION (NON-FORMULARY) (Irbesartan [Irbesartan] 300 MG) PO SCH (10:00)
--- NOTE | 2018-10-23 10:50 | ECHO ---
Name: LINNEA SCHAEFER Exam:Adult Echocardiogram Study Date: 10/23/2018 08:16 AM Age: 83 yrs Reason For Study: LV Function Height: 67 in Weight: 160 lb BSA: 1.8 m2 MMode/2D Measurements & Calculations IVSd: 1.0 cm Ao root diam: 3.2 cm LVIDd: 5.0 cm LA dimension: 3.1 cm LVIDs: 3.7 cm LVPWd: 1.0 cm EDV(Teich): 118.3 ml LVOT diam: 2.3 cm ESV(Teich): 56.6 ml Doppler Measurements & Calculations Ao V2 max: 150.3 cm/sec AI max clifton: 419.3 cm/sec Ao max P.0 mmHg AI max P.3 mmHg Ao V2 mean: 95.3 cm/sec Ao mean P.3 mmHg AI dec slope: 215.6 cm/sec2 Ao V2 VTI: 32.9 cm AI P1/2t: 569.5 msec Med Peak E' Clifton: 2.3 cm/sec Lat Peak E' Clifton: 3.7 cm/sec Procedure A two-dimensional transthoracic echocardiogram with color flow and Doppler was performed. The study w as technically difficult with many images being suboptimal in quality. Left Ventricle The left ventricle is grossly normal size. The left ventricular ejection fraction is normal. The left ventricular wall motion is normal. Right Ventricle The right ventricle is normal in size and function. Atria Normal left and right atrial size and function. Mitral Valve There is mild mitral valve thickening. There is no mitral valve stenosis. There is trace to mild mitr al regurgitation. Tricuspid Valve There is mild tricuspid valve thickening. There is no tricuspid stenosis. There was insufficient TR d etected to calculate RV systolic pressure. Aortic Valve The aortic valve is not well visualized. No hemodynamically significant valvular aortic stenosis. Mil d aortic regurgitation. Pulmonic Valve The pulmonic valve is not well visualized. Great Vessels The aortic root is normal size. Pericardium/Pleura There is no pericardial effusion. Interpretation Summary The left ventricle is grossly normal size. Mild aortic regurgitation. The left ventricular ejection fraction is normal. The study was technically difficult with many images being suboptimal in quality. There is trace to mild mitral regurgitation. The left ventricular wall motion is normal. There was insufficient TR detected to calculate RV systolic pressure. MD Jeovanny Vallejo 10/23/2018 10:48 AM
[2018-10-23] MEDS: METOPROLOL TARTRATE 25 MG TABLET (FP) PO SCH (11:00)
--- NOTE | 2018-10-23 11:09 | PN ---
Progress Note, Physician History of Present Illness: 83M with a PMH of CAD s/p 2 stents (PDA 06/12/18, LAD 01/2018), HTN, hyperlipidemia, blader Ca s/p removal 2017 who presents to the ER for SOB. The patient states that he's had multiple episodes of SOB, most recently an episode that began yesterday evening. Pt denies any association with exertion, orthostasis, CP, diaphoresis, nausea, and vomiting. He denies any acute complaints. PMH s/p PCI LAD 03/01/18 Chest pain - ER [facility] and discharged HTN Hyperlipidemia Angina - Current Medication List Current Medications: Active Medications Amlodipine Besylate (Norvasc -) 5 mg PO DAILY [facility] Aspirin (Asa -) 81 mg PO DAILY [facility] Atorvastatin Calcium (Lipitor -) 80 mg PO HS [facility] Last Admin: 10/22/18 23:50 Dose: 80 mg Heparin Sodium (Porcine) (Heparin -) 5,000 unit SQ BID [facility] Last Admin: 10/22/18 23:50 Dose: 5,000 unit Losartan Potassium (Cozaar -) 100 mg PO DAILY [facility] Metoprolol Tartrate (Lopressor -) 25 mg PO BID [facility] Last Admin: 10/22/18 23:50 Dose: 25 mg Pantoprazole Sodium (Protonix -) 40 mg PO DAILY [facility] Potassium Chloride (K-Dur -) 30 meq PO ONCE ONE Stop: 10/23/18 14:01 Tamsulosin HCl (Flomax -) 0.4 mg PO HS [facility] Last Admin: 10/22/18 23:50 Dose: 0.4 mg - Objective Vital Signs: Vital Signs Temperature 97.5 F L 10/23/18 07:05 Pulse Rate 56 L 10/23/18 07:05 Respiratory Rate 18 10/22/18 18:40 Blood Pressure 128/57 L 10/23/18 07:05 O2 Sat by Pulse Oximetry (%) 98 10/23/18 07:05 Eyes: Yes: WNL, Conjunctiva Clear, EOM Intact HENT: Yes: WNL, Atraumatic, Normocephalic Neck: Yes: WNL, Supple, Trachea Midline Cardiovascular: Yes: WNL, Regular Rate and Rhythm Respiratory: Yes: WNL, Regular, CTA Bilaterally Gastrointestinal: Yes: WNL, Normal Bowel Sounds Genitourinary: Yes: WNL Musculoskeletal: Yes: WNL Extremities: Yes: WNL Edema: No Integumentary: Yes: WNL Neurological: Yes: WNL, Alert, Oriented ...Motor Strength: WNL Psychiatric: Yes: WNL Labs: CBC, BMP 10/23/18 07:40 10/23/18 07:40 Assessment/Plan 83M with a PMH of CAD s/p 2 stents (PDA 06/12/18, LAD 01/2018), HTN, hyperlipidemia, blader Ca s/p removal 2016 who presents to the ER for SOB. The patient states that he's had multiple episodes of SOB, most recently an episode that began yesterday evening. Pt denies any association with exertion, orthostasis, CP, diaphoresis, nausea, and vomiting. He denies any acute complaints. Imp ; decompensated chf s/p PCI LAD 03/01/18 Chest pain - ER [facility] and discharged HTN Hyperlipidemia Angina ECHO normal PLan; supplement K will f/u as outp. cont asa and bb
[2018-10-23 11:47] VITALS: BP 100/58; PULSE 61; TEMP 98.3
--- NOTE | 2018-10-23 13:27 | DS ---
Physical Exam: SUBJECTIVE: Patient seen and examined OBJECTIVE: Vital Signs Period Temp Pulse Resp BP Sys/[place] Pulse Ox Last 24 Hr 97.5 F-98.3 F 52-61 18-18 100-128/57-71 94-98 PHYSICAL EXAM GENERAL: The patient is awake, alert, and fully oriented, in no acute distress. HEAD: Normal with no signs of trauma. EYES: PERRL, extraocular movements intact, sclera anicteric, conjunctiva clear. ENT: nares patent, oropharynx clear without exudates, moist mucous membranes. NECK: Trachea midline, full range of motion, supple. LUNGS: Breath sounds equal, clear to auscultation bilaterally, no wheezes, no crackles, no accessory muscle use. HEART: Regular rate and rhythm, S1, S2 without murmur, rub or gallop. ABDOMEN: Soft, nontender, nondistended, normoactive bowel sounds, no guarding, no rebound, no hepatosplenomegaly, no masses. EXTREMITIES: 2+ pulses, warm, well-perfused, no edema. NEUROLOGICAL: Cranial nerves II through XII grossly intact. Normal speech, gait not observed. PSYCH: Normal mood, normal affect. SKIN: Warm, dry, normal turgor, LABS Laboratory Results - last 24 hr 10/23/18 10/23/18 10/23/18 07:40 07:40 07:40 WBC 7.2 RBC 4.34 Hgb 12.5 Hct 37.0 MCV 85.2 MCH 28.8 MCHC 33.8 RDW 15.9 Plt Count 101 L MPV 9.8 Sodium 139 Potassium 3.2 L Chloride 102 Carbon Dioxide 31 Anion Gap 6 L BUN 20 H Creatinine 0.9 Creat Clearance w eGFR 80.20 Random Glucose 91 Calcium 8.1 L Creatine Kinase 59 Troponin I < 0.02 < 0.02 HOSPITAL COURSE: Date of Admission:10/22/18 Date of Discharge: 10/23/18 Minutes to complete discharge: 50 Discharge Summary Reason For Visit: SHORTNESS OF BREATH CAD s/p PCI HTN HLD h/o bladder cancer Procedures: Principal: CXR 10/22/2018. Impression: No evidence of active pulmonary disease. Reported By: Villa Coles MD 10/22/18 3011. . CTA chest 10/22/2018. Impression: No discrete infiltrate is seen. There is no pleural effusion. There is partial imaging of common bile duct dilatation as noted above. Reported By: Skip Abbott MD 10/22/18 0341. Other Procedures: echo 10/23/2018. Summary: LV is grossly normal size. Mild Aortic regurgitation. LV ejection fraction is normal. The study is technically difficult with many images being suboptimal in quality. There is trace to mild mitral regurg. LV wall motion is normal. There is insufficient TR detected to calculate RV systolic pressure. Read by MD Jeovanny Vallejo. Hospital Course: 83M with a PMH of CAD s/p 2 stents (PDA 06/12/18, LAD 01/2018) c/o shortness of breath for several months which has worsened over the past 2 days. He denies any chest pain. CTA negative for PE, pleural effusions, pulmonary edema, or infiltrates. EKG which no acute ischemic changes. Pt scheduled for outpatient Pulmonary follow up with Dr. Shad Silva. Appointment: Dr. Shad Silva Nov 19 2018 @ 1:15pm [address] [place] [address] (phone) fax: [phone] Condition: Stable - Instructions Diet, Activity, Other Instructions: Breathlessness, or shortness of breath, is discomfort or difficulty with breathing. The medical term for shortness of breath is dyspnea. [place] Facts Shortness of breath is a common symptom. It may be related to serious diseases. It could be a result of being physically out of shape. Medical evaluation should assess if shortness of breath is treatable with lifestyle changes. These include quitting smoking and/or losing weight. Serious conditions associated with shortness of breath are: asthma chronic obstructive pulmonary disease (COPD) heart disease (heart attacks, heart failure) anemia blood clots in the lungs (pulmonary embolism) What Is Shortness of Breath? It is the inability to get enough air to breathe. It can come on suddenly or slowly over weeks to months. It may occur when: walking climbing stairs running sitting still Feeling breathless is described in different ways, such as: short of breath tightness in my chest cannot get enough air It can be uncomfortable and sometimes scary. Being breathless does not damage your lungs. It can, however, be a sign of another problem. How Serious Is Shortness of Breath? In a healthy person, it can be caused by: very strenuous exercise extreme temperatures bad air quality obesity high altitude In non-extreme situations, it may be a sign of a medical problem. If you have unexplained shortness of breath, especially if it comes on suddenly and is severe, see a doctor as soon as possible. It may be more serious if accompanied by: chest pain or pressure fainting nausea Shortness of Breath Symptoms, Causes, and Risk Factors You Shouldnt Ignore These Symptoms Some people with respiratory problems can feel breathless just by doing normal activities like standing up or walking to another room. See your doctor if you have shortness of breath and: swelling in your feet and ankles trouble breathing when you lie flat high fever, chills, and cough lips or fingertips turning blue wheezing, an abnormal whistling-type sound when you breathe in or out stridor, a high-pitched noise that occurs with breathing worsening of pre-existing shortness of breath after using inhalers breathlessness that doesnt stop after 30 minutes of rest What Causes Shortness of Breath? Heart and lung conditions are most often the causes of shortness of breath. Your heart and lungs transport oxygen to your body and remove carbon dioxide. Problems with either affect your breathing. Breathing is regulated by the brain. It is a complex interaction between chemicals in the blood and in the air that we breathe. Oxygen and carbon dioxide levels and the amount of hemoglobin in blood all play a role. If blood carbon dioxide levels rise, the brain tells the body to increase the breathing rate. This can result in deeper or faster breaths. It may lead to a sensation of difficulty breathing. Too much acid in the blood from an infection , lactic acid buildup, or other causes can also lead to an increased breathing rate and the feeling of shortness of breath. Causes of acute shortness of breath include: asthma COPD flare allergic reaction (such as from a bee sting) carbon monoxide poisoning heart attack low blood pressure pneumonia anemia (low red blood cell count) upper airway obstruction (throat blockage) heart failure enlarged heart abnormal heartbeat choking foreign object inhaled into the lungs Guillain-Davis Syndrome myasthenia gravis pulmonary embolism (blood clot in the lungs) Disposition: HOME - Home Medications Comprehensive Discharge Medication List: Ambulatory Orders Amlodipine Besylate 5 mg PO DAILY 08/04/17 Atorvastatin Ca [Lipitor] 80 mg PO HS 08/04/17 Tamsulosin HCl [Flomax] 0.4 mg PO HS 08/04/17 Aspirin [ASA -] 81 mg PO DAILY #30 tab.chew 02/27/18 Clopidogrel Bisulfate [Plavix] 75 mg PO DAILY 03/04/18 Pantoprazole Sodium [Protonix] 40 mg PO DAILY 03/04/18 Irbesartan 300 mg PO DAILY 06/12/18 Metoprolol Tartrate [Lopressor -] 25 mg PO BID tablet 10/23/18 Problem List - Problems (1) Shortness of breath Code(s): R06.02 - SHORTNESS OF BREATH This patient is new to me today: Yes Date on this admission: 10/23/18 Emergency Visit: Yes ED Registration Date: 10/22/18 Care time: The patient presented to the Emergency Department on the above date and was hospitalized for further evaluation of their emergent condition. Critical Care patient: No - Discharge Referral Referred to [facility] Med [facility] No
[2018-10-23] MEDS ORDERED: POTASSIUM CHLORIDE TABS 10 MEQ TABLET.ER (FP) PO ONE (14:00)
== END 2018-10-23 13:25 | disposition home or self-care (01) ==
LOC: JER 10:31 → JERBED 15:04
PROVIDERS: ADMIT Internal Medicine; ATTEND Nurse Practitioner Family
PROC: 3E013GC Introduction of Other Therapeutic Substance into Subcutaneous Tissue, Percutaneous Approach (ICD-10-PCS; principal; 2018-10-22)
DX: R06.02 Shortness of breath (principal); I50.9 Heart failure, unspecified; I11.0 Hypertensive heart disease with heart failure; E78.5 Hyperlipidemia, unspecified; I25.119 Atherosclerotic heart disease of native coronary artery with unspecified angina pectoris; Z85.51 Personal history of malignant neoplasm of bladder; Z95.5 Presence of coronary angioplasty implant and graft; Z79.82 Long term (current) use of aspirin
CPT/HCPCS: 36415; 71046-TC-FY; 71260-TC; 80048; 80053; 82550; 83735; 83880; 84484; 85025; 85027; 93005; 93010; 93306-TC; 96372; 99284-25; G0378; J1644

== ENCOUNTER 2018-10-25 03:26 | Observation (INO) | payer OTHER ==
[2018-10-25 04:05] VITALS: BMI 27.6
--- NOTE | 2018-10-25 05:04 | PDOC ---
History of Present Illness - General Chief Complaint: Chest Pain Stated Complaint: PAIN CHEST AREA - History of Present Illness Initial Comments: The pt is an 83M w/ a history of HTN, CAD s/p stent x3 who presents for evaluation of several hours of intermittent, 'pinching', non-radiating left sided chest pain that is non-exertional. He has not tried taking anything for his pain. He reports the last time he felt pain like this was prior to his stent placement. He was seen by his [employer] Deburrer on Sunday who scheduled a stress test for October. The pt expresses concern over going to sleep 2/2 to the pain and would like a stress test done. Pt denies fevers/chills, dizziness, recent illness, [place], vision changes, SOB, abdominal pain, N/V/C/D, dysuria, hematuria, or changes in sensation 10/25/18 04:54 Past History - Past Medical History Allergies/Adverse Reactions: Allergies Allergy/AdvReac Type Severity Reaction Status Date / Time No Known Allergies Allergy Verified 10/21/18 16:52 Home Medications: Ambulatory Orders Amlodipine Besylate 5 mg PO DAILY 08/04/17 Atorvastatin Ca [Lipitor] 80 mg PO HS 08/04/17 Metoprolol Tartrate 25 mg PO BID 08/04/17 Tamsulosin HCl [Flomax] 0.4 mg PO HS 08/04/17 Aspirin [ASA -] 81 mg PO DAILY #30 tab.chew 02/27/18 Clopidogrel Bisulfate [Plavix] 75 mg PO DAILY 03/04/18 Pantoprazole Sodium [Protonix] 40 mg PO DAILY 03/04/18 Irbesartan 300 mg PO DAILY 06/12/18 Metoprolol Tartrate [Lopressor -] 25 mg PO BID tablet 10/23/18 Cancer: Yes (bladder) Cardiac Disorders: Yes (2 stents) COPD: No CHF: Yes HTN: Yes Hypercholesterolemia: Yes - Surgical History Cardiac Surgery: Yes (stents) - Immunization History Immunization Up to Date: Yes - Suicide/Smoking/Psychosocial Hx Smoking Status: No Smoking History: Never smoked Have you smoked in the past 12 months: No Number of Cigarettes Smoked Daily: 0 If you are a former smoker, when did you quit?: 40 yrs ago Information on smoking cessation initiated: No Hx Alcohol Use: No Drug/Substance Use Hx: No Substance Use Type: None Hx Substance Use Treatment: No Review of Systems - Review of Systems Able to Perform ROS?: Yes Comments:: GENERAL/CONSTITUTIONAL: No fever or chills. No weakness HEAD, EYES, EARS, NOSE AND THROAT: No change in vision. No ear pain or discharge. No sore throat CARDIOVASCULAR: No shortness of breath RESPIRATORY: Denies cough, hemoptysis GASTROINTESTINAL: No nausea, vomiting, diarrhea or constipation GENITOURINARY: No dysuria, frequency, or change in urination MUSCULOSKELETAL: No joint or muscle swelling or pain. No neck or back pain SKIN: No rash NEUROLOGIC: No headache, vertigo, loss of consciousness, or change in strength/ sensation ENDOCRINE: No increased thirst. No abnormal weight change ALLERGIC/IMMUNOLOGIC: No hives or skin allergy 10/25/18 05:04 Is the patient limited Irish proficient: No *Physical Exam - Vital Signs Last Vital Signs Temp Pulse Resp BP Pulse Ox 98.4 F 58 L 20 165/65 100 10/25/18 03:34 10/25/18 04:42 10/25/18 03:34 10/25/18 03:34 10/25/18 04:42 - Physical Exam Comments: GENERAL: Awake, alert, and oriented to person/place/time, in no acute distress HEAD: No signs of trauma, normocephalic, atraumatic EYES: PERRLA, EOMI, sclera anicteric, conjunctiva clear ENT: Hearing grossly normal, nares patent, oropharynx clear without exudates. Moist mucosa LUNGS: No distress, speaks full sentences, clear to auscultation bilaterally HEART: Regular rate and rhythm, normal S1 and S2, no murmurs appreciated, peripheral pulses normal and equal bilaterally ABDOMEN: Soft, nontender, normoactive bowel sounds. No guarding, no rebound. No masses EXTREMITIES: Normal inspection, Normal range of motion, no edema. No clubbing or cyanosis NEUROLOGICAL: Cranial nerves II through XII grossly intact. Normal speech, normal gait, no focal sensorimotor deficits SKIN: Warm, Dry 10/25/18 05:05 ED Treatment Course - LABORATORY CBC & Chemistry Diagram: 10/25/18 04:46 10/25/18 04:46 - RADIOLOGY Radiology Studies Ordered: Category Date Time Status CHEST X-RAY PORTABLE* [RAD] Stat Radiology 10/25/18 04:20 Ordered Medical Decision Making - Medical Decision Making ED Course Labs sent ECG CXR ECG w/ NSR; HR 60; QTc 456; no evidence of acute ischemia 10/25/18 05:06 No leukocytosis No anemia 10/25/18 06:[address] Vallejo who is president ergonomic consulting for Dr. Pruett, awaiting call back Trop Jose Desai wn 10/25/18 06:26 *DC/Admit/Observation/Transfer Diagnosis at time of Disposition: Chest pain Qualifiers: Chest pain type: unspecified Qualified Code(s): R07.9 - Chest pain, unspecified - Referrals - Patient Instructions - Post Discharge Activity
--- NOTE | 2018-10-25 05:19 | PDOC ---
Attending Attestation - Resident Resident Name: Gerber Gregg - ED Attending Attestation I have performed the following: I have examined & evaluated the patient, The case was reviewed & discussed with the resident, I agree w/resident's findings & plan, Exceptions are as noted - HPI HPI: 10/25/18 06:20 83M pmh HTN, CAD s/p stenting c/o of several hours of pinching left sided chest pain at rest, non-radiating. Closely followed by his research laboratory specialist, last seen 4 days ago, has an out patient stress test schedule for next month - Physicial Exam PE: 10/25/18 06:22 NAD, AOx3 NCAT, PERRL RRR LCTAB Abd soft, nt, nd, no guarding TREMAINE, NFD - Medical Decision Making 10/25/18 06:22 Well appearing patient with high risk cardiac hx with atypical chest px EKG unremarkable CXR no acute path trop neg Paged patient's research laboratory specialist to discuss dispo
[2018-10-25 05:52] LABS: BASO % 0.6 % (0-2.0); EOS % 2.4 % (0-4.5); HEMATOCRIT 37.9 % (35.4-49); HEMOGLOBIN 12.7 GM/dL (11.7-16.9); LYMPH % 32.7 % (8-40); MCHC 33.5 g/dl (32.0-35.9); MEAN CELL VOLUME 86.4 fl (80-96); MEAN PLT VOLUME 10.3 fl (7.5-11.1); MONO % 7.7 % (3.8-10.2); NEUT % 56.6 % (42.8-82.8); PLATELET COUNT 108 K/MM3 (134-434); RBC 4.39 M/mm3 (4.00-5.60); RDW 15.8 % (11.9-15.9); WHITE BLOOD COUNT 6.5 K/mm3 (4.0-10.0)
[2018-10-25 06:18] LABS: ALBUMIN 3.3 g/dl (3.4-5.0); ALK PHOS 71 U/L (45-117); ANION GAP 7 MMOL/L (8-16); BILIRUBIN,TOTAL 0.4 mg/dL (0.2-1); BLOOD UREA NITROGEN 19 mg/dL (7-18); CALCIUM 7.9 mg/dL (8.5-10.1); CHLORIDE 104 mmol/L (98-107); CO2 29 mmol/L (21-32); CREATININE 0.9 mg/dL (0.55-1.3); GLUCOSE,RANDOM 95 mg/dL (74-106); POTASSIUM 3.8 mmol/L (3.5-5.1); SGOT/AST 16 U/L (15-37); SGPT/ALT 16 U/L (13-61); SODIUM 140 mmol/L (136-145); TOT PROT 6.8 g/dl (6.4-8.2)
--- NOTE | 2018-10-25 07:23 | PDOC ---
*Physical Exam - Vital Signs Last Vital Signs Temp Pulse Resp BP Pulse Ox 98.4 F 52 L 18 147/55 L 98 10/25/18 03:34 10/25/18 06:49 10/25/18 06:49 10/25/18 06:49 10/25/18 06:49 ED Treatment Course - LABORATORY CBC & Chemistry Diagram: 10/25/18 04:46 10/25/18 04:46 - ADDITIONAL ORDERS Additional order review: Laboratory Results 10/25/18 04:46 Sodium 140 Potassium 3.8 Chloride 104 Carbon Dioxide 29 Anion Gap 7 L BUN 19 H Creatinine 0.9 Creat Clearance w eGFR 80.20 Random Glucose 95 Calcium 7.9 L Total Bilirubin 0.4 AST 16 ALT 16 Alkaline Phosphatase 71 Troponin I < 0.02 Total Protein 6.8 Albumin 3.3 L 10/25/18 04:46 RBC 4.39 MCV 86.4 MCHC 33.5 RDW 15.8 MPV 10.3 Neutrophils % 56.6 Lymphocytes % 32.7 Monocytes % 7.7 Eosinophils % 2.4 Basophils % 0.6 Medical Decision Making - Medical Decision Making - Patient signed out to me to be admitted for chest pain. - He states the last time he felt this pain he required a stent Deven is a pleasant greek speaking 83 yo M w a pmh of CAD, s/p 2 stents (PDA , LAD 01/2018), HTN, hyperlipidemia, blader Ca s/p removal 2017 who presents to the ED via private auto with chest pain. PCP: Dr. Dayton Burdick Binding End Stitcher: Dr. Pruett PSH: Bladder Ca s/p removal, 2 cardiac stents Allergies: NKA, NKDA Social Hx: Former smoker - quit 40 years ago, denies alcohol or other substance usage. Cards saw patient and said to admit for MIBI. *DC/Admit/Observation/Transfer Diagnosis at time of Disposition: Chest pain Qualifiers: Chest pain type: unspecified Qualified Code(s): R07.9 - Chest pain, unspecified - Discharge Dispostion Condition at time of disposition: Stable Decision to Admit order: Yes - Referrals - Patient Instructions - Post Discharge Activity
--- NOTE | 2018-10-25 11:20 | EKG ---
Test Reason : Blood Pressure : / mmHG Vent. Rate : 060 BPM Atrial Rate : 060 BPM P-R Int : 204 ms QRS Dur : 084 ms QT Int : 456 ms P-R-T Axes : 000 -26 002 degrees QTc Int : 456 ms NORMAL SINUS RHYTHM WITH 1ST DEGREE A-V BLOCK NONSPECIFIC ST ABNORMALITY Confirmed by MATILDA SOARES MD ([id number]) on 10/25/2018 11:19:32 AM Referred By: Confirmed By:MATILDA SOARES MD
--- NOTE | 2018-10-25 12:15 | CON.CARD ---
Consult Consult Specialty:: Cardiology Reason for Consultation:: CP - History of Present Illness History of Present Illness: The pt is an 83M w/ a history of HTN, CAD s/p stent x3 who presents for evaluation of several hours of intermittent, 'pinching', non-radiating left sided chest pain that is non-exertional. He has not tried taking anything for his pain. He reports the last time he felt pain like this was prior to his stent placement. He was seen by his Electrical Controls Assembler on Sunday who scheduled a stress test for PMH s/p PCI LAD 03/01/18 Chest pain - ER [facility] and discharged 10-22-18 HTN Hyperlipidemia Angina - History Source History Provided By: Patient, Medical Record - Past Medical History Cardio/Vascular: Yes: CAD, CHF (diastolic; moderate LVH), HTN, Hyperlipdemia, ME Psych: Yes: Anxiety, Panic - Past Surgical History Past Surgical History: Yes: Stent (coronary: 1st more than 20 yrs ago; latest last week (RPDA)) - Alcohol/Substance Use Hx Alcohol Use: No - Smoking History Smoking history: Never smoked Have you smoked in the past 12 months: No Aproximately how many cigarettes per day: 0 If you are a former smoker, when did you quit?: 40 yrs ago - Social History Usual Living Arrangement: With Spouse Home Medications - Allergies Allergies/Adverse Reactions: Allergies Allergy/AdvReac Type Severity Reaction Status Date / Time No Known Allergies Allergy Verified 10/21/18 16:52 - Home Medications Home Medications: Ambulatory Orders Amlodipine Besylate 5 mg PO DAILY 08/04/17 Atorvastatin Ca [Lipitor] 80 mg PO HS 08/04/17 Metoprolol Tartrate 25 mg PO BID 08/04/17 Tamsulosin HCl [Flomax] 0.4 mg PO HS 08/04/17 Aspirin [ASA -] 81 mg PO DAILY #30 tab.chew 02/27/18 Clopidogrel Bisulfate [Plavix] 75 mg PO DAILY 03/04/18 Pantoprazole Sodium [Protonix] 40 mg PO DAILY 03/04/18 Irbesartan 300 mg PO DAILY 06/12/18 Metoprolol Tartrate [Lopressor -] 25 mg PO BID tablet 10/23/18 Review of Systems - Review of Systems Constitutional: reports: No Symptoms Eyes: reports: No Symptoms HENT: reports: No Symptoms Neck: reports: No Symptoms Cardiovascular: reports: Chest Pain Gastrointestinal: reports: No Symptoms Genitourinary: reports: No Symptoms Breasts: reports: No Symptoms Reported Musculoskeletal: reports: No Symptoms Integumentary: reports: No Symptoms Neurological: reports: No Symptoms Endocrine: reports: No Symptoms Hematology/Lymphatic: reports: No Symptoms Psychiatric: reports: No Symptoms Vital Signs: Vital Signs Temperature 98.4 F 10/25/18 03:34 Pulse Rate 52 L 10/25/18 06:49 Respiratory Rate 18 10/25/18 06:49 Blood Pressure 147/55 L 10/25/18 06:49 O2 Sat by Pulse Oximetry (%) 98 10/25/18 06:49 Constitutional: Yes: Well Nourished, No Distress, Calm Eyes: Yes: WNL, Conjunctiva Clear, EOM Intact HENT: Yes: WNL, Atraumatic, Normocephalic Neck: Yes: WNL, Supple, Trachea Midline Respiratory: Yes: WNL, Regular, CTA Bilaterally Gastrointestinal: Yes: WNL, Normal Bowel Sounds Renal/: Yes: WNL Cardiovascular: Yes: WNL, Regular Rate and Rhythm Musculoskeletal: Yes: WNL Extremities: Yes: WNL Integumentary: Yes: WNL Neurological: Yes: WNL, Alert, Oriented ...Motor Strength: WNL Psychiatric: Yes: WNL, Alert, Oriented - Other Data Labs, Other Data: CBC, BMP 10/25/18 04:46 10/25/18 04:46 Troponin, BNP 10/25/18 04:46 Troponin I < 0.02 Troponin, BNP 10/25/18 04:46 Troponin I < 0.02 Imaging - Results Chest X-ray: Image Reviewed (no i/e) EKG: Image Reviewed (sr 1 st degree avb) Problem List - Problems (1) Chest pain Code(s): R07.9 - CHEST PAIN, UNSPECIFIED Qualifiers: Chest pain type: unspecified Qualified Code(s): R07.9 - Chest pain, unspecified (2) Atypical chest pain Code(s): R07.89 - OTHER CHEST PAIN (3) Hypokalemia Code(s): E87.6 - HYPOKALEMIA (4) Hypomagnesemia Code(s): E83.42 - HYPOMAGNESEMIA (5) Shortness of breath Code(s): R06.02 - SHORTNESS OF BREATH (6) UTI (urinary tract infection) Code(s): N39.0 - URINARY TRACT INFECTION, SITE NOT SPECIFIED (7) BPH (benign prostatic hyperplasia) Code(s): N40.0 - BENIGN PROSTATIC HYPERPLASIA WITHOUT LOWER URINRY TRACT SYMP (8) BPH (benign prostatic hyperplasia) Code(s): N40.0 - BENIGN PROSTATIC HYPERPLASIA WITHOUT LOWER URINRY TRACT SYMP (9) Bradycardia Code(s): R00.1 - BRADYCARDIA, UNSPECIFIED (10) Diastolic CHF Code(s): I50.30 - UNSPECIFIED DIASTOLIC (CONGESTIVE) HEART FAILURE (11) Hyperlipidemia Code(s): E78.5 - HYPERLIPIDEMIA, UNSPECIFIED (12) Stented coronary artery Code(s): Z95.5 - PRESENCE OF CORONARY ANGIOPLASTY IMPLANT AND GRAFT (13) Atypical chest pain Code(s): R07.89 - OTHER CHEST PAIN (14) Chest pain Code(s): R07.9 - CHEST PAIN, UNSPECIFIED (15) Cough Code(s): R05 - COUGH (16) Elevated troponin Code(s): R74.8 - ABNORMAL LEVELS OF OTHER SERUM ENZYMES Assessment/Plan 83M w/ a history of HTN, CAD s/p stent x3 who presents for evaluation of several hours of intermittent, 'pinching', non-radiating left sided chest pain that is non-exertional. He has not tried taking anything for his pain. He reports the last time he felt pain like this was prior to his stent placement. He was seen by his Electrical Controls Assembler on Sunday who scheduled a stress test for October. s/p PCI LAD 03/01/18 Chest pain - ER [facility] and discharged 10-22-18 HTN Hyperlipidemia Angina Plan MIBI st
[2018-10-25] MEDS ORDERED: REGADENOSON 0.4 MG/5 ML PRE-FILLED SYRINGE IVPUSH ONE ×2 (14:48→15:00)
[2018-10-25] MEDS ORDERED: AMINOPHYLLINE 250 MG/10 ML VIAL IVPB ONE (15:00)
[2018-10-25] MEDS ORDERED: AMINOPHYLLINE 250 MG/10 ML VIAL ONE (15:04)
--- NOTE | 2018-10-25 16:17 | HP ---
CHIEF COMPLAINT:CP PCP:[place] HISTORY OF PRESENT ILLNESS: 83M with a PMH of CAD s/p 2 stents (PDA 06/12/18, LAD 01/2018) c/o CP. pinching like pain on the left side while watching TV. not radiating. not related to activity. no other assoc symptoms. states he continues to have the pain while he walked to the hospital. (lives across [address]). pt states the pain resolved after sleeping for some time in the ER. denies fever, chills, N/V/C/D ER course was notable for: (1) (2) (3) Recent Travel: PAST MEDICAL HISTORY:CAD, HTN, bladder ca, BPH PAST SURGICAL HISTORY:bladder resection Social History: Smoking:quit 40 years ago Alcohol:denies Drugs: denies Family History: Allergies No Known Allergies Allergy (Verified 10/21/18 16:52) HOME MEDICATIONS: Home Medications Medication Instructions Recorded Amlodipine Besylate 5 mg PO DAILY 08/04/17 Atorvastatin Ca [Lipitor] 80 mg PO HS 08/04/17 Metoprolol Tartrate 25 mg PO BID 08/04/17 Tamsulosin HCl [Flomax] 0.4 mg PO HS 08/04/17 Aspirin [ASA -] 81 mg PO DAILY #30 tab.chew 02/27/18 Clopidogrel Bisulfate [Plavix] 75 mg PO DAILY 03/04/18 Pantoprazole Sodium [Protonix] 40 mg PO DAILY 03/04/18 Irbesartan 300 mg PO DAILY 06/12/18 Metoprolol Tartrate [Lopressor -] 25 mg PO BID tablet 10/23/18 REVIEW OF SYSTEMS CONSTITUTIONAL: Absent: fever, chills, diaphoresis, generalized weakness, malaise, loss of appetite, weight change HEENT: Absent: rhinorrhea, nasal congestion, throat pain, throat swelling, difficulty swallowing, mouth swelling, ear pain, eye pain, visual changes CARDIOVASCULAR: chest pain, Absent: syncope, palpitations, irregular heart rate, lightheadedness, peripheral edema RESPIRATORY: Absent: cough, shortness of breath, dyspnea with exertion, orthopnea, wheezing, stridor, hemoptysis GASTROINTESTINAL: Absent: abdominal pain, abdominal distension, nausea, vomiting, diarrhea, constipation, melena, hematochezia GENITOURINARY: Absent: dysuria, frequency, urgency, hesitancy, hematuria, flank pain, genital pain MUSCULOSKELETAL: Absent: myalgia, arthralgia, joint swelling, back pain, neck pain SKIN: Absent: rash, itching, pallor HEMATOLOGIC/IMMUNOLOGIC: Absent: easy bleeding, easy bruising, lymphadenopathy, frequent infections ENDOCRINE: Absent: unexplained weight gain, unexplained weight loss, heat intolerance, cold intolerance NEUROLOGIC: Absent: headache, focal weakness or paresthesias, dizziness, unsteady gait, seizure, mental status changes, bladder or bowel incontinence PSYCHIATRIC: Absent: anxiety, depression, suicidal or homicidal ideation, hallucinations. PHYSICAL EXAMINATION Vital Signs - 24 hr 10/25/18 10/25/18 10/25/18 03:34 04:42 06:49 Temperature 98.4 F Pulse Rate 51 L 58 L Pulse Rate [ 52 L Right Radial] Respiratory 20 18 Rate Blood Pressure 165/65 Blood Pressure 147/55 L [Left Arm] O2 Sat by Pulse 99 100 98 Oximetry (%) GENERAL: Awake, alert, and fully oriented, in no acute distress. HEAD: Normal with no signs of trauma. EYES: Pupils equal, round and reactive to light, extraocular movements intact, sclera anicteric, conjunctiva clear. No lid lag. EARS, NOSE, THROAT: Ears normal, nares patent, oropharynx clear without exudates. Moist mucous membranes. NECK: Normal range of motion, supple without lymphadenopathy, JVD, or masses. LUNGS: Breath sounds equal, clear to auscultation bilaterally. No wheezes, and no crackles. No accessory muscle use. HEART: Regular rate and rhythm, normal S1 and S2 without murmur, rub or gallop. ABDOMEN: Soft, nontender, not distended, normoactive bowel sounds, no guarding, no rebound, no masses. No hepatomegaly or splenomegaly. MUSCULOSKELETAL: Normal range of motion at all joints. No bony deformities or tenderness. No CVA tenderness. UPPER EXTREMITIES: 2+ pulses, warm, well-perfused. No cyanosis. No clubbing. No peripheral edema. LOWER EXTREMITIES: 2+ pulses, warm, well-perfused. No calf tenderness. No peripheral edema. NEUROLOGICAL: Cranial nerves II-XII intact. Normal speech. Normal gait. PSYCHIATRIC: Cooperative. Good eye contact. Appropriate mood and affect. SKIN: Warm, dry, normal turgor, no rashes or lesions noted, normal capillary refill. Laboratory Results - last 24 hr 10/25/18 10/25/18 10/25/18 04:46 04:46 12:58 WBC 6.5 RBC 4.39 Hgb 12.7 Hct 37.9 MCV 86.4 MCH 29.0 MCHC 33.5 RDW 15.8 Plt Count 108 L MPV 10.3 Absolute Neuts (auto) 3.7 Neutrophils % 56.6 Lymphocytes % 32.7 Monocytes % 7.7 Eosinophils % 2.4 Basophils % 0.6 Nucleated RBC % 0 Sodium 140 Potassium 3.8 Chloride 104 Carbon Dioxide 29 Anion Gap 7 L BUN 19 H Creatinine 0.9 Creat Clearance w eGFR 80.20 Random Glucose 95 Calcium 7.9 L Total Bilirubin 0.4 AST 16 ALT 16 Alkaline Phosphatase 71 Troponin I < 0.02 < 0.02 Total Protein 6.8 Albumin 3.3 L ASSESSMENT/PLAN: 83M with a PMH of CAD s/p 2 stents (PDA 06/12/18, LAD 01/2018), HTN, Bladder cancer, BPH, c/o CP 1. ACS- atypical story. has signifcant risk factors. trend cardiac enzymes Q6H, EKG. consult cardio. cont asa/plavix/betablocker/statin 2. HTN- above goal.re-start home medications 3.DVT ppx- EAM Visit type - Emergency Visit Emergency Visit: Yes ED Registration Date: 10/25/18 Care time: The patient presented to the Emergency Department on the above date and was hospitalized for further evaluation of their emergent condition. - New Patient This patient is new to me today: Yes Date on this admission: 10/25/18 - Critical Care Critical Care patient: No
[2018-10-25] MEDS ORDERED: ISOSORBIDE MONONITRATE 30 MG TAB.SR.24H (FP) PO SCH (16:30)
[2018-10-25 17:08] VITALS: BP 133/63; PULSE 68; TEMP 97.5
[2018-10-25] MEDS ORDERED: ISOSORBIDE MONONITRATE 60 MG TAB.SR.24H (FP) PO ONE (17:19)
--- NOTE | 2018-10-25 17:22 | DS ---
Physical Exam: SUBJECTIVE: Patient seen and examined. no longer has chest pain. denies CP, SOB , fever, chills, N/V/C/D OBJECTIVE: Vital Signs Period Temp Pulse Resp BP Sys/[place] Pulse Ox Last 24 Hr 97.5 F-98.4 F 51-68 18-20 133-165/55-65 97-100 PHYSICAL EXAM GENERAL: The patient is awake, alert, and fully oriented, in no acute distress. HEAD: Normal with no signs of trauma. EYES: PERRL, extraocular movements intact, sclera anicteric, conjunctiva clear. ENT: Ears normal, nares patent, oropharynx clear without exudates, moist mucous membranes. NECK: Trachea midline, full range of motion, supple. LUNGS: Breath sounds equal, clear to auscultation bilaterally, no wheezes, no crackles, no accessory muscle use. HEART: Regular rate and rhythm, S1, S2 without murmur, rub or gallop. ABDOMEN: Soft, nontender, nondistended, normoactive bowel sounds, no guarding, no rebound, no hepatosplenomegaly, no masses. EXTREMITIES: 2+ pulses, warm, well-perfused, no edema. NEUROLOGICAL: Cranial nerves II through XII grossly intact. Normal speech, gait not observed. PSYCH: Normal mood, normal affect. SKIN: Warm, dry, normal turgor, no rashes or lesions noted. LABS Laboratory Results - last 24 hr 10/25/18 10/25/18 10/25/18 04:46 04:46 12:58 WBC 6.5 RBC 4.39 Hgb 12.7 Hct 37.9 MCV 86.4 MCH 29.0 MCHC 33.5 RDW 15.8 Plt Count 108 L MPV 10.3 Absolute Neuts (auto) 3.7 Neutrophils % 56.6 Lymphocytes % 32.7 Monocytes % 7.7 Eosinophils % 2.4 Basophils % 0.6 Nucleated RBC % 0 Sodium 140 Potassium 3.8 Chloride 104 Carbon Dioxide 29 Anion Gap 7 L BUN 19 H Creatinine 0.9 Creat Clearance w eGFR 80.20 Random Glucose 95 Calcium 7.9 L Total Bilirubin 0.4 AST 16 ALT 16 Alkaline Phosphatase 71 Troponin I < 0.02 < 0.02 Total Protein 6.8 Albumin 3.3 L HOSPITAL COURSE: Date of Admission:10/25/18 Date of Discharge: 10/25/18 Admitting diagnosis: ATypical CP Pre hospital course 83M with a PMH of CAD s/p 2 stents (PDA 06/12/18, LAD 01/2018) c/o CP. pinching like pain on the left side while watching TV. not radiating. not related to activity. no other assoc symptoms. states he continues to have the pain while he walked to the hospital. (lives [place] the [address]). pt states the pain resolved after sleeping for some time in the ER. denies fever, chills, N/V/C/D Subsequent hospital course tele obs. cardiac enzymes neg x2. stress test done and was negative. seen by cardio. Spoke iwth Dr Escalante about starting anti-anginal agents due to residual blockage. imdur 30mg to be started. advised to stop norvasc to allow hemodynamics. has appt next week with marble machine operator and PMD. spoke with in detail about changes. all questions answered. Minutes to complete discharge: 40 Discharge Summary Reason For Visit: CHEST PAIN Current Active Problems Chest pain (Acute) Condition: Stable - Instructions Diet, Activity, Other Instructions: You came to the hospital because of chest pain. Stress test was done which was negative. You are being started on a new medication to optimize your heart. Take imdur once a day. Stop taking norvasc at this time. Resume your other medications. Check your blood pressure in the mornings prior to taking your medications. if your systolic blood pressure (top number) <100. Also check your blood pressure when you are having any symptoms, If you have numbers that are not consistent with you normal numbers call your marble machine operator. Follow up with your primary care doctor and marble machine operator in 1 week Return to the hospital if your chest pain worsens or develop shortness of breath. Referrals: Dalton Pruett MD [Staff Physician] - Disposition: HOME - Home Medications Comprehensive Discharge Medication List: Ambulatory Orders Atorvastatin Ca [Lipitor] 80 mg PO HS 08/04/17 Tamsulosin HCl [Flomax] 0.4 mg PO HS 08/04/17 Aspirin [ASA -] 81 mg PO DAILY #30 tab.chew 02/27/18 Clopidogrel Bisulfate [Plavix] 75 mg PO DAILY 03/04/18 Pantoprazole Sodium [Protonix] 40 mg PO DAILY 03/04/18 Irbesartan 300 mg PO DAILY 06/12/18 Metoprolol Tartrate [Lopressor -] 25 mg PO BID tablet 10/23/18 Isosorbide Mononitrate [Imdur -] 30 mg PO DAILY #30 tab.sr.24h 10/25/18 This patient is new to me today: Yes Date on this admission: 10/25/18 Emergency Visit: Yes ED Registration Date: 10/25/18 Care time: The patient presented to the Emergency Department on the above date and was hospitalized for further evaluation of their emergent condition. Critical Care patient: No - Discharge Referral Referred to [facility].C[facility] No
[2018-10-26] MEDS ORDERED: ENOXAPARIN NA (PORCINE) 40 MG/0.4 ML DISP.SYRIN SQ SCH (10:00)
== END 2018-10-25 17:19 | disposition home or self-care (01) ==
LOC: JER 03:26 → JERBED 07:23
PROVIDERS: ADMIT Internal Medicine; ATTEND Internal Medicine
PROC: 3E033GC Introduction of Other Therapeutic Substance into Peripheral Vein, Percutaneous Approach (ICD-10-PCS; principal; 2018-10-25)
DX: R07.89 Other chest pain (principal); E87.6 Hypokalemia; I11.0 Hypertensive heart disease with heart failure; I25.10 Atherosclerotic heart disease of native coronary artery without angina pectoris; E83.42 Hypomagnesemia; R06.02 Shortness of breath; N40.0 Benign prostatic hyperplasia without lower urinary tract symptoms; R00.1 Bradycardia, unspecified; I50.30 Unspecified diastolic (congestive) heart failure; E78.5 Hyperlipidemia, unspecified; Z95.5 Presence of coronary angioplasty implant and graft; R77.8 Other specified abnormalities of plasma proteins; R05 Cough; Z85.51 Personal history of malignant neoplasm of bladder
CPT/HCPCS: 36415; 71045-TC-FY; 78452-TC; 80053; 84484; 85025; 93005; 93010; 93017; 96374; 99284-25; A9502; G0378; J2785

== ENCOUNTER 2018-11-26 02:05 | Observation (INO) | payer OTHER ==
[2018-11-26 02:36] VITALS: BMI 26.0
[2018-11-26] MEDS ORDERED: ASPIRIN 81 MG CHEWABLE TABLETS PO ONE (02:36)
[2018-11-26] MEDS ORDERED: hydrALAZINE HCL 20 MG/ML VIAL IVPUSH ONE (02:38)
--- NOTE | 2018-11-26 02:38 | PDOC ---
*Physical Exam - Vital Signs Last Vital Signs Temp Pulse Resp BP Pulse Ox 98.7 F 70 20 208/88 H 99 11/26/18 02:28 11/26/18 02:28 11/26/18 02:28 11/26/18 02:28 11/26/18 02:28 ED Treatment Course - LABORATORY CBC & Chemistry Diagram: 11/26/18 02:55 11/26/18 02:55 Medical Decision Making - Medical Decision Making 11/26/18 02:37 Patient seen by the advanced practice provider under my direct supervision. Ancillary testing reviewed as necessary. I agree with plan as outlined by the advanced practice provider. *DC/Admit/Observation/Transfer Diagnosis at time of Disposition: Shortness of breath - Discharge Dispostion Condition at time of disposition: Fair - Referrals Referrals: Jhonny Burris MD [Primary Care Provider] - - Patient Instructions - Post Discharge Activity
--- NOTE | 2018-11-26 02:49 | PDOC ---
History of Present Illness - General Chief Complaint: Blood Pressure Problem Stated Complaint: BP CHECK Time Seen by Provider: 11/26/18 02:36 - History of Present Illness Initial Comments: 11/26/18 02:49 CHIEF COMPLAINT: elevated BP, SOB HISTORY OF PRESENT ILLNESS: 83 yo M with a PMH of HTN and CAD s/p 3 stents, closely followed by cards MD [place] and Flynn, presents to ED with SOB and concern for elevated BP since this evening. Patient reports he was using his home BP cuff and his BP was 200/100s and he thought his machine was broken, but upon arrival to the ED his BP was still elevated. Patient states he recently had his dose of Metoprolol lowered from 50 to 25 mg "3-4 months ago, but then last month I was here and they stopped the metoprolol completely, so I think it's because of that my blood pressure has been high." He denies any current chest pain, dizziness, neck pain, or headache. No recent travel or sick contacts. PAST MEDICAL HISTORY: as per HPI FAMILY HISTORY: Denies SOCIAL HISTORY: Denies tobacco, alcohol, illicit drug use. SURGICAL HISTORY: Denies ALLERGIES: No known drug allergies REVIEW OF SYSTEMS General/Constitutional: Denies fever or chills. Denies weakness, weight change. HEENT: Denies change in vision. Denies ear pain or discharge. Denies sore throat. Cardiovascular: Mild SOB since this evening. Denies chest pain. Respiratory: Denies cough, wheezing, or hemoptysis. Gastrointestinal: Denies nausea, vomiting, diarrhea or constipation. Denies rectal bleeding. Genitourinary: Denies dysuria, frequency, or change in urination. Musculoskeletal: Denies joint or muscle swelling or pain. Denies neck or back pain. Skin and breasts: Denies rash or easy bruising. Neurologic: Denies headache, vertigo, loss of consciousness, or loss of sensation. PHYSICAL EXAM General Appearance: Well-appearing, appropriately dressed. No apparent distress. HEENT: EOMI, PERRLA, normal ENT inspection, normal voice, TMs normal, pharynx normal. No conjunctival pallor. No photophobia, scleral icterus. Respiratory/Chest: Lungs CTAB. No shortness of breath, chest tenderness, respiratory distress, accessory muscle use. No crackles, rales, rhonchi, stridor , wheezing, dullness Cardiovascular: RRR. S1, S2. No JVD, murmur, bradycardia, tachycardia. Vascular Pulses: Dorsalis-Pedis (R): 2+, Dorsalis-Pedis (L): 2+ Gastrointestinal/Abdominal: Normal bowel sounds. Abdomen soft, non-distended. No tenderness or rebound tenderness. No organomegaly, pulsatile mass, guarding , hernia, hepatomegaly, splenomegaly. Lymphatic: No adenopathy, tenderness. Musculoskeletal/Extremities: Normal inspection. FROM of all extremities, normal capillary refill. Pelvis Stable. No CVA tenderness. No tenderness to extremities, pedal edema, swelling, erythema or deformity. Integumentary: Appropriate color, dry, warm. No cyanosis, erythema, jaundice or rash Neurologic: [place] II-XII intact. Fully oriented, alert. Appropriate mood/affect. Motor strength 5/5. No appreciable EOM palsy, facial droop or sensory deficit. Past History - Past Medical History Allergies/Adverse Reactions: Allergies Allergy/AdvReac Type Severity Reaction Status Date / Time No Known Allergies Allergy Verified 10/21/18 16:52 Home Medications: Ambulatory Orders Atorvastatin Ca [Lipitor] 80 mg PO HS 08/04/17 Tamsulosin HCl [Flomax] 0.4 mg PO HS 08/04/17 Aspirin [ASA -] 81 mg PO DAILY #30 tab.chew 02/27/18 Clopidogrel Bisulfate [Plavix] 75 mg PO DAILY 03/04/18 Pantoprazole Sodium [Protonix] 40 mg PO DAILY 03/04/18 Irbesartan 300 mg PO DAILY 06/12/18 Metoprolol Tartrate [Lopressor -] 25 mg PO BID tablet 10/23/18 Isosorbide Mononitrate [Imdur -] 30 mg PO DAILY #30 tab.sr.24h 10/25/18 Cancer: Yes (bladder) Cardiac Disorders: Yes (2 stents) COPD: No CHF: Yes HTN: Yes Hypercholesterolemia: Yes - Surgical History Cardiac Surgery: Yes (stents) - Immunization History Immunization Up to Date: Yes - Suicide/Smoking/Psychosocial Hx Smoking Status: No Smoking History: Former smoker Have you smoked in the past 12 months: No Number of Cigarettes Smoked Daily: 0 If you are a former smoker, when did you quit?: 1958 Information on smoking cessation initiated: No Hx Alcohol Use: No Drug/Substance Use Hx: No Substance Use Type: None Hx Substance Use Treatment: No *Physical Exam - Vital Signs Last Vital Signs Temp Pulse Resp BP Pulse Ox 98.7 F 70 20 208/88 H 99 11/26/18 02:28 11/26/18 02:28 11/26/18 02:28 11/26/18 02:28 11/26/18 02:28 Heart Score/ECG Review - History History: Moderately suspicious - Electrocardiogram EKG: Normal - Age Age: >/= 65 - Risk Factors Risk Factors Heart Score: Yes Hx Hypertension Based on the list above the patient has:: 1-2 risk factors - Troponin Troponin: </= normal limit - Score Heart Score - Total: 4 ED Treatment Course - LABORATORY CBC & Chemistry Diagram: 11/26/18 02:55 11/26/18 02:55 - RADIOLOGY Radiology Studies Ordered: Category Date Time Status CHEST PA & LAT [RAD] Stat Radiology 11/26/18 02:36 Ordered Medical Decision Making - Medical Decision Making 11/26/18 02:53 83M with a PMH of HTN and CAD s/p 3 stents, closely followed by cards MD [place] and Flynn, presents to ED with SOB and concern for elevated BP since this evening. DDx - AMANDA, hypertensive urgency, medication refill -labs, cxr, ekg -hydralazine ekg normal trop negative 11/26/18 04:44 Reassessed. BP now 159/82. Will repeat trop, admit for AMANDA. *DC/Admit/Observation/Transfer Diagnosis at time of Disposition: Shortness of breath - Discharge Dispostion Condition at time of disposition: Fair Decision to Admit order: Yes - Referrals Referrals: Jhonny Burris MD [Primary Care Provider] - - Patient Instructions - Post Discharge Activity
[2018-11-26] MEDS ORDERED: ASPIRIN 81 MG CHEWABLE TABLETS ONE (03:05)
[2018-11-26] MEDS ORDERED: hydrALAZINE HCL 20 MG/ML VIAL ONE (03:05)
[2018-11-26 03:13] LABS: BASO % 0.6 % (0-2.0); EOS % 2.4 % (0-4.5); HEMATOCRIT 37.9 % (35.4-49); HEMOGLOBIN 12.3 GM/dL (11.7-16.9); LYMPH % 30.7 % (8-40); MCH 28.1 pg (25.7-33.7); MCHC 32.5 g/dl (32.0-35.9); MEAN CELL VOLUME 86.5 fl (80-96); MEAN PLT VOLUME 10.3 fl (7.5-11.1); MONO % 8.3 % (3.8-10.2); PLATELET COUNT 117 K/MM3 (134-434); RBC 4.39 M/mm3 (4.00-5.60); RDW 15.2 % (11.9-15.9); WHITE BLOOD COUNT 6.8 K/mm3 (4.0-10.0)
[2018-11-26 03:21] LABS: INR 1.08 (0.83-1.09); PROTHROMBIN TIME (PATIENT) 12.8 SEC (9.7-13.0)
[2018-11-26 03:47] LABS: ALBUMIN 3.3 g/dl (3.4-5.0); BILIRUBIN,TOTAL 0.6 mg/dL (0.2-1); CALCIUM 7.8 mg/dL (8.5-10.1); CREATININE 0.9 mg/dL (0.55-1.3); MAGNESIUM 2.1 mg/dL (1.8-2.4); POTASSIUM 4.1 mmol/L (3.5-5.1)
[2018-11-26] MEDS ORDERED: PATIENT'S OWN MEDICATION (NON-FORMULARY) (Irbesartan [Irbesartan] 300 MG) PO SCH (09:00)
--- NOTE | 2018-11-26 09:09 | HP ---
CHIEF COMPLAINT: hypertension PCP: Dr london HISTORY OF PRESENT ILLNESS: 83 yo M with a PMH of HTN and CAD s/p 3 stents, closely followed by cards MD [place]le[place] and Flynn, presents to ED with SOB and concern for elevated BP since this evening. Patient reports he was using his home BP cuff and his BP was 200/100s and he thought his machine was broken, but upon arrival to the ED his BP was still elevated. Patient states he recently had his dose of Metoprolol lowered from 50 to 25 mg "3-4 months ago, but then last month I was here and they stopped the metoprolol completely, so I think it's because of that my blood pressure has been high." He denies any current chest pain, dizziness, neck pain, or headache. ER course was notable for: (1)cbc, cmp, trop times 2 (2) (3) Recent Travel: no PAST MEDICAL HISTORY: as above PAST SURGICAL HISTORY: as above Social History: Smoking:no Alcohol:no Drugs: no Family History: not relevent Allergies No Known Allergies Allergy (Verified 11/26/18 06:10) HOME MEDICATIONS: Home Medications Medication Instructions Recorded Atorvastatin Ca [Lipitor] 80 mg PO HS 08/04/17 Tamsulosin HCl [Flomax] 0.4 mg PO HS 08/04/17 Aspirin [ASA -] 81 mg PO DAILY #30 tab.chew 02/27/18 Clopidogrel Bisulfate [Plavix] 75 mg PO DAILY 03/04/18 Pantoprazole Sodium [Protonix] 40 mg PO DAILY 03/04/18 Irbesartan 300 mg PO DAILY 06/12/18 Finasteride 5 mg PO DAILY 11/26/18 Isosorbide Mononitrate [Isosorbide 30 mg PO DAILY #30 tab.er.24h 11/26/18 Mononitrate ER] Metoprolol Succinate [Toprol XL -] 50 mg PO DAILY #30 tab.sr.24h 11/26/18 REVIEW OF SYSTEMS CONSTITUTIONAL: Absent: fever, chills, diaphoresis, generalized weakness, malaise, loss of appetite, weight change HEENT: Absent: rhinorrhea, nasal congestion, throat pain, throat swelling, difficulty swallowing, mouth swelling, ear pain, eye pain, visual changes CARDIOVASCULAR: Absent: chest pain, syncope, palpitations, irregular heart rate, lightheadedness , peripheral edema RESPIRATORY: Absent: cough, shortness of breath, dyspnea with exertion, orthopnea, wheezing, stridor, hemoptysis GASTROINTESTINAL: Absent: abdominal pain, abdominal distension, nausea, vomiting, diarrhea, constipation, melena, hematochezia GENITOURINARY: Absent: dysuria, frequency, urgency, hesitancy, hematuria, flank pain, genital pain MUSCULOSKELETAL: Absent: myalgia, arthralgia, joint swelling, back pain, neck pain SKIN: Absent: rash, itching, pallor HEMATOLOGIC/IMMUNOLOGIC: Absent: easy bleeding, easy bruising, lymphadenopathy, frequent infections ENDOCRINE: Absent: unexplained weight gain, unexplained weight loss, heat intolerance, cold intolerance NEUROLOGIC: Absent: headache, focal weakness or paresthesias, dizziness, unsteady gait, seizure, mental status changes, bladder or bowel incontinence PSYCHIATRIC: Absent: anxiety, depression, suicidal or homicidal ideation, hallucinations. PHYSICAL EXAMINATION Vital Signs - 24 hr 11/26/18 11/26/18 11/26/18 02:15 02:28 03:00 Temperature 98.7 F Pulse Rate 70 Respiratory 20 Rate Blood Pressure 208/88 H Blood Pressure 172/75 H 172/75 H [Right Arm] O2 Sat by Pulse 100 99 Oximetry (%) 11/26/18 11/26/18 11/26/18 03:52 04:47 06:01 Temperature Pulse Rate Respiratory Rate Blood Pressure Blood Pressure 170/75 158/82 146/78 [Right Arm] O2 Sat by Pulse Oximetry (%) 11/26/18 07:26 Temperature 98.9 F Pulse Rate Respiratory 15 Rate Blood Pressure Blood Pressure 153/67 [Right Arm] O2 Sat by Pulse 96 Oximetry (%) GENERAL: Awake, alert, and fully oriented, in no acute distress. HEAD: Normal with no signs of trauma. EARS, NOSE, THROAT: Moist mucous membranes. NECK: Normal range of motion, supple without lymphadenopathy, JVD, or masses. LUNGS: Breath sounds equal, clear to auscultation bilaterally. No wheezes, and no crackles. No accessory muscle use. HEART: Regular rate and rhythm, normal S1 and S2 without murmur, rub or gallop. ABDOMEN: Soft, nontender, not distended, normoactive bowel sounds, no guarding, no rebound, no masses. MUSCULOSKELETAL: Normal range of motion at all joints. No bony deformities or tenderness. No CVA tenderness. UPPER EXTREMITIES: 2+ pulses, warm, well-perfused. No cyanosis. No clubbing. No peripheral edema. LOWER EXTREMITIES: 2+ pulses, warm, well-perfused. No calf tenderness. No peripheral edema. NEUROLOGICAL: Cranial nerves II-XII intact. Normal speech. Normal gait. PSYCHIATRIC: Cooperative. Good eye contact. Appropriate mood and affect. SKIN: Warm, dry, Laboratory Results - last 24 hr 11/26/18 11/26/18 11/26/18 02:55 02:55 02:55 WBC 6.8 RBC 4.39 Hgb 12.3 Hct 37.9 MCV 86.5 MCH 28.1 MCHC 32.5 RDW 15.2 Plt Count 117 L MPV 10.3 Absolute Neuts (auto) 3.9 Neutrophils % 58.0 Lymphocytes % 30.7 Monocytes % 8.3 Eosinophils % 2.4 Basophils % 0.6 Nucleated RBC % 0 PT with INR 12.80 INR 1.08 Sodium 140 Potassium 4.1 Chloride 106 Carbon Dioxide 28 Anion Gap 6 L BUN 19 H Creatinine 0.9 Est GFR (CKD-EPI)AfAm 89.95 Est GFR (CKD-EPI)NonAf 77.61 Random Glucose 100 Calcium 7.8 L Magnesium 2.1 Total Bilirubin 0.6 AST 21 ALT 16 Alkaline Phosphatase 72 Creatine Kinase 112 Troponin I 0.02 Total Protein 7.0 Albumin 3.3 L 11/26/18 05:45 WBC RBC Hgb Hct MCV MCH MCHC RDW Plt Count MPV Absolute Neuts (auto) Neutrophils % Lymphocytes % Monocytes % Eosinophils % Basophils % Nucleated RBC % PT with INR INR Sodium Potassium Chloride Carbon Dioxide Anion Gap BUN Creatinine Est GFR (CKD-EPI)AfAm Est GFR (CKD-EPI)NonAf Random Glucose Calcium Magnesium Total Bilirubin AST ALT Alkaline Phosphatase Creatine Kinase Troponin I 0.02 Total Protein Albumin ASSESSMENT/PLAN: hypertension urgency likely because of confusion in meds got IV hydralazine in er BP came down to 153/[address] changes trop times 2 negative pt asymptomactic start home meds start metoprolol succinate 50 mg daily pt out of imdur 30 mg which he has not taken it from 2-3 days. Start it back plan discussed with social service liaison dr london h/a CAD continue home meds hld continue home meds dvt pro: orally allowed gi pro: on pantoprazole Visit type - Emergency Visit Emergency Visit: Yes ED Registration Date: 11/26/18 Care time: The patient presented to the Emergency Department on the above date and was hospitalized for further evaluation of their emergent condition. - New Patient This patient is new to me today: Yes Date on this admission: 11/26/18 - Critical Care Critical Care patient: No
--- NOTE | 2018-11-26 09:14 | DS ---
Physical Exam: SUBJECTIVE: Patient seen and examined pt feeling better. No new complaints Pt seen with dr pruett OBJECTIVE: Vital Signs Period Temp Pulse Resp BP Sys/[place] Pulse Ox Last 24 Hr 98.2 F-98.9 F 68-70 15-20 146-208/67-88 96-100 PHYSICAL EXAM GENERAL: The patient is awake, alert, and fully oriented, in no acute distress. HEAD: Normal with no signs of trauma. EYES: PERRL, extraocular movements intact, sclera anicteric, conjunctiva clear. ENT:, moist mucous membranes. NECK: Trachea midline, full range of motion, supple. LUNGS: Breath sounds equal, clear to auscultation bilaterally, no wheezes, no crackles, no accessory muscle use. HEART: Regular rate and rhythm, S1, S2 without murmur, rub or gallop. ABDOMEN: Soft, nontender, nondistended, normoactive bowel sounds, no guarding, no rebound, EXTREMITIES: 2+ pulses, warm, well-perfused, no edema. PSYCH: Normal mood, normal affect. SKIN: Warm, dry, LABS Laboratory Results - last 24 hr 11/26/18 11/26/18 11/26/18 02:55 02:55 02:55 WBC 6.8 RBC 4.39 Hgb 12.3 Hct 37.9 MCV 86.5 MCH 28.1 MCHC 32.5 RDW 15.2 Plt Count 117 L MPV 10.3 Absolute Neuts (auto) 3.9 Neutrophils % 58.0 Lymphocytes % 30.7 Monocytes % 8.3 Eosinophils % 2.4 Basophils % 0.6 Nucleated RBC % 0 PT with INR 12.80 INR 1.08 Sodium 140 Potassium 4.1 Chloride 106 Carbon Dioxide 28 Anion Gap 6 L BUN 19 H Creatinine 0.9 Est GFR (CKD-EPI)AfAm 89.95 Est GFR (CKD-EPI)NonAf 77.61 Random Glucose 100 Calcium 7.8 L Magnesium 2.1 Total Bilirubin 0.6 AST 21 ALT 16 Alkaline Phosphatase 72 Creatine Kinase 112 Troponin I 0.02 Total Protein 7.0 Albumin 3.3 L 11/26/18 05:45 WBC RBC Hgb Hct MCV MCH MCHC RDW Plt Count MPV Absolute Neuts (auto) Neutrophils % Lymphocytes % Monocytes % Eosinophils % Basophils % Nucleated RBC % PT with INR INR Sodium Potassium Chloride Carbon Dioxide Anion Gap BUN Creatinine Est GFR (CKD-EPI)AfAm Est GFR (CKD-EPI)NonAf Random Glucose Calcium Magnesium Total Bilirubin AST ALT Alkaline Phosphatase Creatine Kinase Troponin I 0.02 Total Protein Albumin HOSPITAL COURSE: 83 yo M with a PMH of HTN and CAD s/p 3 stents, closely followed by cards MD [place] and Flynn, presents to ED with SOB and concern for elevated BP since this evening. Patient reports he was using his home BP cuff and his BP was 200/100s and he thought his machine was broken, but upon arrival to the ED his BP was still elevated. Patient states he recently had his dose of Metoprolol lowered from 50 to 25 mg "3-4 months ago, but then last month I was here and they stopped the metoprolol completely, so I think it' s because of that my blood pressure has been high." He denies any current chest pain, dizziness, neck pain, or headache. In hospital pt got iv hydralazine and aspirin 162mg in er and his BP came down to 153/67. Pt medicines list was confirmed with pt and his . Pt is not taking metoprolol as he was prescribed last time during discharge. Now pt started on metoprolol succinate 50 mg daily. Pt also ran out of imdur which he is not taking since 2-3 days. Pt prescription for metoprolol and imdur sent to his pharmacy as listed in system. Pt advised to take his meds regularly as prescribed. Pt also advised to majke his appointment with his pcpc and automatic i threading machine feeder. Pt also advised if he runs out of any medication he needs to call his pcp or automatic i threading machine feeder. Now Pt and and his both understand the plan and agrees with it. Plan discussed with automatic i threading machine feeder flynn Cifuentes and Hospitalist team dr weinberg Take all your medications as you were taking before We have started you on metoprolol succinate 50mg daily We have also started you on isosorbide mononitrate 30mg daily. Rest take all your medications as you were taking before. Follow up with your automatic i threading machine feeder in one week. If you develop chest pain, sob, increase in BP or any other symptoms then call your doctor or go to hospital Date of Admission:11/26/18 Date of Discharge: 11/26/18 Minutes to complete discharge: 30 Discharge Summary Reason For Visit: RULED OUT FOR MYOCARDIAL INFARCTION Current Active Problems Shortness of breath (Acute) Condition: Stable - Instructions Diet, Activity, Other Instructions: Take all your medications as you were taking before We have started you on metoprolol succinate 50mg daily We have also started you on isosorbide mononitrate 30mg daily. Rest take all your medications as you were taking before. Follow up with your automatic i threading machine feeder in one week. If you develop chest pain, sob, increase in BP or any other symptoms then call your doctor or go to hospital Referrals: Dalton Pruett MD [Staff Physician] - 1 Week Disposition: HOME - Home Medications Comprehensive Discharge Medication List: Ambulatory Orders Atorvastatin Ca [Lipitor] 80 mg PO HS 08/04/17 Tamsulosin HCl [Flomax] 0.4 mg PO HS 08/04/17 Aspirin [ASA -] 81 mg PO DAILY #30 tab.chew 02/27/18 Clopidogrel Bisulfate [Plavix] 75 mg PO DAILY 03/04/18 Pantoprazole Sodium [Protonix] 40 mg PO DAILY 03/04/18 Irbesartan 300 mg PO DAILY 06/12/18 Finasteride 5 mg PO DAILY 11/26/18 Isosorbide Mononitrate [Isosorbide Mononitrate ER] 30 mg PO DAILY #30 tab.er.24h 11/26/18 Metoprolol Succinate [Toprol XL -] 50 mg PO DAILY #30 tab.sr.24h 11/26/18 This patient is new to me today: Yes Date on this admission: 11/26/18 Emergency Visit: Yes ED Registration Date: 11/26/18 Care time: The patient presented to the Emergency Department on the above date and was hospitalized for further evaluation of their emergent condition. Critical Care patient: No - Discharge Referral Referred to [facility] No
[2018-11-26 09:30] VITALS: BP 158/78; PULSE 64; TEMP 98.4
[2018-11-26] MEDS ORDERED: ISOSORBIDE MONONITRATE 30 MG TAB.SR.24H (FP) PO SCH (10:00)
[2018-11-26] MEDS ORDERED: PANTOPRAZOLE 40 MG TABLET (FP) PO SCH (10:00)
[2018-11-26] MEDS ORDERED: ASPIRIN 81 MG CHEWABLE TABLETS PO SCH (10:00)
[2018-11-26] MEDS ORDERED: FINASTERIDE 5 MG TABLET (FP) PO SCH (10:00)
[2018-11-26] MEDS ORDERED: CLOPIDOGREL BISULFATE 75 MG TABLET (FP) PO SCH (10:00)
--- NOTE | 2018-11-26 11:27 | EKG ---
Test Reason : Blood Pressure : / mmHG Vent. Rate : 064 BPM Atrial Rate : 064 BPM P-R Int : 252 ms QRS Dur : 082 ms QT Int : 448 ms P-R-T Axes : 047 -12 021 degrees QTc Int : 462 ms SINUS RHYTHM WITH 1ST DEGREE A-V BLOCK OTHERWISE NORMAL ECG WHEN COMPARED WITH ECG OF 25-OCT-2018 03:31, NO SIGNIFICANT CHANGE WAS FOUND Confirmed by Steven Christensen MD ([id number]) on 11/26/2018 11:26:40 AM Referred By: Confirmed By:Steven Christensen MD
--- NOTE | 2018-11-26 11:42 | PN ---
Teaching Attending Note Name of Resident: Andrey Toledo ATTENDING PHYSICIAN STATEMENT I saw and evaluated the patient. I reviewed the resident's note and discussed the case with the resident. I agree with the resident's findings and plan as documented. SUBJECTIVE: Patient is an 83 yo M with a PMHx of HTN and CAD s/p 3 stents, sees Dr. Pruett, presents to ED with SOB and concern for elevated BP since this evening. As per patient, his home blood pressure was 200/100s and he thought his machine was broken, but upon arrival to the ED his BP was still elevated 172 /75. Patient stopped taking his Metoprolol completely x a month ago. He denies any current chest pain, dizziness, neck pain, or headache. OBJECTIVE: Vital Signs Temperature 98.4 F 11/26/18 09:29 Pulse Rate 64 11/26/18 09:29 Respiratory Rate 18 11/26/18 09:29 Blood Pressure 158/78 11/26/18 09:29 O2 Sat by Pulse Oximetry (%) 99 11/26/18 09:29 Initial Vital Signs BP Pulse Ox 172/75 H 100 11/26/18 02:15 11/26/18 02:15 GENERAL: Awake, alert, and fully oriented, in no acute distress. HEAD: Normal with no signs of trauma. EARS, NOSE, THROAT: Moist mucous membranes. NECK: Normal range of motion, supple without lymphadenopathy, JVD, or masses. LUNGS: Breath sounds equal, clear to auscultation bilaterally. No wheezes, and no crackles. No accessory muscle use. HEART: Regular rate and rhythm, normal S1 and S2 without murmur, rub or gallop. ABDOMEN: Soft, nontender, not distended, normoactive bowel sounds, no guarding, no rebound, no masses. MUSCULOSKELETAL: Normal range of motion at all joints. No bony deformities or tenderness. No CVA tenderness. EXTREMITIES: 2+ pulses, warm, well-perfused. No cyanosis. No clubbing. No peripheral edema. NEUROLOGICAL: Cranial nerves II-XII intact. Normal speech. Normal gait. PSYCHIATRIC: Cooperative. Good eye contact. Appropriate mood and affect. SKIN: Warm, dry, good turgor CBCD WBC 6.8 K/mm3 (4.0-10.0) 11/26/18 02:55 RBC 4.39 M/mm3 (4.00-5.60) 11/26/18 02:55 Hgb 12.3 GM/dL (11.7-16.9) 11/26/18 02:55 Hct 37.9 % (35.4-49) 11/26/18 02:55 MCV 86.5 fl (80-96) 11/26/18 02:55 MCHC 32.5 g/dl (32.0-35.9) 11/26/18 02:55 RDW 15.2 % (11.9-15.9) 11/26/18 02:55 Plt Count 117 K/MM3 (134-434) L 11/26/18 02:55 MPV 10.3 fl (7.5-11.1) 11/26/18 02:55 CMP Sodium 140 mmol/L (136-145) 11/26/18 02:55 Potassium 4.1 mmol/L (3.5-5.1) 11/26/18 02:55 Chloride 106 mmol/L (98-107) 11/26/18 02:55 Carbon Dioxide 28 mmol/L (21-32) 11/26/18 02:55 Anion Gap 6 MMOL/L (8-16) L 11/26/18 02:55 BUN 19 mg/dL (7-18) H 11/26/18 02:55 Creatinine 0.9 mg/dL (0.55-1.3) 11/26/18 02:55 Random Glucose 100 mg/dL (74-106) 11/26/18 02:55 Calcium 7.8 mg/dL (8.5-10.1) L 11/26/18 02:55 Total Bilirubin 0.6 mg/dL (0.2-1) 11/26/18 02:55 AST 21 U/L (15-37) 11/26/18 02:55 ALT 16 U/L (13-61) 11/26/18 02:55 Alkaline Phosphatase 72 U/L (45-117) 11/26/18 02:55 Total Protein 7.0 g/dl (6.4-8.2) 11/26/18 02:55 Albumin 3.3 g/dl (3.4-5.0) L 11/26/18 02:55 CARDIAC ENZYMES Creatine Kinase 112 U/L (26-308) 11/26/18 02:55 Troponin I 0.02 ng/ml (0.00-0.05) 11/26/18 05:45 Current Medications Generic Name Dose Route Start Last Admin Trade Name Jennifer PRN Reason Stop Dose Admin Aspirin 81 mg 11/26/18 10:00 Asa - PO DAILY [facility] Atorvastatin Calcium 80 mg 11/26/18 22:00 Lipitor - PO HS [facility] Clopidogrel Bisulfate 75 mg 11/26/18 10:00 Plavix - PO DAILY [facility] Finasteride 5 mg 11/26/18 10:00 Proscar - PO DAILY [facility] Isosorbide Mononitrate 30 mg 11/26/18 10:00 Imdur - PO DAILY [facility] Losartan Potassium 100 mg 11/27/18 10:00 Cozaar - PO DAILY [facility] Metoprolol Succinate 50 mg 11/26/18 10:00 11/26/18 09:49 Toprol Xl - PO 50 mg DAILY [facility] Administration Pantoprazole Sodium 40 mg 11/26/18 10:00 Protonix - PO DAILY [facility] Tamsulosin HCl 0.4 mg 11/26/18 22:00 Flomax - PO [facility] Home Medications Medication Instructions Recorded Atorvastatin Ca [Lipitor] 80 mg PO HS 08/04/17 Tamsulosin HCl [Flomax] 0.4 mg PO HS 08/04/17 Aspirin [ASA -] 81 mg PO DAILY #30 tab.chew 02/27/18 Clopidogrel Bisulfate [Plavix] 75 mg PO DAILY 03/04/18 Pantoprazole Sodium [Protonix] 40 mg PO DAILY 03/04/18 Irbesartan 300 mg PO DAILY 06/12/18 Finasteride 5 mg PO DAILY 11/26/18 Isosorbide Mononitrate [Isosorbide 30 mg PO DAILY #30 tab.er.24h 11/26/18 Mononitrate ER] Metoprolol Succinate [Toprol XL -] 50 mg PO DAILY #30 tab.sr.24h 11/26/18 ASSESSMENT AND PLAN: Patient is an 83 yo M with a PMHx of HTN and CAD s/p 3 stents, sees Dr. Pruett, presents to ED with SOB and was found to have elevated BP. # Hypertension urgency continue his home meds and continue his metoprolol metoprolol succinate 50 mg daily , marina Muller, case was discussed wit Brigida, will follow with him in a week period. discharge patient home.
[2018-11-26] MEDS ORDERED: ATORVASTATIN CA 80 MG TABLET (FP) PO SCH (22:00)
[2018-11-26] MEDS ORDERED: TAMSULOSIN HCL 0.4 MG CAP PO SCH (22:00)
[2018-11-27] MEDS ORDERED: LOSARTAN POTASSIUM 50 MG TABLET (FP) PO SCH (10:00)
== END 2018-11-26 09:55 | disposition home or self-care (01) ==
LOC: JER 02:05 → JERBED 05:22
PROVIDERS: ADMIT Internal Medicine; ATTEND Internal Medicine
PROC: 3E033GC Introduction of Other Therapeutic Substance into Peripheral Vein, Percutaneous Approach (ICD-10-PCS; principal; 2018-11-26)
DX: R06.02 Shortness of breath (principal); I11.0 Hypertensive heart disease with heart failure; I25.10 Atherosclerotic heart disease of native coronary artery without angina pectoris; I50.9 Heart failure, unspecified; E78.00 Pure hypercholesterolemia, unspecified; Z85.51 Personal history of malignant neoplasm of bladder; Z87.891 Personal history of nicotine dependence; Z95.5 Presence of coronary angioplasty implant and graft
CPT/HCPCS: 36415; 71046-TC-FY; 80053; 82550; 83735; 84484; 85025; 85610; 93005; 93010; 96374; 99284-25; G0378

== ENCOUNTER 2019-03-23 00:24 | Emergency (ER) | payer OTHER ==
[2019-03-23 00:54] VITALS: BP 179/84; PULSE 68; TEMP 98; BMI 28.1
[2019-03-23] MEDS ORDERED: VALSARTAN 160 MG TABLET (UD) PO ONE (01:29)
[2019-03-23] MEDS ORDERED: VALSARTAN 80 MG TABLET (UD) ONE (01:44)
--- NOTE | 2019-03-23 01:54 | PDOC ---
History of Present Illness - General Chief Complaint: Shortness of Breath Stated Complaint: SOB, HEART CONDITION, HTN Time Seen by Provider: 03/23/19 01:00 - History of Present Illness Initial Comments: 03/23/19 01:38 83 y/o/m here for elevated blood pressure and chest pain today. He states that he had chest pain on the left side of his chest initially and then the right side that felt like a pinching sensation. The chest pain resolved and he no longer has any chest pain. His blood pressure at home was 185/90 and his BP is normally in the 130s/80s. He denies any SOB, palpitation, sweating, abd pain, dysuria, fever, coughs, headache, dizziness, or other symptoms. PMHx: HTN, CAD s/p stents SHx: cardiac cath Past History - Past Medical History Allergies/Adverse Reactions: Allergies Allergy/AdvReac Type Severity Reaction Status Date / Time No Known Allergies Allergy Verified 03/23/19 00:52 Home Medications: Ambulatory Orders Atorvastatin Ca [Lipitor] 80 mg PO HS 08/04/17 Tamsulosin HCl [Flomax] 0.4 mg PO HS 08/04/17 Aspirin [ASA -] 81 mg PO DAILY #30 tab.chew 02/27/18 Clopidogrel Bisulfate [Plavix] 75 mg PO DAILY 03/04/18 Pantoprazole Sodium [Protonix] 40 mg PO DAILY 03/04/18 Irbesartan 300 mg PO DAILY 06/12/18 Finasteride 5 mg PO DAILY 11/26/18 Isosorbide Mononitrate [Isosorbide Mononitrate ER] 30 mg PO DAILY #30 tab.er.24h 11/26/18 Metoprolol Succinate [Toprol XL -] 50 mg PO DAILY #30 tab.sr.24h 11/26/18 Cancer: Yes (bladder) Cardiac Disorders: Yes (2 stents) COPD: No CHF: Yes HTN: Yes Hypercholesterolemia: Yes - Surgical History Cardiac Surgery: Yes (stents) Lung Surgery: No - Immunization History Immunization Up to Date: Yes - Suicide/Smoking/Psychosocial Hx Smoking Status: No Smoking History: Never smoked Have you smoked in the past 12 months: No Number of Cigarettes Smoked Daily: 0 If you are a former smoker, when did you quit?: 1958 Information on smoking cessation initiated: No Hx Alcohol Use: No Drug/Substance Use Hx: No Substance Use Type: None Hx Substance Use Treatment: No Review of Systems - Review of Systems Constitutional: No: Chills, Fever HEENTM: No: Recent change in vision Respiratory: No: Cough, Shortness of Breath Cardiac (ROS): Yes: Chest Pain. No: Lightheadedness ABD/GI: No: Diarrhea, Nausea, Vomiting : No: Dysuria Musculoskeletal: No: Back Pain Neurological: No: Headache, Numbness Endocrine: No: Excessive Sweating *Physical Exam - Vital Signs Last Vital Signs Temp Pulse Resp BP Pulse Ox 98.0 F 68 20 179/84 H 96 03/23/19 00:32 03/23/19 00:32 03/23/19 00:32 03/23/19 00:32 03/23/19 00:32 - Physical Exam General Appearance: Yes: Nourished, Appropriately Dressed HEENT: positive: EOMI, Normal Voice, Symmetrical Neck: positive: Trachea midline, Supple Respiratory/Chest: positive: Lungs Clear, Normal Breath Sounds. negative: Accessory Muscle Use Cardiovascular: positive: Regular Rhythm, Regular Rate, S1, S2 Gastrointestinal/Abdominal: positive: Normal Bowel Sounds, Soft. negative: Tender Extremity: positive: Normal Capillary Refill Integumentary: positive: Normal Color Neurologic: positive: Fully Oriented, Alert, Motor Strength 5/5 ED Treatment Course - LABORATORY CBC & Chemistry Diagram: 03/23/19 01:25 03/23/19 01:25 - RADIOLOGY Radiology Studies Ordered: Category Date Time Status CHEST X-RAY PORTABLE* [RAD] Stat Radiology 03/23/19 01:19 Taken Medical Decision Making - Medical Decision Making 03/23/19 01:56 -83 y/o/m here for elevated BP and chest pain tonight. Patient's chest pain has resolved, no associated palpitations, sweating, SOB, headache, weakness. BP at home was 185/90. Patient states he walked to the hospital as he lives nearby. BP elevated in the 190s/80s here. -Workup with CBC, CMP, trops, BNP, CXR, EKG. -BP control with Valsartan. Patient takes Irbesartan at home. 03/23/19 02:27 -Patient BP improved, will continue to monitor. -Labs pending. 03/23/19 03:25 -CBC, CMP grossly normal. BNP at 503. -BP improved at 157/72, HR 65 -Repeat trop at 0420 03/23/19 04:54 -Repeat trop negative. -Will discharge patient with follow up instructions. *DC/Admit/Observation/Transfer Diagnosis at time of Disposition: Elevated blood pressure reading - Discharge Dispostion Disposition: HOME Condition at time of disposition: Improved Decision to Admit order: No - Referrals Referrals: Dalton Pruett MD [Primary Care Provider] - - Patient Instructions Additional Instructions: If you develop worsening chest pain, headache, changes in vision, shortness of breath or other concerning symptoms please return to the ED. Follow up with your primary care doctor in the next few days. - Post Discharge Activity
[2019-03-23 02:05] LABS: BASO % 1.2 % (0-2.0); EOS % 4.1 % (0-4.5); HEMATOCRIT 36.8 % (35.4-49); LYMPH % 28.6 % (8-40); MCH 27.4 pg (25.7-33.7); MCHC 32.6 g/dl (32.0-35.9); MEAN PLT VOLUME 10.4 fl (7.5-11.1); NEUT % 57.1 % (42.8-82.8); PLATELET COUNT 111 K/MM3 (134-434); RBC 4.38 M/mm3 (4.00-5.60); RDW 17.7 % (11.9-15.9); WHITE BLOOD COUNT 7.5 K/mm3 (4.0-10.0)
[2019-03-23 02:32] LABS: ALBUMIN 3.2 g/dl (3.4-5.0); BILIRUBIN,TOTAL 0.4 mg/dL (0.2-1); BLOOD UREA NITROGEN 25.6 mg/dL (7-18); CALCIUM 8.4 mg/dL (8.5-10.1); CREATININE 1.2 mg/dL (0.55-1.3); POTASSIUM 3.6 mmol/L (3.5-5.1); TOT PROT 6.9 g/dl (6.4-8.2)
[2019-03-23 02:51] LABS: N-TERMINAL BNP 503.9 pg/ml (5-450)
--- NOTE | 2019-03-23 04:57 | PDOC ---
Attending Attestation - Resident Resident Name: Pastora Reno - ED Attending Attestation I have performed the following: I have examined & evaluated the patient, The case was reviewed & discussed with the resident, I agree w/resident's findings & plan - HPI HPI: 03/23/19 04:54 Pt comes with SOB; he is anxious. He has a long hx of CAD. Pt has hx of CHF. Pt wants to make sure his heart is okay. - Physicial Exam PE: 03/23/19 04:55 Agree with physical exam of resident. Pt has no pitting edema Pt has clear heart and lungs. - Medical Decision Making 03/23/19 04:56 XR shows enlarged cardiac silhouette; recommend echocardiogram; he can follow with PMD/card Dr. Pruett.
--- NOTE | 2019-03-24 07:09 | EKG ---
Test Reason : Blood Pressure : / mmHG Vent. Rate : 066 BPM Atrial Rate : 066 BPM P-R Int : 240 ms QRS Dur : 086 ms QT Int : 446 ms P-R-T Axes : 042 -24 033 degrees QTc Int : 467 ms SINUS RHYTHM WITH 1ST DEGREE A-V BLOCK OTHERWISE NORMAL ECG WHEN COMPARED WITH ECG OF 26-NOV-2018 03:09, NO SIGNIFICANT CHANGE WAS FOUND Confirmed by LENORA ROBISON MD ([id number]) on 03/24/2019 7:08:39 AM Referred By: Confirmed By:LENORA ROBISON MD
== END 2019-03-23 05:02 | disposition home or self-care (01) ==
LOC: JER 00:24
DX: I10 Essential (primary) hypertension (principal); I25.10 Atherosclerotic heart disease of native coronary artery without angina pectoris; I11.0 Hypertensive heart disease with heart failure; I50.9 Heart failure, unspecified; Z95.5 Presence of coronary angioplasty implant and graft; E78.00 Pure hypercholesterolemia, unspecified; Z85.51 Personal history of malignant neoplasm of bladder
CPT/HCPCS: 36415; 71045-TC-FY; 80053; 82550; 83880; 84484; 85025; 93005; 93010; 99283-25

== ENCOUNTER 2019-03-23 07:00 | Emergency (ER) | payer OTHER ==
[2019-03-23 07:13] VITALS: BMI 29.2
--- NOTE | 2019-03-23 07:26 | PDOC ---
History of Present Illness - General Chief Complaint: Blood Pressure Problem Stated Complaint: HIGH BP Time Seen by Provider: 03/23/19 07:17 History Source: Patient - History of Present Illness Initial Comments: 03/23/19 07:25 83 y/o male with a PMH of CAD (s/p stent x2), HTN presents with a c/o elevated BP. States he measured his BP at home at it was 200's/104 prompting him to come to the ED. Denies any current chest pain, shortness of breath, lightheadedness, blurry vision, headache. Patient took his BP medication ( Toprol) @ 2 a.m. States he was evaluated for shortness of breath in our ED earlier this a.m. which resolved by the time of discharge however he is very concerned about his blood pressure and is worried he might be dying. [facility] Cardiology: Dr. Pruett As per EMR, patient evaluated in our ED earlier today for a stated complaint of chest pain. Troponin (-) x2, No acute ischemic changes on ECG. Patient discharged home. Past History - Past Medical History Allergies/Adverse Reactions: Allergies Allergy/AdvReac Type Severity Reaction Status Date / Time No Known Allergies Allergy Verified 03/23/19 07:11 Home Medications: Ambulatory Orders Atorvastatin Ca [Lipitor] 20 mg PO HS 08/04/17 Tamsulosin HCl [Flomax] 0.4 mg PO HS 08/04/17 Aspirin [ASA -] 81 mg PO DAILY #30 tab.chew 02/27/18 Clopidogrel Bisulfate [Plavix] 75 mg PO DAILY 03/04/18 Pantoprazole Sodium [Protonix] 40 mg PO DAILY 03/04/18 Irbesartan 300 mg PO DAILY 06/12/18 Finasteride 5 mg PO DAILY 11/26/18 Isosorbide Mononitrate [Isosorbide Mononitrate ER] 30 mg PO DAILY #30 tab.er.24h 11/26/18 Metoprolol Succinate [Toprol XL -] 50 mg PO DAILY #30 tab.sr.24h 11/26/18 Amlodipine Besylate [Norvasc -] 2.5 mg PO DAILY #14 tablet 03/23/19 Cancer: Yes (bladder) Cardiac Disorders: Yes (2 stents) COPD: No CHF: Yes HTN: Yes Hypercholesterolemia: Yes - Surgical History Cardiac Surgery: Yes (stents) Lung Surgery: No - Immunization History Immunization Up to Date: Yes - Psycho Social/Smoking Cessation Hx Smoking Status: No Smoking History: Never smoked Have you smoked in the past 12 months: No Number of Cigarettes Smoked Daily: 0 If you are a former smoker, when did you quit?: 1958 Information on smoking cessation initiated: No Hx Alcohol Use: No Drug/Substance Use Hx: No Substance Use Type: None Hx Substance Use Treatment: No *Physical Exam - Vital Signs Last Vital Signs Temp Pulse Resp BP Pulse Ox 97.6 F 69 20 196/84 H 97 03/23/19 07:11 03/23/19 07:11 03/23/19 07:11 03/23/19 07:11 03/23/19 07:11 Medical Decision Making - Medical Decision Making Medical Decision Makin03/23/19 07:51 83 year old male w/elevated BP at home. Denies any active CP, shortness of breath. States he took his BP medications at 2 a.m. this morning At presentation patient's BP 196/84; repeat BP 191/97 - acute cardiac event r/o with Troponin x2 earlier today, I have low clinical suspicion for ACS. As per EMR, patient's baseline BP 140's-150's. As patient is currently patient is ASx and does not meet clinical criteria for hypertensive urgency will observe with serial BP's, if BP remains elevated will consider contacting patient's certified art therapist for adjustment of patient's anti-hypertensive regimen. 03/23/19 08:49 Patient reassessed @ bedside, remain ASx; Repeat BP 175/81 Paged patient's certified art therapist 03/23/19 09:48 Case d/w Dr. Pruett - states patient was previously on Amlodipine. Will restart patient on Amlodipine and Dr. Pruett will evaluate patient in office tomorrow (03/24/19). 03/23/19 10:27 Repeat BP, 172/79 - will give first dose of Amlodipine in ED. 03/23/19 10:48 Repeat BP 179/84; patient has been free of CP and ASx for hypertension will discharge home with return precautions, patient counseled on importance of cardiology follow-up and new anti-hypertensive medication regimen. I discussed the physical exam findings, ancillary test results and final diagnoses with the patient. I answered all of the patient's questions. The patient was satisfied with the care received and felt comfortable with the discharge plan and treatment plan. The patient will return to the Emergency Department with any new, persistent or worsening symptoms. *DC/Admit/Observation/Transfer Diagnosis at time of Disposition: Elevated blood pressure reading - Discharge Dispostion Disposition: HOME Condition at time of disposition: Good Decision to Admit order: No - Prescriptions Prescriptions: Amlodipine Besylate [Norvasc -] 2.5 mg PO DAILY #14 tablet - Referrals Referrals: Dalton Pruett MD [Primary Care Provider] - - Patient Instructions Printed Discharge Instructions: DI for High Blood Pressure, How to Monitor Your Blood Pressure at Home Additional Instructions: You are safe for discharge home. Please call to make a follow-up appointment with Dr. Pruett tomorrow morning. Please also make an appointment to follow-up with your primary care doctor in the next one week. Your care is not complete until you are evaluated by both Dr. Pruett and your primary care doctor. We have sent a prescription to your pharmacy. Please take as directed and follow-up with Dr. Pruett as to whether to continue this medication. - Post Discharge Activity Discharge - Discharge Information Problems reviewed: Yes Clinical Impression/Diagnosis: Elevated blood pressure reading Condition: Good Disposition: HOME - Additional Discharge Information Prescriptions: Amlodipine Besylate [Norvasc -] 2.5 mg PO DAILY #14 tablet Prescription Drug Monitoring Program (I-STOP) results: I-STOP reviewed and no issues identified - Follow up/Referral Referrals: Dalton Pruett MD [Primary Care Provider] - - Patient Discharge Instructions Patient Printed Discharge Instructions: DI for High Blood Pressure, How to Monitor Your Blood Pressure at Home Additional Instructions: You are safe for discharge home. Please call to make a follow-up appointment with Dr. Pruett tomorrow morning. Please also make an appointment to follow-up with your primary care doctor in the next one week. Your care is not complete until you are evaluated by both Dr. Pruett and your primary care doctor. We have sent a prescription to your pharmacy. Please take as directed and follow-up with Dr. Pruett as to whether to continue this medication. - Post Discharge Activity
--- NOTE | 2019-03-23 08:37 | PDOC ---
Attending Attestation - Resident Resident Name: Stacy Cummins - ED Attending Attestation I have performed the following: I have examined & evaluated the patient, The case was reviewed & discussed with the resident, I agree w/resident's findings & plan, Exceptions are as noted - HPI HPI: 03/23/19 08:23 83 M with h/o CAD/stents, HTN, presenting to ED with elevated BP. Pt was seen here earlier this morning when he presented with complaint of SOB and elevated BP. He was evaluated, had 2 negative troponins, and was DC'ed home. Upon arriving at home, pt checked his BP and found it close to 200 systolic, which prompted his return to the ER. Pt currently denies any complaints. - Physicial Exam PE: 03/23/19 08:37 "GENERAL: Awake, alert, and fully oriented, in no acute distress. HEAD: No signs of trauma EYES: PERRLA, EOMI, sclera anicteric, conjunctiva clear ENT: Auricles normal inspection, hearing grossly normal, nares patent, oropharynx clear without exudates. Moist mucosa NECK: Nontender, no stepoffs, Normal ROM, supple, no lymphadenopathy, JVD, or masses LUNGS: Breath sounds equal, clear to auscultation bilaterally. No wheezes, and no crackles HEART: Regular rate and rhythm, normal S1 and S2, no murmurs, rubs or gallops ABDOMEN: Soft, nontender, normoactive bowel sounds. No guarding, no rebound. No masses EXTREMITIES: Normal range of motion, no edema. No clubbing or cyanosis. No cords, erythema, or tenderness NEUROLOGICAL: Cranial nerves II through XII intact. 5/5 strength and sensation in all extremities, Normal speech, normal gait, normal cerebellar function SKIN: Warm, Dry, normal turgor, no rashes or lesions noted. - Medical Decision Making 03/23/19 08:37 83 M with elevated BP. Seen here earlier for SOB, now resolved. Had 2 negative trops. - C/s Dr. Pruett 03/23/19 10:08 Dr. Pruett recommends amlodipine 2.5mg BP improved Pt is well appearing, with normal vitals. Clinically stable for DC at this time. I discussed the physical exam findings, ancillary test results and final diagnoses with the patients family. I answered all of their questions. The family was satisfied with the care received and felt comfortable with the discharge plan and treatment plan. They agree to follow up with the primary care physician within 24-72 hours.
[2019-03-23] MEDS ORDERED: amLODIPine BESYLATE 2.5 MG TABLET (FP) PO ONE (09:47)
[2019-03-23] MEDS ORDERED: amLODIPine BESYLATE 5 MG TABLET (FP) ONE (10:10)
[2019-03-23 11:09] VITALS: BP 177/82; PULSE 69; TEMP 98
== END 2019-03-23 11:09 | disposition home or self-care (01) ==
LOC: JER 07:00
DX: I10 Essential (primary) hypertension (principal); I25.10 Atherosclerotic heart disease of native coronary artery without angina pectoris; I50.9 Heart failure, unspecified; Z95.5 Presence of coronary angioplasty implant and graft; E78.00 Pure hypercholesterolemia, unspecified; Z85.51 Personal history of malignant neoplasm of bladder
CPT/HCPCS: 99283-25

== ENCOUNTER 2019-04-09 23:29 | Observation (INO) | payer OTHER ==
--- NOTE | 2019-04-10 00:57 | PDOC ---
Attending Attestation - Resident Resident Name: JnGerber duarte - ED Attending Attestation I have performed the following: I have examined & evaluated the patient, The case was reviewed & discussed with the resident, I agree w/resident's findings & plan - HPI HPI: 04/10/19 03:11 see resident hpi - Physicial Exam PE: 04/10/19 03:12 agree with resident exam - Medical Decision Making 04/10/19 03:12 83-year-old male with a history of coronary artery disease now with shortness of breath Chest x-ray shows no focal infiltrate EKG shows a normal sinus rhythm with no acute ST segment elevations Plan for admission for serial enzymes to medical service
--- NOTE | 2019-04-10 00:57 | PDOC ---
History of Present Illness - General Chief Complaint: Chest Pain Stated Complaint: CHEST PAIN/SHORTNES OF BREATH Time Seen by Provider: 04/10/19 00:55 - History of Present Illness Initial Comments: The pt is a 83M w/ a history of CAD s/p stent, HFpEF, BPH, HTN presents for 2 days of non-exertional SOB. The pt reports the SOB started while at rest, is slightly worse today, and is not exacerbated or alleviated by anything he can identify. He denies chest pain, fevers/chills, [place], vision changes, dizziness, abdominal pain, N/V/C/D, dysuria, hematuria, or blood in his stool. He reports feeling better with oxygen. 04/10/19 04:22 Past History - Past Medical History Allergies/Adverse Reactions: Allergies Allergy/AdvReac Type Severity Reaction Status Date / Time No Known Allergies Allergy Verified 04/09/19 23:49 Home Medications: Ambulatory Orders Atorvastatin Ca [Lipitor] 20 mg PO HS 08/04/17 Tamsulosin HCl [Flomax] 0.4 mg PO HS 08/04/17 Aspirin [ASA -] 81 mg PO DAILY #30 tab.chew 02/27/18 Clopidogrel Bisulfate [Plavix] 75 mg PO DAILY 03/04/18 Pantoprazole Sodium [Protonix] 40 mg PO DAILY 03/04/18 Irbesartan 300 mg PO DAILY 06/12/18 Finasteride 5 mg PO DAILY 11/26/18 Isosorbide Mononitrate [Isosorbide Mononitrate ER] 30 mg PO DAILY #30 tab.er.24h 11/26/18 Metoprolol Succinate [Toprol XL -] 50 mg PO DAILY #30 tab.sr.24h 11/26/18 Amlodipine Besylate [Norvasc -] 2.5 mg PO DAILY #14 tablet 03/23/19 Cancer: Yes (bladder) Cardiac Disorders: Yes (2 stents) COPD: No CHF: Yes HTN: Yes Hypercholesterolemia: Yes - Surgical History Cardiac Surgery: Yes (stents) Lung Surgery: No - Immunization History Immunization Up to Date: Yes - Psycho Social/Smoking Cessation Hx Smoking Status: No Smoking History: Never smoked Have you smoked in the past 12 months: No Number of Cigarettes Smoked Daily: 0 If you are a former smoker, when did you quit?: 1958 Information on smoking cessation initiated: No Hx Alcohol Use: No Drug/Substance Use Hx: No Substance Use Type: None Hx Substance Use Treatment: No Review of Systems - Review of Systems Able to Perform ROS?: Yes Comments:: GENERAL/CONSTITUTIONAL: No fever or chills. No weakness HEAD, EYES, EARS, NOSE AND THROAT: No change in vision. No change in hearing. No sore throat CARDIOVASCULAR: +SOB; No chest pain RESPIRATORY: Denies cough, hemoptysis GASTROINTESTINAL: No nausea, vomiting, diarrhea or constipation GENITOURINARY: No dysuria, frequency, or change in urination MUSCULOSKELETAL: No joint or muscle swelling or pain. No neck or back pain SKIN: No rash NEUROLOGIC: No headache, loss of consciousness, or change in strength/sensation ENDOCRINE: No increased thirst. No abnormal weight change HEMATOLOGIC/LYMPHATIC: No history of blood clots ALLERGIC/IMMUNOLOGIC: No hives or skin allergy 04/10/19 00:56 Is the patient limited Mongolian proficient: No *Physical Exam - Vital Signs Last Vital Signs Temp Pulse Resp BP Pulse Ox 97.4 F L 63 20 181/76 H 99 04/09/19 23:49 04/09/19 23:49 04/09/19 23:49 04/09/19 23:49 04/09/19 23:49 - Physical Exam Comments: GENERAL: Awake, alert, and oriented to person/place/time, in no acute distress HEAD: No signs of trauma, normocephalic, atraumatic EYES: PERRLA, EOMI, sclera anicteric, conjunctiva clear ENT: Hearing grossly normal, nares patent, oropharynx clear without exudates. Moist mucosa LUNGS: No distress, speaks in full sentences, clear to auscultation bilaterally HEART: Regular rate and rhythm, normal S1 and S2, no murmurs appreciated, peripheral pulses normal and equal bilaterally ABDOMEN: Soft, nontender, normoactive bowel sounds. No guarding, no rebound EXTREMITIES: Normal inspection, Normal range of motion, no edema. No clubbing or cyanosis NEUROLOGICAL: Cranial nerves II through XII grossly intact. Normal speech, no focal sensorimotor deficits SKIN: Warm, Dry 04/10/19 00:56 ED Treatment Course - LABORATORY CBC & Chemistry Diagram: 04/10/19 02:10 04/10/19 02:10 Medical Decision Making - Medical Decision Making The pt is an 83M w/ a history of CAD s/p stent, HTN, HFpEF who presents for evaluation of 2 days of worsening shortness of breath ED Course Labs sent ECG CXR ECG w/ sinus bradycardia, 1st degree block, VA 246; HR 58; no axis deviation, no KOURTNEY CXR w/o acute pathology No leukocytosis No anemia Lytes wnl No MANNIE LFTs wnl Trop I neg BNP wnl Will obtain CTA chest to r/o PE Plan for admission for tele-obs 04/10/19 06:44 [facility] Admitting 04/10/19 07:19 Discharge - Discharge Information Problems reviewed: Yes Clinical Impression/Diagnosis: Shortness of breath Diastolic CHF Qualifiers: Heart failure chronicity: unspecified Qualified Code(s): I50.30 - Unspecified diastolic (congestive) heart failure Hypertension Qualifiers: Hypertension type: unspecified Qualified Code(s): I10 - Essential (primary) hypertension Condition: Good - Admission Yes - Follow up/Referral - Patient Discharge Instructions - Post Discharge Activity
[2019-04-10 02:30] LABS: BASO % 0.6 % (0-2.0); EOS % 2.1 % (0-4.5); HEMATOCRIT 35.4 % (35.4-49); HEMOGLOBIN 11.7 GM/dL (11.7-16.9); LYMPH % 32.9 % (8-40); MCH 27.5 pg (25.7-33.7); MCHC 32.9 g/dl (32.0-35.9); MEAN CELL VOLUME 83.5 fl (80-96); MEAN PLT VOLUME 10.5 fl (7.5-11.1); MONO % 10.3 % (3.8-10.2); NEUT % 54.1 % (42.8-82.8); PLATELET COUNT 98 K/MM3 (134-434); RBC 4.24 M/mm3 (4.00-5.60); RDW 16.8 % (11.9-15.9); WHITE BLOOD COUNT 5.8 K/mm3 (4.0-10.0)
[2019-04-10 03:02] LABS: ALBUMIN 3.3 g/dl (3.4-5.0); BILIRUBIN,TOTAL 0.7 mg/dL (0.2-1); CALCIUM 8.1 mg/dL (8.5-10.1); POTASSIUM 3.5 mmol/L (3.5-5.1); TOT PROT 6.8 g/dl (6.4-8.2)
[2019-04-10 03:30] LABS: N-TERMINAL BNP 397.7 pg/ml (5-450)
[2019-04-10] MEDS ORDERED: ACETAMINOPHEN 325 MG TABLET (FP) PO PRN (07:27)
--- NOTE | 2019-04-10 08:29 | HP ---
CHIEF COMPLAINT: shortness of breath PCP: Dr. Dayton Burdick HISTORY OF PRESENT ILLNESS: Patient is a 83 y/o male with a history of HTN, CAD s/p 3 stents ( 1995, 2017), HfpEF, and BPH who is admitted for shortness of breath. Patient reports for the last 3 weeks he has been getting short of breath randomly. It happens when he is walking and when he is sitting, typically lasting a day. He is compliant with his medications but notes they change a lot. He denies any chest pain. He has not found anything that makes his shortness of breath better. Patient has no other complaints and he follows up with his doctors regularly. 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 ER course was notable for: (1) (2) (3) Recent Travel: PAST MEDICAL HISTORY: HTN, CAD s/p 3 stents ( 1995, 2017), HfpEF, and BPH PAST SURGICAL HISTORY: " bladder surgery for past cancer" Social History: Smoking: denies Alcohol: Drugs: Allergies No Known Allergies Allergy (Verified 04/09/19 23:49) HOME MEDICATIONS: Home Medications Medication Instructions Recorded Atorvastatin Ca [Lipitor] 20 mg PO HS 08/04/17 Tamsulosin HCl [Flomax] 0.4 mg PO HS 08/04/17 Aspirin [ASA -] 81 mg PO DAILY #30 tab.chew 02/27/18 Clopidogrel Bisulfate [Plavix] 75 mg PO DAILY 03/04/18 Pantoprazole Sodium [Protonix] 40 mg PO DAILY 03/04/18 Irbesartan 300 mg PO DAILY 06/12/18 Finasteride 5 mg PO DAILY 11/26/18 Isosorbide Mononitrate [Isosorbide 30 mg PO DAILY #30 tab.er.24h 11/26/18 Mononitrate ER] Metoprolol Succinate [Toprol XL -] 50 mg PO DAILY #30 tab.sr.24h 11/26/18 Amlodipine Besylate [Norvasc -] 2.5 mg PO DAILY #14 tablet 03/23/19 REVIEW OF SYSTEMS CONSTITUTIONAL: Absent: fever, chills, diaphoresis, generalized weakness, malaise, loss of appetite, weight change HEENT: Absent: rhinorrhea, nasal congestion, throat pain, throat swelling, difficulty swallowing, mouth swelling, ear pain, eye pain, visual changes CARDIOVASCULAR: Absent: chest pain, syncope, palpitations, irregular heart rate, lightheadedness , peripheral edema RESPIRATORY: shortness of breath Absent: cough, dyspnea with exertion, orthopnea, wheezing, stridor, hemoptysis GASTROINTESTINAL: Absent: abdominal pain, abdominal distension, nausea, vomiting, diarrhea, constipation, melena, hematochezia GENITOURINARY: Absent: dysuria, frequency, urgency, hesitancy, hematuria, flank pain, genital pain MUSCULOSKELETAL: Absent: myalgia, arthralgia, joint swelling, back pain, neck pain SKIN: Absent: rash, itching, pallor HEMATOLOGIC/IMMUNOLOGIC: Absent: easy bleeding, easy bruising, lymphadenopathy, frequent infections ENDOCRINE: Absent: unexplained weight gain, unexplained weight loss, heat intolerance, cold intolerance NEUROLOGIC: Absent: headache, focal weakness or paresthesias, dizziness, unsteady gait, seizure, mental status changes, bladder or bowel incontinence PSYCHIATRIC: Absent: anxiety, depression, suicidal or homicidal ideation, hallucinations. PHYSICAL EXAMINATION Vital Signs - 24 hr 04/09/19 04/10/19 04/10/19 23:49 01:39 04:40 Temperature 97.4 F L Pulse Rate 63 Pulse Rate [ 63 78 Left] Respiratory 20 18 17 Rate Blood Pressure 181/76 H 0/0 L Blood Pressure 174/108 H 167/96 [Right] O2 Sat by Pulse 99 99 Oximetry (%) 04/10/19 07:45 Temperature Pulse Rate Pulse Rate [ 64 Left] Respiratory 16 Rate Blood Pressure Blood Pressure 170/80 [Right] O2 Sat by Pulse 100 Oximetry (%) GENERAL: Awake, alert, and fully oriented, in no acute distress. HEAD: Normal with no signs of trauma. EYES: Pupils equal, round and reactive to light, extraocular movements intact, EARS, NOSE, THROAT: Moist mucous membranes. LUNGS: Breath sounds equal, clear to auscultation bilaterally. No wheezes, and no crackles. No accessory muscle use. HEART: Regular rate and rhythm, normal S1 and S2 without murmur, rub or gallop. ABDOMEN: Soft, nontender, not distended, normoactive bowel sounds, no guarding, no rebound, no masses. LOWER EXTREMITIES: 2+ pulses, warm, well-perfused. No calf tenderness. No pitting edema SKIN: Warm, dry, normal turgor, no rashes or lesions noted, normal capillary refill. CBC, BMP 04/10/19 02:10 04/10/19 02:10 ASSESSMENT/PLAN: Patient is a 83 y/o male with a history of HTN, CAD s/p 3 stents ( 1995, 2017) , HfpEF, and BPH who is admitted for shortness of breath. #Shortness of breath - r/o cardiac cause of ACS, could be 2/2 to interstitial lung disease vs anxiety - CTA: no PE, mild interstitial lung disease - troponin negative x2 - increased imdur to 60 - patient satting > 90 on room air, monitor O2 - ekg without any st elevations or t wave changes - f/u with Cardiology #CAD s/p stent hx - 10/25/18: moderate sized inferior perfusion defect in inferioapical, LVEF: 56% - continue clopidogrel and aspirin #hx bladder cancer - patient follows with - continue finasteride and tamsulosin #HTN - continue amlodipine - continue losartan - continue metoprolol #HLD - continue statin #DVT ppx - lovenox 40 sq daily FEN - regular diet Dispo: monitor on tele, f/u Cardio for further reccomendations Visit type - Emergency Visit Emergency Visit: Yes ED Registration Date: 04/10/19 Care time: The patient presented to the Emergency Department on the above date and was hospitalized for further evaluation of their emergent condition. - New Patient This patient is new to me today: Yes Date on this admission: 04/10/19 - Critical Care Critical Care patient: No ATTENDING PHYSICIAN STATEMENT I saw and evaluated the patient. I reviewed the resident's note and discussed the case with the resident. I agree with the resident's findings and plan as documented. SUBJECTIVE: OBJECTIVE: ASSESSMENT AND PLAN:
--- NOTE | 2019-04-10 08:42 | PN ---
Teaching Attending Note Name of Resident: Manasa Dean ATTENDING PHYSICIAN STATEMENT I saw and evaluated the patient. I reviewed the resident's note and discussed the case with the resident. I agree with the resident's findings and plan as documented. SUBJECTIVE: Patient is a 83 y/o male with a history of HTN, CAD s/p 3 stents ( 1995, 2017), HfpEF, and BPH who is admitted for shortness of breath. OBJECTIVE: Vital Signs Temperature 97.4 F L 04/09/19 23:49 Pulse Rate 64 04/10/19 07:45 Respiratory Rate 16 04/10/19 07:45 Blood Pressure 170/80 04/10/19 07:45 O2 Sat by Pulse Oximetry (%) 100 04/10/19 07:45 GENERAL: The patient is awake, alert, and fully oriented, in no acute distress. HEAD: Normal with no signs of trauma. EYES: PERRL, extraocular movements intact, sclera anicteric, conjunctiva clear. ENT: Ears normal, oropharynx clear without exudates, moist mucous membranes. NECK: Trachea midline, full range of motion, supple. LUNGS:decreased Breath sounds BL, no wheezes, no crackles, no accessory muscle use. HEART: Regular rate and rhythm, S1, S2 without murmur, rub or gallop. ABDOMEN: Soft, nontender, nondistended, normoactive bowel sounds, no guarding, no rebound, no hepatosplenomegaly, no masses. EXTREMITIES: 2+ pulses, warm, well-perfused, no edema. NEUROLOGICAL: Cranial nerves II through XII grossly intact. Normal speech, gait not observed. PSYCH: Normal mood, normal affect. SKIN: Warm, dry, normal turgor, no rashes or lesions noted CBCD WBC 5.8 K/mm3 (4.0-10.0) 04/10/19 02:10 RBC 4.24 M/mm3 (4.00-5.60) 04/10/19 02:10 Hgb 11.7 GM/dL (11.7-16.9) 04/10/19 02:10 Hct 35.4 % (35.4-49) 04/10/19 02:10 MCV 83.5 fl (80-96) 04/10/19 02:10 MCHC 32.9 g/dl (32.0-35.9) 04/10/19 02:10 RDW 16.8 % (11.9-15.9) H 04/10/19 02:10 Plt Count 98 K/MM3 (134-434) L 04/10/19 02:10 MPV 10.5 fl (7.5-11.1) 04/10/19 02:10 CMP Sodium 141 mmol/L (136-145) 04/10/19 02:10 Potassium 3.5 mmol/L (3.5-5.1) 04/10/19 02:10 Chloride 107 mmol/L (98-107) 04/10/19 02:10 Carbon Dioxide 29 mmol/L (21-32) 04/10/19 02:10 Anion Gap 5 MMOL/L (8-16) L 04/10/19 02:10 BUN 29.0 mg/dL (7-18) H 04/10/19 02:10 Creatinine 1.0 mg/dL (0.55-1.3) 04/10/19 02:10 Random Glucose 77 mg/dL (74-106) 04/10/19 02:10 Calcium 8.1 mg/dL (8.5-10.1) L 04/10/19 02:10 Total Bilirubin 0.7 mg/dL (0.2-1) 04/10/19 02:10 AST 12 U/L (15-37) L 04/10/19 02:10 ALT 15 U/L (13-61) 04/10/19 02:10 Alkaline Phosphatase 66 U/L (45-117) 04/10/19 02:10 Total Protein 6.8 g/dl (6.4-8.2) 04/10/19 02:10 Albumin 3.3 g/dl (3.4-5.0) L 04/10/19 02:10 CARDIAC ENZYMES Troponin I < 0.02 ng/ml (0.00-0.05) 04/10/19 02:10 Current Medications Generic Name Dose Route Start Last Admin Trade Name Freq PRN Reason Stop Dose Admin Acetaminophen 650 mg 04/10/19 07:27 Tylenol - PO Q4H PRN PAIN OR FEVER Enoxaparin Sodium 40 mg 04/10/19 10:00 Lovenox - SQ DAILY INDIGO Home Medications Medication Instructions Recorded Atorvastatin Ca [Lipitor] 20 mg PO HS 02/03/18 Tamsulosin HCl [Flomax] 0.4 mg PO HS 08/04/17 Aspirin [ASA -] 81 mg PO DAILY #30 tab.chew 02/27/18 Clopidogrel Bisulfate [Plavix] 75 mg PO DAILY 03/04/18 Pantoprazole Sodium [Protonix] 40 mg PO DAILY 03/04/18 Irbesartan 300 mg PO DAILY 06/12/18 Finasteride 5 mg PO DAILY 11/26/18 Isosorbide Mononitrate [Isosorbide 30 mg PO DAILY #30 tab.er.24h 11/26/18 Mononitrate ER] Metoprolol Succinate [Toprol XL -] 50 mg PO DAILY #30 tab.sr.24h 11/26/18 Amlodipine Besylate [Norvasc -] 2.5 mg PO DAILY #14 tablet 03/23/19 Current Medications Generic Name Dose Route Start Last Admin Trade Name Freq PRN Reason Stop Dose Admin Acetaminophen 650 mg 04/10/19 07:27 Tylenol - PO Q4H PRN PAIN OR FEVER Aspirin 81 mg 04/10/19 10:00 04/10/19 11:10 Asa - PO 81 mg DAILY INDIGO Administration Clopidogrel Bisulfate 75 mg 04/10/19 10:00 04/10/19 11:10 Plavix - PO 75 mg DAILY INDIGO Administration Enoxaparin Sodium 40 mg 04/10/19 10:00 04/10/19 11:23 Lovenox - SQ Not Given DAILY [facility] Finasteride 5 mg 04/10/19 10:00 04/10/19 11:10 Proscar - PO 5 mg DAILY INDIGO Administration Isosorbide Mononitrate 60 mg 04/10/19 10:00 04/10/19 11:10 Imdur - PO 60 mg DAILY INDIGO Administration Losartan Potassium 100 mg 04/10/19 10:00 04/10/19 12:55 Cozaar - PO Not Given DAILY INDIGO Metoprolol Succinate 25 mg 04/10/19 17:00 Toprol Xl - PO DAILY INDIGO Pantoprazole Sodium 40 mg 04/10/19 10:00 04/10/19 11:10 Protonix - PO 40 mg DAILY INDIGO Administration Rosuvastatin Calcium 20 mg 04/10/19 22:00 Crestor - PO HS INDIGO Tamsulosin HCl 0.4 mg 04/10/19 22:00 Flomax - PO HS [facility] ASSESSMENT AND PLAN: Patient is a 83 y/o male with a history of HTN, CAD s/p 3 stents ( 1995, 2017), HfpEF, and BPH who is admitted for shortness of breath. #Hypertensive urgency: on Toprol Xl, Losartan continue #SOB: will increase to 60mg Imdur #Hx of CAD with stents: continue asa, plavix , cardio consult dr morales #Hx of HLD: continue crestor #Hx of BPH continue Flomax .Proscar #Mild to moderate interstitial lung dz as per CTA report DVt Px: lovenox
[2019-04-10] MEDS ORDERED: amLODIPine BESYLATE 5 MG TABLET (FP) ONE (09:17)
[2019-04-10] MEDS: amLODIPine BESYLATE 5 MG TABLET (FP) PO SCH ×2 (09:20→11:00)
[2019-04-10] MEDS ORDERED: PATIENT'S OWN MEDICATION (NON-FORMULARY) (Irbesartan [Irbesartan] 300 MG) PO SCH (10:00)
[2019-04-10] MEDS ORDERED: CLOPIDOGREL BISULFATE 75 MG TABLET (FP) PO SCH (10:00)
[2019-04-10] MEDS ORDERED: ASPIRIN 81 MG CHEWABLE TABLETS PO SCH (10:00)
[2019-04-10] MEDS ORDERED: ISOSORBIDE MONONITRATE 60 MG TAB.SR.24H (FP) PO SCH (10:00)
[2019-04-10] MEDS ORDERED: ENOXAPARIN NA (PORCINE) 40 MG/0.4 ML DISP.SYRIN SQ SCH (10:00)
[2019-04-10] MEDS ORDERED: FINASTERIDE 5 MG TABLET (FP) PO SCH (10:00)
[2019-04-10] MEDS ORDERED: PANTOPRAZOLE 40 MG TABLET (FP) PO SCH (10:00)
[2019-04-10] MEDS ORDERED: LOSARTAN POTASSIUM 50 MG TABLET (FP) PO SCH (10:00)
--- NOTE | 2019-04-10 12:18 | EKG ---
Test Reason : Blood Pressure : / mmHG Vent. Rate : 058 BPM Atrial Rate : 058 BPM P-R Int : 246 ms QRS Dur : 090 ms QT Int : 460 ms P-R-T Axes : 045 029 064 degrees QTc Int : 451 ms SINUS BRADYCARDIA WITH 1ST DEGREE A-V BLOCK OTHERWISE NORMAL ECG WHEN COMPARED WITH ECG OF 23-MAR-2019 00:44, NO SIGNIFICANT CHANGE WAS FOUND Confirmed by TEN BLANCHARD, BRIANDA ([id number]) on 04/10/2019 12:17:37 PM Referred By: Confirmed By:BRIANDA CAAL MD
[2019-04-10 15:14] VITALS: TEMP 97.3
--- NOTE | 2019-04-10 16:51 | CON.CARD ---
Consult Consult Specialty:: cardiology Reason for Consultation:: SOB; hx coronary stents - History of Present Illness History of Present Illness: 83-year-old male with a history of coronary artery disease (s/p multiple coronary stents, the latest 06/2018), ISLD, anxiety/panic, HTN, hyperlipidemia, now with shortness of breath Chest x-ray shows no focal infiltrate EKG shows a normal sinus rhythm with no acute ST segment elevations Plan for admission for serial enzymes to medical service - Past Medical History Cardio/Vascular: Yes: CAD, CHF (diastolic; moderate LVH), HTN, Hyperlipdemia, [place] Psych: Yes: Anxiety, Panic - Past Surgical History Past Surgical History: Yes: Stent (coronary: 1st more than 20 yrs ago; latest last week (RPDA)) - Alcohol/Substance Use Hx Alcohol Use: No - Smoking History Smoking history: Never smoked Have you smoked in the past 12 months: No Aproximately how many cigarettes per day: 0 If you are a former smoker, when did you quit?: 1958 - Social History Usual Living Arrangement: With Spouse Home Medications - Allergies Allergies/Adverse Reactions: Allergies Allergy/AdvReac Type Severity Reaction Status Date / Time No Known Allergies Allergy Verified 04/09/19 23:49 - Home Medications Home Medications: Ambulatory Orders Tamsulosin HCl [Flomax] 0.4 mg PO HS 08/04/17 Aspirin [ASA -] 81 mg PO DAILY #30 tab.chew 02/27/18 Clopidogrel Bisulfate [Plavix] 75 mg PO DAILY 03/04/18 Pantoprazole Sodium [Protonix] 40 mg PO DAILY 03/04/18 Irbesartan 300 mg PO DAILY 06/12/18 Finasteride 5 mg PO DAILY 11/26/18 Isosorbide Mononitrate [Isosorbide Mononitrate ER] 30 mg PO DAILY #30 tab.er.24h 11/26/18 Metoprolol Succinate [Toprol XL -] 50 mg PO DAILY #30 tab.sr.24h 11/26/18 Rosuvastatin [Crestor -] 20 mg PO DAILY 04/10/19 Vital Signs: Vital Signs Temperature 97.3 F L 04/10/19 15:13 Pulse Rate 56 L 04/10/19 15:13 Respiratory Rate 20 04/10/19 12:45 Blood Pressure 130/60 04/10/19 15:13 O2 Sat by Pulse Oximetry (%) 99 04/10/19 15:13 - Other Data Labs, Other Data: CBC, BMP 04/10/19 02:10 04/10/19 02:10 Troponin, BNP 04/10/19 04/10/19 02:10 08:15 Troponin I < 0.02 < 0.02 B-Natriuretic Peptide 397.7 Troponin, BNP 04/10/19 04/10/19 02:10 08:15 Troponin I < 0.02 < 0.02 B-Natriuretic Peptide 397.7 Problem List - Problems (1) Hypertension Code(s): I10 - ESSENTIAL (PRIMARY) HYPERTENSION Qualifiers: Hypertension type: unspecified Qualified Code(s): I10 - Essential (primary ) hypertension (2) Shortness of breath Assessment/Plan: CTA: no PE; ISLD ECHO: normal LVEF TNI < 0.02 . 2 EKG: no acute ST T changes. BP initially elevated; now WNL. Discussed the above with pt and his . Continue metoprolol ER 25 mg daily. Imdur 30 mg daily. Amlodipine 5 mg daily From a cardiac perspective, pt may be followed as an outpatient. F/u with chainstitch tunnel elastic operator: reymundo newell from puljmonary rehav. Pt to complete cardiac rehab as outpt. Code(s): R06.02 - SHORTNESS OF BREATH (3) Diastolic CHF Code(s): I50.30 - UNSPECIFIED DIASTOLIC (CONGESTIVE) HEART FAILURE Qualifiers: Heart failure chronicity: unspecified Qualified Code(s): I50.30 - Unspecified diastolic (congestive) heart failure (4) Stented coronary artery Code(s): Z95.5 - PRESENCE OF CORONARY ANGIOPLASTY IMPLANT AND GRAFT
[2019-04-10] MEDS ORDERED: metoPROLOL SUCCINATE 25 MG TAB.SR.24H (FP) PO SCH (17:00)
[2019-04-10 18:03] VITALS: BP 119/60; PULSE 64
--- NOTE | 2019-04-10 18:28 | DS ---
Physical Exam: SUBJECTIVE: Patient seen and examined Patient is comfortable with no acute distress OBJECTIVE: Vital Signs Temperature 97.3 F L 04/10/19 15:13 Pulse Rate 64 04/10/19 18:03 Respiratory Rate 20 04/10/19 18:03 Blood Pressure 119/60 04/10/19 18:03 O2 Sat by Pulse Oximetry (%) 98 04/10/19 18:03 PHYSICAL EXAM GENERAL: The patient is awake, alert, and fully oriented, in no acute distress. HEAD: Normal with no signs of trauma. EYES: PERRL, extraocular movements intact, sclera anicteric, conjunctiva clear. ENT: Ears normal, oropharynx clear without exudates, moist mucous membranes. NECK: Trachea midline, full range of motion, supple. LUNGS:decreased Breath sounds BL, no wheezes, no crackles, no accessory muscle use. HEART: Regular rate and rhythm, S1, S2 without murmur, rub or gallop. ABDOMEN: Soft, nontender, nondistended, normoactive bowel sounds, no guarding, no rebound, no hepatosplenomegaly, no masses. EXTREMITIES: 2+ pulses, warm, well-perfused, no edema. NEUROLOGICAL: Cranial nerves II through XII grossly intact. Normal speech, gait not observed. PSYCH: Normal mood, normal affect. SKIN: Warm, dry, normal turgor, no rashes or lesions noted LABS Laboratory Results - last 24 hr 04/10/19 04/10/19 04/10/19 02:10 02:10 02:10 WBC 5.8 RBC 4.24 Hgb 11.7 Hct 35.4 MCV 83.5 MCH 27.5 MCHC 32.9 RDW 16.8 H Plt Count 98 L MPV 10.5 Absolute Neuts (auto) 3.1 Neutrophils % 54.1 Lymphocytes % 32.9 Monocytes % 10.3 H Eosinophils % 2.1 Basophils % 0.6 Nucleated RBC % 0 Sodium 141 Potassium 3.5 Chloride 107 Carbon Dioxide 29 Anion Gap 5 L BUN 29.0 H Creatinine 1.0 Est GFR (CKD-EPI)AfAm 79.19 Est GFR (CKD-EPI)NonAf 68.33 Random Glucose 77 Calcium 8.1 L Magnesium 2.0 Total Bilirubin 0.7 AST 12 L ALT 15 Alkaline Phosphatase 66 Troponin I < 0.02 B-Natriuretic Peptide 397.7 Total Protein 6.8 Albumin 3.3 L 04/10/19 08:15 WBC RBC Hgb Hct MCV MCH MCHC RDW Plt Count MPV Absolute Neuts (auto) Neutrophils % Lymphocytes % Monocytes % Eosinophils % Basophils % Nucleated RBC % Sodium Potassium Chloride Carbon Dioxide Anion Gap BUN Creatinine Est GFR (CKD-EPI)AfAm Est GFR (CKD-EPI)NonAf Random Glucose Calcium Magnesium Total Bilirubin AST ALT Alkaline Phosphatase Troponin I < 0.02 B-Natriuretic Peptide Total Protein Albumin HOSPITAL COURSE: Date of Admission:04/10/19 Date of Discharge: 04/10/19 Patient is a 83 y/o male with a history of HTN, CAD s/p 3 stents ( 1995, 2017), HfpEF, and BPH who is admitted for shortness of breath. As per cardio patient can go home on imdur 60mg , off Norvasc and toprol 50mg XL po daily. #Hypertensive urgency: on Toprol Xl, Losartan continue #SOB: will increase to 60mg Imdur #Hx of CAD with stents: continue asa, plavix , cardio consult dr morales #Hx of HLD: continue crestor #Hx of BPH continue Flomax .Proscar #Mild to moderate interstitial lung dz as per CTA report . follow up with Dr. amaral in a week period DVt Px: lovenox Minutes to complete discharge: 32 Discharge Summary Problems reviewed: Yes Reason For Visit: DIASTOLIC CHF,SOB,HYPERTENSION Current Active Problems Hypertension (Acute) Shortness of breath (Acute) Diastolic CHF (Chronic) Condition: Improved - Instructions Diet, Activity, Other Instructions: low fat low carb diet. on your Cat scan was found to have interstitial lung disease mild to moderate. please follow up with Dr. Amaral a clinical registered nurse. Referrals: Skip Amaral MD [Staff Physician] - 2 Weeks Dalton Pruett MD [Staff Physician] - 1 Week Disposition: HOME - Home Medications Comprehensive Discharge Medication List: Ambulatory Orders Tamsulosin HCl [Flomax] 0.4 mg PO HS 08/04/17 Aspirin [ASA -] 81 mg PO DAILY #30 tab.chew 02/27/18 Clopidogrel Bisulfate [Plavix] 75 mg PO DAILY 03/04/18 Pantoprazole Sodium [Protonix] 40 mg PO DAILY 03/04/18 Irbesartan 300 mg PO DAILY 06/12/18 Finasteride 5 mg PO DAILY 11/26/18 Metoprolol Succinate [Toprol XL -] 50 mg PO DAILY #30 tab.sr.24h 11/26/18 Isosorbide Mononitrate [Imdur -] 60 mg PO DAILY #30 tab.sr.24h 04/10/19 Rosuvastatin [Crestor -] 20 mg PO DAILY 04/10/19 This patient is new to me today: Yes Date on this admission: 04/10/19 Emergency Visit: Yes ED Registration Date: 04/10/19 Care time: The patient presented to the Emergency Department on the above date and was hospitalized for further evaluation of their emergent condition. Critical Care patient: No - Discharge Referral Referred to [facility] Med P.C.: No
[2019-04-10] MEDS ORDERED: ROSUVASTATIN CA 20 MG TABLET (FP) PO SCH (22:00)
[2019-04-10] MEDS ORDERED: TAMSULOSIN HCL 0.4 MG CAP PO SCH (22:00)
--- NOTE | 2019-04-11 14:33 | EKG ---
Test Reason : Blood Pressure : / mmHG Vent. Rate : 059 BPM Atrial Rate : 394 BPM P-R Int : 000 ms QRS Dur : 084 ms QT Int : 474 ms P-R-T Axes : 000 -02 040 degrees QTc Int : 469 ms POOR DATA QUALITY, INTERPRETATION MAY BE ADVERSELY AFFECTED SINUS BRADYCARDIA WITH 1ST DEGREE A-V BLOCK ABNORMAL ECG Confirmed by MATILDA SOARES MD ([id number]) on 04/11/2019 2:33:15 PM Referred By: Confirmed By:MATILDA SOARES MD
== END 2019-04-10 19:36 | disposition home or self-care (01) ==
LOC: JER 23:29 → JERBED 04-10 07:17
PROVIDERS: ADMIT Internal Medicine; ATTEND Internal Medicine
DX: R06.02 Shortness of breath (principal); I16.0 Hypertensive urgency; I11.0 Hypertensive heart disease with heart failure; I50.30 Unspecified diastolic (congestive) heart failure; I25.10 Atherosclerotic heart disease of native coronary artery without angina pectoris; N40.0 Benign prostatic hyperplasia without lower urinary tract symptoms; E78.5 Hyperlipidemia, unspecified; Z85.51 Personal history of malignant neoplasm of bladder; Z95.5 Presence of coronary angioplasty implant and graft; Z79.82 Long term (current) use of aspirin; J84.9 Interstitial pulmonary disease, unspecified
CPT/HCPCS: 36415; 71045-TC-FY; 71275-TC; 80053; 83735; 83880; 84484; 85025; 93005; 93010; 99284-25; G0378

== ENCOUNTER 2019-06-17 22:27 | Observation (INO) | payer OTHER ==
[2019-06-17 22:47] VITALS: BMI 24.3
--- NOTE | 2019-06-17 23:11 | PDOC ---
Attending Attestation - Resident Resident Name: Teresa Ambriz - ED Attending Attestation I have performed the following: I have examined & evaluated the patient, The case was reviewed & discussed with the resident, I agree w/resident's findings & plan - HPI HPI: 06/17/19 23:20 see resident hpi - Physicial Exam PE: 06/17/19 23:20 agree with resident exam - Medical Decision Making 06/17/19 23:20 83-year-old male with history of coronary artery disease status post stenting now with intermittent chest pain Plan for EKG, chest x-ray and troponin with admission to medical service pending results
[2019-06-17 23:35] LABS: BASO % 0.6 % (0-2.0); EOS % 2.4 % (0-4.5); HEMATOCRIT 34.7 % (35.4-49); HEMOGLOBIN 11.3 GM/dL (11.7-16.9); LYMPH % 34.2 % (8-40); MCH 26.9 pg (25.7-33.7); MCHC 32.7 g/dl (32.0-35.9); MEAN CELL VOLUME 82.5 fl (80-96); MEAN PLT VOLUME 10.1 fl (7.5-11.1); MONO % 7.2 % (3.8-10.2); NEUT % 55.6 % (42.8-82.8); PLATELET COUNT 111 K/MM3 (134-434); RBC 4.21 M/mm3 (4.00-5.60); WHITE BLOOD COUNT 6.5 K/mm3 (4.0-10.0)
--- NOTE | 2019-06-17 23:49 | PDOC ---
History of Present Illness - General Chief Complaint: Chest Pain Stated Complaint: CHEST PAINS/HIGH B/P Time Seen by Provider: 06/17/19 22:47 History Source: Patient Exam Limitations: No Limitations - History of Present Illness Initial Comments: 06/17/19 23:43 83y M with PMH of CAD s/p stent (01/2018, 06/2018), HfpEF, BPH, HTN, Bladder Ca s /p resection 2 years ago, presenting to ED with for chest pain and sob that began 4h ago while patient was watching TV. He states the pain comes and goes, feels like a pinching sensation and is associated with sob. Not worse with exertion or with lying down flat. He has had similar pains before but does not feel like when he required stenting. Denies cough, fevers, chills, back pain , abdominal pain, n/v/d, headaches, dizziness. He saw his urologist recently and was told that there was no reemergence of the tumor. Most recent echo was 09/2018 which was a limited study but grossly normal, last stress was 09/2018. PMD: Jackelyn Burris Cards: Flynn PMH: see hpi Meds: see med rec Allergies: nkda 06/18/19 00:56 Past History - Past Medical History Allergies/Adverse Reactions: Allergies Allergy/AdvReac Type Severity Reaction Status Date / Time No Known Allergies Allergy Verified 06/18/19 00:02 Home Medications: Ambulatory Orders Tamsulosin HCl [Flomax] 0.4 mg PO HS 08/04/17 Aspirin [ASA -] 81 mg PO DAILY #30 tab.chew 02/27/18 Clopidogrel Bisulfate [Plavix] 75 mg PO DAILY 03/04/18 Pantoprazole Sodium [Protonix] 40 mg PO DAILY 03/04/18 Irbesartan 300 mg PO DAILY 06/12/18 Finasteride 5 mg PO DAILY 11/26/18 Metoprolol Succinate [Toprol XL -] 50 mg PO DAILY #30 tab.sr.24h 11/26/18 Rosuvastatin [Crestor -] 20 mg PO DAILY 04/10/19 Isosorbide Mononitrate [Imdur -] 30 mg PO DAILY 06/17/19 Cancer: Yes (bladder) Cardiac Disorders: Yes (2 stents,CAD) COPD: No CHF: Yes HTN: Yes Hypercholesterolemia: Yes - Surgical History Cardiac Surgery: Yes (stents) Lung Surgery: No - Immunization History Immunization Up to Date: Yes - Psycho Social/Smoking Cessation Hx Smoking Status: No Smoking History: Never smoked Have you smoked in the past 12 months: No Number of Cigarettes Smoked Daily: 0 If you are a former smoker, when did you quit?: 1958 Hx Alcohol Use: No Drug/Substance Use Hx: No Substance Use Type: None Hx Substance Use Treatment: No Review of Systems - Review of Systems Constitutional: No: Chills, Fever, Weakness HEENTM: No: Symptoms Reported Respiratory: Yes: See HPI Cardiac (ROS): Yes: See HPI ABD/GI: No: Symptoms Reported : No: Symptoms Reported Musculoskeletal: No: Symptoms Reported Integumentary: No: Symptoms Reported Neurological: No: Symptoms reported *Physical Exam - Vital Signs Last Vital Signs Temp Pulse Resp BP Pulse Ox 97.7 F 62 170/76 100 06/17/19 22:35 06/17/19 22:35 06/17/19 22:35 06/17/19 22:35 - Physical Exam General Appearance: Yes: Nourished, Appropriately Dressed. No: Apparent Distress HEENT: positive: EOMI, ELLIOT, Normal ENT Inspection Neck: positive: Trachea midline, Supple. negative: Lymphadenopathy (R), Lymphadenopathy (L) Respiratory/Chest: positive: Lungs Clear, Normal Breath Sounds. negative: Chest Tender, Crackles, Rales, Rhonchi, Stridor, Wheezing Cardiovascular: positive: Regular Rhythm, Regular Rate, S1, S2. negative: Edema , JVD, Murmur Vascular Pulses: Dorsalis-Pedis (R): 2+, Doralis-Pedis (L): 2+ Gastrointestinal/Abdominal: positive: Normal Bowel Sounds, Soft. negative: Tender Musculoskeletal: negative: CVA Tenderness Extremity: positive: Normal Capillary Refill. negative: Swelling, Calf Tenderness, Erythema Integumentary: positive: Normal Color, Dry, Warm Neurologic: positive: nurse rn bsn II-XII NML intact, Fully Oriented, Alert, Normal Mood/ Affect, Normal Response, Motor Strength 5/5 Heart Score/ECG Review - History History: Slightly suspicious - Electrocardiogram EKG: Normal - Age Age: >/= 65 - Risk Factors Risk Factors Heart Score: Yes Hx Hypercholesterolemia, Yes Hx Hypertension, Yes Smoking History Based on the list above the patient has:: >/=3 risk factors or Hx atherosclerotic disease - Troponin Troponin: </= normal limit - Score Heart Score - Total: 4 ED Treatment Course - LABORATORY CBC & Chemistry Diagram: 06/17/19 23:25 06/17/19 23:25 - ADDITIONAL ORDERS Additional order review: 06/17/19 23:25 RBC 4.21 MCV 82.5 MCHC 32.7 RDW 16.0 H MPV 10.1 Neutrophils % 55.6 Lymphocytes % 34.2 Monocytes % 7.2 Eosinophils % 2.4 Basophils % 0.6 - RADIOLOGY Radiology Studies Ordered: Category Date Time Status CHEST X-RAY PORTABLE* [RAD] Stat Radiology 06/17/19 22:48 Taken Medical Decision Making - Medical Decision Making 06/18/19 00:03 83y M with PMH of CAD s/p stent x2, htn, hld, bph presenting to ED with chest pain. vitals: hypertensive 180s systolic. normocardic, saturating well on RA ddx includes but not limited to mi, pna, ptx, pericarditis, costochondritis, pleurisy, mass/malinginancy, pe, dissection, gerd, hypertensive emergency low suspicion for pe given stable vitals. pain is not pleuritic. low supsicion for dissection at this time. will order basic labs, cardiac labs, cxr, ekg. patient currently does not have pain. ekg: sinus with 1st degree av block. no vicky or depressions, no hyperacute t waves, no twi. similar to prior 2 months ago trop negative, ck negative. labs wnl. no end organ damage; does not require aggressive bp control at this time. HEART score 4. will benefit from tele/obs for acs r/o. patient complained of chest pain again. ekg ordered: no change from first ekg during this admission however some artifact. Discharge - Discharge Information Problems reviewed: Yes Clinical Impression/Diagnosis: Shortness of breath Chest pain Qualifiers: Chest pain type: unspecified Qualified Code(s): R07.9 - Chest pain, unspecified Condition: Stable - Admission Yes - Follow up/Referral - Patient Discharge Instructions - Post Discharge Activity
[2019-06-17 23:54] LABS: INR 1.17 (0.83-1.09); PROTHROMBIN TIME (PATIENT) 13.8 SEC (9.7-13.0)
[2019-06-18 00:15] LABS: ALBUMIN 3.2 g/dl (3.4-5.0); ALK PHOS 60 U/L (45-117); ANION GAP 5 MMOL/L (8-16); BILIRUBIN,TOTAL 0.6 mg/dL (0.2-1); BLOOD UREA NITROGEN 26.5 mg/dL (7-18); CALCIUM 8.3 mg/dL (8.5-10.1); CHLORIDE 107 mmol/L (98-107); CO2 29 mmol/L (21-32); GLUCOSE,RANDOM 101 mg/dL (74-106); MAGNESIUM 1.8 mg/dL (1.8-2.4); SGOT/AST 14 U/L (15-37); SGPT/ALT 17 U/L (13-61); SODIUM 140 mmol/L (136-145); TOT PROT 6.7 g/dl (6.4-8.2)
--- NOTE | 2019-06-18 02:44 | HP ---
CHIEF COMPLAINT: chest pain PCP:Dr. Burris HISTORY OF PRESENT ILLNESS: 83 yo M PMH of HTN, CAD s/p 2 stents ( 2018), BPH, HfpEF, BPH, HTN, Bladder Ca ( s/p resection 2 years ago) presenting to ED for chest pain and SOB. Pt states that pain began at 7 pm on 06/17 while watching TV . pt states that the pain is left sided. describes it as sharp with no alleviating or aggravating factors. pt states that he didnt try taking anything for the pain. pt states that he thought it was muscular and that it would improve with walking. pt tried walking around for 1 hour. when he went back home he still had chest pain and measured his BP which he states is 190/85 and prompted him to go to the ED. Pt denies palpitations, denies nausea and vomiting. Denies cough, fevers, chills, back pain, abdominal pain, headaches, dizziness. He saw his urologist recently and was told that there was no reemergence of the tumor. Most recent echo was 09/2018 which was a limited study but grossly normal, last stress was 09/2018. ER course was notable for: (1) EKG - NSR (2)BP 181/85 (3)BNP 620 Recent Travel: denies PAST MEDICAL HISTORY: HTN, CAD s/p 2 stents ( 2018), BPH, HfpEF, BPH, HTN, Bladder Ca (s/p resection 2 years ago) PAST SURGICAL HISTORY: cardiac stents, bladder ca resection Social History: Smoking:denies Alcohol:denies Drugs: denies Allergies No Known Allergies Allergy (Verified 06/18/19 00:02) HOME MEDICATIONS: Home Medications Medication Instructions Recorded Tamsulosin HCl [Flomax] 0.4 mg PO HS 08/04/17 Aspirin [ASA -] 81 mg PO DAILY #30 tab.chew 02/27/18 Clopidogrel Bisulfate [Plavix] 75 mg PO DAILY 03/04/18 Pantoprazole Sodium [Protonix] 40 mg PO DAILY 03/04/18 Irbesartan 300 mg PO DAILY 06/12/18 Finasteride 5 mg PO DAILY 11/26/18 Metoprolol Succinate [Toprol XL -] 50 mg PO DAILY #30 tab.sr.24h 11/26/18 Rosuvastatin [Crestor -] 20 mg PO DAILY 04/10/19 Isosorbide Mononitrate [Imdur -] 30 mg PO DAILY 06/17/19 REVIEW OF SYSTEMS CONSTITUTIONAL: Present: diaphoresis Absent: fever, chills, generalized weakness, malaise, loss of appetite, weight change HEENT: Absent: rhinorrhea, nasal congestion, throat pain, throat swelling, difficulty swallowing, mouth swelling, ear pain, eye pain, visual changes CARDIOVASCULAR: Present: chest pain Absent: syncope, palpitations, irregular heart rate, lightheadedness, peripheral edema RESPIRATORY: Present: shortness of breath Absent: cough, dyspnea with exertion, orthopnea, wheezing, stridor, hemoptysis GASTROINTESTINAL: Absent: abdominal pain, abdominal distension, nausea, vomiting, diarrhea, constipation, melena, hematochezia GENITOURINARY: Absent: dysuria, frequency, urgency, hesitancy, hematuria, flank pain, genital pain MUSCULOSKELETAL: Absent: myalgia, arthralgia, joint swelling, back pain, neck pain SKIN: Absent: rash, itching, pallor HEMATOLOGIC/IMMUNOLOGIC: Absent: easy bleeding, easy bruising, lymphadenopathy, frequent infections ENDOCRINE: Absent: unexplained weight gain, unexplained weight loss, heat intolerance, cold intolerance NEUROLOGIC: Absent: headache, focal weakness or paresthesias, dizziness, unsteady gait, seizure, mental status changes, bladder or bowel incontinence PSYCHIATRIC: Absent: anxiety, depression, suicidal or homicidal ideation, hallucinations. PHYSICAL EXAMINATION Vital Signs - 24 hr 06/17/19 06/18/19 22:35 01:21 Temperature 97.7 F Pulse Rate 62 Blood Pressure 170/76 Blood Pressure 161/72 [Left Arm] O2 Sat by Pulse 100 Oximetry (%) GENERAL: Awake, alert, and fully oriented, in no acute distress. HEAD: Normal with no signs of trauma. EYES: Pupils equal, round and reactive to light, extraocular movements intact, sclera anicteric, conjunctiva clear. No lid lag. EARS, NOSE, THROAT: Ears normal, nares patent, oropharynx clear without exudates. Moist mucous membranes. NECK: Normal range of motion, supple without lymphadenopathy, JVD, or masses. LUNGS: Breath sounds equal, clear to auscultation bilaterally. No wheezes, and no crackles. No accessory muscle use. HEART: Regular rate and rhythm, normal S1 and S2 without murmur, rub or gallop. ABDOMEN: Soft, nontender, not distended, normoactive bowel sounds, no guarding, no rebound, no masses. No hepatomegaly or splenomegaly. MUSCULOSKELETAL: Normal range of motion at all joints. No bony deformities or tenderness. No CVA tenderness. UPPER EXTREMITIES: 2+ pulses, warm, well-perfused. No cyanosis. No clubbing. No peripheral edema. R radial thrill palpated LOWER EXTREMITIES: 2+ pulses, warm, well-perfused. No calf tenderness. No peripheral edema. NEUROLOGICAL: Cranial nerves II-XII intact. Normal speech. Normal gait. PSYCHIATRIC: Cooperative. Good eye contact. Appropriate mood and affect. SKIN: Warm, dry, normal turgor, no rashes or lesions noted, normal capillary refill. Laboratory Results - last 24 hr 06/17/19 06/17/19 06/17/19 23:25 23:25 23:25 WBC 6.5 RBC 4.21 Hgb 11.3 L Hct 34.7 L MCV 82.5 MCH 26.9 MCHC 32.7 RDW 16.0 H Plt Count 111 L MPV 10.1 Absolute Neuts (auto) 3.6 Neutrophils % 55.6 Lymphocytes % 34.2 Monocytes % 7.2 Eosinophils % 2.4 Basophils % 0.6 Nucleated RBC % 0 PT with INR 13.80 H INR 1.17 H Sodium 140 Potassium 4.0 Chloride 107 Carbon Dioxide 29 Anion Gap 5 L BUN 26.5 H Creatinine 1.0 Est GFR (CKD-EPI)AfAm 79.19 Est GFR (CKD-EPI)NonAf 68.33 Random Glucose 101 Calcium 8.3 L Magnesium 1.8 Total Bilirubin 0.6 AST 14 L ALT 17 Alkaline Phosphatase 60 Creatine Kinase 65 Troponin I < 0.02 B-Natriuretic Peptide 620.0 H Total Protein 6.7 Albumin 3.2 L ASSESSMENT/PLAN: 83 yo M PMH of HTN, CAD s/p 2 stents ( 2018), BPH, HfpEF, BPH, HTN, Bladder Ca ( s/p resection 2 years ago) presenting to ED for chest pain and SOB. Pt is admitted to tele obs for hypertensive urgency Hypertensive Urgency - pt reports compliance with his meds, usually takes medications in am - 1x hydralazine - continue to monitor vitals Atypical CP - EKG reviewed, NSR, no ST changes -Echo from 10/18: nml EF - neg trop x 2 - continue cardiac monitoring- tele obs - cardiology recs appreciated ( Dr. Pruett) - sublingual nitroglycerin for recurrent episodes - continue cardiac monitoring - c/w asa, toprol, lipitor - c/w plavix GI ppx: pantoprazole BPH -c/w home dose Flomax And finasteride Normocytic anemia: Iron studies, ferritin, vitamin B12 DVT prophylaxis: SQ Hep F/E/N -monitor lytes - low Na diet Dispo: tele obs Visit type - Emergency Visit Emergency Visit: Yes ED Registration Date: 06/18/19 Care time: The patient presented to the Emergency Department on the above date and was hospitalized for further evaluation of their emergent condition. - New Patient This patient is new to me today: Yes Date on this admission: 06/18/19 - Critical Care Critical Care patient: No ATTENDING PHYSICIAN STATEMENT I saw and evaluated the patient. I reviewed the resident's note and discussed the case with the resident. I agree with the resident's findings and plan as documented. SUBJECTIVE: OBJECTIVE: ASSESSMENT AND PLAN:
[2019-06-18 02:59] LABS: EPI CELLS 0.3 /HPF (0-5/HPF); HYALINE CASTS 0 /lpf (0-8); PH,URINE 6.5 (5.0-8.0); URINE APPEARANCE CLEAR; URINE BACTERIA 0 /hpf (NEGATIVE); URINE BILIRUBIN NEGATIVE (NEGATIVE); URINE COLOR YELLOW; URINE GLUCOSE (UA) NEGATIVE (NEGATIVE); URINE KETONE NEGATIVE (NEGATIVE); URINE LEUK ESTERASE NEGATIVE (NEGATIVE); URINE NITRITE NEGATIVE (NEGATIVE); URINE PROTEIN NEGATIVE (NEGATIVE); URINE RBC 10 /hpf (0-4); URINE UROBILINOGEN 0.2 mg/dL (0.2-1.0); URINE WBC 1 /hpf (0-5)
--- NOTE | 2019-06-18 03:14 | PN ---
Teaching Attending Note Name of Resident: Emily Pink ATTENDING PHYSICIAN STATEMENT I saw and evaluated the patient. I reviewed the resident's note and discussed the case with the resident. I agree with the resident's findings and plan as documented. SUBJECTIVE: 83y M with PMH of CAD s/p stent (01/2018, 06/2018), HfpEF, BPH, HTN, Bladder Ca s /p resection 2 years ago, Multiple ER visits for chest pain and shortness of breath, presented complaining of chest pain and shortness of breath that began approximately 4 hours prior to presentation while patient was at rest. Chest pain is intermittent and sharp in quality without significant radiation and is associated with some shortness of breath. Last cardiac stress test was reported to be from 10/18 and last echo was reported to be from 10/18. OBJECTIVE: Last Vital Signs Temp Pulse Resp BP Pulse Ox 97.7 F 62 161/72 100 06/17/19 22:35 06/17/19 22:35 06/18/19 01:21 06/17/19 22:35 GENERAL: Well developed, well nourished. Awake and alert. No acute distress. HEENT: Normocephalic, atraumatic. PERRLA, EOMI. No conjunctival pallor. Sclera are non- icteric. Moist mucous membranes. Oropharynx is clear. NECK: Supple. Full ROM. No JVD. Carotid pulses 2+ and symmetric, without bruits. No thyromegaly. No lymphadenopathy. CARDIOVASCULAR: Regular rate and rhythm. No murmurs, rubs, or gallops. Distal pulses are 2+ Statin Beta-luis alfredo Aspirin and symmetric. PULMONARY: No evidence of respiratory distress. Lungs clear to auscultation bilaterally. No wheezing, rales or rhonchi. ABDOMINAL: Soft. Non-tender. Non-distended. No rebound or guarding. No organomegaly. Normoactive bowel sounds. MUSCULOSKELETAL Normal range of motion at all joints. No bony deformities or tenderness. No CVA tenderness. EXTREMITIES: No cyanosis. No clubbing. No edema. No calf tenderness. SKIN: Warm and dry. Normal capillary refill. No rashes. No jaundice. PSYCHIATRIC: Cooperative. Good eye contact. Appropriate mood and affect. Abnormal Lab Results 06/17/19 06/17/19 06/17/19 23:25 23:25 23:25 Hgb 11.3 L Hct 34.7 L RDW 16.0 H Plt Count 111 L PT with INR 13.80 H INR 1.17 H Anion Gap 5 L BUN 26.5 H Calcium 8.3 L AST 14 L B-Natriuretic Peptide 620.0 H Albumin 3.2 L Urine Blood 06/18/19 02:46 Hgb Hct RDW Plt Count PT with INR INR Anion Gap BUN Calcium AST B-Natriuretic Peptide Albumin Urine Blood 1+ H Chest x-ray was appreciated EKG did not show any signs of acute coronary disease ASSESSMENT AND PLAN: 83-year-old man with significant cardiac disease with intermittent chest pain, sounds atypical in nature. Given high risk of ACS would monitor on telemetry observation with serial troponins. Telemetry observation Trend troponins Nitroglycerin sublingual if recurrent chest pain Cardiology evaluation Monitor vital signs closely Statin Beta-luis alfredo Aspirin Morphine if pain Clopidogrel bisulfate Isosorbide mononitrate Pantoprazole Cardiology evaluation Supplemental oxygen as needed #BPH Continue with home dose Flomax And finasteride #Normocytic anemia Iron studies, ferritin, vitamin B12 DVT prophylaxis with heparin subcutaneously
[2019-06-18] MEDS ORDERED: ACETAMINOPHEN 325 MG TABLET (FP) PO PRN (03:47)
[2019-06-18] MEDS ORDERED: hydrALAZINE HCL 10 MG TABLET PO ONE (04:15)
[2019-06-18] MEDS ORDERED: NITROGLYCERIN SUBLINGUAL 1/200 0.3 MG BTL SL PRN (04:55)
[2019-06-18 07:09] LABS: HEMATOCRIT 33.7 % (35.4-49); HEMOGLOBIN 11.4 GM/dL (11.7-16.9); MCH 27.2 pg (25.7-33.7); MCHC 33.8 g/dl (32.0-35.9); MEAN CELL VOLUME 80.7 fl (80-96); MEAN PLT VOLUME 9.6 fl (7.5-11.1); PLATELET COUNT 104 K/MM3 (134-434); RBC 4.18 M/mm3 (4.00-5.60); RDW 16.3 % (11.9-15.9); WHITE BLOOD COUNT 6.2 K/mm3 (4.0-10.0)
[2019-06-18 07:44] LABS: ALBUMIN 3.1 g/dl (3.4-5.0); BILIRUBIN,TOTAL 0.7 mg/dL (0.2-1); BLOOD UREA NITROGEN 20.8 mg/dL (7-18); CALCIUM 8.1 mg/dL (8.5-10.1); CREATININE 0.9 mg/dL (0.55-1.3); MAGNESIUM 1.9 mg/dL (1.8-2.4); POTASSIUM 3.4 mmol/L (3.5-5.1); TOT PROT 6.5 g/dl (6.4-8.2)
[2019-06-18] MEDS ORDERED: POTASSIUM CHLORIDE TABS 20 MEQ TABLET.ER (FP) PO ONE ×2 (08:30→08:40)
[2019-06-18] MEDS ORDERED: ASPIRIN 81 MG CHEWABLE TABLETS ONE (08:40)
[2019-06-18] MEDS ORDERED: PANTOPRAZOLE 40 MG TABLET (FP) ONE (08:40)
[2019-06-18] MEDS ORDERED: HEPARIN NA (PORCINE) 5,000 UNITS/ML 1ML VIAL ONE (08:41)
[2019-06-18] MEDS ORDERED: LOSARTAN POTASSIUM 50 MG TABLET (FP) ONE (08:41)
[2019-06-18] MEDS ORDERED: TAMSULOSIN HCL 0.4 MG CAP ONE (08:41)
[2019-06-18] MEDS ORDERED: CLOPIDOGREL BISULFATE 75 MG TABLET (FP) ONE (08:41)
[2019-06-18] MEDS ORDERED: ISOSORBIDE MONONITRATE 60 MG TAB.SR.24H (FP) PO ONE (08:41)
[2019-06-18] MEDS ORDERED: PT OWN MED DRAWER 7, Y5N ONE (08:42)
[2019-06-18] MEDS: POTASSIUM CHLORIDE TABS 20 MEQ TABLET.ER (FP) PO ONE ×2 (09:30→11:06)
[2019-06-18] MEDS: TAMSULOSIN HCL 0.4 MG CAP PO SCH (10:00)
[2019-06-18] MEDS ORDERED: PATIENT'S OWN MEDICATION (NON-FORMULARY) (Irbesartan [Irbesartan] 300 MG) PO SCH (10:00)
[2019-06-18] MEDS: ISOSORBIDE MONONITRATE 30 MG TAB.SR.24H (FP) PO SCH (11:02)
[2019-06-18] MEDS: FINASTERIDE 5 MG TABLET (FP) PO SCH (11:02)
[2019-06-18] MEDS: CLOPIDOGREL BISULFATE 75 MG TABLET (FP) PO SCH (11:02)
[2019-06-18] MEDS: ASPIRIN 81 MG CHEWABLE TABLETS PO SCH (11:02)
[2019-06-18] MEDS: LOSARTAN POTASSIUM 50 MG TABLET (FP) PO SCH (11:02)
[2019-06-18] MEDS: PANTOPRAZOLE 40 MG TABLET (FP) PO SCH (11:03)
--- NOTE | 2019-06-18 12:26 | EKG ---
Test Reason : Blood Pressure : / mmHG Vent. Rate : 058 BPM Atrial Rate : 058 BPM P-R Int : 270 ms QRS Dur : 088 ms QT Int : 450 ms P-R-T Axes : 046 -16 -17 degrees QTc Int : 441 ms SINUS BRADYCARDIA WITH 1ST DEGREE A-V BLOCK OTHERWISE NORMAL ECG WHEN COMPARED WITH ECG OF 17-JUN-2019 22:33, NONSPECIFIC T WAVE ABNORMALITY NOW EVIDENT IN INFERIOR LEADS Confirmed by WHITNEY BLANCHARD, LALI ([id number]) on 06/18/2019 12:26:28 PM Referred By: Confirmed By:LALI OLSON MD
--- NOTE | 2019-06-18 12:36 | EKG ---
Test Reason : Blood Pressure : / mmHG Vent. Rate : 062 BPM Atrial Rate : 062 BPM P-R Int : 236 ms QRS Dur : 088 ms QT Int : 454 ms P-R-T Axes : 045 -17 061 degrees QTc Int : 460 ms POOR DATA QUALITY, INTERPRETATION MAY BE ADVERSELY AFFECTED SINUS RHYTHM WITH 1ST DEGREE A-V BLOCK OTHERWISE NORMAL ECG WHEN COMPARED WITH ECG OF 10-APR-2019 02:05, SINUS RHYTHM HAS REPLACED JUNCTIONAL RHYTHM Confirmed by LALI OLSON MD ([id number]) on 06/18/2019 12:36:32 PM Referred By: Confirmed By:LALI OLSON MD
--- NOTE | 2019-06-18 13:13 | CON.CARD ---
Consult Consult Specialty:: cardiology Reason for Consultation:: atypical chest pain - History of Present Illness History of Present Illness: 83y M with PMH of CAD s/p stent (01/2018, 06/2018), HfpEF, BPH, HTN, Bladder Ca s /p resection 2 years ago, presenting to ED with for chest pain and sob that began 4h ago while patient was watching TV. He states the pain comes and goes, feels like a pinching sensation and is associated with sob. Not worse with exertion or with lying down flat. He has had similar pains before but does not feel like when he required stenting. Denies cough, fevers, chills, back pain , abdominal pain, n/v/d, headaches, dizziness. He saw his urologist recently and was told that there was no reemergence of the tumor. Most recent echo was 09/2018 which was a limited study but grossly normal, last stress was 09/2018. - History Source History Provided By: Patient, Family Member, Medical Record Limitations to Obtaining History: No Limitations - Past Medical History Cardio/Vascular: Yes: CAD, CHF (diastolic; moderate LVH), HTN, Hyperlipdemia, ND Gastrointestinal: Yes: GERD Psych: Yes: Anxiety, Panic - Past Surgical History Past Surgical History: Yes: Stent (coronary: 1st more than 20 yrs ago; latest last week ([facility])) - Alcohol/Substance Use Hx Alcohol Use: No - Smoking History Smoking history: Never smoked Have you smoked in the past 12 months: No Aproximately how many cigarettes per day: 0 If you are a former smoker, when did you quit?: 1958 - Social History Usual Living Arrangement: With Spouse Home Medications - Allergies Allergies/Adverse Reactions: Allergies Allergy/AdvReac Type Severity Reaction Status Date / Time No Known Allergies Allergy Verified 06/18/19 00:02 - Home Medications Home Medications: Ambulatory Orders Tamsulosin HCl [Flomax] 0.4 mg PO HS 08/04/17 Aspirin [ASA -] 81 mg PO DAILY #30 tab.chew 02/27/18 Clopidogrel Bisulfate [Plavix] 75 mg PO DAILY 03/04/18 Pantoprazole Sodium [Protonix] 40 mg PO DAILY 03/04/18 Irbesartan 300 mg PO DAILY 06/12/18 Finasteride 5 mg PO DAILY 11/26/18 Metoprolol Succinate [Toprol XL -] 50 mg PO DAILY #30 tab.sr.24h 11/26/18 Rosuvastatin [Crestor -] 20 mg PO DAILY 04/10/19 Isosorbide Mononitrate [Imdur -] 30 mg PO DAILY 06/17/19 Nitroglycerin Sublingual [Nitrostat -] 0.3 mg SL Q5M PRN btl 06/18/19 Ferrous Sulfate 325 mg PO DAILY #30 tablet 06/19/19 Family Medical History Family History: Denies Review of Systems - Review of Systems Constitutional: reports: No Symptoms Eyes: reports: No Symptoms HENT: reports: No Symptoms Neck: reports: No Symptoms Cardiovascular: reports: Chest Pain Respiratory: reports: No Symptoms Gastrointestinal: reports: No Symptoms Genitourinary: reports: No Symptoms Breasts: reports: No Symptoms Reported Musculoskeletal: reports: Other (right wrist swelling) Integumentary: reports: No Symptoms Neurological: reports: No Symptoms Endocrine: reports: No Symptoms Hematology/Lymphatic: reports: No Symptoms Psychiatric: reports: Anxiety - Risk Factors Known Risk Factors: Yes: Age, Gender, Hypercholesterolemia, Hypertension, Other (CAD-->PCI 2018) Vital Signs: Vital Signs Temperature 98.2 F 06/18/19 06:15 Pulse Rate 62 06/18/19 06:15 Respiratory Rate 17 06/18/19 06:15 Blood Pressure 157/80 06/18/19 06:15 O2 Sat by Pulse Oximetry (%) 98 06/18/19 06:15 Constitutional: Yes: Anxious Eyes: Yes: WNL HENT: Yes: WNL Neck: Yes: WNL Respiratory: Yes: WNL Gastrointestinal: Yes: WNL Renal/: No: Anuria Cardiovascular: Yes: Regular Rate and Rhythm JVD: No Carotid Bruit: No PMI: Non-Displaced Heart Sounds: Yes: S1, S2 Murmur: Yes: Systolic Murmur, Grade 1 Musculoskeletal: Yes: WNL Extremities: Yes: Other (mild thrill right wrist) Edema: Yes Edema: RUE: Trace (at IV site) Peripheral Pulses: 3+ Left Femoral, 3+ Right Femoral (also bounding radial pulses; mild right wrist thrill) Integumentary: Yes: WNL Neurological: Yes: WNL ...Motor Strength: WNL Psychiatric: Yes: Alert, Oriented - Other Data Labs, Other Data: CBC, BMP 06/18/19 06:54 06/18/19 06:54 INR, PTT INR 1.17 (0.83-1.09) H 06/17/19 23:25 Troponin, BNP 06/17/19 06/18/19 23:25 04:15 Troponin I < 0.02 0.02 B-Natriuretic Peptide 620.0 H Troponin, BNP 06/17/19 06/18/19 23:25 04:15 Troponin I < 0.02 0.02 B-Natriuretic Peptide 620.0 H Abnormal Lab Results 06/18/19 06/19/19 06:54 05:31 Chloride 108 H Anion Gap 7 L BUN 20.2 H Calcium 8.1 L Iron 43 L Iron Saturation 13 L Ferritin 6.1 L HDL Cholesterol 35 L Echo: Report Reviewed Prior Cardiac Procedures: Cardiac Catheterization, PTCA Ejection Fraction %: LVEF > or = 40 % Imaging - Results Chest X-ray: Image Reviewed EKG: Image Reviewed Problem List - Problems (1) Swelling of right upper extremity Assessment/Plan: mild RUE swelling pt says he noticed only yesterday; no pain anywhere along the arm or wrist. Pt's RN noted right wrist has a thrill and "murmur" on auscultation. Pt had coronary angioigram via right wrist 06/2018. For ultrasound study to assess significance of what is likely a small AV fistula. Code(s): M79.89 - OTHER SPECIFIED SOFT TISSUE DISORDERS (2) Hypertension Code(s): I10 - ESSENTIAL (PRIMARY) HYPERTENSION Qualifiers: Hypertension type: unspecified Qualified Code(s): I10 - Essential (primary ) hypertension (3) Diastolic CHF Code(s): I50.30 - UNSPECIFIED DIASTOLIC (CONGESTIVE) HEART FAILURE Qualifiers: Heart failure chronicity: unspecified Qualified Code(s): I50.30 - Unspecified diastolic (congestive) heart failure (4) Hyperlipidemia Assessment/Plan: statin; f/u lipid level Code(s): E78.5 - HYPERLIPIDEMIA, UNSPECIFIED (5) Stented coronary artery Code(s): Z95.5 - PRESENCE OF CORONARY ANGIOPLASTY IMPLANT AND GRAFT (6) Atypical chest pain Assessment/Plan: TNI < 0.02; f/u serially. EKG: no acute STT changes. Stress MIBI 2019: no ischemia. Code(s): R07.89 - OTHER CHEST PAIN
[2019-06-18] MEDS: HEPARIN NA (PORCINE) 5,000 UNITS/ML 1ML VIAL SQ SCH (14:00)
--- NOTE | 2019-06-18 14:27 | PN ---
Teaching Attending Note Name of Resident: Shad Samuels ATTENDING PHYSICIAN STATEMENT I saw and evaluated the patient. I reviewed the resident's note and discussed the case with the resident. I agree with the resident's findings and plan as documented. SUBJECTIVE: CP resolved. No further SOB. No cough/sputum/hemoptysis. No fever/ chills. OBJECTIVE: Afebrile, Hemodynamically stable. Last Vital Signs Temp Pulse Resp BP Pulse Ox 98.2 F 62 17 157/80 98 06/18/19 06:15 06/18/19 06:15 06/18/19 06:15 06/18/19 06:15 06/18/19 06:15 HEENT - Atraumatic, Normocephalic. Heart - S1, S2, soft SM Lungs - clear to auscultation Abdomen - Soft, non-tender. Bowel Sounds normal. Extremities - no calf tenderness. Neuro - AAO x 3. tone/Power normal all 4 extremities. Laboratory Results - last 24 hr 06/17/19 06/17/19 06/17/19 23:25 23:25 23:25 WBC 6.5 RBC 4.21 Hgb 11.3 L Hct 34.7 L MCV 82.5 MCH 26.9 MCHC 32.7 RDW 16.0 H Plt Count 111 L MPV 10.1 Absolute Neuts (auto) 3.6 Neutrophils % 55.6 Lymphocytes % 34.2 Monocytes % 7.2 Eosinophils % 2.4 Basophils % 0.6 Nucleated RBC % 0 PT with INR 13.80 H INR 1.17 H Sodium 140 Potassium 4.0 Chloride 107 Carbon Dioxide 29 Anion Gap 5 L BUN 26.5 H Creatinine 1.0 Est GFR (CKD-EPI)AfAm 79.19 Est GFR (CKD-EPI)NonAf 68.33 Random Glucose 101 Calcium 8.3 L Phosphorus Magnesium 1.8 Iron TIBC Iron Saturation Unsaturated IBC Ferritin Total Bilirubin 0.6 AST 14 L ALT 17 Alkaline Phosphatase 60 Creatine Kinase 65 Troponin I < 0.02 B-Natriuretic Peptide 620.0 H Total Protein 6.7 Albumin 3.2 L Triglycerides Cholesterol Total LDL Cholesterol HDL Cholesterol Vitamin B12 Urine Color Urine Appearance Urine pH Ur Specific [place] Urine Protein Urine Glucose (UA) Urine Ketones Urine Blood Urine Nitrite Urine Bilirubin Urine Urobilinogen Ur Leukocyte Esterase Urine WBC (Auto) Urine RBC (Auto) Urine Casts (Auto) U Epithel Cells (Auto) Urine Bacteria (Auto) 06/18/19 06/18/19 06/18/19 02:46 04:15 06:54 WBC 6.2 RBC 4.18 Hgb 11.4 L Hct 33.7 L MCV 80.7 MCH 27.2 MCHC 33.8 RDW 16.3 H Plt Count 104 L MPV 9.6 Absolute Neuts (auto) Neutrophils % Lymphocytes % Monocytes % Eosinophils % Basophils % Nucleated RBC % PT with INR INR Sodium Potassium Chloride Carbon Dioxide Anion Gap BUN Creatinine Est GFR (CKD-EPI)AfAm Est GFR (CKD-EPI)NonAf Random Glucose Calcium Phosphorus Magnesium Iron TIBC Iron Saturation Unsaturated IBC Ferritin Total Bilirubin AST ALT Alkaline Phosphatase Creatine Kinase Troponin I 0.02 B-Natriuretic Peptide Total Protein Albumin Triglycerides Cholesterol Total LDL Cholesterol HDL Cholesterol Vitamin B12 Urine Color Yellow Urine Appearance Clear Urine pH 6.5 Ur Specific [place] 1.014 Urine Protein Negative Urine Glucose (UA) Negative Urine Ketones Negative Urine Blood 1+ H Urine Nitrite Negative Urine Bilirubin Negative Urine Urobilinogen 0.2 Ur Leukocyte Esterase Negative Urine WBC (Auto) 1 Urine RBC (Auto) 10 Urine Casts (Auto) 0 U Epithel Cells (Auto) 0.3 Urine Bacteria (Auto) 0 06/18/19 06/18/19 06:54 06:54 WBC RBC Hgb Hct MCV MCH MCHC RDW Plt Count MPV Absolute Neuts (auto) Neutrophils % Lymphocytes % Monocytes % Eosinophils % Basophils % Nucleated RBC % PT with INR INR Sodium 143 Potassium 3.4 L Chloride 108 H Carbon Dioxide 28 Anion Gap 7 L BUN 20.8 H Creatinine 0.9 Est GFR (CKD-EPI)AfAm 89.95 Est GFR (CKD-EPI)NonAf 77.61 Random Glucose 78 Calcium 8.1 L Phosphorus 3.0 Magnesium 1.9 Iron 43 L TIBC 313 Iron Saturation 13 L Unsaturated IBC 270 Ferritin 6.1 L Total Bilirubin 0.7 AST 11 L ALT 14 Alkaline Phosphatase 56 Creatine Kinase Troponin I B-Natriuretic Peptide Total Protein 6.5 Albumin 3.1 L Triglycerides 76 Cholesterol 110 Total LDL Cholesterol 63 HDL Cholesterol 35 L Vitamin B12 223 Urine Color Urine Appearance Urine pH Ur Specific [place] Urine Protein Urine Glucose (UA) Urine Ketones Urine Blood Urine Nitrite Urine Bilirubin Urine Urobilinogen Ur Leukocyte Esterase Urine WBC (Auto) Urine RBC (Auto) Urine Casts (Auto) U Epithel Cells (Auto) Urine Bacteria (Auto) Current Medications Generic Name Dose Route Start Last Admin Trade Name Freq PRN Reason Stop Dose Admin Acetaminophen 650 mg 06/18/19 03:47 Tylenol - PO Q6H PRN PAIN LEVEL 7 - 10 Aspirin 81 mg 06/18/19 10:00 06/18/19 11:02 Asa - PO 81 mg DAILY [facility] Administration Clopidogrel Bisulfate 75 mg 06/18/19 10:00 06/18/19 11:02 Plavix - PO 75 mg DAILY [facility] Administration Finasteride 5 mg 06/18/19 10:00 06/18/19 11:02 Proscar - PO 5 mg DAILY [facility] Administration Heparin Sodium (Porcine) 5,000 unit 06/18/19 14:00 Heparin - SQ TID [facility] Isosorbide Mononitrate 30 mg 06/18/19 10:00 06/18/19 11:02 Imdur - PO 30 mg DAILY [facility] Administration Losartan Potassium 100 mg 06/18/19 10:00 06/18/19 11:02 Cozaar - PO 100 mg DAILY [facility] Administration Metoprolol Succinate 50 mg 06/18/19 10:00 06/18/19 11:03 Toprol Xl - PO 50 mg DAILY [facility] Administration Nitroglycerin 0.3 mg 06/18/19 04:55 Nitrostat - SL Q5M PRN FOR CHEST PAIN Pantoprazole Sodium 40 mg 06/18/19 10:00 06/18/19 11:03 Protonix - PO 40 mg DAILY [facility] Administration Rosuvastatin Calcium 20 mg 06/18/19 22:00 Crestor - PO HS [facility] Tamsulosin HCl 0.4 mg 06/18/19 08:30 06/18/19 10:00 Flomax - PO 0.4 mg DAILY@0830 [facility] Administration Home Medications Medication Instructions Recorded Tamsulosin HCl [Flomax] 0.4 mg PO HS 08/04/17 Aspirin [ASA -] 81 mg PO DAILY #30 tab.chew 02/27/18 Clopidogrel Bisulfate [Plavix] 75 mg PO DAILY 03/04/18 Pantoprazole Sodium [Protonix] 40 mg PO DAILY 03/04/18 Irbesartan 300 mg PO DAILY 06/12/18 Finasteride 5 mg PO DAILY 11/26/18 Metoprolol Succinate [Toprol XL -] 50 mg PO DAILY #30 tab.sr.24h 11/26/18 Rosuvastatin [Crestor -] 20 mg PO DAILY 04/10/19 Isosorbide Mononitrate [Imdur -] 30 mg PO DAILY 06/17/19 ASSESSMENT AND PLAN: 83 year old male with Hx of CAD s/p PCI/stent (02/16, 06/18), Chronic Diastolic CHF, BPH, HTN, Bladder Ca s/p resection 2 years ago, multiple hospital presentations for chest pain and shortness of breath, last stress test 10/18 negative, presented with CP/dyspnea. 1. Atypical CP, likely anxiety induced. Hx of CAD s/p PCI/Stent Low suspicion for ACS. ECG - NSR, no acute changes. TropI neg x 2. CXR - no acute changes. s/p coronary angiogram via right wrist 06/2018 - RUE US as per Cardio ?aneurysm at catheter insertion Seen by Cardiology - recommends Echo Continue Aspirin/Plavix/Metoprolol/Irbesartan/Imdur/Statin 2. Chronic Diastolic CHF - Stable. No evidence of decompensation 3. HTN - BP on high side. Resume home meds Metoprolol/Irbesartan/Imdur and monitor. 4. BPH - Continue Finasteride, Flomax 5. Normocytic Anemia - Iron Deficiency Anemia (Iron Sat 13%, Ferritin 6.1)/B12 levels borderline - will give IV Venofer and B12 supplementation. No evidence of active bleeding. Further work-up by GI as out-patient 6. Hypokalemia - repleted. 7. Thrombocytopenia - Chronic. DVT Px - Heparin SQ
[2019-06-18] MEDS ORDERED: IRON SUCROSE INJECTION 200 MG in SODIUM CHLORIDE 90 ML IVPB ONE (14:48)
[2019-06-18] MEDS ORDERED: THIAMINE HCL 100 MG TABLET (FP) ONE (16:20)
--- NOTE | 2019-06-18 16:33 | ECHO ---
Name: SILVANO, LINNEA Exam:Adult Echocardiogram Study Date: 06/18/2019 01:30 PM Age: 83 yrs Height: 70 in Weight: 170 lb BSA: 1.9 m2 MMode/2D Measurements & Calculations IVSd: 1.1 cm Ao root diam: 3.5 cm LVIDd: 4.9 cm LA dimension: 3.3 cm LVIDs: 3.5 cm LVPWd: 1.3 cm LVPWs: 1.4 cm EDV(Teich): 110.3 ml ESV(Teich): 50.3 ml LVOT diam: 2.4 cm LAV (MOD-bp): 72.0 ml RV S Clifton: 12.9 cm/sec Doppler Measurements & Calculations MV E max clifton: 62.2 cm/sec Ao V2 max: 148.9 cm/sec MV A max clifton: 77.5 cm/sec Ao max P.9 mmHg MV E/A: 0.80 AI P1/2t: 606.4 msec MV dec time: 0.24 sec EVA(V,D): 3.0 cm2 AI max clifton: 487.0 cm/sec LV V1 max P.9 mmHg AI max P.9 mmHg LV V1 max: 98.2 cm/sec AI dec slope: 235.2 cm/sec2 TR max clifton: 209.4 cm/sec PA V2 max: 95.0 cm/sec TR max P.5 mmHg PA max P.6 mmHg Med Peak E' Clifton: 3.8 cm/sec Med E/e': 16.4 Lat Peak E' Clifton: 9.6 cm/sec Lat E/e': 6.5 Procedure A two-dimensional transthoracic echocardiogram with color flow and Doppler was performed. Images were not obtained from all of the standard acoustic windows due to the limited scope of the study. The study w as technically difficult with many images being suboptimal in quality. Left Ventricle The left ventricular size, thickness and function are normal. The left ventricular ejection fraction is normal. The left ventricular wall motion is normal. Right Ventricle The right ventricle is normal in size and function. Atria Normal left and right atrial size and function. Mitral Valve There is mild mitral valve thickening. There is no mitral valve stenosis. There is mild mitral regurg itation. Tricuspid Valve The tricuspid valve is not well visualized. There is no tricuspid stenosis. There is Trace to mild tr icuspid regurgitation. Right ventricular systolic pressure is normal. Aortic Valve The aortic valve is not well visualized. No hemodynamically significant valvular aortic stenosis. Mod erate aortic regurgitation. Pulmonic Valve The pulmonic valve is not well visualized. Great Vessels The aortic root is normal size. Pericardium/Pleura There is no pericardial effusion. Interpretation Summary The left ventricular size, thickness and function are normal The left ventricular ejection fraction is normal. The left ventricular wall motion is normal. Images were not obtained from all of the standard acoustic windows due to the limited scope of the st udy. The study was technically difficult with many images being suboptimal in quality. Moderate aortic regurgitation. There is mild mitral regurgitation. There is Trace to mild tricuspid regurgitation. Right ventricular systolic pressure is normal. MD Jeovanny Vallejo 06/18/2019 04:32 PM
--- NOTE | 2019-06-18 16:33 | PN ---
Physical Exam: SUBJECTIVE: Patient seen and examined at the bedside. Patient states that he feels better and that his chest pain has decreased. Was complaining of some R upper extremity swelling. Currently was lying in bed comfortably and denied any acute complains of shortness of breath, abd pain, n/v/c/d, dizziness, lightheadedness, dizziness, fever, chills, cough, diaphoresis OBJECTIVE: Vital Signs Period Temp Pulse Resp BP Sys/[place] Pulse Ox Last 24 Hr 97.7 F-98.2 F 62-62 17 157-170/72-80 98-100 GENERAL: The patient is awake, alert, and fully oriented, in mild acute distress. HEAD: Normal with no signs of trauma. EYES: PERRL, extraocular movements intact, sclera anicteric, conjunctiva clear. ENT: Oropharynx clear without exudates, moist mucous membranes. NECK: Trachea midline, full range of motion, supple. LUNGS: Breath sounds equal, clear to auscultation bilaterally, no wheezes, no crackles, no accessory muscle use. HEART: Regular rate and rhythm, S1, S2 without murmur, rub. ABDOMEN: Soft, nontender, nondistended, normoactive bowel sounds, no guarding, no rebound, no masses. EXTREMITIES: 2+ pulses, warm, well-perfused, mild edema of the RUE. Noted bruit and thrill on the right radial artery. NEUROLOGICAL: Cranial nerves II through XII grossly intact. 5/5 muscle strength upper and lower extremities, bilaterally. PSYCH: Normal mood, normal affect. SKIN: Warm, dry, normal turgor, no rashes or lesions noted. Laboratory Results - last 24 hr 06/17/19 06/17/19 06/17/19 23:25 23:25 23:25 WBC 6.5 RBC 4.21 Hgb 11.3 L Hct 34.7 L MCV 82.5 MCH 26.9 MCHC 32.7 RDW 16.0 H Plt Count 111 L MPV 10.1 Absolute Neuts (auto) 3.6 Neutrophils % 55.6 Lymphocytes % 34.2 Monocytes % 7.2 Eosinophils % 2.4 Basophils % 0.6 Nucleated RBC % 0 PT with INR 13.80 H INR 1.17 H Sodium 140 Potassium 4.0 Chloride 107 Carbon Dioxide 29 Anion Gap 5 L BUN 26.5 H Creatinine 1.0 Est GFR (CKD-EPI)AfAm 79.19 Est GFR (CKD-EPI)NonAf 68.33 Random Glucose 101 Calcium 8.3 L Phosphorus Magnesium 1.8 Iron TIBC Iron Saturation Unsaturated IBC Ferritin Total Bilirubin 0.6 AST 14 L ALT 17 Alkaline Phosphatase 60 Creatine Kinase 65 Troponin I < 0.02 B-Natriuretic Peptide 620.0 H Total Protein 6.7 Albumin 3.2 L Triglycerides Cholesterol Total LDL Cholesterol HDL Cholesterol Vitamin B12 Urine Color Urine Appearance Urine pH Ur Specific [place] Urine Protein Urine Glucose (UA) Urine Ketones Urine Blood Urine Nitrite Urine Bilirubin Urine Urobilinogen Ur Leukocyte Esterase Urine WBC (Auto) Urine RBC (Auto) Urine Casts (Auto) U Epithel Cells (Auto) Urine Bacteria (Auto) 06/18/19 06/18/19 06/18/19 02:46 04:15 06:54 WBC 6.2 RBC 4.18 Hgb 11.4 L Hct 33.7 L MCV 80.7 MCH 27.2 MCHC 33.8 RDW 16.3 H Plt Count 104 L MPV 9.6 Absolute Neuts (auto) Neutrophils % Lymphocytes % Monocytes % Eosinophils % Basophils % Nucleated RBC % PT with INR INR Sodium Potassium Chloride Carbon Dioxide Anion Gap BUN Creatinine Est GFR (CKD-EPI)AfAm Est GFR (CKD-EPI)NonAf Random Glucose Calcium Phosphorus Magnesium Iron TIBC Iron Saturation Unsaturated IBC Ferritin Total Bilirubin AST ALT Alkaline Phosphatase Creatine Kinase Troponin I 0.02 B-Natriuretic Peptide Total Protein Albumin Triglycerides Cholesterol Total LDL Cholesterol HDL Cholesterol Vitamin B12 Urine Color Yellow Urine Appearance Clear Urine pH 6.5 Ur Specific [place] 1.014 Urine Protein Negative Urine Glucose (UA) Negative Urine Ketones Negative Urine Blood 1+ H Urine Nitrite Negative Urine Bilirubin Negative Urine Urobilinogen 0.2 Ur Leukocyte Esterase Negative Urine WBC (Auto) 1 Urine RBC (Auto) 10 Urine Casts (Auto) 0 U Epithel Cells (Auto) 0.3 Urine Bacteria (Auto) 0 06/18/19 06/18/19 06:54 06:54 WBC RBC Hgb Hct MCV MCH MCHC RDW Plt Count MPV Absolute Neuts (auto) Neutrophils % Lymphocytes % Monocytes % Eosinophils % Basophils % Nucleated RBC % PT with INR INR Sodium 143 Potassium 3.4 L Chloride 108 H Carbon Dioxide 28 Anion Gap 7 L BUN 20.8 H Creatinine 0.9 Est GFR (CKD-EPI)AfAm 89.95 Est GFR (CKD-EPI)NonAf 77.61 Random Glucose 78 Calcium 8.1 L Phosphorus 3.0 Magnesium 1.9 Iron 43 L TIBC 313 Iron Saturation 13 L Unsaturated IBC 270 Ferritin 6.1 L Total Bilirubin 0.7 AST 11 L ALT 14 Alkaline Phosphatase 56 Creatine Kinase Troponin I B-Natriuretic Peptide Total Protein 6.5 Albumin 3.1 L Triglycerides 76 Cholesterol 110 Total LDL Cholesterol 63 HDL Cholesterol 35 L Vitamin B12 223 Urine Color Urine Appearance Urine pH Ur Specific [place] Urine Protein Urine Glucose (UA) Urine Ketones Urine Blood Urine Nitrite Urine Bilirubin Urine Urobilinogen Ur Leukocyte Esterase Urine WBC (Auto) Urine RBC (Auto) Urine Casts (Auto) U Epithel Cells (Auto) Urine Bacteria (Auto) Active Medications Generic Name Dose Route Start Last Admin Trade Name Freq PRN Reason Stop Dose Admin Acetaminophen 650 mg 06/18/19 03:47 Tylenol - PO Q6H PRN PAIN LEVEL 7 - 10 Aspirin 81 mg 06/18/19 10:00 06/18/19 11:02 Asa - PO 81 mg DAILY [facility] Administration Clopidogrel Bisulfate 75 mg 06/18/19 10:00 06/18/19 11:02 Plavix - PO 75 mg DAILY [facility] Administration Cyanocobalamin 1,000 mcg 06/18/19 15:00 Vitamin B12 - PO DAILY [facility] Finasteride 5 mg 06/18/19 10:00 06/18/19 11:02 Proscar - PO 5 mg DAILY [facility] Administration Heparin Sodium (Porcine) 5,000 unit 06/18/19 14:00 06/18/19 14:00 Heparin - SQ 5,000 unit TID [facility] Administration Isosorbide Mononitrate 30 mg 06/18/19 10:00 06/18/19 11:02 Imdur - PO 30 mg DAILY [facility] Administration Losartan Potassium 100 mg 06/18/19 10:00 06/18/19 11:02 Cozaar - PO 100 mg DAILY [facility] Administration Metoprolol Succinate 50 mg 06/18/19 10:00 06/18/19 11:03 Toprol Xl - PO 50 mg DAILY [facility] Administration Nitroglycerin 0.3 mg 06/18/19 04:55 Nitrostat - SL Q5M PRN FOR CHEST PAIN Pantoprazole Sodium 40 mg 06/18/19 10:00 06/18/19 11:03 Protonix - PO 40 mg DAILY [facility] Administration Rosuvastatin Calcium 20 mg 06/18/19 22:00 Crestor - PO HS [facility] Tamsulosin HCl 0.4 mg 06/18/19 08:30 06/18/19 10:00 Flomax - PO 0.4 mg DAILY@0830 [facility] Administration ASSESSMENT/PLAN: Deven Starks 83 year old male with a past medical history of HTN, CAD s/p 2 stents (most recent 2017), BPH, HfpEF, BPH, HTN, Bladder Ca (s/p resection 2 years ago) admitted for observation for chest pain and shortness of breath Hypertensive Urgency - pt reports compliance with his meds, usually takes medications in am - 1x hydralazine given in ED - restart home medications Atypical chest pain - EKG reviewed, NSR, no ST changes - Echo from 10/18: nml EF - previous stress test showing no ischemic changes, probable normal perfusion, no evidence of transient ischemic disease - echo ordered showing normal LV size, thickness, function, normal EF, mild tricusid and mitral regurg - negative troponins x 2 - continue cardiac monitoring- tele obs - cardiology recs appreciated - sublingual nitroglycerin for recurrent episodes - continue cardiac monitoring - c/w asa, toprol, lipitor - c/w plavix Chronic CHF - continue home meds - no evidence of acute decompensation R Upper extremity thrill/bruit - noted on examination - arterial doppler noting weak monophasic flow in the R radial artery w/o evidence of occlusion - vascular surgery consulted, will see patient in the morning Normocytic anemia: - iron studies showing low iron and low iron saturation - iron supplementation, B12 supplementation - FOBT ordered BPH - home dose Flomax And finasteride DVT prophylaxis - heparin 5000 units subq tid FEN - no standing fluids - continue to monitor electrolytes and replete as necessary - sodium controlled diet Dispo - continue to monitor on telemetry Visit type - Emergency Visit Emergency Visit: Yes ED Registration Date: 06/18/19 Care time: The patient presented to the Emergency Department on the above date and was hospitalized for further evaluation of their emergent condition. - New Patient This patient is new to me today: Yes Date on this admission: 06/18/19 - Critical Care Critical Care patient: No
[2019-06-18] MEDS: CYANOCOBALAMIN 1,000 MCG TABLET (FP) PO SCH (16:59)
[2019-06-18] MEDS ORDERED: ROSUVASTATIN CA 20 MG TABLET (FP) PO SCH (22:00)
[2019-06-19] MEDS: HEPARIN NA (PORCINE) 5,000 UNITS/ML 1ML VIAL SQ SCH ×2 (00:16→06:36)
[2019-06-19 07:22] LABS: BLOOD UREA NITROGEN 20.2 mg/dL (7-18); CALCIUM 8.1 mg/dL (8.5-10.1); CREATININE 0.9 mg/dL (0.55-1.3); MAGNESIUM 1.9 mg/dL (1.8-2.4); POTASSIUM 3.5 mmol/L (3.5-5.1)
--- NOTE | 2019-06-19 07:40 | CONSULT ---
Consult Consult Specialty:: Vascular Surgery <Omar Cruz - Last Filed: 06/19/19 08:36> Consult Specialty:: Vascular Surgery - Omar Cruz - History of Present Illness Chief Complaint: Substernal CP and SOB History of Present Illness: 83 yo male w/ PMHx significant for CAD with stent placement. Comes to [facility] ED for further evalaution of his on-going CP. Admitted to ICU for continued observation. 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 Patient is unaware that he had this potential problem. He states he had a coronary angiogram via right wrist 06/2018. Doesn't remember if it was there prior too procedure. Doesn't bother him. Denies any pain or hand numbness/tingling. A RUE Arterial Duplex was performed which showed monophasic flow without obstruction through the right radial artery. No mention of aneurysm/pseudoaneurysm. - History Source History Provided By: Patient Limitations to Obtaining History: No Limitations - Past Medical History Cardio/Vascular: Yes: CAD, CHF (diastolic; moderate LVH), HTN, Hyperlipdemia, [place] Gastrointestinal: Yes: GERD Psych: Yes: Anxiety, Panic - Past Surgical History Past Surgical History: Yes: Stent (coronary: 1st more than 20 yrs ago; latest last week (RPDA)) - Alcohol/Substance Use Hx Alcohol Use: No - Smoking History Smoking history: Never smoked Have you smoked in the past 12 months: No Aproximately how many cigarettes per day: 0 If you are a former smoker, when did you quit?: 1958 - Social History Usual Living Arrangement: With Spouse <Gennaro Arriaga - Last Filed: 06/19/19 14:48> Home Medications <Omar Cruz - Last Filed: 06/19/19 08:36> <Gennaro Arriaga - Last Filed: 06/19/19 14:48> - Allergies Allergies/Adverse Reactions: Allergies Allergy/AdvReac Type Severity Reaction Status Date / Time No Known Allergies Allergy Verified 06/18/19 00:02 - Home Medications Home Medications: Ambulatory Orders Tamsulosin HCl [Flomax] 0.4 mg PO HS 08/04/17 Aspirin [ASA -] 81 mg PO DAILY #30 tab.chew 02/27/18 Clopidogrel Bisulfate [Plavix] 75 mg PO DAILY 03/04/18 Pantoprazole Sodium [Protonix] 40 mg PO DAILY 03/04/18 Irbesartan 300 mg PO DAILY 06/12/18 Finasteride 5 mg PO DAILY 11/26/18 Metoprolol Succinate [Toprol XL -] 50 mg PO DAILY #30 tab.sr.24h 11/26/18 Rosuvastatin [Crestor -] 20 mg PO DAILY 04/10/19 Isosorbide Mononitrate [Imdur -] 30 mg PO DAILY 06/17/19 Cyanocobalamin (Vitamin B-12) [Vitamin B-12] 1,000 mcg PO DAILY #30 capsule Ferrous Sulfate 325 mg PO DAILY #30 tablet 06/19/19 Nitroglycerin Sublingual [Nitrostat -] 0.3 mg SL [id number] PRN 06/19/19 Family Medical History Family History: Unremarkable <Gennaro Arriaga - Last Filed: 06/19/19 14:48> Review of Systems - Review of Systems Constitutional: reports: No Symptoms Eyes: reports: No Symptoms HENT: reports: No Symptoms Neck: reports: No Symptoms Cardiovascular: reports: No Symptoms (since admit to hospital) Respiratory: reports: No Symptoms Gastrointestinal: reports: No Symptoms Genitourinary: reports: No Symptoms Musculoskeletal: reports: No Symptoms Integumentary: reports: No Symptoms Endocrine: reports: No Symptoms Hematology/Lymphatic: reports: No Symptoms Psychiatric: reports: No Symptoms <Gennaro Arriaga - Last Filed: 06/19/19 14:48> Physical Exam Vital Signs: Vital Signs Temperature 98 F 06/19/19 06:00 Pulse Rate 57 L 06/19/19 06:00 Respiratory Rate 20 06/19/19 06:00 Blood Pressure 152/74 06/19/19 06:00 O2 Sat by Pulse Oximetry (%) 98 06/19/19 03:44 Labs: CBC, BMP 06/18/19 06:54 06/19/19 05:31 <Omar Cruz - Last Filed: 06/19/19 08:36> Vital Signs: Vital Signs Temperature 98 F 06/19/19 06:00 Pulse Rate 57 L 06/19/19 06:00 Respiratory Rate 20 06/19/19 06:00 Blood Pressure 152/74 06/19/19 06:00 O2 Sat by Pulse Oximetry (%) 98 06/19/19 03:44 Constitutional: Yes: Well Nourished, No Distress, Calm Eyes: Yes: WNL, Conjunctiva Clear, EOM Intact HENT: Yes: WNL, Atraumatic, Normocephalic Neck: Yes: WNL, Supple, Trachea Midline Cardiovascular: Yes: WNL, Regular Rate and Rhythm Respiratory: Yes: WNL, Regular, CTA Bilaterally Gastrointestinal: Yes: WNL, Normal Bowel Sounds, Soft Musculoskeletal: Yes: WNL Extremities: Yes: WNL Peripheral Pulses WNL: Yes Integumentary: Yes: WNL Neurological: Yes: WNL, Alert, Oriented ...Motor Strength: WNL Psychiatric: Yes: WNL, Alert, Oriented Labs: CBC, BMP 06/18/19 06:54 06/19/19 05:31 <Gennaro Arriaga P - Last Filed: 06/19/19 14:48> Imaging - Results Ultrasound: Report Reviewed <Gennaro Arriaga - Last Filed: 06/19/19 14:48> Problem List - Problems (1) Diastolic CHF Code(s): I50.30 - UNSPECIFIED DIASTOLIC (CONGESTIVE) HEART FAILURE Qualifiers: Heart failure chronicity: unspecified Qualified Code(s): I50.30 - Unspecified diastolic (congestive) heart failure (2) Stented coronary artery Code(s): Z95.5 - PRESENCE OF CORONARY ANGIOPLASTY IMPLANT AND GRAFT <Gennaro Arriaga P - Last Filed: 06/19/19 14:48> Assessment/Plan History reviewed and patient examined. Right radial pulse present, no obvious deformity. No pain or weakness in hand. Duplex reviewed - no aneurysm Imp: No significant abnormality right radial artery, normal perfusion of hand. Rec: No intervention needed. <Omar Cruz - Last Filed: 06/19/19 08:36> Visit type - Emergency Visit Emergency Visit: Yes ED Registration Date: 06/18/19 Care time: The patient presented to the Emergency Department on the above date and was hospitalized for further evaluation of their emergent condition. - New Patient This patient is new to me today: Yes Date on this admission: 06/19/19 - Critical Care Critical Care patient: No <Gennaro Arriaga - Last Filed: 06/19/19 14:48>
[2019-06-19] MEDS ORDERED: MAGNESIUM SULF 50% (8.12 MEQ/2 ML-1 GM VIAL) IVPB ONE (08:00)
--- NOTE | 2019-06-19 09:22 | PN ---
Progress Note, Physician Chief Complaint: Pt ambulatory; no chest pain since 4 am yesterday. No dyspnea History of Present Illness: 83y M with PMH of CAD s/p stent (01/2018, 06/2018), HfpEF, BPH, HTN, Bladder Ca s /p resection 2 years ago, presenting to ED with for chest pain and sob that began 4h ago while patient was watching TV. He states the pain comes and goes, feels like a pinching sensation and is associated with sob. Not worse with exertion or with lying down flat. He has had similar pains before but does not feel like when he required stenting. Denies cough, fevers, chills, back pain , abdominal pain, n/v/d, headaches, dizziness. He saw his urologist recently and was told that there was no reemergence of the tumor. Most recent echo was 09/2018 which was a limited study but grossly normal, last stress was 09/2018. - Current Medication List Current Medications: Active Medications Acetaminophen (Tylenol -) 650 mg PO Q6H PRN PRN Reason: PAIN LEVEL 7 - 10 Aspirin (Asa -) 81 mg PO DAILY [facility] Last Admin: 06/18/19 11:02 Dose: 81 mg Clopidogrel Bisulfate (Plavix -) 75 mg PO DAILY [facility] Last Admin: 06/18/19 11:02 Dose: 75 mg Cyanocobalamin (Vitamin B12 -) 1,000 mcg PO DAILY [facility] Last Admin: 06/18/19 16:59 Dose: 1,000 mcg Finasteride (Proscar -) 5 mg PO DAILY [facility] Last Admin: 06/18/19 11:02 Dose: 5 mg Heparin Sodium (Porcine) (Heparin -) 5,000 unit SQ TID [facility] Last Admin: 06/19/19 06:36 Dose: Not Given Iron Sucrose 200 mg/ Sodium (Chloride) 100 mls @ 100 mls/hr IVPB ONCE ONE Stop: 06/19/19 11:29 Isosorbide Mononitrate (Imdur -) 30 mg PO DAILY [facility] Last Admin: 06/18/19 11:02 Dose: 30 mg Losartan Potassium (Cozaar -) 100 mg PO DAILY [facility] Last Admin: 06/18/19 11:02 Dose: 100 mg Metoprolol Succinate (Toprol Xl -) 50 mg PO DAILY [facility] Last Admin: 06/18/19 11:03 Dose: 50 mg Nitroglycerin (Nitrostat -) 0.3 mg SL Q5M PRN PRN Reason: FOR CHEST PAIN Pantoprazole Sodium (Protonix -) 40 mg PO DAILY [facility] Last Admin: 06/18/19 11:03 Dose: 40 mg Rosuvastatin Calcium (Crestor -) 20 mg PO HS [facility] Last Admin: 06/19/19 00:02 Dose: 20 mg Tamsulosin HCl (Flomax -) 0.4 mg PO DAILY@0830 [facility] Last Admin: 06/18/19 10:00 Dose: 0.4 mg - Objective Vital Signs: Vital Signs Temperature 98 F 06/19/19 06:00 Pulse Rate 57 L 06/19/19 06:00 Respiratory Rate 20 06/19/19 06:00 Blood Pressure 152/74 06/19/19 06:00 O2 Sat by Pulse Oximetry (%) 98 06/19/19 03:44 Constitutional: Yes: No Distress Eyes: Yes: WNL HENT: Yes: WNL Neck: Yes: WNL Cardiovascular: Yes: WNL Respiratory: Yes: WNL Gastrointestinal: Yes: WNL ...Rectal Exam: Yes: Deferred Genitourinary: No: Anuria Breast(s): Yes: WNL Musculoskeletal: Yes: WNL Extremities: Yes: WNL Edema: No Peripheral Pulses WNL: No Peripheral Pulses: Left Doralis Pedis: 3+, Right Dorsalis Pedis: 3+ Integumentary: Yes: WNL Neurological: Yes: WNL ...Motor Strength: WNL Psychiatric: Yes: WNL Labs: CBC, BMP 06/18/19 06:54 06/19/19 05:31 INR, PTT INR 1.17 (0.83-1.09) H 06/17/19 23:25 Abnormal Lab Results 06/18/19 06/19/19 06:54 05:31 Chloride 108 H Anion Gap 7 L BUN 20.2 H Calcium 8.1 L Iron 43 L Iron Saturation 13 L Ferritin 6.1 L HDL Cholesterol 35 L - ....Imaging Other: Image Reviewed (telemetry: NSR; no arrhythmias) Problem List - Problems (1) Swelling of right upper extremity Assessment/Plan: vascular surgeon's consult noted and appreciated. Pt will be followed as oupatient by Dr. Lopez. Code(s): M79.89 - OTHER SPECIFIED SOFT TISSUE DISORDERS (2) Hypertension Code(s): I10 - ESSENTIAL (PRIMARY) HYPERTENSION Qualifiers: Hypertension type: unspecified Qualified Code(s): I10 - Essential (primary ) hypertension (3) Diastolic CHF Assessment/Plan: stable. Code(s): I50.30 - UNSPECIFIED DIASTOLIC (CONGESTIVE) HEART FAILURE Qualifiers: Heart failure chronicity: unspecified Qualified Code(s): I50.30 - Unspecified diastolic (congestive) heart failure (4) Hyperlipidemia Assessment/Plan: statin; total cholesterl 110 mg/dL; LDL in 60s. Code(s): E78.5 - HYPERLIPIDEMIA, UNSPECIFIED (5) Stented coronary artery Code(s): Z95.5 - PRESENCE OF CORONARY ANGIOPLASTY IMPLANT AND GRAFT (6) Atypical chest pain Assessment/Plan: TNI < 0.02 x 2. EKG: no acute STT changes. Stress MIBI 2019: no ischemia. From a cardiac standpoint, pt may be followed as an outpatient; he will see Dr. Lopez in 10 days. Code(s): R07.89 - OTHER CHEST PAIN
[2019-06-19] MEDS: TAMSULOSIN HCL 0.4 MG CAP PO SCH (09:53)
[2019-06-19] MEDS: ISOSORBIDE MONONITRATE 30 MG TAB.SR.24H (FP) PO SCH (09:53)
[2019-06-19] MEDS: PANTOPRAZOLE 40 MG TABLET (FP) PO SCH (09:53)
[2019-06-19] MEDS: FINASTERIDE 5 MG TABLET (FP) PO SCH (09:54)
[2019-06-19] MEDS: ASPIRIN 81 MG CHEWABLE TABLETS PO SCH (09:54)
[2019-06-19] MEDS: LOSARTAN POTASSIUM 50 MG TABLET (FP) PO SCH (09:54)
[2019-06-19] MEDS: CLOPIDOGREL BISULFATE 75 MG TABLET (FP) PO SCH (09:54)
[2019-06-19] MEDS ORDERED: IRON SUCROSE INJECTION 200 MG in SODIUM CHLORIDE 90 ML IVPB ONE (10:30)
[2019-06-19] MEDS ORDERED: PT OWN MED DRAWER 7, Y5N ONE (10:33)
[2019-06-19] MEDS ORDERED: NITROGLYCERIN SUBLINGUAL 1/200 0.3 MG BTL SL PRN (11:25)
--- NOTE | 2019-06-19 11:31 | PN ---
Teaching Attending Note Name of Resident: Shad Samuels ATTENDING PHYSICIAN STATEMENT I saw and evaluated the patient. I reviewed the resident's note and discussed the case with the resident. I agree with the resident's findings and plan as documented. SUBJECTIVE: CP resolved. No further SOB. No cough/sputum/hemoptysis. No fever/ chills. OBJECTIVE: Afebrile, Hemodynamically stable. Last Vital Signs Temp Pulse Resp BP Pulse Ox 98 F 57 L 20 152/74 98 06/19/19 06:00 06/19/19 06:00 06/19/19 06:00 06/19/19 06:00 06/19/19 03:44 Heart - S1, S2, soft SM Lungs - clear to auscultation Abdomen - Soft, non-tender. Bowel Sounds normal. Extremities - no calf tenderness. All extremities neurovascularly intact. Neuro - AAO x 3. tone/Power normal all 4 extremities. Laboratory Results - last 24 hr 06/18/19 06/19/19 06:54 05:31 Sodium 142 Potassium 3.5 Chloride 108 H Carbon Dioxide 28 Anion Gap 7 L BUN 20.2 H Creatinine 0.9 Est GFR (CKD-EPI)AfAm 89.95 Est GFR (CKD-EPI)NonAf 77.61 Random Glucose 74 Calcium 8.1 L Magnesium 1.9 Iron 43 L TIBC 313 Iron Saturation 13 L Unsaturated IBC 270 Ferritin 6.1 L Triglycerides 76 Cholesterol 110 Total LDL Cholesterol 63 HDL Cholesterol 35 L Vitamin B12 223 Current Medications Generic Name Dose Route Start Last Admin Trade Name Freq PRN Reason Stop Dose Admin Acetaminophen 650 mg 06/18/19 03:47 Tylenol - PO Q6H PRN PAIN LEVEL 7 - 10 Aspirin 81 mg 06/18/19 10:00 06/19/19 09:54 Asa - PO 81 mg DAILY INDIGO Administration Clopidogrel Bisulfate 75 mg 06/18/19 10:00 06/19/19 09:54 Plavix - PO 75 mg DAILY INDIGO Administration Cyanocobalamin 1,000 mcg 06/18/19 15:00 06/18/19 16:59 Vitamin B12 - PO 1,000 mcg DAILY INDIGO Administration Finasteride 5 mg 06/18/19 10:00 06/19/19 09:54 Proscar - PO 5 mg DAILY INDIGO Administration Heparin Sodium (Porcine) 5,000 unit 06/18/19 14:00 06/19/19 06:36 Heparin - SQ Not Given TID COUNTS INCLUDE 234 BEDS AT THE [facility] Isosorbide Mononitrate 30 mg 06/18/19 10:00 06/19/19 09:53 Imdur - PO 30 mg DAILY INDIGO Administration Losartan Potassium 100 mg 06/18/19 10:00 06/19/19 09:54 Cozaar - PO 100 mg DAILY INDIGO Administration Metoprolol Succinate 50 mg 06/18/19 10:00 06/19/19 09:54 Toprol Xl - PO 50 mg DAILY INDIGO Administration Nitroglycerin 0.3 mg 06/18/19 04:55 Nitrostat - SL Q5M PRN FOR CHEST PAIN Pantoprazole Sodium 40 mg 06/18/19 10:00 06/19/19 09:53 Protonix - PO 40 mg DAILY COUNTS INCLUDE 234 BEDS AT THE [facility] Administration Rosuvastatin Calcium 20 mg 06/18/19 22:00 06/19/19 00:02 Crestor - PO 20 mg HS COUNTS INCLUDE 234 BEDS AT THE [facility] Administration Tamsulosin HCl 0.4 mg 06/18/19 08:30 06/19/19 09:53 Flomax - PO 0.4 mg DAILY@0830 INDIGO Administration DischargeMedications Medication Instructions Recorded Tamsulosin HCl [Flomax] 0.4 mg PO HS 08/04/17 Aspirin [ASA -] 81 mg PO DAILY #30 tab.chew 02/27/18 Clopidogrel Bisulfate [Plavix] 75 mg PO DAILY 03/04/18 Pantoprazole Sodium [Protonix] 40 mg PO DAILY 03/04/18 Irbesartan 300 mg PO DAILY 06/12/18 Finasteride 5 mg PO DAILY 11/26/18 Metoprolol Succinate [Toprol XL -] 50 mg PO DAILY #30 tab.sr.24h 11/26/18 Rosuvastatin [Crestor -] 20 mg PO DAILY 04/10/19 Isosorbide Mononitrate [Imdur -] 30 mg PO DAILY 06/17/19 Nitroglycerin Sublingual 0.3 mg SL Q5M PRN btl 06/18/19 [Nitrostat -] Cyanocobalamin (Vitamin B-12) 1,000 mcg PO DAILY #30 capsule 06/19/19 [Vitamin B-12] Ferrous Sulfate 325 mg PO DAILY #30 tablet 06/19/19 ASSESSMENT AND PLAN: 83 year old male with Hx of CAD s/p PCI/stent (02/16, 06/18), Chronic Diastolic CHF, BPH, HTN, Bladder Ca s/p resection 2 years ago, multiple hospital presentations for chest pain and shortness of breath, last stress test 10/18 negative, presented with CP/dyspnea. 1. Atypical CP, likely anxiety induced, resolved. Hx of CAD s/p PCI/Stent Low suspicion for ACS. ECG - NSR, no acute changes. TropI neg x 2. CXR - no acute changes. s/p coronary angiogram via right wrist 06/2018 - RUE US shows weak monophasic flow - no fistula or aneurysm. Echo - Normal. Seen by Cardio and Vascular Surgery - no intervention or further investigation required. Continue Aspirin/Plavix/Metoprolol/Irbesartan/Imdur/Statin 2. Chronic Diastolic CHF - Stable. No evidence of decompensation 3. HTN - Resume home meds Metoprolol/Irbesartan/Imdur. 4. BPH - Continue Finasteride, Flomax 5. Normocytic Anemia - Iron Deficiency Anemia (Iron Sat 13%, Ferritin 6.1)/B12 levels borderline - given IV Venofer and B12 supplementation. No evidence of active bleeding. Denies blood per rectum/melena. FOBT ordered but no stool produced. Patient declines rectal exam. Will supplement with referral to GI as out-patient for further work-up. 6. Hypokalemia - repleted. 7. Thrombocytopenia - Chronic. Medically stable. Declines rectal exam prior to discharge. Urged to follow with PCP and GI on discharge.
[2019-06-19 11:46] VITALS: BP 134/71; PULSE 58; TEMP 98.4
[2019-06-19] MEDS: CYANOCOBALAMIN 1,000 MCG TABLET (FP) PO SCH (11:47)
--- NOTE | 2019-06-19 13:14 | DS ---
Physical Exam: SUBJECTIVE: Patient seen and examined at the bedside. Patient stated he is feeling well and is eager to go home. Noted that he does not have any acute symptoms of cp, sob, abd pain, n/v/c/d, fever, chills, numbness, tingling, weakness, headaches, dizziness, lightheadedness. OBJECTIVE: Vital Signs Period Temp Pulse Resp BP Sys/[place] Pulse Ox Last 24 Hr 97.8 F-98.8 F 57-62 16-20 133-168/56-90 97-98 PHYSICAL EXAM GENERAL: The patient is awake, alert, and fully oriented, in no acute distress. HEAD: Normal with no signs of trauma. EYES: PERRL, extraocular movements intact, sclera anicteric, conjunctiva clear. ENT: Oropharynx clear without exudates, moist mucous membranes. NECK: Trachea midline, full range of motion, supple. LUNGS: Breath sounds equal, clear to auscultation bilaterally, no wheezes, no crackles, no accessory muscle use. HEART: Regular rate and rhythm, S1, S2 without murmur, rub. ABDOMEN: Soft, nontender, nondistended, normoactive bowel sounds, no guarding, no rebound, no masses. EXTREMITIES: 2+ pulses, warm, well-perfused, mild edema of the RUE. Noted bruit and thrill on the right radial artery. NEUROLOGICAL: Cranial nerves II through XII grossly intact. 5/5 muscle strength upper and lower extremities, bilaterally. PSYCH: Normal mood, normal affect. SKIN: Warm, dry, normal turgor, no rashes or lesions noted. LABS Laboratory Results - last 24 hr 06/18/19 06/19/19 06:54 05:31 Sodium 142 Potassium 3.5 Chloride 108 H Carbon Dioxide 28 Anion Gap 7 L BUN 20.2 H Creatinine 0.9 Est GFR (CKD-EPI)AfAm 89.95 Est GFR (CKD-EPI)NonAf 77.61 Random Glucose 74 Calcium 8.1 L Magnesium 1.9 Iron 43 L TIBC 313 Iron Saturation 13 L Unsaturated IBC 270 Ferritin 6.1 L Triglycerides 76 Cholesterol 110 Total LDL Cholesterol 63 HDL Cholesterol 35 L Vitamin B12 223 HOSPITAL COURSE: Deven Starks 83 year old male with a past medical history of HTN, CAD s/p 2 stents (most recent 2017), BPH, HfpEF, BPH, HTN, Bladder Ca (s/p resection 2 years ago) admitted for observation for chest pain and shortness of breath. Had hypertensive urgency upon presentation without any acute symptoms and was given hydralazine 10mg PO once in the ED and hypertension resolved. All home medications were restarted and pressures were well controlled during admission. Patient had EKG with no acute changes, negative troponins, echo which showed normal LV size, thickness, function, normal EF, mild tricusid and mitral regurg. Was seen by cardiology and was advised to follow up with his volunteer services assistant in the outpatient clinic. While patient was in ED was noted to have a R radial artery bruit/thrill. RUE U/S showed weak monophasic flow in the R radial artery w/o evidence of occlusion. Was seen by vascular surgery who noted that there was no acute need for surgical intervention. Patient is to follow up with vascular surgery outpatient. While admitted patient was found with anemia and low iron levels. Patient had refused rectal exam and did not produce stool for FOBT while admitted, was in attendance when patient had refused the rectal exam. Patient was advised to follow up with his primary care doctor and oil field operator for workup of anemia. Patient was given IV iron while admitted and was started on iron supplementation outpatient. Patient was started on B12 supplementation due to low normal levels. Patient was advised to continue all of him home medications. Was advised to follow up with PCP, cardiology, gastroenterology, vascular surgery. Patient and at the bedside were in agreement with the plan and reiterated it. Patient was discharged in stable medical condition. Date of Admission:06/18/19 Date of Discharge: 06/19/19 Minutes to complete discharge: 35 Discharge Summary Problems reviewed: Yes Reason For Visit: SHORTNESS OF BREATH, CHEST PAIN Condition: Improved - Instructions Diet, Activity, Other Instructions: You were admitted after you had chest pain. You had blood work performed that did not show any sign of damage to your heart. You had an echocardiogram of your heart that showed good function and size of your heart as well as some valve abnormalities. You were seen by the volunteer services assistant who recommended that you follow up with him in the outpatient clinic. You had an ultrasound of your arm which showed narrowing of one of the arteries of your arm. You were seen by the vascular surgeon who recommended that there was no intervention required and to follow up in the outpatient clinic. You were found to have anemia and low iron. You were offered a rectal exam to exam your stool for blood which you refused. Your was in present when you notified us that you did not want a rectal examination. You should continue to take iron and Vitamin B12 supplements. You are advised to follow up with a oil field operator (stomach, liver, intestine doctor). You were started on an iron supplementation. MEDICATIONS START to take ferrous sulfate 325mg daily. START to take Vitamin B12 1000mg daily. Please continue to take all of your home medications as prescribed. REFERRALS Please follow up with your primary care doctor, Dr. Xu Burris, within 1 week. Please follow up with your volunteer services assistant, Dr. Curtis Leung, on SundayJune 30. Please follow up with the oil field operator, Dr. Tanner Galindo, within 1 week. Please follow up with the vascular surgeon, Dr. Omar Cruz, within 2 weeks. Make sure to recheck your iron levels and Vitamin B12 levels in 2 weeks. If you have any symptoms of chest pain, shortness of breath, difficulty performing any activities that you usually do, fevers, or any other general feelings of unwellness, please call 911 or go to your nearest emergency room. Referrals: Xu Burris [Non Staff, Medical] - 1 Week Curtis Horta MD [Staff Physician] - 1 Week Omar Cruz MD [Staff Physician] - 2 Weeks Tanner Galindo MD [Staff Physician] - 1 Week Disposition: HOME - Home Medications Comprehensive Discharge Medication List: Ambulatory Orders Tamsulosin HCl [Flomax] 0.4 mg PO HS 08/04/17 Aspirin [ASA -] 81 mg PO DAILY #30 tab.chew 02/27/18 Clopidogrel Bisulfate [Plavix] 75 mg PO DAILY 03/04/18 Pantoprazole Sodium [Protonix] 40 mg PO DAILY 03/04/18 Irbesartan 300 mg PO DAILY 06/12/18 Finasteride 5 mg PO DAILY 11/26/18 Metoprolol Succinate [Toprol XL -] 50 mg PO DAILY #30 tab.sr.24h 11/26/18 Rosuvastatin [Crestor -] 20 mg PO DAILY 04/10/19 Isosorbide Mononitrate [Imdur -] 30 mg PO DAILY 06/17/19 Cyanocobalamin (Vitamin B-12) [Vitamin B-12] 1,000 mcg PO DAILY #30 capsule Ferrous Sulfate 325 mg PO DAILY #30 tablet 06/19/19 Nitroglycerin Sublingual [Nitrostat -] 0.3 mg SL [id number] PRN 06/19/19 Problem List - Problems (1) BPH (benign prostatic hyperplasia) Code(s): N40.0 - BENIGN PROSTATIC HYPERPLASIA WITHOUT LOWER URINRY TRACT SYMP (2) Diastolic CHF Code(s): I50.30 - UNSPECIFIED DIASTOLIC (CONGESTIVE) HEART FAILURE Qualifiers: Heart failure chronicity: unspecified Qualified Code(s): I50.30 - Unspecified diastolic (congestive) heart failure (3) Hyperlipidemia Code(s): E78.5 - HYPERLIPIDEMIA, UNSPECIFIED (4) Hypertension Code(s): I10 - ESSENTIAL (PRIMARY) HYPERTENSION Qualifiers: Hypertension type: unspecified Qualified Code(s): I10 - Essential (primary ) hypertension (5) Stented coronary artery Code(s): Z95.5 - PRESENCE OF CORONARY ANGIOPLASTY IMPLANT AND GRAFT (6) Chest pain Code(s): R07.9 - CHEST PAIN, UNSPECIFIED Qualifiers: Chest pain type: unspecified Qualified Code(s): R07.9 - Chest pain, unspecified (7) Elevated blood pressure reading Code(s): R03.0 - ELEVATED BLOOD-PRESSURE READING, W/O DIAGNOSIS OF HTN (8) Swelling of right upper extremity Code(s): M79.89 - OTHER SPECIFIED SOFT TISSUE DISORDERS This patient is new to me today: No Emergency Visit: Yes ED Registration Date: 06/18/19 Care time: The patient presented to the Emergency Department on the above date and was hospitalized for further evaluation of their emergent condition. Critical Care patient: No - Discharge Referral Referred to [facility] Med P.C.: No
== END 2019-06-19 12:05 | disposition home or self-care (01) ==
LOC: JER 22:27 → JERBED 06-18 00:04 → J2W 06-18 23:03
PROVIDERS: ADMIT Internal Medicine
PROC: 3E033GC Introduction of Other Therapeutic Substance into Peripheral Vein, Percutaneous Approach (ICD-10-PCS; principal; 2019-06-18)
DX: I16.0 Hypertensive urgency (principal); I11.0 Hypertensive heart disease with heart failure; R07.89 Other chest pain; D64.89 Other specified anemias; E78.5 Hyperlipidemia, unspecified; I25.10 Atherosclerotic heart disease of native coronary artery without angina pectoris; N40.0 Benign prostatic hyperplasia without lower urinary tract symptoms; I50.30 Unspecified diastolic (congestive) heart failure; I25.2 Old myocardial infarction; K21.9 Gastro-esophageal reflux disease without esophagitis; F41.0 Panic disorder [episodic paroxysmal anxiety]; M79.89 Other specified soft tissue disorders; E87.6 Hypokalemia; D69.6 Thrombocytopenia, unspecified; Z85.51 Personal history of malignant neoplasm of bladder; Z79.82 Long term (current) use of aspirin; Z95.5 Presence of coronary angioplasty implant and graft
CPT/HCPCS: 36415; 71045-TC-FY; 80048; 80053; 80061; 81003; 82550; 82607; 82728; 83540; 83550; 83721; 83735; 83880; 84100; 84484; 85025; 85027; 85610; 93005; 93010; 93306-TC; 93931; 96365; 97116-GP; 97161-GP; 99285-25; G0378; J1644; J1756

== ENCOUNTER 2019-07-08 02:34 | Observation (INO) | payer OTHER ==
[2019-07-08 02:38] VITALS: BMI 31.1
--- NOTE | 2019-07-08 03:10 | PDOC ---
History of Present Illness - General Chief Complaint: Chest Pain Stated Complaint: CHEST PAIN Time Seen by Provider: 07/08/19 03:08 - History of Present Illness Initial Comments: 07/08/19 03:09 83 yo M PMH HTN, CAD s/p 2 stents (most recent 2017), BPH, HfpEF, BPH, HTN, Bladder ca (s/p resection 2 years ago), anemia, presenting with. Notably, was seen on 06/18/2019 with chest pain and shortness of breath, found to be anemic and to have a R radial artery bruit, discharged to follow up with his charge entry and outpatient vascular surgery. Here today because he woke up out of sleep around 0230 with pinching, 5/10 L chest pain. Checked his BP, which he reports was 200s/100s, driving him to come to the ED. The pain completely resolved before arrival to the ED, and the patient's blood pressure is now in the 180s/80s. Denies SOB, abdominal pain, fevers/chills, constipation/diarrhea, GUADARRAMA, N/V, diaphoresis. Past History - Past Medical History Allergies/Adverse Reactions: Allergies Allergy/AdvReac Type Severity Reaction Status Date / Time No Known Allergies Allergy Verified 07/08/19 02:38 Home Medications: Ambulatory Orders Tamsulosin HCl [Flomax] 0.4 mg PO HS 08/04/17 Aspirin [ASA -] 81 mg PO DAILY #30 tab.chew 02/27/18 Clopidogrel Bisulfate [Plavix] 75 mg PO DAILY 03/04/18 Pantoprazole Sodium [Protonix] 40 mg PO DAILY 03/04/18 Irbesartan 300 mg PO DAILY 06/12/18 Finasteride 5 mg PO DAILY 11/26/18 Metoprolol Succinate [Toprol XL -] 50 mg PO DAILY #30 tab.sr.24h 11/26/18 Rosuvastatin [Crestor -] 20 mg PO DAILY 04/10/19 Isosorbide Mononitrate [Imdur -] 30 mg PO DAILY 06/17/19 Cyanocobalamin (Vitamin B-12) [Vitamin B-12] 1,000 mcg PO DAILY #30 capsule Ferrous Sulfate 325 mg PO DAILY #30 tablet 06/19/19 Nitroglycerin Sublingual [Nitrostat -] 0.3 mg SL [id number] PRN 06/19/19 Cancer: Yes (bladder) Cardiac Disorders: Yes (2 stents,CAD) COPD: No CHF: Yes HTN: Yes Hypercholesterolemia: Yes - Surgical History Cardiac Surgery: Yes (stents) Lung Surgery: No - Immunization History Immunization Up to Date: Yes - Psycho Social/Smoking Cessation Hx Smoking Status: No Smoking History: Never smoked Have you smoked in the past 12 months: No Number of Cigarettes Smoked Daily: 0 If you are a former smoker, when did you quit?: 1958 Information on smoking cessation initiated: No Hx Alcohol Use: No Drug/Substance Use Hx: No Substance Use Type: None Hx Substance Use Treatment: No *Physical Exam - Vital Signs Last Vital Signs Temp Pulse Resp BP Pulse Ox 98.1 F 62 18 186/90 H 98 07/08/19 02:35 07/08/19 02:35 07/08/19 02:35 07/08/19 02:35 07/08/19 02:35 Heart Score/ECG Review - History History: Slightly suspicious - Electrocardiogram EKG: Non specific repolarization disturbance - Age Age: >/= 65 - Risk Factors Risk Factors Heart Score: Yes Hx Hypercholesterolemia, Yes Hx Hypertension, Yes Positive family hx of cardiac disease Based on the list above the patient has:: >/=3 risk factors or Hx atherosclerotic disease - Troponin Troponin: </= normal limit - Score Heart Score - Total: 5 ED Treatment Course - LABORATORY CBC & Chemistry Diagram: 07/08/19 03:30 07/08/19 03:30 Medical Decision Making - Medical Decision Making 07/08/19 02:39 83 yo M significant cardiac history, presenting with chest pain. - CBC, CMP - EKG, trop - BNP - likely tele obs admit 07/08/19 03:39 EKG sinus bradycardia with 1st degree AV block at 58 bpm, unchanged from prior on 06/17/2019. 07/08/19 04:40 CXR with no acute pathology. BNP in 800s, slightly elevated from previous in 600s. First trop negative. However, considering significant cardiac risk factors , HEART score of 5, will admit for tele obs. Discharge - Discharge Information Problems reviewed: Yes Clinical Impression/Diagnosis: Chest pain - Follow up/Referral Referrals: ON STAFF,NOT [Primary Care Provider] - - Patient Discharge Instructions - Post Discharge Activity
--- NOTE | 2019-07-08 03:50 | PDOC ---
Attending Attestation - Resident Resident Name: Renato Calvillo - ED Attending Attestation I have performed the following: I have examined & evaluated the patient, The case was reviewed & discussed with the resident, I agree w/resident's findings & plan - HPI HPI: 07/08/19 05:06 see resident hpi - Physicial Exam PE: 07/08/19 05:06 agree with resident exam - Medical Decision Making 07/08/19 05:06 83-year-old male with significant past medical history complaining of pinching chest pain, now resolved EKG shows no acute ST segment abnormalities We will admit to medical service for serial enzymes due to significant risk factors
[2019-07-08 03:51] LABS: EOS % 2.8 % (0-4.5); LYMPH % 30.7 % (8-40); MCH 27.3 pg (25.7-33.7); MCHC 32.6 g/dl (32.0-35.9); MEAN PLT VOLUME 9.9 fl (7.5-11.1); MONO % 7.8 % (3.8-10.2); NEUT % 57.7 % (42.8-82.8); PLATELET COUNT 105 K/MM3 (134-434); RBC 4.77 M/mm3 (4.00-5.60); WHITE BLOOD COUNT 7.1 K/mm3 (4.0-10.0)
[2019-07-08 04:12] LABS: ALBUMIN 3.2 g/dl (3.4-5.0); BILIRUBIN,TOTAL 0.4 mg/dL (0.2-1); BLOOD UREA NITROGEN 15.8 mg/dL (7-18); CALCIUM 7.9 mg/dL (8.5-10.1); CREATININE 0.9 mg/dL (0.55-1.3); POTASSIUM 3.8 mmol/L (3.5-5.1); TOT PROT 6.9 g/dl (6.4-8.2)
[2019-07-08 04:14] LABS: N-TERMINAL BNP 841.5 pg/ml (5-450)
--- NOTE | 2019-07-08 07:56 | HP ---
CHIEF COMPLAINT: chest pressure CARDIOLOGY: Dr Pruett HISTORY OF PRESENT ILLNESS: Patient is an 83 year old male with history of coronary artery disease (s/p two stents 1995, 2017), HfPEf, hypertension, hyperlipidemia, bladder cancer (s/p resection), benign prostatic hyperplasia, iron deficiency anemia, presents with complaint of chest pressure. Patient endorses pressure is nonradiating, and similar to prior episodes. Patent admits taking his home antihypertensives at 9AM as directed, denies missing any doses. States that approx 2:30AM he was suddenly awoken by chest pressure. Denies associated shortness of breath. He rushed to his living room to take his blood pressure which reports was 202/ 110mmHg prompting him to present to [facility]. He currently denies any chest pain, or palpitations, or shortness of breath, Denies recent sick contacts. ER course was notable for: (1) EKG sinus bradycardia at 58BPM. First degree AV block. Negative ischemic changes. 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 Lives in [place] with . Independent in activities of daily living. Smoking: denies Alcohol: denies Drugs: denies Allergies No Known Allergies Allergy (Verified 07/08/19 02:38) HOME MEDICATIONS: Home Medications Medication Instructions Recorded Tamsulosin HCl [Flomax] 0.4 mg PO HS 08/04/17 Aspirin [ASA -] 81 mg PO DAILY #30 tab.chew 02/27/18 Clopidogrel Bisulfate [Plavix] 75 mg PO DAILY 03/04/18 Pantoprazole Sodium [Protonix] 40 mg PO DAILY 03/04/18 Irbesartan 300 mg PO DAILY 06/12/18 Finasteride 5 mg PO DAILY 11/26/18 Metoprolol Succinate [Toprol XL -] 50 mg PO DAILY #30 tab.sr.24h 11/26/18 Rosuvastatin [Crestor -] 20 mg PO DAILY 04/10/19 Isosorbide Mononitrate [Imdur -] 30 mg PO DAILY 06/17/19 Cyanocobalamin (Vitamin B-12) 1,000 mcg PO DAILY #30 capsule 06/19/19 [Vitamin B-12] Ferrous Sulfate 325 mg PO DAILY #30 tablet 06/19/19 Nitroglycerin Sublingual 0.3 mg SL [id number] PRN 06/19/19 [Nitrostat -] REVIEW OF SYSTEMS CONSTITUTIONAL: Absent: fever, chills, diaphoresis, generalized weakness, malaise, loss of appetite, weight change HEENT: Absent: rhinorrhea, nasal congestion, throat pain, throat swelling, difficulty swallowing, mouth swelling, ear pain, eye pain, visual changes CARDIOVASCULAR: Absent: chest pain, syncope, palpitations, irregular heart rate, lightheadedness , peripheral edema RESPIRATORY: Absent: cough, shortness of breath, dyspnea with exertion, orthopnea, wheezing, stridor, hemoptysis GASTROINTESTINAL: Absent: abdominal pain, abdominal distension, nausea, vomiting, diarrhea, constipation, melena, hematochezia GENITOURINARY: Absent: dysuria, frequency, urgency, hesitancy, hematuria, flank pain, genital pain MUSCULOSKELETAL: Absent: myalgia, arthralgia, joint swelling, back pain, neck pain SKIN: Absent: rash, itching, pallor HEMATOLOGIC/IMMUNOLOGIC: Absent: easy bleeding, easy bruising, lymphadenopathy, frequent infections ENDOCRINE: Absent: unexplained weight gain, unexplained weight loss, heat intolerance, cold intolerance NEUROLOGIC: Absent: headache, focal weakness or paresthesias, dizziness, unsteady gait, seizure, mental status changes, bladder or bowel incontinence PSYCHIATRIC: Absent: anxiety, depression, suicidal or homicidal ideation, hallucinations. PHYSICAL EXAMINATION Vital Signs - 24 hr 07/08/19 07/08/19 07/08/19 02:35 05:17 06:41 Temperature 98.1 F Pulse Rate 62 Pulse Rate [ 57 L 52 L Radial] Respiratory 18 14 18 Rate Blood Pressure 186/90 H Blood Pressure 184/85 H 175/78 H [Left Arm] O2 Sat by Pulse 98 100 95 Oximetry (%) GENERAL: Awake, alert, and fully oriented, in no acute distress. HEAD: Normal with no signs of trauma. EYES: Pupils equal, round and reactive to light, extraocular movements intact, sclera anicteric, conjunctiva clear. No lid lag. EARS, NOSE, THROAT: Ears normal, nares patent, oropharynx clear without exudates. Moist mucous membranes. NECK: Normal range of motion, supple without lymphadenopathy, JVD, or masses. LUNGS: Breath sounds equal, clear to auscultation bilaterally. No wheezes, and no crackles. No accessory muscle use. HEART: Regular rate and rhythm, normal S1 and S2 without murmur, rub or gallop. Chest pain not reproducible upon palpation. ABDOMEN: Soft, nontender, not distended, normoactive bowel sounds, no guarding, no rebound, no masses. No hepatomegaly or splenomegaly. MUSCULOSKELETAL: Normal range of motion at all joints. No bony deformities or tenderness. No CVA tenderness. UPPER EXTREMITIES: 2+ pulses, warm, well-perfused. No cyanosis. No clubbing. No peripheral edema. LOWER EXTREMITIES: 2+ pulses, warm, well-perfused. No calf tenderness. No peripheral edema. NEUROLOGICAL: Cranial nerves II-XII intact. Normal speech. Normal gait. PSYCHIATRIC: Cooperative. Good eye contact. Appropriate mood and affect. SKIN: Warm, dry, normal turgor, no rashes or lesions noted, normal capillary refill. Laboratory Results - last 24 hr 07/08/19 07/08/19 07/08/19 03:30 03:30 03:30 WBC 7.1 RBC 4.77 Hgb 13.0 Hct 40.0 D MCV 84.0 MCH 27.3 MCHC 32.6 RDW 19.0 H Plt Count 105 L MPV 9.9 Absolute Neuts (auto) 4.1 Neutrophils % 57.7 Lymphocytes % 30.7 Monocytes % 7.8 Eosinophils % 2.8 Basophils % 1.0 Nucleated RBC % 0 Sodium 141 Potassium 3.8 Chloride 106 Carbon Dioxide 29 Anion Gap 6 L BUN 15.8 Creatinine 0.9 Est GFR (CKD-EPI)AfAm 89.95 Est GFR (CKD-EPI)NonAf 77.61 Random Glucose 92 Calcium 7.9 L Total Bilirubin 0.4 AST 16 ALT 22 Alkaline Phosphatase 58 Creatine Kinase 58 Troponin I 0.02 B-Natriuretic Peptide 841.5 H Total Protein 6.9 Albumin 3.2 L ASSESSMENT/PLAN: Patient is an 83 year old male with history of coronary artery disease (s/p two stents), HfPEf, hypertension, hyperlipidemia, bladder cancer (s/p resection), benign prostatic hyperplasia, iron deficiency anemia, presents with complaint of chest pressure. Atypical chest pain -Unlikely coronary in etiology. Initial Troponin 0,02. ECG reveals sinus bradycardia at 58BPM with first degree AV block (chronic finding). Negative ischemic changes. Currently chest pressure has resolved, comfortable. -Cardiac Telemetry monitoring -Cardiology evaluation (Dr. Pruett) -Concerning for obstructive sleep apnea- will obtain sleep screening. Pulmonology consult if results positive. Hypertensive urgency -Reinstate home Irbesartan, Isosorbide Mononitrate, Metoprolol. Coronary artery disease -Reinstate home Aspirin, Clopidogrel, Rosuvastatin Benign prostatic hyperplasia -Reinstate home Tamsulosin, Finasteride Iron deficiency anemia -Continue home Ferrous Sulfate FEN -No IV fluids indicated -Follow BMP -Sodium modified diet Prophylaxis -SCDs bilateral lower extremities. Disposition -Telemetry observation. Visit type - Emergency Visit Emergency Visit: Yes ED Registration Date: 07/08/19 Care time: The patient presented to the Emergency Department on the above date and was hospitalized for further evaluation of their emergent condition. - New Patient This patient is new to me today: Yes Date on this admission: 07/08/19 - Critical Care Critical Care patient: No ATTENDING PHYSICIAN STATEMENT I saw and evaluated the patient. I reviewed the resident's note and discussed the case with the resident. I agree with the resident's findings and plan as documented. SUBJECTIVE: OBJECTIVE: ASSESSMENT AND PLAN:
--- NOTE | 2019-07-08 08:19 | PN ---
Teaching Attending Note Name of Resident: Evens Li ATTENDING PHYSICIAN STATEMENT I saw and evaluated the patient. I reviewed the resident's note and discussed the case with the resident. I agree with the resident's findings and plan as documented. 83 M h/o CAD s/p 2 stents (2018), HTN, HLD, anxiety, JOHNNY, HFpEF, bladder ca s/p resection, ,multiple hospitalizations for atypical CP and SOB, presents with an episode of chest pressure which woke him up during sleep. Patient endorses suddenly waking up, and feeling a sensation of "muscle tightness/squeezing" over the L superior aspect of chest (patient pointing to area with one finger), non-radiating, not a/w SOB, vision changes, CP, LOC/syncope. After episode pt. endorses "rushing over" to his BP machine to check his BP and systolic was around 200s. During the night patient endorses waking up sometimes with dry mouth, bedpartner told him he also snores. Never was evaluated for a sleep study. had multiple recent cardiac evaluations with MPI stress test and echo's all of which have been negative for acute ischemia. GA comfortable, talkative, speaking in full sentences, AAox3, NAD HEENT NC/AT, EOMI, no JVD, dry MM, neck supple Chest CTAB, no crackles or wheezing CVS S1, S2+, RRR, no m/r/g appreciated Abd Soft, NT, ND, no guarding, no HSM Ext NO LE edema, no calf tenderness, moving all 4 ext. STOP BAN (high) A/P: 83 M h/o CAD s/p stents, uncontrolled HTN, HFpEF, JOHNNY, bladder ca s/p resection , presents with multiple episodes of SOB and atypical CP, now presents with squeezing sensation in his pectoral muscle waking him up from sleep, with uncontrolled HTN. Atypical chest pressure ?due to apneic event during sleep, possibly 2/2 undiagnosed JANKI, being he has uncontrolled HTN, CAD, HFpEF all of which may be caused by untreated JANKI. STOP BAN Admit for chest pain obs., doubt ACS in setting of no active chest pain/pressure , neg. trop x1, EKG unremarkable for ischemia, obtain 2nd set of Trops/EKG. Schedule for JANKI sleep screening CAD s/p stents restart BB, statin, BP meds, ASA/Plavix Cardiology consult HTN not controlled, likely due to underlying JANKI restart home BP medications Na restricted diet HLD resume statin HFpEF not in acute exacerbation patient appears clinically dry JOHNNY resume ferrous sulfate daily with Vit C BPH resume Flomax DVT ppx: SCD, ambulation for now as admission will likely be <24 hours FEN: PO hydration, trend trops/Na restricted diet
--- NOTE | 2019-07-08 09:28 | EKG ---
Test Reason : Blood Pressure : / mmHG Vent. Rate : 057 BPM Atrial Rate : 057 BPM P-R Int : 222 ms QRS Dur : 090 ms QT Int : 468 ms P-R-T Axes : 070 -26 036 degrees QTc Int : 455 ms POOR DATA QUALITY, INTERPRETATION MAY BE ADVERSELY AFFECTED SINUS BRADYCARDIA WITH 1ST DEGREE A-V BLOCK MINIMAL VOLTAGE CRITERIA FOR LVH, MAY BE NORMAL VARIANT BORDERLINE ECG WHEN COMPARED WITH ECG OF 18-JUN-2019 00:53, NONSPECIFIC T WAVE ABNORMALITY NO LONGER EVIDENT IN INFERIOR LEADS Confirmed by Steven Christensen MD ([id number]) on 07/08/2019 9:28:23 AM Referred By: Confirmed By:Steven Christensen MD
--- NOTE | 2019-07-08 09:28 | EKG ---
Test Reason : Blood Pressure : / mmHG Vent. Rate : 054 BPM Atrial Rate : 054 BPM P-R Int : 264 ms QRS Dur : 086 ms QT Int : 492 ms P-R-T Axes : 057 -26 -08 degrees QTc Int : 466 ms SINUS BRADYCARDIA WITH 1ST DEGREE A-V BLOCK MINIMAL VOLTAGE CRITERIA FOR LVH, MAY BE NORMAL VARIANT BORDERLINE ECG WHEN COMPARED WITH ECG OF 08-JUL-2019 02:54, T WAVE INVERSION NOW EVIDENT IN INFERIOR LEADS Confirmed by Steven Christensen MD ([id number]) on 07/08/2019 9:27:23 AM Referred By: Confirmed By:Steven Christensen MD
[2019-07-08] MEDS ORDERED: FERROUS SO4 325 MG TABLET (FP) PO SCH (10:00)
[2019-07-08] MEDS ORDERED: FINASTERIDE 5 MG TABLET (FP) PO SCH (10:00)
[2019-07-08] MEDS ORDERED: PANTOPRAZOLE 40 MG TABLET (FP) PO SCH (10:00)
[2019-07-08] MEDS ORDERED: CYANOCOBALAMIN 1,000 MCG TABLET (FP) PO SCH (10:00)
[2019-07-08] MEDS ORDERED: ASPIRIN 81 MG CHEWABLE TABLETS PO SCH (10:00)
[2019-07-08] MEDS ORDERED: ISOSORBIDE MONONITRATE 60 MG TAB.SR.24H (FP) PO SCH (10:00)
[2019-07-08] MEDS ORDERED: LOSARTAN POTASSIUM 50 MG TABLET (FP) PO SCH (10:00)
[2019-07-08] MEDS ORDERED: CLOPIDOGREL BISULFATE 75 MG TABLET (FP) PO SCH (10:00)
[2019-07-08] MEDS ORDERED: ENOXAPARIN NA (PORCINE) 40 MG/0.4 ML DISP.SYRIN SQ SCH (10:00)
--- NOTE | 2019-07-08 13:43 | CON.CARD ---
Consult Consult Specialty:: cardiology Reason for Consultation:: SOB; hx CAD, CHF - History of Present Illness Chief Complaint: Pt A&Ox3; ambulates without chest pain or dyspnea. Anxiious. - History Source History Provided By: Patient, Family Member () Limitations to Obtaining History: No Limitations - Past Medical History Cardio/Vascular: Yes: CAD, CHF (diastolic; moderate LVH), HTN, Hyperlipdemia, [place] Gastrointestinal: Yes: GERD Psych: Yes: Anxiety, Panic - Past Surgical History Past Surgical History: Yes: Stent (coronary: 1st more than 20 yrs ago; latest last week (RPDA)) - Alcohol/Substance Use Hx Alcohol Use: No - Smoking History Smoking history: Never smoked Have you smoked in the past 12 months: No Aproximately how many cigarettes per day: 0 If you are a former smoker, when did you quit?: 1958 - Social History Usual Living Arrangement: With Spouse Home Medications - Allergies Allergies/Adverse Reactions: Allergies Allergy/AdvReac Type Severity Reaction Status Date / Time No Known Allergies Allergy Verified 07/08/19 02:38 - Home Medications Home Medications: Ambulatory Orders Tamsulosin HCl [Flomax] 0.4 mg PO HS 08/04/17 Aspirin [ASA -] 81 mg PO DAILY #30 tab.chew 02/27/18 Clopidogrel Bisulfate [Plavix] 75 mg PO DAILY 03/04/18 Pantoprazole Sodium [Protonix] 40 mg PO DAILY 03/04/18 Irbesartan 300 mg PO DAILY 06/12/18 Finasteride 5 mg PO DAILY 11/26/18 Rosuvastatin [Crestor -] 20 mg PO DAILY 04/10/19 Isosorbide Mononitrate [Imdur -] 30 mg PO DAILY 06/17/19 Cyanocobalamin (Vitamin B-12) [Vitamin B-12] 1,000 mcg PO DAILY #30 capsule Ferrous Sulfate 325 mg PO DAILY #30 tablet 06/19/19 Nitroglycerin Sublingual [Nitrostat -] 0.3 mg SL [id number] PRN 06/19/19 Metoprolol Tartrate [Lopressor -] 25 mg PO BID 30 Days #60 tablet 07/08/19 Vital Signs: Vital Signs Temperature 97.4 F L 07/08/19 10:30 Pulse Rate 106 H 07/08/19 10:30 Respiratory Rate 18 07/08/19 10:30 Blood Pressure 184/72 H 07/08/19 10:30 O2 Sat by Pulse Oximetry (%) 97 07/08/19 10:30 - Other Data Labs, Other Data: CBC, BMP 07/08/19 03:30 07/08/19 03:30 Troponin, BNP 07/08/19 07/08/19 03:30 08:10 Troponin I 0.02 0.02 B-Natriuretic Peptide 841.5 H Troponin, BNP 07/08/19 07/08/19 03:30 08:10 Troponin I 0.02 0.02 B-Natriuretic Peptide 841.5 H Problem List - Problems (1) Anxiety Assessment/Plan: Pt's BP usually rises significantly when he is anxious. Would benefit from 24 hour ambulatory BP monitoring as outpatient. Code(s): F41.9 - ANXIETY DISORDER, UNSPECIFIED (2) BPH (benign prostatic hyperplasia) Code(s): N40.0 - BENIGN PROSTATIC HYPERPLASIA WITHOUT LOWER URINRY TRACT SYMP (3) Diastolic CHF Code(s): I50.30 - UNSPECIFIED DIASTOLIC (CONGESTIVE) HEART FAILURE Qualifiers: Heart failure chronicity: unspecified Qualified Code(s): I50.30 - Unspecified diastolic (congestive) heart failure (4) Hyperlipidemia Code(s): E78.5 - HYPERLIPIDEMIA, UNSPECIFIED (5) Hypertension Assessment/Plan: Consider bid dosing of antihypertensive medications (pt and are anxious that his BP appears to increase in the afternoon or evening; this is usually related to anxiety. It was pointed out to them that exteded release meds are meant to uniformly cntrol BP over 24 hours; however, may help him feel he has "medication help" if he has a 2nd dose to take in the afternoon or evening. Would f/u with 24 hour ambulatory BP montoring as outpatient). Code(s): I10 - ESSENTIAL (PRIMARY) HYPERTENSION Qualifiers: Hypertension type: unspecified Qualified Code(s): I10 - Essential (primary ) hypertension (6) Stented coronary artery Code(s): Z95.5 - PRESENCE OF CORONARY ANGIOPLASTY IMPLANT AND GRAFT (7) Atypical chest pain Assessment/Plan: TNI < 0.02 x 2. EKG: no acute STT changes. From a cardiac standpoint, pt may be followed as an outpatient. Code(s): R07.89 - OTHER CHEST PAIN (8) Sleep apnea Assessment/Plan: sleep studies to r/o sleep apnea ( reports increased snoring; fitful sleep). Code(s): G47.30 - SLEEP APNEA, UNSPECIFIED
--- NOTE | 2019-07-08 14:44 | DS ---
Physical Exam: SUBJECTIVE: Patient seen and examined at bedside. Denies acute complaints. Eager to go home. OBJECTIVE: Vital Signs Period Temp Pulse Resp BP Sys/[place] Pulse Ox Last 24 Hr 97.4 F-98.1 F 52-106 14-18 175-186/72-90 95-100 PHYSICAL EXAM GENERAL: The patient is awake, alert, and fully oriented, in no acute distress. HEAD: Normal with no signs of trauma. EYES: PERRL, extraocular movements intact, sclera anicteric, conjunctiva clear. ENT: Ears normal, nares patent, oropharynx clear without exudates, moist mucous membranes. NECK: Trachea midline, full range of motion, supple. LUNGS: Breath sounds equal, clear to auscultation bilaterally, no wheezes, no crackles, no accessory muscle use. HEART: Regular rate and rhythm, S1, S2 without murmur, rub or gallop. ABDOMEN: Soft, nontender, nondistended, normoactive bowel sounds, no guarding, no rebound, no hepatosplenomegaly, no masses. EXTREMITIES: 2+ pulses, warm, well-perfused, no edema. NEUROLOGICAL: Cranial nerves II through XII grossly intact. Normal speech, gait not observed. PSYCH: Normal mood, normal affect. SKIN: Warm, dry, normal turgor, no rashes or lesions noted. LABS Laboratory Results - last 24 hr 07/08/19 07/08/19 07/08/19 03:30 03:30 03:30 WBC 7.1 RBC 4.77 Hgb 13.0 Hct 40.0 D MCV 84.0 MCH 27.3 MCHC 32.6 RDW 19.0 H Plt Count 105 L MPV 9.9 Absolute Neuts (auto) 4.1 Neutrophils % 57.7 Lymphocytes % 30.7 Monocytes % 7.8 Eosinophils % 2.8 Basophils % 1.0 Nucleated RBC % 0 Sodium 141 Potassium 3.8 Chloride 106 Carbon Dioxide 29 Anion Gap 6 L BUN 15.8 Creatinine 0.9 Est GFR (CKD-EPI)AfAm 89.95 Est GFR (CKD-EPI)NonAf 77.61 POC Glucometer Random Glucose 92 Calcium 7.9 L Total Bilirubin 0.4 AST 16 ALT 22 Alkaline Phosphatase 58 Creatine Kinase 58 Troponin I 0.02 B-Natriuretic Peptide 841.5 H Total Protein 6.9 Albumin 3.2 L 07/08/19 07/08/19 08:10 12:05 WBC RBC Hgb Hct MCV MCH MCHC RDW Plt Count MPV Absolute Neuts (auto) Neutrophils % Lymphocytes % Monocytes % Eosinophils % Basophils % Nucleated RBC % Sodium Potassium Chloride Carbon Dioxide Anion Gap BUN Creatinine Est GFR (CKD-EPI)AfAm Est GFR (CKD-EPI)NonAf POC Glucometer 82 Random Glucose Calcium Total Bilirubin AST ALT Alkaline Phosphatase Creatine Kinase Troponin I 0.02 B-Natriuretic Peptide Total Protein Albumin HOSPITAL COURSE: Date of Admission:07/08/19 Date of Discharge: 07/08/19 Patient is an 83 year old male with history of coronary artery disease (s/p two stents 1995, 2017), HfPEf, hypertension, hyperlipidemia, bladder cancer (s/p resection), benign prostatic hyperplasia, iron deficiency anemia, presents with complaint of chest pressure. EKG revealed sinus bradycardia at 58BPM. First degree AV block. Negative ischemic changes. Troponin 0,02 x2. History concerning for sleep apnea as potential cause of recurrent nocturnal episodes of chest pain. Patient was evaluated by printed circuit board preassembler who recommended changing Metoprolol dosage to twice daily. Patient was cleared for discharge home, with cardiology, and pulmonology follow up. An appointment was scheduled for him for sleep study. Discharge plan discussed with patient and , who expressed understanding of plan. Minutes to complete discharge: 36 Discharge Summary Problems reviewed: Yes Reason For Visit: CHEST PAIN Current Active Problems Anxiety (Acute) Chest pain (Acute) Sleep apnea (Acute) Condition: Stable - Instructions Diet, Activity, Other Instructions: You were seen in the hospital for complaint of chest pain. Your ECG and blood work did not reveal any acute concerns. You were evalute by your printed circuit board preassembler who recommended blood pressure medicaton changes. You are stable for discharge home. We have changed your blood pressure medicaitons STOP taking Metoprolol Succinate. Instead, START Metoprolol Tartrate. Take 25mg every 12 hours. Continue taking your other home medications as directed. Follow up with your primary care physician within one- two days after hospital discharge Follow up with your Typesetter Perforator Operator within one -two days of discharge. A referral has been provided. IT is recommended that you obtain a blod pressure machine and measure your daily blood pressures at home. Maintain a log of the blood pressure readings and bring with you to your Typesetter Perforator Operator office at your next appointment. Follow up with Pipe Fitter Gas Pipe Dr. Pacheco for a sleep study to evaluate for Sleep Apnea. This may be contributing to your elevated blood pressure, and night -time symptoms. An appointment has been scheduled for you on July 23 at 11: 15AM. Address: [address] [place] [address]. [place] [id number]. Return to the nearest Emergency Department if you experience worsening symptoms , subjective fevers, chills, shortness of breath, chest pain, palpitations, abdominal pain, nausea, vomiting, any trauma, fall or loss of consciousness. Referrals: Dalton Pruett MD [Staff Physician] - ON STAFF,NOT [Primary Care Provider] - Shad Pacheco MD [Staff Physician] - 07/30/19 11:15 am (Evaluation for sleep apnea; polysomnography) Disposition: HOME - Home Medications Comprehensive Discharge Medication List: Ambulatory Orders Tamsulosin HCl [Flomax] 0.4 mg PO HS 08/04/17 Aspirin [ASA -] 81 mg PO DAILY #30 tab.chew 02/27/18 Clopidogrel Bisulfate [Plavix] 75 mg PO DAILY 03/04/18 Pantoprazole Sodium [Protonix] 40 mg PO DAILY 03/04/18 Irbesartan 300 mg PO DAILY 06/12/18 Finasteride 5 mg PO DAILY 11/26/18 Rosuvastatin [Crestor -] 20 mg PO DAILY 04/10/19 Isosorbide Mononitrate [Imdur -] 30 mg PO DAILY 06/17/19 Cyanocobalamin (Vitamin B-12) [Vitamin B-12] 1,000 mcg PO DAILY #30 capsule Ferrous Sulfate 325 mg PO DAILY #30 tablet 06/19/19 Nitroglycerin Sublingual [Nitrostat -] 0.3 mg SL [id number] PRN 06/19/19 Metoprolol Tartrate [Lopressor -] 25 mg PO BID 30 Days #60 tablet 07/08/19 This patient is new to me today: Yes Date on this admission: 07/08/19 Emergency Visit: Yes ED Registration Date: 07/08/19 Care time: The patient presented to the Emergency Department on the above date and was hospitalized for further evaluation of their emergent condition. Critical Care patient: No - Discharge Referral Referred to [facility] No ATTENDING PHYSICIAN STATEMENT I saw and evaluated the patient. I reviewed the resident's note and discussed the case with the resident. I agree with the resident's findings and plan as documented. SUBJECTIVE: OBJECTIVE: ASSESSMENT AND PLAN:
[2019-07-08 15:03] VITALS: BP 148/59; PULSE 88; TEMP 97.8
[2019-07-08] MEDS ORDERED: TAMSULOSIN HCL 0.4 MG CAP PO SCH (22:00)
[2019-07-08] MEDS ORDERED: METOPROLOL TARTRATE 25 MG TABLET (FP) PO SCH (22:00)
[2019-07-08] MEDS ORDERED: ROSUVASTATIN CA 20 MG TABLET (FP) PO SCH (22:00)
[2019-07-09] MEDS ORDERED: ISOSORBIDE MONONITRATE 30 MG TAB.SR.24H (FP) PO SCH (10:00)
== END 2019-07-08 19:24 | disposition home or self-care (01) ==
LOC: JER 02:34 → JERBED 05:13
PROVIDERS: ADMIT Internal Medicine
DX: R07.89 Other chest pain (principal); I16.0 Hypertensive urgency; I50.33 Acute on chronic diastolic (congestive) heart failure; I11.0 Hypertensive heart disease with heart failure; I25.10 Atherosclerotic heart disease of native coronary artery without angina pectoris; D50.9 Iron deficiency anemia, unspecified; E78.5 Hyperlipidemia, unspecified; N40.0 Benign prostatic hyperplasia without lower urinary tract symptoms; B18.2 Chronic viral hepatitis C; F41.9 Anxiety disorder, unspecified; G47.30 Sleep apnea, unspecified; Z85.51 Personal history of malignant neoplasm of bladder; Z95.5 Presence of coronary angioplasty implant and graft; Z79.82 Long term (current) use of aspirin
CPT/HCPCS: 36415; 71045-TC-FY; 80053; 82550; 82962; 83880; 84484; 85025; 93005; 93010; 99285-25; G0378

== ENCOUNTER 2020-03-09 23:08 | Emergency (ER) | payer OTHER ==
[2020-03-09 23:14] VITALS: BMI 25.8
--- NOTE | 2020-03-10 00:24 | PDOC ---
Documentation entered by Marielena Ho SCRIBE, acting as scribe for Nathalia Tompkins DO. Nathalia Tompkins DO: This documentation has been prepared by the Vic rowland Xhesika, SCRIBE, under my direction and personally reviewed by me in its entirety. I confirm that the documentation accurately reflects all work, treatment, procedures, and medical decision making performed by me. Attending Attestation - Resident Resident Name: Davian Hyde - ED Attending Attestation I have performed the following: I have examined & evaluated the patient, The case was reviewed & discussed with the resident, I agree w/resident's findings & plan - HPI HPI: 03/09/20 23:30 The patient is an 84 year old male, with a significant PMH of CAD s/p 2 stents (PDA 06/12/18 and LAD 01/2018), CHF, HTN, HLD, hypercholesterolemia, and bladder cancer (s/p resection in 2017), who presents to the emergency department today for chest pain. 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 The patient denies SOB or headache.Denies fever, chills, nausea, vomit, diarrhea and constipation. Allergies: NKDA Past surgical history: 2 cardiac stents, bladder resection (2017) Social history: Former smoker (quit 40 years ago). Denies EtOH or recreational drug use. PCP: Dr. Jhonny Burris Cycle Counter: Dr. Dalton Pruett - Physicial Exam PE: 03/09/20 23:29 Agree with resident exam - Medical Decision Making 03/09/20 23:29 84-year-old male with pmh of CAD s/p 2 stents who presents complaining of pinching chest pain, relieved with nitro. Plan for tele admission for serial troponin due to significant risk factors Cardiology consult as needed Discharge - Discharge Information Problems reviewed: Yes Clinical Impression/Diagnosis: Chest pain, Stented coronary artery - Follow up/Referral Referrals: Jhonny Burris MD [Primary Care Provider] - - Patient Discharge Instructions - Post Discharge Activity
--- NOTE | 2020-03-10 00:40 | PDOC ---
History of Present Illness - General Chief Complaint: Chest Pain Stated Complaint: CHEST PAIN Time Seen by Provider: 03/09/20 23:26 History Source: Patient Exam Limitations: No Limitations - History of Present Illness Initial Comments: Deven is an 84 yo M w a hx of CAD, s/p 2 stents (PDA 06/12/18, LAD 01/2018), HTN, hyperlipidemia, blader Ca s/p removal 2017 who presents to the [facility] er because he felt substernal chest pain while sitting on his couch prior to arrival. He states he had an active day doing outdoor activities and then tonight when he was watching TV his chest pain was 8/10, lasted for 30 minutes, so he took a sublingual nitroglycerin which he states made the pain subside. He also measured his blood pressure at home and said it was elevated so he came into the ER for evaluation. Here in the ER he denies any chest pain, nausea, vomiting, diaphoresis, or radiation of the pain. Denies recent fevers, chills, or infections. PCP: Dr. Jhonny Burris Volleyball Assembler: Dr. Dalton Pruett Allergies: NKA, NKDA Past surgical history: 2 cardiac stents, bladder resection (2017) Social history: Former smoker (quit 40 years ago). Denies EtOH or recreational drug use. Past History - Medical History Allergies/Adverse Reactions: Allergies Allergy/AdvReac Type Severity Reaction Status Date / Time No Known Allergies Allergy Verified 07/08/19 02:38 Home Medications: Ambulatory Orders Tamsulosin HCl [Flomax] 0.4 mg PO HS 08/04/17 Aspirin [ASA -] 81 mg PO DAILY #30 tab.chew 02/27/18 Clopidogrel Bisulfate [Plavix] 75 mg PO DAILY 03/04/18 Pantoprazole Sodium [Protonix] 40 mg PO DAILY 03/04/18 Irbesartan 300 mg PO DAILY 06/12/18 Finasteride 5 mg PO DAILY 11/26/18 Rosuvastatin [Crestor -] 20 mg PO DAILY 04/10/19 Isosorbide Mononitrate [Imdur -] 30 mg PO DAILY 06/17/19 Cyanocobalamin (Vitamin B-12) [Vitamin B-12] 1,000 mcg PO DAILY #30 capsule Ferrous Sulfate 325 mg PO DAILY #30 tablet 06/19/19 Nitroglycerin Sublingual [Nitrostat -] 0.3 mg SL [id number] PRN 06/19/19 Metoprolol Tartrate [Lopressor -] 25 mg PO BID 30 Days #60 tablet 07/08/19 Cancer: Yes (bladder) Cardiac Disorders: Yes (2 stents,CAD) COPD: No CHF: Yes HTN: Yes Hypercholesterolemia: Yes - Surgical History Cardiac Surgery: Yes (stents) Lung Surgery: No - Immunization History Immunization Up to Date: Yes - Psycho-Social/Smoking History Smoking Status: No Smoking History: Never smoked Have you smoked in the past 12 months: No Number of Cigarettes Smoked Daily: 0 If you are a former smoker, when did you quit?: 1958 - Substance Abuse Hx (Audit-C & DAST Scrn) How often the patient has a drink containing alcohol: Never Score: In Men: 4 or > Positive; In Women: 3 or > Positive: 0 Screen Result (Pos requires Nsg. Audit-10AR): Negative Review of Systems - Review of Systems Able to Perform ROS?: Yes Comments:: CONSTITUTIONAL: Absent: fever, no chills, no fatigue EYES: Absent: visual changes ENT: Absent: ear pain, no sore throat CARDIOVASCULAR: Present: Chest pain Absent: no palpitations RESPIRATORY: Absent: cough, no SOB GI: Absent: abdominal pain, no nausea, no vomiting, no constipation, no diarrhea GENITOURINARY: Absent: dysuria, no frequency, no hematuria MUSKULOSKELETAL: Absent: back pain, no arthralgia, no myalgia SKIN: Absent: rash NEURO: Absent: headache *Physical Exam - Vital Signs Last Vital Signs Temp Pulse Resp BP Pulse Ox 97.9 F 74 20 205/95 H 98 03/09/20 23:12 03/09/20 23:12 03/09/20 23:12 03/09/20 23:12 03/09/20 23:12 - Physical Exam GENERAL: Well-appearing, well-nourished. No apparent distress. HEENT: Normocephalic, atraumatic. PERRL, EOM intact. CARDIOVASCULAR: Regular rate and rhythm. PULMONARY: No evidence of respiratory distress. Lungs clear to auscultation bilaterally. No wheezing, rales or rhonchi. ABDOMEN: Soft, non-distended, non-tender. EXTREMITIES: Normal ROM in all four extremities. No gross deformities. SKIN: Warm, dry. No rash NEUROLOGICAL: No focal neurological deficits. ED Treatment Course - LABORATORY CBC & Chemistry Diagram: 03/10/20 00:00 03/10/20 00:00 - RADIOLOGY Radiology Studies Ordered: Category Date Time Status CHEST X-RAY PORTABLE* [RAD] Stat Radiology 03/09/20 23:29 Taken Medical Decision Making - Medical Decision Making Deven is an 84 yo M w a hx of CAD, s/p 2 stents (PDA 06/12/18, LAD 01/2018), HTN, hyperlipidemia, blader Ca s/p removal 2016 who presents to the [facility] er because he felt substernal chest pain while sitting on his couch prior to arrival. He states he had an active day doing outdoor activities and then tonight when he was watching TV his chest pain was 8/10, lasted for 30 minutes, so he took a chacon blingual nitroglycerin which he states made the pain subside. He also measured his blood pressure at home and said it was elevated so he took 50 mg of metoprolol and then came into the ER for evaluation. Here in the ER he denies any chest pain, nausea, vomiting, diaphoresis, or radiation of the pain. - States he wants to come into the hospital do that Dr. Pruett can perform a "stress test" on him Vital Signs Temp Pulse Resp BP Pulse Ox 97.9 F 74 20 205/95 H 98 03/09/20 23:12 03/09/20 23:12 03/09/20 23:12 03/09/20 23:12 03/09/20 23:12 DDx IBNLT: ACS, electrolye/metabolic disturbance, MSK chest pain Plan: Labs, cxr, ekg, admission to tele obs and cardiac consultation. - Nitro paste for elevated BP EKG: Sinus rate of 68, first degree AVB pr 250, narrow complexes, qrs 90, normal/borderline LAD, no hypertrophy, no ST elevations or depressions, normal T waves, no Q waves, QTc 469 Patient states he wants to walk home and sign out AMA bc he doesn't want to be near any patients who might have coronavirus. The patient is presenting with chest pain. I am concerned that this may be ACS. The patient has verbalized understanding of my concerns. The patient is clinically sober and appears free from distracting injury. The patient appears to have intact insight, judgment, and reason. In my opinion, this patient has the capacity to make decisions The risks of leaving against medical advice without further evaluation treatment were discussed with the patient. These risks include a heart attach, and permanent disability. The patient indicated understanding of these risks and appeared to have the capacity to make this decision. The patient is unwilling to stay for a cardiac evaluation. Deven Starks is unwilling to remain for additional monitoring. He is refusing further care and leaving against medical advice I'm unable to convince the patient to stay. I have asked the patient to return as soon as possible to complete his evaluation. The patient states he will follow up with Dr. Pruett tomorrow morning in clinic and suggest to have a stress test. Dispo: AMA Discharge - Discharge Information Problems reviewed: Yes Clinical Impression/Diagnosis: Stented coronary artery Chest pain Qualifiers: Chest pain type: unspecified Qualified Code(s): R07.9 - Chest pain, unspecified Condition: Stable Disposition: AGAINST MEDICAL ADVICE - Admission No - Follow up/Referral Referrals: Jhonny uBrris MD [Primary Care Provider] - - Patient Discharge Instructions Patient Printed Discharge Instructions: DI for Atypical Chest Pain, DI for Chest Pain Additional Instructions: Follow up with Dr. Pruett tomorrow morning first thing. Come back to the ER immediately if you decide you want further treatment Print Language: PORTUGUESE - Post Discharge Activity
[2020-03-10] MEDS ORDERED: NITROGLYCERIN 2% OINTMENT - 1GM PACKET TD ONE ×2 (00:45→00:51)
[2020-03-10 01:51] LABS: BASO % 0.4 % (0-2.0); EOS % 2.2 % (0-4.5); HEMATOCRIT 43.3 % (35.4-49); HEMOGLOBIN 14.6 GM/dL (11.7-16.9); LYMPH % 31.9 % (8-40); MCHC 33.8 g/dl (32.0-35.9); MEAN CELL VOLUME 88.9 fl (80-96); MEAN PLT VOLUME 11.5 fl (7.5-11.1); MONO % 8.1 % (3.8-10.2); NEUT % 57.4 % (42.8-82.8); PLATELET COUNT 96 K/MM3 (134-434); RBC 4.87 M/mm3 (4.00-5.60); RDW 14.7 % (11.9-15.9); WHITE BLOOD COUNT 7.8 K/mm3 (4.0-10.0)
[2020-03-10 01:59] LABS: INR 1.11 (0.83-1.09); PROTHROMBIN TIME (PATIENT) 13.1 SEC (9.7-13.0)
[2020-03-10 02:02] LABS: ACTIVATED PTT 29.8 SECONDS (25.2-36.5)
[2020-03-10 02:23] LABS: ALBUMIN 3.5 g/dl (3.4-5.0); ALK PHOS 68 U/L (45-117); ANION GAP 7 MMOL/L (8-16); BILIRUBIN,TOTAL 0.7 mg/dL (0.2-1); BLOOD UREA NITROGEN 19.2 mg/dL (7-18); CALCIUM 8.6 mg/dL (8.5-10.1); CHLORIDE 103 mmol/L (98-107); CO2 30 mmol/L (21-32); GLUCOSE,RANDOM 91 mg/dL (74-106); MAGNESIUM 2.3 mg/dL (1.8-2.4); POTASSIUM 3.6 mmol/L (3.5-5.1); SGOT/AST 17 U/L (15-37); SGPT/ALT 23 U/L (13-61); SODIUM 140 mmol/L (136-145); TOT PROT 7.4 g/dl (6.4-8.2)
[2020-03-10 03:18] VITALS: BP 209/89; PULSE 86; TEMP 97.7
--- NOTE | 2020-03-10 07:30 | CON.CARD ---
Consult Consult Specialty:: Cardiology - History of Present Illness History of Present Illness: 84 yo M w a hx of CAD, s/p 2 stents (PDA 06/12/18, LAD 01/2018), HTN, hyperlipidemia, blader Ca s/p removal 2016 who presents to the [facility] er because he felt substernal chest pain while sitting on his couch prior to arrival. He states he had an active day doing outdoor activities and then tonight when he was watching TV his chest pain was 8/10, lasted for 30 minutes, so he took a sublingual nitroglycerin which he states made the pain subside. He also measured his blood pressure at home and said it was elevated so he came into the ER for evaluation. Here in the ER he denies any chest pain, nausea, vomiting, diaphoresis, or radiation of the pain. PMH s/p PCI LAD 03/01/18 Chest pain - HTN Hyperlipidemia Angina Negative [facility] September 2018 - History Source History Provided By: Patient, Medical Record - Past Medical History Cardio/Vascular: Yes: CAD, CHF (diastolic; moderate LVH), HTN, Hyperlipdemia, [place] Gastrointestinal: Yes: GERD Psych: Yes: Anxiety, Panic - Past Surgical History Past Surgical History: Yes: Stent (coronary: 1st more than 20 yrs ago; latest last week (RPDA)) - Alcohol/Substance Use Hx Alcohol Use: No - Smoking History Smoking history: Never smoked Have you smoked in the past 12 months: No Aproximately how many cigarettes per day: 0 If you are a former smoker, when did you quit?: 1958 - Social History Usual Living Arrangement: With Spouse Home Medications - Allergies Allergies/Adverse Reactions: Allergies Allergy/AdvReac Type Severity Reaction Status Date / Time No Known Allergies Allergy Verified 07/08/19 02:38 - Home Medications Home Medications: Ambulatory Orders Tamsulosin HCl [Flomax] 0.4 mg PO HS 08/04/17 Aspirin [ASA -] 81 mg PO DAILY #30 tab.chew 02/27/18 Clopidogrel Bisulfate [Plavix] 75 mg PO DAILY 03/04/18 Pantoprazole Sodium [Protonix] 40 mg PO DAILY 03/04/18 Irbesartan 300 mg PO DAILY 06/12/18 Finasteride 5 mg PO DAILY 11/26/18 Rosuvastatin [Crestor -] 20 mg PO DAILY 04/10/19 Isosorbide Mononitrate [Imdur -] 30 mg PO DAILY 06/17/19 Cyanocobalamin (Vitamin B-12) [Vitamin B-12] 1,000 mcg PO DAILY #30 capsule 06/19/19 Ferrous Sulfate 325 mg PO DAILY #30 tablet 06/19/19 Nitroglycerin Sublingual [Nitrostat -] 0.3 mg SL [id number] PRN 06/19/19 Metoprolol Tartrate [Lopressor -] 25 mg PO BID 30 Days #60 tablet 07/08/19 Review of Systems - Review of Systems Constitutional: reports: No Symptoms Eyes: reports: No Symptoms HENT: reports: No Symptoms Neck: reports: No Symptoms Cardiovascular: reports: Chest Pain Respiratory: reports: No Symptoms Gastrointestinal: reports: No Symptoms Genitourinary: reports: No Symptoms Breasts: reports: No Symptoms Reported Musculoskeletal: reports: No Symptoms Integumentary: reports: No Symptoms Neurological: reports: No Symptoms Endocrine: reports: No Symptoms Hematology/Lymphatic: reports: No Symptoms Psychiatric: reports: No Symptoms Vital Signs: Vital Signs Temperature 97.7 F 03/10/20 03:13 Pulse Rate 86 03/10/20 03:13 Respiratory Rate 20 03/10/20 03:13 Blood Pressure 209/89 H 03/10/20 03:13 O2 Sat by Pulse Oximetry (%) 98 03/10/20 03:13 Constitutional: Yes: Well Nourished, No Distress, Calm Eyes: Yes: WNL, Conjunctiva Clear, EOM Intact HENT: Yes: WNL, Atraumatic, Normocephalic Neck: Yes: WNL, Supple, Trachea Midline Respiratory: Yes: WNL, Regular, CTA Bilaterally Gastrointestinal: Yes: WNL, Normal Bowel Sounds Renal/: Yes: WNL Cardiovascular: Yes: WNL, Regular Rate and Rhythm Musculoskeletal: Yes: WNL Extremities: Yes: WNL Integumentary: Yes: WNL Neurological: Yes: WNL, Alert, Oriented ...Motor Strength: WNL Psychiatric: Yes: WNL, Alert, Oriented - Other Data Labs, Other Data: CBC, BMP 03/10/20 00:00 03/10/20 00:00 INR, PTT INR 1.11 (0.83-1.09) H 03/10/20 00:00 Troponin, BNP 03/10/20 03/10/20 00:00 00:00 Troponin I < 0.02 B-Natriuretic Peptide 1438.2 H Troponin, BNP 03/10/20 03/10/20 00:00 00:00 Troponin I < 0.02 B-Natriuretic Peptide 1438.2 H Imaging - Results Chest X-ray: Image Reviewed (no i/e) EKG: Image Reviewed (SR LDEA 1 avb) Problem List - Problems (1) Anxiety Code(s): F41.9 - ANXIETY DISORDER, UNSPECIFIED (2) Chest pain Code(s): R07.9 - CHEST PAIN, UNSPECIFIED Qualifiers: Chest pain type: unspecified Qualified Code(s): R07.9 - Chest pain, unspecified (3) Sleep apnea Code(s): G47.30 - SLEEP APNEA, UNSPECIFIED (4) BPH (benign prostatic hyperplasia) Code(s): N40.0 - BENIGN PROSTATIC HYPERPLASIA WITHOUT LOWER URINRY TRACT SYMP (5) BPH (benign prostatic hyperplasia) Code(s): N40.0 - BENIGN PROSTATIC HYPERPLASIA WITHOUT LOWER URINRY TRACT SYMP (6) Bradycardia Code(s): R00.1 - BRADYCARDIA, UNSPECIFIED (7) Diastolic CHF Code(s): I50.30 - UNSPECIFIED DIASTOLIC (CONGESTIVE) HEART FAILURE Qualifiers: Heart failure chronicity: unspecified Qualified Code(s): I50.30 - Unspecified diastolic (congestive) heart failure (8) Hyperlipidemia Code(s): E78.5 - HYPERLIPIDEMIA, UNSPECIFIED (9) Hypertension Code(s): I10 - ESSENTIAL (PRIMARY) HYPERTENSION Qualifiers: Hypertension type: unspecified Qualified Code(s): I10 - Essential (primary) hypertension (10) Stented coronary artery Code(s): Z95.5 - PRESENCE OF CORONARY ANGIOPLASTY IMPLANT AND GRAFT (11) Atypical chest pain Code(s): R07.89 - OTHER CHEST PAIN (12) Chest pain Code(s): R07.9 - CHEST PAIN, UNSPECIFIED Qualifiers: Chest pain type: unspecified Qualified Code(s): R07.9 - Chest pain, unspecified (13) Elevated blood pressure reading Code(s): R03.0 - ELEVATED BLOOD-PRESSURE READING, W/O DIAGNOSIS OF HTN (14) Hypokalemia Code(s): E87.6 - HYPOKALEMIA (15) Hypomagnesemia Code(s): E83.42 - HYPOMAGNESEMIA (16) Shortness of breath Code(s): R06.02 - SHORTNESS OF BREATH (17) Swelling of right upper extremity Code(s): M79.89 - OTHER SPECIFIED SOFT TISSUE DISORDERS (18) Atypical chest pain Code(s): R07.89 - OTHER CHEST PAIN (19) Chest pain Code(s): R07.9 - CHEST PAIN, UNSPECIFIED (20) Cough Code(s): R05 - COUGH Assessment/Plan s/p PCI LAD 03/01/18 Chest pain syndrome neg TNIs CHF decompensated elevated BNP HTN Hyperlipidemia Angina Plan; Telemetry RODRIGO Trejo
--- NOTE | 2020-03-10 13:28 | EKG ---
Test Reason : Blood Pressure : / mmHG Vent. Rate : 068 BPM Atrial Rate : 068 BPM P-R Int : 250 ms QRS Dur : 090 ms QT Int : 442 ms P-R-T Axes : 053 -30 062 degrees QTc Int : 469 ms SINUS RHYTHM WITH 1ST DEGREE A-V BLOCK LEFT AXIS DEVIATION ABNORMAL ECG Confirmed by MD ELO, NATHANAEL ([id number]) on 03/10/2020 1:27:47 PM Referred By: Confirmed By:NATHANAEL GASCA MD
== END 2020-03-10 03:10 | disposition left against medical advice (07) ==
LOC: JER 23:08
DX: R07.9 Chest pain, unspecified (principal); Z95.5 Presence of coronary angioplasty implant and graft
CPT/HCPCS: 36415; 71045-TC-FY; 80053; 82550; 83735; 83880; 84484; 85025; 85610; 85730; 93005; 93010; 99285-25

== ENCOUNTER 2021-06-02 16:26 | Observation (INO) | payer OTHER ==
[2021-06-02 16:54] VITALS: BMI 28.1
[2021-06-02 18:24] LABS: HEMATOCRIT 41.6 % (35.4-49); HEMOGLOBIN 13.8 GM/dL (11.7-16.9); MCH 29.4 pg (25.7-33.7); MCHC 33.2 g/dl (32.0-35.9); MEAN CELL VOLUME 88.7 fl (80-96); MEAN PLT VOLUME 9.6 fl (7.5-11.1); PLATELET COUNT 103 10^3/uL (134-434); RBC 4.69 M/mm3 (4.00-5.60); RDW 14.6 % (11.9-15.9); WHITE BLOOD COUNT 8.3 K/mm3 (4.0-10.0)
[2021-06-02 18:32] LABS: INR 1.18 (0.83-1.09); PROTHROMBIN TIME (PATIENT) 13.8 SEC (9.7-13.0)
[2021-06-02 18:34] LABS: ACTIVATED PTT 27.8 SECONDS (25.2-36.5)
[2021-06-02 18:43] LABS: CHLORIDE 106 mmol/L (98-107); SODIUM 142 mmol/L (136-145)
[2021-06-02 18:45] LABS: ALBUMIN 3.2 g/dl (3.4-5.0); ANION GAP 8 MMOL/L (8-16); CO2 28 mmol/L (21-32)
[2021-06-02 18:46] LABS: BLOOD UREA NITROGEN 22.4 mg/dL (7-18); GLUCOSE,RANDOM 105 mg/dL (74-106)
[2021-06-02 18:49] LABS: CREATININE 0.9 mg/dL (0.55-1.3); SGOT/AST 15 U/L (15-37); SGPT/ALT 14 U/L (13-61)
[2021-06-02 18:50] LABS: BILIRUBIN,TOTAL 0.7 mg/dL (0.2-1); TOT PROT 7.2 g/dl (6.4-8.2)
[2021-06-02 18:51] LABS: ALK PHOS 70 U/L (45-117)
[2021-06-02] MEDS ORDERED: CEFTRIAXONE 1,000 MG in DEXTROSE 5%-WATER - 50 ML IVPB ONE (18:53)
[2021-06-02] MEDS ORDERED: AZITHROMYCIN IVPB 500 MG in DEXTROSE 5%-WATER - 250 ML IVPB ONE (18:53)
[2021-06-02] MEDS ORDERED: CEFTRIAXONE 1 GM/50 ML BAG ONE (18:58)
[2021-06-02] MEDS ORDERED: AZITHROMYCIN IVPB 500 MG/250 ML BAG IVPB ONE (20:27)
[2021-06-02] MEDS ORDERED: hydrALAZINE HCL 10 MG TABLET PO ONE (21:04)
[2021-06-02] MEDS ORDERED: ASPIRIN 325 MG ENTERIC COATED TABLET (FP) PO SCH (22:00)
[2021-06-02] MEDS ORDERED: TAMSULOSIN HCL 0.4 MG CAP ONE (22:02)
[2021-06-02] MEDS ORDERED: ASPIRIN 325 MG ENTERIC COATED TABLET (FP) ONE (22:02)
[2021-06-02] MEDS: TAMSULOSIN HCL 0.4 MG CAP PO SCH (22:15)
[2021-06-03 06:36] VITALS: TEMP 98.6
[2021-06-03 08:15] LABS: BASO % 0.5 % (0-2.0); EOS % 2.6 % (0-4.5); HEMATOCRIT 38.7 % (35.4-49); HEMOGLOBIN 13.2 GM/dL (11.7-16.9); LYMPH % 32.1 % (8-40); MCH 29.9 pg (25.7-33.7); MCHC 34.2 g/dl (32.0-35.9); MEAN CELL VOLUME 87.5 fl (80-96); MEAN PLT VOLUME 9.7 fl (7.5-11.1); MONO % 8.4 % (3.8-10.2); NEUT % 56.4 % (42.8-82.8); PLATELET COUNT 94 10^3/uL (134-434); RBC 4.43 M/mm3 (4.00-5.60); RDW 14.7 % (11.9-15.9); WHITE BLOOD COUNT 7.1 K/mm3 (4.0-10.0)
[2021-06-03 08:32] LABS: CHLORIDE 107 mmol/L (98-107); SODIUM 141 mmol/L (136-145)
[2021-06-03 08:36] LABS: CALCIUM 7.8 mg/dL (8.5-10.1)
[2021-06-03 08:37] LABS: ANION GAP 5 MMOL/L (8-16); BLOOD UREA NITROGEN 18.3 mg/dL (7-18); CO2 29 mmol/L (21-32); GLUCOSE,RANDOM 88 mg/dL (74-106); MAGNESIUM 2.2 mg/dL (1.8-2.4)
[2021-06-03 08:40] LABS: CHOLESTEROL 111 mg/dL (50-200); CREATININE 0.8 mg/dL (0.55-1.3); PHOSPHOROUS 2.9 mg/dL (2.5-4.9); SGOT/AST 12 U/L (15-37); SGPT/ALT 12 U/L (13-61); TRIGLYCERIDES 83 mg/dL (0-150)
[2021-06-03 08:41] LABS: BILIRUBIN,TOTAL 0.9 mg/dL (0.2-1); LDL CHOLESTEROL (ONLY SJRH) 57 mg/dL (5-100); TOT PROT 6.8 g/dl (6.4-8.2)
[2021-06-03 08:42] LABS: HDL CHOLESTEROL 33 mg/dL (40-60)
[2021-06-03 08:43] LABS: ALK PHOS 67 U/L (45-117)
[2021-06-03] MEDS ORDERED: ISOSORBIDE MONONITRATE 30 MG TAB.SR.24H (FP) PO SCH (10:00)
[2021-06-03] MEDS ORDERED: CEFTRIAXONE 1 GM in DEXTROSE 5%-WATER - 50 ML IVPB SCH (10:00)
[2021-06-03] MEDS ORDERED: FINASTERIDE 5 MG TABLET (FP) PO SCH (10:00)
[2021-06-03] MEDS ORDERED: IRBESARTAN 300 MG PO SCH (10:00)
[2021-06-03] MEDS ORDERED: PANTOPRAZOLE 40 MG TABLET PO SCH (10:00)
[2021-06-03] MEDS ORDERED: LOSARTAN POTASSIUM 50 MG TABLET PO SCH (10:00)
[2021-06-03] MEDS ORDERED: ENOXAPARIN NA (PORCINE) 40 MG/0.4 ML DISP.SYRIN SQ SCH (10:00)
[2021-06-03] MEDS ORDERED: amLODIPine BESYLATE 2.5 MG TABLET (FP) PO SCH (10:00)
[2021-06-03] MEDS ORDERED: AZITHROMYCIN IVPB 500 MG/250 ML BAG IVPB SCH (10:00)
[2021-06-03] MEDS ORDERED: amLODIPine BESYLATE 2.5 MG TABLET (FP) ONE (10:26)
[2021-06-03] MEDS ORDERED: LOSARTAN POTASSIUM 50 MG TABLET ONE (10:26)
[2021-06-03] MEDS ORDERED: PANTOPRAZOLE 40 MG TABLET ONE (10:26)
[2021-06-03] MEDS ORDERED: ENOXAPARIN NA (PORCINE) 40 MG/0.4 ML DISP.SYRIN SQ ONE (10:26)
[2021-06-03] MEDS ORDERED: CEFTRIAXONE 1 GM/50 ML BAG ONE (10:27)
[2021-06-03] MEDS: TAMSULOSIN HCL 0.4 MG CAP PO SCH (10:38)
[2021-06-03] MEDS ORDERED: AZITHROMYCIN IVPB 500 MG/250 ML BAG IVPB ONE (11:03)
[2021-06-03 15:50] VITALS: BP 148/76; PULSE 92
[2021-06-03] MEDS ORDERED: ROSUVASTATIN CA 20 MG TABLET (FP) PO SCH (22:00)
== END 2021-06-03 16:34 | disposition home or self-care (01) ==
LOC: JER 16:26 → INTOOBSV 18:06 → JERBED 18:06
PROVIDERS: ADMIT Internal Medicine
PROC: 3E03329 Introduction of Other Anti-infective into Peripheral Vein, Percutaneous Approach (ICD-10-PCS; principal; 2021-06-02)
PROC: 3E013GC Introduction of Other Therapeutic Substance into Subcutaneous Tissue, Percutaneous Approach (ICD-10-PCS; 2021-06-02)
DX: R07.89 Other chest pain (principal); J18.9 Pneumonia, unspecified organism; R00.1 Bradycardia, unspecified; I11.0 Hypertensive heart disease with heart failure; I50.9 Heart failure, unspecified; I25.10 Atherosclerotic heart disease of native coronary artery without angina pectoris; I25.2 Old myocardial infarction; E78.5 Hyperlipidemia, unspecified; E87.6 Hypokalemia; E83.42 Hypomagnesemia; N40.0 Benign prostatic hyperplasia without lower urinary tract symptoms; F50.9 Eating disorder, unspecified; F41.9 Anxiety disorder, unspecified; R06.02 Shortness of breath; R05.9 Cough, unspecified; Z85.51 Personal history of malignant neoplasm of bladder; Z79.82 Long term (current) use of aspirin; Z95.5 Presence of coronary angioplasty implant and graft
CPT/HCPCS: 36415; 71045-TC-FY; 80053; 80061; 82550; 83735; 84100; 84443; 84484; 85025; 85027; 85610; 85730; 87899; 93005; 93010; 93306-TC; 93880-TC; 96365; 96368; 96372; 99285-25; C9803; G0378; U0003; U0005

== ENCOUNTER 2021-07-16 16:08 | Observation (INO) | payer OTHER ==
[2021-07-16 16:21] VITALS: BMI 29.0
[2021-07-16] MEDS ORDERED: NITROGLYCERIN SUBLINGUAL 1/150 0.4 MG TAB SL ONE (16:47)
[2021-07-16] MEDS ORDERED: ACETAMINOPHEN 1000 MG/100 ML BAG IVPB ONE (16:47)
[2021-07-16] MEDS ORDERED: ASPIRIN 325 MG TABLET PO STA (17:00)
[2021-07-16] MEDS ORDERED: ACETAMINOPHEN INJECTION 100 ML IVPB ONE (17:02)
[2021-07-16] MEDS ORDERED: ASPIRIN 325 MG ENTERIC COATED TABLET (FP) ONE (17:02)
[2021-07-16 17:40] LABS: BASO % 0.4 % (0-2.0); EOS % 2.2 % (0-4.5); HEMATOCRIT 41.8 % (35.4-49); HEMOGLOBIN 14.1 GM/dL (11.7-16.9); LYMPH % 35.5 % (8-40); MCH 29.6 pg (25.7-33.7); MCHC 33.7 g/dl (32.0-35.9); MEAN PLT VOLUME 9.6 fl (7.5-11.1); MONO % 6.4 % (3.8-10.2); NEUT % 55.5 % (42.8-82.8); PLATELET COUNT 103 10^3/uL (134-434); RBC 4.75 M/mm3 (4.00-5.60); WHITE BLOOD COUNT 6.8 K/mm3 (4.0-10.0)
[2021-07-16 17:54] LABS: CHLORIDE 103 mmol/L (98-107); SODIUM 141 mmol/L (136-145)
[2021-07-16 17:56] LABS: ALBUMIN 3.5 g/dl (3.4-5.0); CALCIUM 8.6 mg/dL (8.5-10.1)
[2021-07-16 17:57] LABS: ANION GAP 8 MMOL/L (8-16); BLOOD UREA NITROGEN 20.7 mg/dL (7-18); CO2 31 mmol/L (21-32); GLUCOSE,RANDOM 100 mg/dL (74-106)
[2021-07-16 17:59] LABS: SGPT/ALT 28 U/L (13-61)
[2021-07-16 18:00] LABS: CREATININE 0.8 mg/dL (0.55-1.3); SGOT/AST 21 U/L (15-37)
[2021-07-16 18:01] LABS: TOT PROT 7.2 g/dl (6.4-8.2)
[2021-07-16 18:02] LABS: ALK PHOS 66 U/L (45-117)
[2021-07-16] MEDS ORDERED: amLODIPine BESYLATE 2.5 MG TABLET (FP) PO ONE (19:08)
[2021-07-16] MEDS ORDERED: amLODIPine BESYLATE 2.5 MG TABLET (FP) ONE (19:52)
[2021-07-16] MEDS ORDERED: NITROGLYCERIN SUBLINGUAL 1/200 0.3 MG BTL SL PRN (20:25)
[2021-07-16] MEDS ORDERED: amLODIPine BESYLATE 5 MG TABLET (FP) PO ONE (21:48)
[2021-07-16] MEDS ORDERED: ASPIRIN 325 MG ENTERIC COATED TABLET (FP) PO SCH (22:00)
[2021-07-16] MEDS ORDERED: ROSUVASTATIN CA 20 MG TABLET PO SCH (22:00)
[2021-07-17 07:16] LABS: HEMOGLOBIN 13.7 GM/dL (11.7-16.9); MCH 29.2 pg (25.7-33.7); MCHC 33.3 g/dl (32.0-35.9); MEAN CELL VOLUME 87.7 fl (80-96); PLATELET COUNT 105 10^3/uL (134-434); RBC 4.68 M/mm3 (4.00-5.60); RDW 14.9 % (11.9-15.9); WHITE BLOOD COUNT 6.3 K/mm3 (4.0-10.0)
[2021-07-17 07:32] LABS: ALBUMIN 3.3 g/dl (3.4-5.0); BLOOD UREA NITROGEN 16.8 mg/dL (7-18); MAGNESIUM 1.8 mg/dL (1.8-2.4)
[2021-07-17 07:35] LABS: CREATININE 0.7 mg/dL (0.55-1.3)
[2021-07-17 07:37] LABS: BILIRUBIN,TOTAL 0.9 mg/dL (0.2-1); TOT PROT 6.7 g/dl (6.4-8.2)
[2021-07-17 08:29] LABS: INR 1.27 (0.83-1.09); PROTHROMBIN TIME (PATIENT) 14.6 SEC (9.7-13.0)
[2021-07-17] MEDS ORDERED: TAMSULOSIN HCL 0.4 MG CAP PO SCH (08:30)
[2021-07-17] MEDS ORDERED: LOSARTAN POTASSIUM 50 MG TABLET PO SCH (10:00)
[2021-07-17] MEDS ORDERED: amLODIPine BESYLATE 2.5 MG TABLET (FP) PO SCH (10:00)
[2021-07-17] MEDS ORDERED: ENOXAPARIN NA (PORCINE) 40 MG/0.4 ML DISP.SYRIN SQ SCH (10:00)
[2021-07-17] MEDS ORDERED: ISOSORBIDE MONONITRATE 30 MG TAB.SR.24H (FP) PO SCH (10:00)
[2021-07-17] MEDS ORDERED: FINASTERIDE 5 MG TABLET (FP) PO SCH (10:00)
[2021-07-17] MEDS ORDERED: PANTOPRAZOLE 40 MG TABLET PO SCH (10:00)
[2021-07-17 14:51] VITALS: BP 143/73; PULSE 58; TEMP 97.7
[2021-07-17] MEDS ORDERED: ASPIRIN 325 MG TABLET PO ONE (16:47)
[2021-07-17] MEDS ORDERED: ASPIRIN 325 MG ENTERIC COATED TABLET (FP) PO SCH (22:00)
[2021-07-18] MEDS ORDERED: amLODIPine BESYLATE 5 MG TABLET (FP) PO SCH (10:00)
[2021-07-18] MEDS ORDERED: ISOSORBIDE MONONITRATE 60 MG TAB.SR.24H (FP) PO SCH (10:00)
== END 2021-07-17 16:30 | disposition home or self-care (01) ==
LOC: JER 16:08 → JERBED 19:51 → J4W 22:18
PROVIDERS: ADMIT Internal Medicine; ATTEND Internal Medicine
PROC: 3E033NZ Introduction of Analgesics, Hypnotics, Sedatives into Peripheral Vein, Percutaneous Approach (ICD-10-PCS; principal; 2021-07-16)
PROC: 3E023GC Introduction of Other Therapeutic Substance into Muscle, Percutaneous Approach (ICD-10-PCS; 2021-07-16)
DX: I25.10 Atherosclerotic heart disease of native coronary artery without angina pectoris (principal); I50.30 Unspecified diastolic (congestive) heart failure; I11.0 Hypertensive heart disease with heart failure; I25.2 Old myocardial infarction; E78.5 Hyperlipidemia, unspecified; D50.9 Iron deficiency anemia, unspecified; Z85.51 Personal history of malignant neoplasm of bladder; Z29.9 Encounter for prophylactic measures, unspecified; Z95.5 Presence of coronary angioplasty implant and graft; Z87.891 Personal history of nicotine dependence
CPT/HCPCS: 36415; 71046-TC-FY; 80053; 82550; 83735; 84100; 84443; 84484; 85025; 85027; 85610; 93005; 93010; 96372; 96374; 99285-25; C9803; G0378; J0131; U0003; U0005

== ENCOUNTER 2021-07-31 01:10 | Observation (INO) | payer OTHER ==
[2021-07-31 03:51] LABS: BASO % 0.8 % (0-2.0); HEMATOCRIT 39.8 % (35.4-49); HEMOGLOBIN 13.7 GM/dL (11.7-16.9); MCH 29.8 pg (25.7-33.7); MCHC 34.5 g/dl (32.0-35.9); MEAN CELL VOLUME 86.4 fl (80-96); MEAN PLT VOLUME 10.1 fl (7.5-11.1); MONO % 7.5 % (3.8-10.2); NEUT % 59.7 % (42.8-82.8); PLATELET COUNT 94 10^3/uL (134-434); RBC 4.61 M/mm3 (4.00-5.60); WHITE BLOOD COUNT 7.8 K/mm3 (4.0-10.0)
[2021-07-31] MEDS ORDERED: POTASSIUM CHLORIDE TABS 20 MEQ TABLET.ER (FP) PO ONE ×2 (04:10→04:24)
[2021-07-31 04:11] LABS: BLOOD UREA NITROGEN 15.3 mg/dL (7-18); CALCIUM 8.1 mg/dL (8.5-10.1)
[2021-07-31 04:12] LABS: ALBUMIN 3.5 g/dl (3.4-5.0)
[2021-07-31 04:14] LABS: CREATININE 0.7 mg/dL (0.55-1.3)
[2021-07-31 04:16] LABS: BILIRUBIN,TOTAL 0.7 mg/dL (0.2-1)
[2021-07-31] MEDS ORDERED: NITROGLYCERIN SUBLINGUAL 1/150 0.4 MG TAB SL ONE (04:18)
[2021-07-31] MEDS: KCL 10 MEQ IVPB 10 MEQ/100 ML INFUS.BAG IVPB SCH ×2 (04:51→07:18)
[2021-07-31] MEDS ORDERED: KCL 10 MEQ IVPB 10 MEQ/100 ML INFUS.BAG IVPB ONE (07:09)
[2021-07-31] MEDS ORDERED: LABETALOL HCL 5 MG/1 ML (100MG/20 ML VIAL) IVPUSH ONE (08:41)
[2021-07-31] MEDS ORDERED: NITROGLYCERIN SUBLINGUAL 1/150 0.4 MG TAB SL PRN (08:50)
[2021-07-31] MEDS ORDERED: ACETAMINOPHEN 325 MG TABLET (FP) PO PRN (09:24)
[2021-07-31] MEDS ORDERED: ISOSORBIDE MONONITRATE 60 MG TAB.SR.24H (FP) PO ONE (09:38)
[2021-07-31] MEDS ORDERED: ASPIRIN 81 MG CHEWABLE TABLETS ONE (09:38)
[2021-07-31] MEDS ORDERED: PANTOPRAZOLE 40 MG TABLET ONE (09:38)
[2021-07-31] MEDS ORDERED: HEPARIN NA (PORCINE) 5,000 UNITS/ML 1ML VIAL ONE ×2 (09:39→14:19)
[2021-07-31] MEDS ORDERED: LOSARTAN POTASSIUM 50 MG TABLET ONE (09:39)
[2021-07-31] MEDS ORDERED: metoPROLOL SUCCINATE 25 MG TAB.SR.24H (FP) ONE (09:39)
[2021-07-31] MEDS ORDERED: LIDOCAINE 5% TOPICAL PATCH TP ONE (09:45)
[2021-07-31] MEDS ORDERED: LIDOCAINE 5% TOPICAL PATCH ONE (09:48)
[2021-07-31] MEDS: ASPIRIN 81 MG CHEWABLE TABLETS PO SCH (09:55)
[2021-07-31] MEDS: PANTOPRAZOLE 40 MG TABLET PO SCH (09:55)
[2021-07-31] MEDS: ISOSORBIDE MONONITRATE 30 MG TAB.SR.24H (FP) PO SCH (09:55)
[2021-07-31] MEDS: HEPARIN NA (PORCINE) 5,000 UNITS/ML 1ML VIAL SQ SCH ×2 (09:55→14:49)
[2021-07-31] MEDS ORDERED: ASPIRIN 325 MG TABLET PO SCH (10:00)
[2021-07-31] MEDS ORDERED: amLODIPine BESYLATE 2.5 MG TABLET (FP) PO SCH (10:00)
[2021-07-31] MEDS ORDERED: amLODIPine BESYLATE 5 MG TABLET (FP) ONE (10:28)
[2021-07-31] MEDS: FINASTERIDE 5 MG TABLET (FP) PO SCH (10:36)
[2021-07-31] MEDS: amLODIPine BESYLATE 5 MG TABLET (FP) PO SCH (10:36)
[2021-07-31] MEDS: LOSARTAN POTASSIUM 50 MG TABLET PO SCH (10:36)
[2021-07-31] MEDS: metoPROLOL SUCCINATE 25 MG TAB.SR.24H (FP) PO SCH (10:36)
[2021-07-31] MEDS ORDERED: ACETAMINOPHEN 325 MG TABLET (FP) ONE (12:07)
[2021-07-31] MEDS ORDERED: clonazePAM 0.25 MG ODT TABLETS SL ONE ×2 (12:52→17:52)
[2021-07-31] MEDS: clonazePAM 0.5 MG TABLET PO PRN ×2 (12:55→18:30)
[2021-07-31] MEDS ORDERED: LIDOCAINE PATCH REMOVAL MC ONE (22:00)
[2021-08-01] MEDS ORDERED: HEPARIN NA (PORCINE) 5,000 UNITS/ML 1ML VIAL ONE (00:32)
[2021-08-01] MEDS: prednisoLONE ACETATE 1% OPHTH SUSP 5 ML BOTTLE OU SCH ×3 (00:34→21:03)
[2021-08-01] MEDS: ROSUVASTATIN CA 20 MG TABLET PO SCH ×2 (00:34→21:05)
[2021-08-01] MEDS: HEPARIN NA (PORCINE) 5,000 UNITS/ML 1ML VIAL SQ SCH ×2 (00:34→21:06)
[2021-08-01] MEDS ORDERED: ASPIRIN 81 MG CHEWABLE TABLETS ONE (09:27)
[2021-08-01] MEDS ORDERED: amLODIPine BESYLATE 5 MG TABLET (FP) ONE (09:27)
[2021-08-01] MEDS ORDERED: LOSARTAN POTASSIUM 50 MG TABLET ONE (09:27)
[2021-08-01] MEDS: amLODIPine BESYLATE 5 MG TABLET (FP) PO SCH (09:50)
[2021-08-01] MEDS: ISOSORBIDE MONONITRATE 30 MG TAB.SR.24H (FP) PO SCH (09:50)
[2021-08-01] MEDS: LOSARTAN POTASSIUM 50 MG TABLET PO SCH (09:50)
[2021-08-01] MEDS: ASPIRIN 81 MG CHEWABLE TABLETS PO SCH (09:50)
[2021-08-01] MEDS: TAMSULOSIN HCL 0.4 MG CAP PO SCH (09:50)
[2021-08-01] MEDS: FINASTERIDE 5 MG TABLET (FP) PO SCH (09:50)
[2021-08-01] MEDS ORDERED: PANTOPRAZOLE 40 MG TABLET ONE (09:51)
[2021-08-01] MEDS: PANTOPRAZOLE 40 MG TABLET PO SCH (09:54)
[2021-08-01] MEDS: metoPROLOL SUCCINATE 25 MG TAB.SR.24H (FP) PO SCH (09:55)
[2021-08-01] MEDS ORDERED: amLODIPine BESYLATE 5 MG TABLET (FP) PO ONE (10:07)
[2021-08-01 12:47] LABS: BASO % 0.7 % (0-2.0); EOS % 2.5 % (0-4.5); HEMATOCRIT 41.3 % (35.4-49); HEMOGLOBIN 13.5 GM/dL (11.7-16.9); LYMPH % 30.3 % (8-40); MCH 28.7 pg (25.7-33.7); MCHC 32.7 g/dl (32.0-35.9); MEAN CELL VOLUME 87.8 fl (80-96); MONO % 7.7 % (3.8-10.2); NEUT % 58.8 % (42.8-82.8); PLATELET COUNT 100 10^3/uL (134-434); RDW 15.5 % (11.9-15.9); WHITE BLOOD COUNT 5.8 K/mm3 (4.0-10.0)
[2021-08-01] MEDS: POTASSIUM CHLORIDE TABS 20 MEQ TABLET.ER (FP) PO SCH ×2 (13:27→21:05)
[2021-08-01] MEDS ORDERED: POTASSIUM CHLORIDE TABS 20 MEQ TABLET.ER (FP) PO ONE (13:28)
[2021-08-01] MEDS: clonazePAM 0.5 MG TABLET PO PRN (21:05)
[2021-08-01 22:53] VITALS: BMI 27.9
[2021-08-02] MEDS: HEPARIN NA (PORCINE) 5,000 UNITS/ML 1ML VIAL SQ SCH ×2 (05:46→13:10)
[2021-08-02 07:31] LABS: HEMATOCRIT 40.2 % (35.4-49); HEMOGLOBIN 13.4 GM/dL (11.7-16.9); LYMPH % 37.7 % (8-40); MCH 29.3 pg (25.7-33.7); MCHC 33.4 g/dl (32.0-35.9); MEAN CELL VOLUME 87.9 fl (80-96); MEAN PLT VOLUME 9.9 fl (7.5-11.1); MONO % 8.6 % (3.8-10.2); NEUT % 49.3 % (42.8-82.8); PLATELET COUNT 95 10^3/uL (134-434); RBC 4.58 M/mm3 (4.00-5.60); RDW 15.3 % (11.9-15.9); WHITE BLOOD COUNT 5.8 K/mm3 (4.0-10.0)
[2021-08-02 07:32] LABS: BASO % 0.5 % (0-2.0); EOS % 3.9 % (0-4.5)
[2021-08-02 07:45] LABS: CALCIUM 7.9 mg/dL (8.5-10.1)
[2021-08-02 07:46] LABS: BLOOD UREA NITROGEN 18.1 mg/dL (7-18); MAGNESIUM 1.9 mg/dL (1.8-2.4)
[2021-08-02 07:49] LABS: PHOSPHOROUS 2.6 mg/dL (2.5-4.9)
[2021-08-02 08:05] LABS: CREATININE 0.8 mg/dL (0.55-1.3)
[2021-08-02] MEDS: LOSARTAN POTASSIUM 50 MG TABLET PO SCH ×2 (08:54→13:04)
[2021-08-02] MEDS: amLODIPine BESYLATE 10 MG TABLET (FP) PO SCH ×2 (08:54→13:04)
[2021-08-02] MEDS: ISOSORBIDE MONONITRATE 30 MG TAB.SR.24H (FP) PO SCH ×2 (08:54→13:04)
[2021-08-02] MEDS ORDERED: REGADENOSON 0.4 MG/5 ML PRE-FILLED SYRINGE IVPUSH ONE ×2 (09:45→10:22)
[2021-08-02] MEDS: FINASTERIDE 5 MG TABLET (FP) PO SCH (13:03)
[2021-08-02] MEDS: TAMSULOSIN HCL 0.4 MG CAP PO SCH (13:03)
[2021-08-02] MEDS: PANTOPRAZOLE 40 MG TABLET PO SCH (13:03)
[2021-08-02] MEDS: ASPIRIN 81 MG CHEWABLE TABLETS PO SCH (13:03)
[2021-08-02] MEDS: POTASSIUM CHLORIDE TABS 20 MEQ TABLET.ER (FP) PO SCH (13:03)
[2021-08-02] MEDS: metoPROLOL SUCCINATE 25 MG TAB.SR.24H (FP) PO SCH (13:04)
[2021-08-02] MEDS: prednisoLONE ACETATE 1% OPHTH SUSP 5 ML BOTTLE OU SCH (13:07)
[2021-08-02 13:49] VITALS: BP 142/71; PULSE 65; TEMP 97.5
== END 2021-08-02 17:31 | disposition home or self-care (01) ==
LOC: JER 01:10 → JERBED 04:41 → UNDOADMOB 04:41 → OBSVTOIN 08:50 → INTOOBSV 08:50 → UNDOADMOB 08-01 12:36 → JERBED 08-01 12:36 → J4W 08-01 19:01
PROVIDERS: ATTEND Internal Medicine
PROC: 3E023GC Introduction of Other Therapeutic Substance into Muscle, Percutaneous Approach (ICD-10-PCS; principal; 2021-07-31)
PROC: 3E033GC Introduction of Other Therapeutic Substance into Peripheral Vein, Percutaneous Approach (ICD-10-PCS; 2021-07-31)
DX: I25.110 Atherosclerotic heart disease of native coronary artery with unstable angina pectoris (principal); I11.0 Hypertensive heart disease with heart failure; I50.30 Unspecified diastolic (congestive) heart failure; E78.5 Hyperlipidemia, unspecified; N40.0 Benign prostatic hyperplasia without lower urinary tract symptoms; Z95.5 Presence of coronary angioplasty implant and graft; K21.9 Gastro-esophageal reflux disease without esophagitis; F41.9 Anxiety disorder, unspecified; I25.2 Old myocardial infarction; G47.30 Sleep apnea, unspecified; R00.1 Bradycardia, unspecified; J18.9 Pneumonia, unspecified organism; I16.9 Hypertensive crisis, unspecified; R07.9 Chest pain, unspecified; Z85.51 Personal history of malignant neoplasm of bladder
CPT/HCPCS: 36415; 71045-TC-FY; 78452-TC; 80048; 80053; 82728; 83540; 83550; 83735; 84100; 84484; 85025; 93005; 93010; 93017; 96365; 96372; 96375; 97116-GP; 97161-GP; 99285-25; A9502; C9803; G0378; J1644; J2785; U0003; U0005

== ENCOUNTER 2022-02-16 09:26 | Day surgery (SDC) | payer OTHER ==
[2022-02-15 15:27] VITALS: BMI 28.7
[2022-02-16 10:22] VITALS: RESP 20; TEMP 97.8
[2022-02-16 12:11] VITALS: BP 124/72; PULSE 66
== END 2022-02-16 12:00 | disposition home or self-care (01) ==
LOC: FASU-ENDO 09:26
PROVIDERS: ATTEND Internal Medicine Gastroenterology
PROC: 0DBP8ZX Excision of Rectum, Via Natural or Artificial Opening Endoscopic, Diagnostic (ICD-10-PCS; 2022-02-16)
PROC: 0DBN8ZX Excision of Sigmoid Colon, Via Natural or Artificial Opening Endoscopic, Diagnostic (ICD-10-PCS; 2022-02-16)
PROC: 0DB98ZX Excision of Duodenum, Via Natural or Artificial Opening Endoscopic, Diagnostic (ICD-10-PCS; 2022-02-16)
PROC: 0DB78ZX Excision of Stomach, Pylorus, Via Natural or Artificial Opening Endoscopic, Diagnostic (ICD-10-PCS; 2022-02-16)
PROC: 3E0H8KZ Introduction of Other Diagnostic Substance into Lower GI, Via Natural or Artificial Opening Endoscopic (ICD-10-PCS; 2022-02-16)
PROC: 0DBL8ZX Excision of Transverse Colon, Via Natural or Artificial Opening Endoscopic, Diagnostic (ICD-10-PCS; principal; 2022-02-16 10:34)
DX: C19 Malignant neoplasm of rectosigmoid junction (principal); D12.3 Benign neoplasm of transverse colon; K29.50 Unspecified chronic gastritis without bleeding
CPT/HCPCS: 88305-TC; 88342-TC

== ENCOUNTER 2022-02-21 08:09 | Emergency (ER) | payer OTHER ==
[2022-02-21 08:25] VITALS: RESP 18; TEMP 97.3; BMI 28.8
[2022-02-21] MEDS ORDERED: morphine SULFATE 4 MG/ML VIAL ONE (08:43)
[2022-02-21] MEDS ORDERED: ONDANSETRON 4 MG/2 ML VIAL ONE (08:49)
[2022-02-21] MEDS ORDERED: ONDANSETRON 4 MG/2 ML VIAL IVPUSH ONE (08:51)
[2022-02-21] MEDS ORDERED: LACTATED RINGERS SOLUTION 1000 ML INFUS.BAG IV ONE ×2 (08:53→10:33)
[2022-02-21] MEDS ORDERED: morphine CARPU-JECT 4 MG/1 ML DISP.SYRIN IVPUSH ONE (08:53)
[2022-02-21 09:46] LABS: BASO % 0.3 % (0-2.0); EOS % 1.3 % (0-4.5); HEMATOCRIT 30.1 % (35.4-49); HEMOGLOBIN 9.9 GM/dL (11.7-16.9); LYMPH % 15.9 % (8-40); MCH 23.7 pg (25.7-33.7); MCHC 32.8 g/dl (32.0-35.9); MEAN CELL VOLUME 72.3 fl (80-96); MEAN PLT VOLUME 9.7 fl (7.5-11.1); MONO % 1.7 % (3.8-10.2); NEUT % 80.8 % (42.8-82.8); PLATELET COUNT 121 10^3/uL (134-434); RBC 4.17 M/mm3 (4.00-5.60); RDW 22.1 % (11.9-15.9); WHITE BLOOD COUNT 9.8 K/mm3 (4.0-10.0)
[2022-02-21 09:48] LABS: VENOUS BASE EXCESS 0.4 mmol/L (-2-2); VENOUS O2 SATURATION 96.1 % (70-80); VENOUS PCO2 40.4 mmHg (38-52); VENOUS PH 7.41 (7.310-7.410)
[2022-02-21 09:51] VITALS: BP 166/82; PULSE 73
[2022-02-21 10:10] LABS: ALBUMIN 3.3 g/dl (3.4-5.0); CALCIUM 8.7 mg/dL (8.5-10.1)
[2022-02-21 10:11] LABS: BLOOD UREA NITROGEN 14.4 mg/dL (7-18)
[2022-02-21 10:13] LABS: CREATININE 0.9 mg/dL (0.55-1.3)
[2022-02-21 10:14] LABS: PHOSPHOROUS 3.6 mg/dL (2.5-4.9)
[2022-02-21 10:15] LABS: BILIRUBIN,TOTAL 0.6 mg/dL (0.2-1); TOT PROT 7.3 g/dl (6.4-8.2)
[2022-02-21 10:22] LABS: LACTIC ACID 3.5 mmol/L (0.4-2.0)
[2022-02-21 10:41] LABS: ANISOCYTOSIS 2+; MACROCYTOSIS 0; TEAR DROP CELLS 1+
[2022-02-21 11:37] LABS: HEMATOCRIT 32.3 % (35.4-49); HEMOGLOBIN 10.1 GM/dL (11.7-16.9); MCHC 31.2 g/dl (32.0-35.9); MEAN CELL VOLUME 73.8 fl (80-96); RBC 4.37 M/mm3 (4.00-5.60); RDW 22.4 % (11.9-15.9); WHITE BLOOD COUNT 12.4 K/mm3 (4.0-10.0)
[2022-02-21 11:38] LABS: BASO % 0.2 % (0-2.0); EOS % 0.1 % (0-4.5); LYMPH % 7.3 % (8-40); MEAN PLT VOLUME 9.8 fl (7.5-11.1); MONO % 5.6 % (3.8-10.2); NEUT % 86.8 % (42.8-82.8); PLATELET COUNT 122 10^3/uL (134-434)
[2022-02-21] MEDS ORDERED: POTASSIUM CHLORIDE TABS 20 MEQ TABLET.ER (FP) PO ONE ×2 (11:53→12:04)
[2022-02-21 11:55] LABS: CALCIUM 8.6 mg/dL (8.5-10.1)
[2022-02-21 11:56] LABS: ALBUMIN 3.2 g/dl (3.4-5.0); BLOOD UREA NITROGEN 13.4 mg/dL (7-18)
[2022-02-21] MEDS ORDERED: MAGNESIUM OXIDE 400 MG TABLET (FP) PO ONE (11:56)
[2022-02-21 11:59] LABS: CREATININE 0.8 mg/dL (0.55-1.3)
[2022-02-21 12:00] LABS: BILIRUBIN,TOTAL 0.8 mg/dL (0.2-1); TOT PROT 7.2 g/dl (6.4-8.2)
[2022-02-21 12:09] LABS: LACTIC ACID 3.5 mmol/L (0.4-2.0)
[2022-02-21] MEDS ORDERED: MAGNESIUM OXIDE 400 MG TABLET (FP) ONE (12:09)
== END 2022-02-21 14:57 | disposition home or self-care (01) ==
LOC: JER 08:09
PROC: 3E033NZ Introduction of Analgesics, Hypnotics, Sedatives into Peripheral Vein, Percutaneous Approach (ICD-10-PCS; principal; 2022-02-21)
PROC: 3E033GC Introduction of Other Therapeutic Substance into Peripheral Vein, Percutaneous Approach (ICD-10-PCS; 2022-02-21)
DX: E87.6 Hypokalemia (principal); R10.84 Generalized abdominal pain; Z85.038 Personal history of other malignant neoplasm of large intestine
CPT/HCPCS: 36415; 74019-TC-FY; 74174-TC; 80053; 82272; 82803; 82962; 83605; 83690; 83735; 84100; 84484; 85025; 93005; 93010; 99285-25; Q9967

== ENCOUNTER 2022-06-28 17:34 | Observation (INO) | payer OTHER ==
[2022-06-28 19:15] LABS: EPI CELLS 2 /uL (0-25.1); HYALINE CASTS 0 /uL (0-3.1); PH,URINE 7.5 (5.0-8.0); URINE APPEARANCE CLEAR; URINE BACTERIA 15 /uL (0-1359); URINE BILIRUBIN NEGATIVE (NEGATIVE); URINE COLOR YELLOW; URINE GLUCOSE (UA) NEGATIVE (NEGATIVE); URINE KETONE NEGATIVE (NEGATIVE); URINE LEUK ESTERASE NEGATIVE (NEGATIVE); URINE NITRITE NEGATIVE (NEGATIVE); URINE PROTEIN NEGATIVE (NEGATIVE); URINE RBC 30 /uL (0-23.9); URINE UROBILINOGEN 0.2 mg/dL (0.2-1.0); URINE WBC 4 /uL (0-25.8)
[2022-06-28 19:17] LABS: HEMATOCRIT 34.1 % (35.4-49); HEMOGLOBIN 10.5 GM/dL (11.7-16.9); MCH 25.5 pg (25.7-33.7); MCHC 30.9 g/dl (32.0-35.9); MEAN CELL VOLUME 82.6 fl (80-96); MEAN PLT VOLUME 8.4 fl (7.5-11.1); PLATELET COUNT 116 10^3/uL (134-434); RBC 4.13 M/mm3 (4.00-5.60); RDW 22.4 % (11.9-15.9); WHITE BLOOD COUNT 12.1 K/mm3 (4.0-10.0)
[2022-06-28 19:37] LABS: CALCIUM 7.8 mg/dL (8.5-10.1)
[2022-06-28 19:39] LABS: ALBUMIN 2.7 g/dl (3.4-5.0); BLOOD UREA NITROGEN 14.3 mg/dL (7-18)
[2022-06-28 19:40] LABS: CREATININE 0.7 mg/dL (0.55-1.3)
[2022-06-28 19:42] LABS: TOT PROT 6.7 g/dl (6.4-8.2)
[2022-06-28 19:46] LABS: N-TERMINAL BNP 1514.2 pg/ml (5-450)
[2022-06-28 19:47] LABS: BILIRUBIN,TOTAL 0.4 mg/dL (0.2-1)
[2022-06-28 21:44] LABS: ANISOCYTOSIS 2+; MACROCYTOSIS 0; OVALOCYTE 1+
[2022-06-28] MEDS ORDERED: hydrALAZINE HCL 20 MG/ML VIAL IVPUSH ONE (22:12)
[2022-06-28] MEDS ORDERED: hydrALAZINE HCL 20 MG/ML VIAL ONE (22:44)
[2022-06-28] MEDS ORDERED: APIXABAN 5 MG TABLET ONE (22:45)
[2022-06-28] MEDS: APIXABAN 5 MG TABLET PO SCH (22:50)
[2022-06-28] MEDS ORDERED: HYDROCORTISONE 0.5% TOPICAL CREAM 30 GM TUBE TP PRN (22:52)
[2022-06-28 22:59] LABS: CALCIUM 7.8 mg/dL (8.5-10.1)
[2022-06-28 23:00] LABS: BLOOD UREA NITROGEN 11.1 mg/dL (7-18)
[2022-06-28 23:03] LABS: CREATININE 0.7 mg/dL (0.55-1.3)
[2022-06-29] MEDS ORDERED: MELATONIN 5 MG TABLETS PO SCH (00:15)
[2022-06-29 01:24] VITALS: RESP 20; BMI 28.0
[2022-06-29] MEDS ORDERED: NITROGLYCERIN SUBLINGUAL 1/150 0.4 MG TAB SL ONE (02:17)
[2022-06-29 08:40] LABS: HEMATOCRIT 37.5 % (35.4-49); HEMOGLOBIN 11.8 GM/dL (11.7-16.9); MCH 25.9 pg (25.7-33.7); MCHC 31.5 g/dl (32.0-35.9); MEAN CELL VOLUME 82.3 fl (80-96); MEAN PLT VOLUME 8.9 fl (7.5-11.1); PLATELET COUNT 140 10^3/uL (134-434); RBC 4.56 M/mm3 (4.00-5.60); RDW 22.3 % (11.9-15.9); WHITE BLOOD COUNT 12.5 K/mm3 (4.0-10.0)
[2022-06-29 09:02] LABS: ALBUMIN 2.9 g/dl (3.4-5.0); BLOOD UREA NITROGEN 8.8 mg/dL (7-18); CALCIUM 8.1 mg/dL (8.5-10.1); MAGNESIUM 1.4 mg/dL (1.8-2.4)
[2022-06-29 09:04] LABS: CREATININE 0.6 mg/dL (0.55-1.3); PHOSPHOROUS 2.5 mg/dL (2.5-4.9)
[2022-06-29 09:06] LABS: BILIRUBIN,TOTAL 0.6 mg/dL (0.2-1)
[2022-06-29 09:44] LABS: ANISOCYTOSIS 1+; MACROCYTOSIS 1+
[2022-06-29] MEDS ORDERED: FINASTERIDE 5 MG TABLET (FP) PO SCH (10:00)
[2022-06-29] MEDS ORDERED: LOSARTAN POTASSIUM 50 MG TABLET PO SCH (10:00)
[2022-06-29] MEDS ORDERED: AZITHROMYCIN IVPB 500 MG in DEXTROSE 5%-WATER - 250 ML IVPB SCH (10:00)
[2022-06-29] MEDS ORDERED: CEFTRIAXONE 1 GM in DEXTROSE 5%-WATER - 50 ML IVPB SCH (10:00)
[2022-06-29] MEDS ORDERED: PANTOPRAZOLE 40 MG TABLET PO SCH (10:00)
[2022-06-29] MEDS ORDERED: IRBESARTAN 300 MG PO SCH (10:00)
[2022-06-29] MEDS ORDERED: ISOSORBIDE MONONITRATE 30 MG TAB.SR.24H (FP) PO SCH (10:00)
[2022-06-29] MEDS: APIXABAN 5 MG TABLET PO SCH (10:08)
[2022-06-29 10:10] VITALS: BP 131/67; PULSE 67; TEMP 98.9
[2022-06-29] MEDS ORDERED: TAMSULOSIN HCL 0.4 MG CAP PO SCH (22:00)
[2022-06-29] MEDS ORDERED: ROSUVASTATIN CA 20 MG TABLET PO SCH (22:00)
== END 2022-06-29 10:33 | disposition home or self-care (01) ==
LOC: JER 17:34 → OBSVTOIN 19:57 → JERBED 19:57 → INTOOBSV 19:57 → UNDOADMOB 19:57 → JERBED 21:57 → J4W 23:52
PROVIDERS: ADMIT Internal Medicine; ATTEND Internal Medicine
PROC: 3E033GC Introduction of Other Therapeutic Substance into Peripheral Vein, Percutaneous Approach (ICD-10-PCS; principal; 2022-06-28)
DX: I25.10 Atherosclerotic heart disease of native coronary artery without angina pectoris (principal); E78.5 Hyperlipidemia, unspecified; I11.0 Hypertensive heart disease with heart failure; Z86.711 Personal history of pulmonary embolism; Z79.01 Long term (current) use of anticoagulants; Z87.891 Personal history of nicotine dependence; Z85.51 Personal history of malignant neoplasm of bladder; N40.0 Benign prostatic hyperplasia without lower urinary tract symptoms; Z85.038 Personal history of other malignant neoplasm of large intestine; Z85.05 Personal history of malignant neoplasm of liver
CPT/HCPCS: 0241U-QW; 36415; 71046-TC-FY; 80048; 80053; 81003; 82550; 83690; 83735; 83880; 84100; 84484; 85025; 93005; 93010; 96374; 99285-25; G0378